=== PATIENT | female | born 1955 | race Caucasian/White ===

== ENCOUNTER → 2020-10-18 12:33 | Outpatient (BNVA) | payer MEDICAID, SELFPAY | PROVIDERS: PCP Internal Medicine; Visit Provider Physician Assistant ==

== ENCOUNTER 2020-11-12 10:44 | Inpatient (IN) | payer MEDICAID, SELFPAY ==
[2020-11-12] VITALS (8 sets, daily range): BP systolic 102–140; BP diastolic 57–88; PULSE 53–80; RESP 13–16; TEMP 36.2–36.9; O2SAT 94–97; BMI 34.9
--- NOTE | ~2020-11-12 | XR_ITS ---
EXAMINATION: XR CHEST CLINICAL INFORMATION: Syncope. COMPARISON: 08/29/10. TECHNIQUE: Frontal view of the chest was obtained. FINDINGS: The lungs are hypoexpanded but clear. No focal consolidation is evident. There is no pulmonary edema. The heart and mediastinal structures are unremarkable. No bony abnormality is seen. XR/XR chest 1V IMPRESSION: Low lung volumes. No abnormality demonstrated.
--- NOTE | ~2020-11-12 | CT_ITS ---
EXAMINATION: CT HEAD WITHOUT CONTRAST CLINICAL INFORMATION: Syncope. COMPARISON: No priors. TECHNIQUE: Contiguous axial imaging was performed from the skull base to vertex without intravenous administration of contrast. This CT examination was performed using dose optimization techniques as appropriate, variously including the following: *Automated exposure control *Adjustment of mA and/or kV according to patient size (this includes techniques or standardized protocols for targeted exams where dose is matched to indication/reason for exam; i.e. extremities or head) *Use of iterative reconstruction technique DLP: 620 mGy-cm FINDINGS: There is no visible soft tissue trauma or skull fracture. There is no acute intracranial hemorrhage, midline shift, mass effect, intra- or extra-axial fluid collection. Fa[place]-white matter differentiation is preserved. The ventricles and sulci are unremarkable. The basal cisterns are patent. The orbital contents are unremarkable bilaterally. Visualized paranasal sinuses and mastoid air cells are clear. CT/CT head/brain wo con IMPRESSION: No acute intracranial pathology.
[2020-11-12 10:52] LABS: Glucose, Whole Blood 98 mg/dL (60-115)
--- NOTE | 2020-11-12 10:54 | ECG_ITS ---
Test Reason : SYNCOPE Blood Pressure : / mmHG Vent. Rate : 053 BPM Atrial Rate : 053 BPM P-R Int : 144 ms QRS Dur : 082 ms QT Int : 474 ms P-R-T Axes : 032 007 038 degrees QTc Int : 444 ms Sinus bradycardia Otherwise normal ECG No significant changes when compared with the previous EKG of 29 aug 2010 Referred By: Choco Bean Electronically Signed By:SANJANA PEREZ
--- NOTE | 2020-11-12 10:55 | ED.SYNCOPE ---
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 65-year-old female came in by ambulance, patient in the morning went out for cigarettes then family found her unresponsive patient claims that she passed out after she smoked a cigarette, family called 911 patient was transported via EMS to the hospital, on arrival to the hospital patient is awake, oriented, responds appropriately to examiner, able to provide history, that patient lost consciousness after she smoked cigarette and vaguely remember going to the ambulance. Patient has been complaining of toothache patient was taking course of antibiotic for it, grandson offer her pain killer pill (none prescribed Percocet). Patient stated that she lost consciousness 1 time yesterday too, patient otherwise declined chest pain, no headache, no neck pain, no abdominal pain. Related Data Home Medications Medication Instructions Recorded Confirmed lisinopril 5 mg tablet 5 mg PO DAILY 10/18/20 10/18/20 atorvastatin 40 mg PO BEDTIME 11/12/20 cholecalciferol (vitamin D3) 50 mcg PO DAILY 11/12/20 levothyroxine 175 mcg PO DAILY 11/12/20 methylcellulose (laxative) [Fiber 500 mg PO BID 11/12/20 Therapy (m-cellulose)] Allergies Allergy/AdvReac Type Severity Reaction Status Date / Time No Known Allergies Allergy Verified 10/18/20 12:34 [No Known Allergies*] Review of Systems Review of Systems: All other systems are reviewed and are negative Constitutional: Reports as per HPI and Reports no additional constitutional complaints Eyes: Reports as per HPI and Reports no additional eye complaints Reports system reviewed and no additional complaints, except as documented Cardiovascular: Reports as per HPI and Reports no additional cardiovascular complaints Respiratory: Reports as per HPI and Reports no additional respiratory complaints Gastrointestinal: Reports as per HPI and Reports no additional gastrointestinal complaints Genitourinary: Reports no additional female genitourinary complaints Musculoskeletal: Reports no additional musculoskeletal complaints Skin/Breast: Reports system reviewed and no additional complaints, except as docu Psychiatric: Reports no additional psychiatric complaints Endocrine: Reports no additional endocrine complaints Hematologic/Lymphatic: Reports no additional hematologic/lymphatic complaints Allergic/Immunologic: Reports no additional allergic/immunologic complaints Reports system reviewed and no additional complaints, except as documented and Reports Abnormal speech present [facility] Past Medical History Medical History Foot contusion Family History Family History Unknown Family history of colon cancer Social History Social History Household Members: Children Alcohol intake: never Smoking Status: Never smoker Advance Directives: No Advance Directives Information Provided: Yes Current occupational status: disabled Physical Exam Vital Signs: Vital Signs: Last Vital Signs Temp 98.1 F 11/12/20 10:54 Pulse 53 11/12/20 10:54 Resp 13 11/12/20 10:54 BP 134/78 11/12/20 10:54 Pulse Ox 96 11/12/20 10:54 Body Mass Index 34.9 Vital signs have been reviewed as appeared to be correct. Blood pressure normal. Heart rate normal. Respiration rate normal. Temperature normal. Oxygen saturation normal. Appearance: Alert. Oriented X3. No acute distress. Head: Normal external exam. Normocephalic. Atraumatic. No Cruz signs noted. No raccoon eyes noted Eyes: PERRLA. EOMI. Conjunctiva and sclera normal. Eyelids normal. ENT: TM's Normal. Pharynx normal. Uvula midline. Moist mucous membranes. No trismus noted. No drooling noted. No muffled voice noted. Neck: Normal inspection. Neck supple. FROM. No adenopathy. Thyroid Normal. No meningeal signs. No neck mass noted. CVS: Normal heart rate and rhythm. Heart sound normal. No murmurs noted. Pulses normal throughout. Respiratory: No respiratory distress. Painless inspiration. Breath sounds normal. No wheezes/rales/rhonchi noted. Chest nontender. No accessory muscle usage noted or decreased air movement noted. Abdomen: Soft and nontender. Bowel sounds normal in all 4 quadrants. No distention noted. No organomegaly noted. No visible injury noted. Back: No CVA tenderness. Full range of motion noted. Skin: Skin warm and dry. Normal skin color. Normal skin turgor. No rashes/lesions/lacerations noted. Extremities: No lower extremity edema. Extremities exhibit normal range of motion. Extremities nontender. Neuro: Oriented X 3. No motor deficit. No sensory deficit. Reflexes normal. NIH Stroke Scale Level of Consciousness: Alert Level of Consciousness Questions: Answers both questions correctly Level of Consciousness Commands: Performs both tasks correctly Best Gaze: Normal Visual: No visual loss Facial Palsy: Normal Motor Arm (Right): No drift Motor Arm (Left): No drift Motor Leg (Right): No drift Motor Leg (Left): No drift Limb Ataxia: Absent Sensory: Normal Best Language: No aphasia Dysarthia: Normal Extinction and Inattention: No abnormality Score: 0 Course Course Course Narrative: Assessment and plan. 65-year-old female been having toothache/tooth infection, patient was seen by a dentist and was prescribed antibiotic course, patient was offered by her grandson a [place] medicine to control her pain, patient also took pain medication from her sister thought to be tramadol, the patient had some dizziness and lightheadedness and loss of consciousness. Will admit patient for observation, cardiac monitoring. MDM - Syncope Lab Data Attestation: I reviewed the patient's lab results. Result diagrams: 11/12/20 10:59 11/12/20 10:59 Labs: Lab Results 11/12/20 11/12/20 11/12/20 Range/Units 10:48 10:59 10:59 WBC 7.0 (4.8-10.8) X10*3/uL RBC 4.29 (4.20-5.50) X10*6/uL Hgb 13.2 (12.0-16.0) g/dl Hct 42.2 (37-47) % MCV 98.4 H (80-98) fL MCH 30.8 (27.0-33.0) pg MCHC 31.3 (31.0-35.0) g/dl RDW 14.7 (11.0-16.0) % Plt Count 316 (160-400) X10*3/uL MPV 12.5 H (9.4-12.3) fL Immature Gran % (Auto) 0.7 H (0.0-0.4) % Neut % (Auto) 68.0 (45-73) % Lymph % (Auto) 20.3 (20-40) % [place] % (Auto) 8.7 (2-11) % Eos % (Auto) 1.4 (0-4) % Baso % (Auto) 0.9 (0-2) % Lymph # (Auto) 1.4 (1.2-4.9) X10*3/uL [place] # (Auto) 0.6 (0.1-1.2) X10*3/uL Eos # (Auto) 0.1 (0.0-0.4) X10*3/uL Baso # (Auto) 0.1 (0.0-0.2) X10*3/uL Abs Immat Gran (auto) 0.05 H (0.00-0.03) X10*3/uL Absolute Neuts (auto) 4.8 (2.0-8.3) X10*3/uL Absolute Nucleated RBC 0.000 (0.0-0.012) X10*3/uL Nucleated RBC % (auto) 0.0 (0.0-0.2) /100WBC Sodium 138 (135-145) mmol/L Potassium 4.4 (3.3-5.1) mmol/L Chloride 100 (96-108) mmol/L Carbon Dioxide 27 (22-29) mmol/L Anion Gap 15 (12-20) BUN 19 H (9-16) mg/dL Creatinine 1.24 (0.5-1.4) mg/dL Estim Creat Clear Calc 46.8 Estimated GFR 44 POC Glucose 98 (60-115) mg/dL Random Glucose 141 H (60-115) mg/dL Calcium 9.1 (8.4-10.2) mg/dL Total Bilirubin 0.4 (0.0-1.0) mg/dL Direct Bilirubin < 0.2 (0.0-0.5) mg/dL AST 26 (5-31) U/L ALT 20 (0-31) U/L Alkaline Phosphatase 53 (39-117) U/L Troponin I High Sens (<3.5-17.0) ng/L B-Natriuretic Peptide (<100) pg/mL Total Protein 8.9 H (6.5-8.0) g/dL Albumin 4.5 (3.5-5.0) g/dL Lipase 36 (8-78) U/L COVID-19 ([facility]) (Negative) COVID-19 Clin Com 11/12/20 11/12/20 Range/Units 10:59 10:59 WBC (4.8-10.8) X10*3/uL RBC (4.20-5.50) X10*6/uL Hgb (12.0-16.0) g/dl Hct (37-47) % MCV (80-98) fL MCH (27.0-33.0) pg MCHC (31.0-35.0) g/dl RDW (11.0-16.0) % Plt Count (160-400) X10*3/uL MPV (9.4-12.3) fL Immature Gran % (Auto) (0.0-0.4) % Neut % (Auto) (45-73) % Lymph % (Auto) (20-40) % [place] % (Auto) (2-11) % Eos % (Auto) (0-4) % Baso % (Auto) (0-2) % Lymph # (Auto) (1.2-4.9) X10*3/uL [place] # (Auto) (0.1-1.2) X10*3/uL Eos # (Auto) (0.0-0.4) X10*3/uL Baso # (Auto) (0.0-0.2) X10*3/uL Abs Immat Gran (auto) (0.00-0.03) X10*3/uL Absolute Neuts (auto) (2.0-8.3) X10*3/uL Absolute Nucleated RBC (0.0-0.012) X10*3/uL Nucleated RBC % (auto) (0.0-0.2) /100WBC Sodium (135-145) mmol/L Potassium (3.3-5.1) mmol/L Chloride (96-108) mmol/L Carbon Dioxide (22-29) mmol/L Anion Gap (12-20) BUN (9-16) mg/dL Creatinine (0.5-1.4) mg/dL Estim Creat Clear Calc Estimated GFR POC Glucose (60-115) mg/dL Random Glucose (60-115) mg/dL Calcium (8.4-10.2) mg/dL Total Bilirubin (0.0-1.0) mg/dL Direct Bilirubin (0.0-0.5) mg/dL AST (5-31) U/L ALT (0-31) U/L Alkaline Phosphatase (39-117) U/L Troponin I High Sens < 3.5 (<3.5-17.0) ng/L B-Natriuretic Peptide 13 (<100) pg/mL Total Protein (6.5-8.0) g/dL Albumin (3.5-5.0) g/dL Lipase (8-78) U/L COVID-19 ([facility]) Negative (Negative) COVID-19 Clin Com See Note Imaging Data Chest x-ray: Radiologist's impression: Low lung volumes. No abnormality demonstrated. CT scan - head: Radiologist's impression: No acute intracranial pathology. ECG Data Interpretation: Sinus bradycardia at 53 beats per minutes, normal axis deviation, normal intervals, nonspecific T-wave flattening in leadIII, AVF, V4. Discharge Plan Discharge Clinical Impression: Syncope and collapse Patient Disposition: Admitted As Inpatient Prescriptions: No Action atorvastatin 40 mg tablet 40 mg PO BEDTIME RF: 0 levothyroxine 175 mcg tablet 175 mcg PO DAILY RF: 0 cholecalciferol (vitamin D3) 50 mcg (2,000 unit) capsule 50 mcg PO DAILY RF: 0 Fiber Therapy (m-cellulose) 500 mg tablet 500 mg PO BID RF: 0 lisinopril 5 mg tablet 5 mg PO DAILY RF: 0
[2020-11-12 11:03] LABS: MANUAL DIFF FLAG NO
[2020-11-12] MEDS: 0.9 % Sodium Chloride 1,000 ML 999 ML IVCONT (11:04)
[2020-11-12 11:11] LABS: Basophils Absolute Auto 0.1 X10*3/uL (0.0-0.2); Basophils Percent Auto 0.9 % (0-2); Eosinophils Absolute Auto 0.1 X10*3/uL (0.0-0.4); Eosinophils Percent Auto 1.4 % (0-4); Hematocrit 42.2 % (37-47); Hemoglobin 13.2 g/dl (12.0-16.0); Imm Gran Abs Auto 0.05 X10*3/uL (0.00-0.03); Imm Gran Pct Auto 0.7 % (0.0-0.4); Lymphocytes Absolute Auto 1.4 X10*3/uL (1.2-4.9); Lymphocytes Percent Auto 20.3 % (20-40); Mean Corpuscular HGB Conc 31.3 g/dl (31.0-35.0); Mean Corpuscular Hemoglobin 30.8 pg (27.0-33.0); Mean Corpuscular Volume 98.4 fL (80-98); Mean Platelet Volume 12.5 fL (9.4-12.3); Monocytes Absolute Auto 0.6 X10*3/uL (0.1-1.2); Monocytes Percent Auto 8.7 % (2-11); Neutrophils Absolute Auto 4.8 X10*3/uL (2.0-8.3); Platelet Count 316 X10*3/uL (160-400); Red Blood Count 4.29 X10*6/uL (4.20-5.50); Red Cell Distribution Width 14.7 % (11.0-16.0)
[2020-11-12 11:21] LABS: COVID-19 Test Negative (Negative); IDNOW Serial# 9DD0AD1C
[2020-11-12 11:28] LABS: Alanine Aminotransferase 20 U/L (0-31); Albumin Level 4.5 g/dL (3.5-5.0); Alkaline Phosphatase 53 U/L (39-117); Anion Gap 15 (12-20); Aspartate Amino Transferase 26 U/L (5-31); Bilirubin Direct < 0.2 mg/dL (0.0-0.5); Bilirubin Total 0.4 mg/dL (0.0-1.0); Blood Urea Nitrogen 19 mg/dL (9-16); Calcium 9.1 mg/dL (8.4-10.2); Carbon Dioxide 27 mmol/L (22-29); Chloride 100 mmol/L (96-108); Creatinine Clr Calc Pharmacy 46.8; Estimated Glomerular Filt Rate 44; Glucose Random 141 mg/dL (60-115); Lipase 36 U/L (8-78); Potassium 4.4 mmol/L (3.3-5.1); Sodium 138 mmol/L (135-145); Total Protein 8.9 g/dL (6.5-8.0)
[2020-11-12 11:29] LABS: B Type Natriuretic Peptide 13 pg/mL (<100); Troponin-I High Sensitivity < 3.5 ng/L (<3.5-17.0)
[2020-11-12 12:41] LABS: Glucose Urine UA NEG (NEG); Leukocyte Esterase Urine NEG (NEG); Nitrite Urine NEG (NEG); PH 6.5 (5.0-8.0); Specific Gravity - Urine 1.025 (1.005-1.025); Urine Blood NEG (NEG); Urine Ketones NEG (NEG); Urine Protein 1+ MG/DL (NEG-TRACE)
[2020-11-12 12:46] LABS: Appearance Urine CLEAR; Color Urine YELLOW
[2020-11-12 13:01] LABS: Bacteria Urine 1+ /LPF; Hyaline Casts Urine 0-2 /LPF; RBC Urine 0 /HPF (0); Squamous Epithelial Cell Urine 2+ /LPF; WBC Urine 0 /HPF (0-4)
[2020-11-12 13:09] LABS: Amphetamine Screen Urine Not Detected (Not Detect); Barbiturates, Urine Not Detected (Not Detect); Benzodiazepines Screen Urine Not Detected (Not Detect); Cannabinoid Screen Urine Not Detected (Not Detect); Cocaine Screen Urine Not Detected (Not Detect); Opiate Screen Urine Not Detected (Not Detect); Phencyclidine Screen Urine Not Detected (Not Detect)
--- NOTE | 2020-11-12 13:41 | P.HPHOSP_ITS ---
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 Apparently she had some dental procedure approximately 4 days ago and was in pain. One of her family members when out and bought [address] Unfortunately the family is unable to identify what the name the pills were but the patient did take them. She initially went outside early in the morning to smoke cigarette and felt dizzy. She went back inside and sometime later went back outside to have another cigarette and then collapsed. Apparently the patient did not have any trauma when she fell and did not hit her head. She was noted to have some swelling of her upper lip at the family reported that that started today unsure if that was related to the fall or something else. She had been treated with amoxicillin for a dental infection for 7 days in it appears that the treatment was completed. Patient's family denied that they saw any seizure activity. Patient was out for several minutes. In the ED, she was given 1 L of IV fluid. She will be placed on observation for management of syncope. Review of Systems Review of Systems: Denies any recent fever chills or decrease in appetite respiratory denies any shortness of breath coverage production cardiovascular is adjustment of any PND or edema gastrointestinal denies any dysphagia abdominal pain nausea vomiting or diarrhea genitourinary denies any dysuria frequency or hematuria musculoskeletal denies any joint pain or swelling neuropsych denies any weakness or seizures all other systems reviewed are negative [facility] Medical History Foot contusion Family History Unknown Family history of colon cancer Social History Household Members: Children Alcohol intake: never Smoking Status: Never smoker Advance Directives: No Advance Directives Information Provided: Yes Current occupational status: disabled Meds Allergies Allergy/AdvReac Type Severity Reaction Status Date / Time No Known Allergies Allergy Verified 10/18/20 12:34 [No Known Allergies*] Active Medications: Current Medications Generic Name Dose Route Start Last Admin Trade Name Freq PRN Reason Stop Dose Admin Pharmacy Consult 1 each 11/12/20 10:53 Consult Rx Perform Med Rec MISCELLANE ONCE PRN Consult order Home Medications Medication Instructions Recorded Confirmed Last Taken Type lisinopril 5 mg tablet 5 mg PO DAILY 10/18/20 11/12/20 Unknown History atorvastatin 40 mg PO BEDTIME 11/12/20 11/12/20 Unknown History cholecalciferol (vitamin D3) 50 mcg PO DAILY 11/12/20 11/12/20 Unknown History levothyroxine 175 mcg PO DAILY 11/12/20 11/12/20 Unknown History Physical Exam Vital Signs and Narrative: Vital Signs: Last Vital Signs Temp 98.1 F 11/12/20 10:54 Pulse 53 11/12/20 10:54 Resp 13 11/12/20 10:54 BP 134/78 11/12/20 10:54 Pulse Ox 96 11/12/20 10:54 Body Mass Index 34.9 Appearing in no acute distress head is normocephalic atraumatic eyes pupils are PERRLA sclera is anicteric mouth throat mucous membranes are intact and moist neck is supple no lymphadenopathy, no JVD noted lung sounds are clear to auscultation heart regular rate rhythm, clear S1, S2 positive bowel sounds, abdomen is soft, nontender neuro patient is alert x3, no focal deficits Results Labs CBC and Chem 7: 11/12/20 10:59 11/12/20 10:59 Labs: Laboratory Results - last 24 hr 11/12/20 11/12/20 11/12/20 10:48 10:59 10:59 MCV 98.4 H MCH 30.8 MCHC 31.3 RDW 14.7 Plt Count 316 MPV 12.5 H Immature Gran % (Auto) 0.7 H Neut % (Auto) 68.0 Lymph % (Auto) 20.3 [place] % (Auto) 8.7 Eos % (Auto) 1.4 Baso % (Auto) 0.9 Lymph # (Auto) 1.4 [place] # (Auto) 0.6 Eos # (Auto) 0.1 Baso # (Auto) 0.1 Abs Immat Gran (auto) 0.05 H Absolute Neuts (auto) 4.8 Absolute Nucleated RBC 0.000 Nucleated RBC % (auto) 0.0 Anion Gap 15 Estim Creat Clear Calc 46.8 Estimated GFR 44 POC Glucose 98 Random Glucose 141 H Calcium 9.1 Total Bilirubin 0.4 Direct Bilirubin < 0.2 AST 26 ALT 20 Alkaline Phosphatase 53 Troponin I High Sens B-Natriuretic Peptide Total Protein 8.9 H Albumin 4.5 Lipase 36 Urine Color Urine Appearance Urine pH Ur Specific [place] Urine Protein Urine Glucose (UA) Urine Ketones Urine Blood Urine Nitrite Ur Leukocyte Esterase Urine RBC Urine WBC Ur Squamous Epith Cells Urine Bacteria Hyaline Casts Urine Opiates Screen Ur Barbiturates Screen Ur Phencyclidine Scrn Ur Amphetamines Screen U Benzodiazepines Scrn Urine Cocaine Screen U Marijuana (THC) Screen COVID-19 ([facility]) COVID-19 Clin Com 11/12/20 11/12/20 11/12/20 10:59 10:59 12:25 MCV MCH MCHC RDW Plt Count MPV Immature Gran % (Auto) Neut % (Auto) Lymph % (Auto) [place] % (Auto) Eos % (Auto) Baso % (Auto) Lymph # (Auto) [place] # (Auto) Eos # (Auto) Baso # (Auto) Abs Immat Gran (auto) Absolute Neuts (auto) Absolute Nucleated RBC Nucleated RBC % (auto) Anion Gap Estim Creat Clear Calc Estimated GFR POC Glucose Random Glucose Calcium Total Bilirubin Direct Bilirubin AST ALT Alkaline Phosphatase Troponin I High Sens < 3.5 B-Natriuretic Peptide 13 Total Protein Albumin Lipase Urine Color YELLOW Urine Appearance CLEAR Urine pH 6.5 Ur Specific [place] 1.025 Urine Protein 1+ H Urine Glucose (UA) NEG Urine Ketones NEG Urine Blood NEG Urine Nitrite NEG Ur Leukocyte Esterase NEG Urine RBC 0 Urine WBC 0 Ur Squamous Epith Cells 2+ Urine Bacteria 1+ Hyaline Casts 0-2 Urine Opiates Screen Ur Barbiturates Screen Ur Phencyclidine Scrn Ur Amphetamines Screen U Benzodiazepines Scrn Urine Cocaine Screen U Marijuana (THC) Screen COVID-19 ([facility]) Negative COVID-19 Clin Com See Note 11/12/20 12:25 MCV MCH MCHC RDW Plt Count MPV Immature Gran % (Auto) Neut % (Auto) Lymph % (Auto) [place] % (Auto) Eos % (Auto) Baso % (Auto) Lymph # (Auto) [place] # (Auto) Eos # (Auto) Baso # (Auto) Abs Immat Gran (auto) Absolute Neuts (auto) Absolute Nucleated RBC Nucleated RBC % (auto) Anion Gap Estim Creat Clear Calc Estimated GFR POC Glucose Random Glucose Calcium Total Bilirubin Direct Bilirubin AST ALT Alkaline Phosphatase Troponin I High Sens B-Natriuretic Peptide Total Protein Albumin Lipase Urine Color Urine Appearance Urine pH Ur Specific [place] Urine Protein Urine Glucose (UA) Urine Ketones Urine Blood Urine Nitrite Ur Leukocyte Esterase Urine RBC Urine WBC Ur Squamous Epith Cells Urine Bacteria Hyaline Casts Urine Opiates Screen Not Detected Ur Barbiturates Screen Not Detected Ur Phencyclidine Scrn Not Detected Ur Amphetamines Screen Not Detected U Benzodiazepines Scrn Not Detected Urine Cocaine Screen Not Detected U Marijuana (THC) Screen Not Detected COVID-19 ([facility]) COVID-19 Clin Com Imaging Radiologist's Impressions: Impressions Chest X-Ray 11/12/20 10:54 IMPRESSION: Low lung volumes. No abnormality demonstrated. Head CT 11/12/20 10:54 IMPRESSION: No acute intracranial pathology. Assessment and Plan (1) Syncope and collapse: Status: Acute 65 year old women admitted after an episode of syncope at home after taking 2 pills of unknown name that was given to her for tooth pain. She apparently had loss of consciousness for several minutes but no seizure activity was noted. #Syncope rule out seizure vs arrythmia vs overdose. -Orthostatic blood pressures -monitor on telemetry to rule out arrythmia -EEG -Utox negative #Hypertension. Stable -continue Lisinopril #Hypothyroidism -Continue Levothyroxine #Hyperlipidemia -Continue statin Attending: Dr. Pitts Full code
--- NOTE | 2020-11-12 14:44 | P.EN_ITS ---
Event Note Date of Service: 11/12/20 Event Note: addendum to history and physical by RIG BUILDER HELPER Louise Carroll I interviewed and examined the patient. I discussed their presentation and management with the mid-level provider. I reviewed the history and physical and agree with the documentation, with the following additions and corrections: History taken in English from pt and her 2 daughters 65yo F with HTN, hypothyroidism, HLD and recent ongoing dental infection currently on amoxicillin had 2 sequential syncopal episodes preceded by dizziness/lightheadedness. There were no shaking movements. family member had bought some pills off the street to give the patient for dental pain that the pt's daughters think may have been Percocet, though her Utox was negative. Currently feels well; denies headache, chest pain, or lightheadedness. On exam, she is in NAD, alert, oriented. PERRL. Lungs clear. CV RRR no m/r/g. Poor dentition noted. Neurological exam non-focal. EKG sinus braydcardia. CT head negative. TSH is undersuppressed at 72. Plan to admit to observation. Suspect syncope related to ingestion of unknown substance but will place on director of cardiac cath lab and check orthostatic vital signs; consider EEG. No specific toxidrome noted at this point. Uncontrolled hypothyroidism could be constributing. Increase LT4 from 175 to 200 mcg and recheck TSH in 4 weekis. Continue lisinopril, statin.
[2020-11-12 15:28] LABS: Thyroid Stimulating Hormone 71.75 uIU/mL (0.32-4.0)
[2020-11-12] MEDS: Atorvastatin Calcium 40 MG TABLET PO (21:06)
[2020-11-12] MEDS: Flu Vacc QS2020-21(6mos up)/PF 0.5 ML SYRINGE IM (22:27)
[2020-11-13] VITALS (10 sets, daily range): BP systolic 100–126; BP diastolic 55–80; PULSE 53–75; RESP 16–20; TEMP 35.8–36.6; O2SAT 96–97
[2020-11-13] MEDS: Levothyroxine Sodium 175 MCG TABLET 200 MCG PO (05:18)
[2020-11-13 05:53] LABS: MANUAL DIFF FLAG NO
[2020-11-13 05:59] LABS: Basophils Absolute Auto 0.1 X10*3/uL (0.0-0.2); Basophils Percent Auto 0.5 % (0-2); Eosinophils Absolute Auto 0.2 X10*3/uL (0.0-0.4); Eosinophils Percent Auto 2.1 % (0-4); Hematocrit 39.7 % (37-47); Hemoglobin 12.6 g/dl (12.0-16.0); Imm Gran Abs Auto 0.04 X10*3/uL (0.00-0.03); Imm Gran Pct Auto 0.4 % (0.0-0.4); Lymphocytes Absolute Auto 2.4 X10*3/uL (1.2-4.9); Lymphocytes Percent Auto 25.6 % (20-40); Mean Corpuscular HGB Conc 31.7 g/dl (31.0-35.0); Mean Corpuscular Hemoglobin 31.3 pg (27.0-33.0); Mean Corpuscular Volume 98.5 fL (80-98); Mean Platelet Volume 12.8 fL (9.4-12.3); Monocytes Absolute Auto 0.8 X10*3/uL (0.1-1.2); Neutrophils Absolute Auto 5.8 X10*3/uL (2.0-8.3); Neutrophils Percent Auto 62.4 % (45-73); Platelet Count 307 X10*3/uL (160-400); Red Blood Count 4.03 X10*6/uL (4.20-5.50); Red Cell Distribution Width 14.8 % (11.0-16.0); White Blood Count 9.3 X10*3/uL (4.8-10.8)
[2020-11-13 06:20] LABS: Anion Gap 14 (12-20); Blood Urea Nitrogen 20 mg/dL (9-16); Calcium 9.3 mg/dL (8.4-10.2); Carbon Dioxide 26 mmol/L (22-29); Chloride 105 mmol/L (96-108); Creatinine Clr Calc Pharmacy 53.2; Estimated Glomerular Filt Rate 51; Glucose Random 95 mg/dL (60-115); Potassium 4.1 mmol/L (3.3-5.1); Sodium 141 mmol/L (135-145)
[2020-11-13] MEDS: lisinopriL 5 MG TABLET PO (08:07)
[2020-11-13] MEDS: Cholecalciferol (Vitamin D3) 25 MCG TABLET 50 MCG PO (08:07)
[2020-11-13] MEDS: 0.9 % Sodium Chloride Flush 3 ML SYRINGE IVFLUSH (08:08)
--- NOTE | 2020-11-13 10:12 | MHC.CM.PN ---
CM met with patient with a air value tester who reports she is independent and lives with her dtr. Patient states she does have a HCP dtr Jacki Carr [phone], copy requested. Discussed discharge plan, home no services. Dtr will provide transportation. PCP is at [facility]. CM will continue to follow patient for discharge needs.
--- NOTE | 2020-11-13 11:53 | MHC.CM.PN ---
Patient will be discharged home today, no services. Dtr will provide transportation.
--- NOTE | 2020-11-13 12:31 | PM.DS ---
DS: Providers Provider Date of Service: 11/13/20 Date of admission: 11/12/20 15:17 Date of discharge: 11/13/20 Primary care physician: [facility] Admitting clinician: Louise Carroll Attending physician on admission: Adrianna Pitts Attending physician on discharge: Yong Haque Discharging clinician: Yong Haque DS: Diagnosis Discharge Diagnosis (1) Syncope and collapse: Status: Acute DS: Medications Discharge Medications Home Medications: Home Medications Medication Instructions Recorded Confirmed lisinopril 5 mg tablet 5 mg PO DAILY 10/18/20 11/12/20 atorvastatin 40 mg PO BEDTIME 11/12/20 11/12/20 cholecalciferol (vitamin D3) 50 mcg PO DAILY 11/12/20 11/12/20 levothyroxine 175 mcg PO DAILY 11/12/20 11/12/20 DS: Summary Hospital Course Hospital Course: HP as per admitting provider 65-year-old Persian-speaking man presenting to the ER after an episode passing out. Apparently she had some dental procedure approximately 4 days ago and was in pain. One of her family members when out and bought [address] Unfortunately the family is unable to identify what the name the pills were but the patient did take them. She initially went outside early in the morning to smoke cigarette and felt dizzy. She went back inside and sometime later went back outside to have another cigarette and then collapsed. Apparently the patient did not have any trauma when she fell and did not hit her head. She was noted to have some swelling of her upper lip at the family reported that that started today unsure if that was related to the fall or something else. She had been treated with amoxicillin for a dental infection for 7 days in it appears that the treatment was completed. Patient's family denied that they saw any seizure activity. Patient was out for several minutes. In the ED, she was given 1 L of IV fluid. She will be placed on observation for management of syncope . Syncope. Episode after taking 2 pills that she received from her nephew that was assumed to be percocet. She had dental work 4 days prior and had pain. She collapsed while being outside smoking a cigarette. EKG showed sinus bradycardia, QTC 444, no changes on telemetry, so orthostasis and no further episodes of syncope. She is encouraged to avoid narcotic medication that is not prescribed from a medical provider. Hypothyrodisim. TSH 71.75, recently had levothyroxine increased to 175 mcg, patient to follow up with primary care provider. Attending: Dr. Haque Time Spent with Patient Time attestation: Total time spent providing and/or coordinating discharge services: Discharge coordination time: Greater than 30 minutes Physical Exam Vital Signs: Vital Signs: Last Vital Signs Temp 96.5 F L 11/13/20 11:21 Pulse 57 11/13/20 11:21 Resp 18 11/13/20 11:21 BP 100/57 L 11/13/20 11:21 Pulse Ox 97 11/13/20 11:21 Body Mass Index 34.9 Appearing in no acute distress head is normocephalic atraumatic eyes pupils are PERRLA sclera is anicteric mouth throat mucous membranes are intact and moist neck is supple no lymphadenopathy, no JVD noted lung sounds are clear to auscultation heart regular rate rhythm, clear S1, S2 positive bowel sounds, abdomen is soft, nontender neuro patient is alert x3, no focal deficits DS: Data Data Completed and Pending Labs on day of discharge: Laboratory Results - last 24 hr 11/12/20 11/12/20 11/12/20 10:59 12:25 12:25 WBC RBC Hgb Hct MCV MCH MCHC RDW Plt Count MPV Immature Gran % (Auto) Neut % (Auto) Lymph % (Auto) [place] % (Auto) Eos % (Auto) Baso % (Auto) Lymph # (Auto) [place] # (Auto) Eos # (Auto) Baso # (Auto) Abs Immat Gran (auto) Absolute Neuts (auto) Absolute Nucleated RBC Nucleated RBC % (auto) Sodium Potassium Chloride Carbon Dioxide Anion Gap BUN Creatinine Estim Creat Clear Calc Estimated GFR Random Glucose Calcium TSH 71.75 H Urine Color YELLOW Urine Appearance CLEAR Urine pH 6.5 Ur Specific [place] 1.025 Urine Protein 1+ H Urine Glucose (UA) NEG Urine Ketones NEG Urine Blood NEG Urine Nitrite NEG Ur Leukocyte Esterase NEG Urine RBC 0 Urine WBC 0 Ur Squamous Epith Cells 2+ Urine Bacteria 1+ Hyaline Casts 0-2 Urine Opiates Screen Not Detected Ur Barbiturates Screen Not Detected Ur Phencyclidine Scrn Not Detected Ur Amphetamines Screen Not Detected U Benzodiazepines Scrn Not Detected Urine Cocaine Screen Not Detected U Marijuana (THC) Screen Not Detected 11/13/20 11/13/20 05:35 05:35 WBC 9.3 RBC 4.03 L Hgb 12.6 Hct 39.7 MCV 98.5 H MCH 31.3 MCHC 31.7 RDW 14.8 Plt Count 307 MPV 12.8 H Immature Gran % (Auto) 0.4 Neut % (Auto) 62.4 Lymph % (Auto) 25.6 [place] % (Auto) 9.0 Eos % (Auto) 2.1 Baso % (Auto) 0.5 Lymph # (Auto) 2.4 [place] # (Auto) 0.8 Eos # (Auto) 0.2 Baso # (Auto) 0.1 Abs Immat Gran (auto) 0.04 H Absolute Neuts (auto) 5.8 Absolute Nucleated RBC 0.000 Nucleated RBC % (auto) 0.0 Sodium 141 Potassium 4.1 Chloride 105 Carbon Dioxide 26 Anion Gap 14 BUN 20 H Creatinine 1.09 Estim Creat Clear Calc 53.2 Estimated GFR 51 Random Glucose 95 Calcium 9.3 TSH Urine Color Urine Appearance Urine pH Ur Specific [place] Urine Protein Urine Glucose (UA) Urine Ketones Urine Blood Urine Nitrite Ur Leukocyte Esterase Urine RBC Urine WBC Ur Squamous Epith Cells Urine Bacteria Hyaline Casts Urine Opiates Screen Ur Barbiturates Screen Ur Phencyclidine Scrn Ur Amphetamines Screen U Benzodiazepines Scrn Urine Cocaine Screen U Marijuana (THC) Screen Discharge Plan Discharge Anticipated Discharge Date/Time: 11/13/20 11:43 Patient Disposition: Home, Self-Care Referrals: [facility] [Primary Care Provider] - Discharge Medications: Continued atorvastatin 40 mg tablet 40 mg PO BEDTIME RF: 0 levothyroxine 175 mcg tablet 175 mcg PO DAILY RF: 0 cholecalciferol (vitamin D3) 50 mcg (2,000 unit) capsule 50 mcg PO DAILY RF: 0 lisinopril 5 mg tablet 5 mg PO DAILY RF: 0 Discharge Orders: Discharge Order (Routine); Ordered 11/13/20 Ordered By: Louise Carroll Diet: advance to usual diet Activity on Discharge: As tolerated Stand Alone Forms: Patient Portal Discharge page Care Plan Goals: No further episodes of syncope Health Concerns: Syncope Plan of Treatment: Follow up with primary care provider within one week Do not taking narcotic medication that is not prescribed by a medical provider
== END 2020-11-13 13:22 | disposition home or self-care (01) | DRG 204 ==
LOC: HO.ED 12:30 → HO.EDOVER 15:28 → HO.IMC 19:31
PROVIDERS: Nurse Practitioner Acute Care; Admitting Provider Family Medicine; Emergency Provider Emergency Medicine; Visit Provider Family Medicine
DX: R55 Syncope and collapse (principal); E03.9 Hypothyroidism, unspecified; E78.5 Hyperlipidemia, unspecified; F17.210 Nicotine dependence, cigarettes, uncomplicated; I10 Essential (primary) hypertension; Z71.6 Tobacco abuse counseling; Z23 Encounter for immunization; Z79.890 Hormone replacement therapy; Z79.899 Other long term (current) drug therapy
CPT/HCPCS: 36415; 70450; 71045; 80048; 80076; 80307; 81001; 82947; 83690; 83880; 84443; 84484; 85025; 87635; 90686; 93005; 99219; 99285

== ENCOUNTER 2020-11-16 13:58 | Emergency (ER) | payer MEDICAID, SELFPAY ==
--- NOTE | ~2020-11-16 | CT_ITS ---
EXAMINATION: CT HEAD WITHOUT CONTRAST CLINICAL INFORMATION: Unresponsive. COMPARISON: CT head non-contrast 11/12/2020 TECHNIQUE: Contiguous axial imaging was performed from the skull base to vertex without intravenous administration of contrast. This CT examination was performed using dose optimization techniques as appropriate, variously including the following: *Automated exposure control *Adjustment of mA and/or kV according to patient size (this includes techniques or standardized protocols for targeted exams where dose is matched to indication/reason for exam; i.e. extremities or head) *Use of iterative reconstruction technique DLP: 691 mGy-cm FINDINGS: There is an acute large right hemispheric intraparenchymal hemorrhage with primary hematoma measuring approximately 7.6 cm AP, 3.6 cm in width, and 5.6 cm in height. There is also some scattered hemorrhage in the right basal ganglia, intraventricular hemorrhage, and mild subarachnoid hemorrhage in region of right sylvian fissure and suprasellar cistern. There is surrounding circumferential edema and effacement of the right cerebral cortical sulci. There is subfalcine herniation right to left by at least 0.6 cm. There is no hydrocephalus. Scattered left valencia-white matter differentiation is stable. There are atrophic changes cerebellum again seen. The calvarium appears intact. There is no pneumocephalus or orbital emphysema. The visualized sinuses and middle ears and mastoid air cells show no significant mucosal thickening. There are no air-fluid levels. Results called and discussed with Dr. Botello in the emergency department at [address]/CT head/brain wo con IMPRESSION: Large acute right hemispheric intraparenchymal hemorrhage with associated intraventricular and mild subarachnoid hemorrhage. Surrounding edema, effacement cortical sulci, and mild subfalcine herniation.
--- NOTE | ~2020-11-16 | XR_ITS ---
EXAMINATION: XR CHEST CLINICAL INFORMATION: Unresponsive COMPARISON: Chest 11/12/2020 TECHNIQUE: Frontal view of the chest was obtained. FINDINGS: No significant abnormality is noted involving the heart, lungs, mediastinum, bony thorax or soft tissues. XR/XR chest 1V IMPRESSION: Unremarkable chest examination.
[2020-11-16 14:09] VITALS: BP 161/101; BP 174/103; PULSE 70; PULSE 98; RESP 13; TEMP 34.8; O2SAT 97; BMI 32.9
--- NOTE | 2020-11-16 14:23 | ED_ITS ---
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 Patient on arrival to the ED is semi responsive, follows some commands. Two days ago patient was seen for similar presentation and patient was hospitalized after 1 day monitoring in the hospital. Related Data Home Medications Medication Instructions Recorded Confirmed lisinopril 5 mg tablet 5 mg PO DAILY 10/18/20 11/15/20 atorvastatin 40 mg PO BEDTIME 11/12/20 11/15/20 cholecalciferol (vitamin D3) 50 mcg PO DAILY 11/12/20 11/15/20 levothyroxine 175 mcg PO DAILY 11/12/20 11/15/20 methylcellulose (laxative) [Fiber 1 tab PO BID 11/15/20 11/15/20 Therapy (m-cellulose)] Allergies Allergy/AdvReac Type Severity Reaction Status Date / Time No Known Allergies Allergy Verified 11/15/20 11:30 [No Known Allergies*] Review of Systems Review of Systems: Yes Unobtainable due to mental condition PMFSH Past Medical History Medical History Asthma Elevated cholesterol Foot contusion HTN (hypertension) Hypothyroidism Surgical History History of ankle surgery Family History Family History Unknown Family history of colon cancer Social History Social History Household Members: Other Housing: Apartment Alcohol intake: never Smoking Status: Current every day smoker Tobacco Type: Cigarette Packs Per Day: 0 Cigarettes Per Day: 1 Second Hand Smoke Exposure: No Advance Directives: No Advance Directives Information Provided: No service: No Current occupational status: disabled Physical Exam Vital Signs: Vital Signs: Last Vital Signs Temp 98 F 11/16/20 14:28 Pulse 88 11/16/20 14:28 Resp 18 11/16/20 14:28 BP 126/62 11/16/20 14:28 Pulse Ox 97 11/16/20 14:28 Body Mass Index 38.9 Vital signs have been reviewed as appeared to be correct. Blood pressure in the high range. Heart rate normal. Respiration rate normal. Temperature normal. Oxygen saturation normal. Appearance: Patient is semi conscious respond to examiner intermittently, No acute distress. Head: Normal external exam. Normocephalic. Atraumatic. No Cruz signs noted. No raccoon eyes noted Eyes: PERRLA. EOMI. Conjunctiva and sclera normal. Eyelids normal. ENT: TM's Normal. Pharynx normal. Uvula midline. Moist mucous membranes. No trismus noted. No drooling noted. No muffled voice noted. Neck: Normal inspection. Neck supple. FROM. No adenopathy. Thyroid Normal. No meningeal signs. No neck mass noted. CVS: Normal heart rate and rhythm. Heart sound normal. No murmurs noted. Pulses normal throughout. Respiratory: No respiratory distress. Painless inspiration. Breath sounds normal. No wheezes/rales/rhonchi noted. Chest nontender. No accessory muscle usage noted or decreased air movement noted. Abdomen: Soft and nontender. Bowel sounds normal in all 4 quadrants. No distention noted. No organomegaly noted. No visible injury noted. Back: No CVA tenderness. Full range of motion noted. Skin: Skin warm and dry. Normal skin color. Normal skin turgor. No rashes/lesions/lacerations noted. Extremities: No lower extremity edema. Extremities exhibit normal range of motion. Extremities nontender. Neuro: No motor deficit. No sensory deficit. Reflexes normal. Course Course Course Narrative: Assessment and plan. 65-year-old female came in semi responsive after having dental extraction (6 teeth were removed), no witnessed seizure activity but patient had urinary incontinence, patient had similar presentation few days ago secondary to dental pain and patient was observed in the hospital for [address] in a emergency department of the head showed parenchyma right thalamic bleed likely due to hypertension. Blood pressure now is 150/90 needed no antihypertensive medication at this point. Case discussed with Dr. Thorne ICU at [facility] patient will be transferred to [facility] for further management and neurosurgical consultation. Blood pressure at the transfer is 150/90, patent airway, patient is semi responsive, positive gag reflex, O2 sat is 100%. History was confirmed from the family patient do not take anticoagulation. Reevaluation(s) Reevaluation #1: Patient is still hypertensive 162/100 will start patient on nicardipine drip/labetalol control blood pressure. Will consider intubation for enroute airway protection. Still awaiting for transportation and bed available in her ICU. Time: 16:51 Medical Decision Making Lab Data Lab results reviewed: Yes I reviewed the patient's lab results. Result diagrams: 11/16/20 15:29 11/16/20 15:29 Labs: Lab Results 11/16/20 11/16/20 11/16/20 Range/Units 15:29 15:29 15:29 WBC 9.3 (4.8-10.8) X10*3/uL RBC 3.78 L (4.20-5.50) X10*6/uL Hgb 12.2 (12.0-16.0) g/dl Hct 37.0 (37-47) % MCV 97.9 (80-98) fL MCH 32.3 (27.0-33.0) pg MCHC 33.0 (31.0-35.0) g/dl RDW 14.4 (11.0-16.0) % Plt Count 243 (160-400) X10*3/uL MPV 12.7 H (9.4-12.3) fL Immature Gran % (Auto) 0.9 H (0.0-0.4) % Neut % (Auto) 79.3 H (45-73) % Lymph % (Auto) 13.0 L (20-40) % [place] % (Auto) 5.1 (2-11) % Eos % (Auto) 1.1 (0-4) % Baso % (Auto) 0.6 (0-2) % Lymph # (Auto) 1.2 (1.2-4.9) X10*3/uL [place] # (Auto) 0.5 (0.1-1.2) X10*3/uL Eos # (Auto) 0.1 (0.0-0.4) X10*3/uL Baso # (Auto) 0.1 (0.0-0.2) X10*3/uL Abs Immat Gran (auto) 0.08 H (0.00-0.03) X10*3/uL Absolute Neuts (auto) 7.4 (2.0-8.3) X10*3/uL Absolute Nucleated RBC 0.000 (0.0-0.012) X10*3/uL Nucleated RBC % (auto) 0.0 (0.0-0.2) /100WBC Sodium 139 (135-145) mmol/L Potassium 4.4 (3.3-5.1) mmol/L Chloride 100 (96-108) mmol/L Carbon Dioxide 26 (22-29) mmol/L Anion Gap 17 (12-20) BUN 14 (9-16) mg/dL Creatinine 0.96 (0.5-1.4) mg/dL Estim Creat Clear Calc 66.6 Estimated GFR 59 Random Glucose 177 H D (60-115) mg/dL Calcium 9.3 (8.4-10.2) mg/dL Total Bilirubin 0.4 (0.0-1.0) mg/dL Direct Bilirubin 0.2 (0.0-0.5) mg/dL AST 33 H (5-31) U/L ALT 26 (0-31) U/L Alkaline Phosphatase 59 (39-117) U/L Troponin I High Sens 8.9 D (<3.5-17.0) ng/L B-Natriuretic Peptide 16 (<100) pg/mL Total Protein 9.0 H (6.5-8.0) g/dL Albumin 4.6 (3.5-5.0) g/dL Lipase 32 (8-78) U/L COVID-19 ([facility]ELA) (Negative) COVID-19 Clin Com 11/16/20 Range/Units 15:29 WBC (4.8-10.8) X10*3/uL RBC (4.20-5.50) X10*6/uL Hgb (12.0-16.0) g/dl Hct (37-47) % MCV (80-98) fL MCH (27.0-33.0) pg MCHC (31.0-35.0) g/dl RDW (11.0-16.0) % Plt Count (160-400) X10*3/uL MPV (9.4-12.3) fL Immature Gran % (Auto) (0.0-0.4) % Neut % (Auto) (45-73) % Lymph % (Auto) (20-40) % [place] % (Auto) (2-11) % Eos % (Auto) (0-4) % Baso % (Auto) (0-2) % Lymph # (Auto) (1.2-4.9) X10*3/uL [place] # (Auto) (0.1-1.2) X10*3/uL Eos # (Auto) (0.0-0.4) X10*3/uL Baso # (Auto) (0.0-0.2) X10*3/uL Abs Immat Gran (auto) (0.00-0.03) X10*3/uL Absolute Neuts (auto) (2.0-8.3) X10*3/uL Absolute Nucleated RBC (0.0-0.012) X10*3/uL Nucleated RBC % (auto) (0.0-0.2) /100WBC Sodium (135-145) mmol/L Potassium (3.3-5.1) mmol/L Chloride (96-108) mmol/L Carbon Dioxide (22-29) mmol/L Anion Gap (12-20) BUN (9-16) mg/dL Creatinine (0.5-1.4) mg/dL Estim Creat Clear Calc Estimated GFR Random Glucose (60-115) mg/dL Calcium (8.4-10.2) mg/dL Total Bilirubin (0.0-1.0) mg/dL Direct Bilirubin (0.0-0.5) mg/dL AST (5-31) U/L ALT (0-31) U/L Alkaline Phosphatase (39-117) U/L Troponin I High Sens (<3.5-17.0) ng/L B-Natriuretic Peptide (<100) pg/mL Total Protein (6.5-8.0) g/dL Albumin (3.5-5.0) g/dL Lipase (8-78) U/L COVID-19 ([facility]ELA) Negative (Negative) COVID-19 Clin Com See Note Imaging Data Chest x-ray: Radiologist's impression: Unremarkable chest examination. CT scan - head: Radiologist's impression: Right parenchymal thalamic bleed with shift ECG Data Interpretation: Normal sinus rhythm at 63 beats per minutes, normal axis, normal intervals, no ST-T changes. Discharge Plan Discharge Clinical Impression: Intracranial bleed Patient Disposition: [facility] Transfer Details: To [facility] ICU Prescriptions: No Action Fiber Therapy (m-cellulose) 500 mg tablet 1 tab PO BID RF: 0 atorvastatin 40 mg tablet 40 mg PO BEDTIME RF: 0 levothyroxine 175 mcg tablet 175 mcg PO DAILY RF: 0 cholecalciferol (vitamin D3) 50 mcg (2,000 unit) capsule 50 mcg PO DAILY RF: 0 lisinopril 5 mg tablet 5 mg PO DAILY RF: 0
[2020-11-16 14:28] VITALS: BP 126/62; PULSE 88; RESP 18; TEMP 36.6; O2SAT 97; BMI 38.9
--- NOTE | 2020-11-16 14:41 | ECG_ITS ---
Test Reason : LEATHARGIC Blood Pressure : / mmHG Vent. Rate : 063 BPM Atrial Rate : 063 BPM P-R Int : 158 ms QRS Dur : 080 ms QT Int : 426 ms P-R-T Axes : 044 021 037 degrees QTc Int : 435 ms Normal sinus rhythm Normal ECG When compared with ECG of 12-NOV-2020 10:55, No significant change was found Referred By: Choco Bean Electronically Signed By:SANJANA PEREZ
[2020-11-16] MEDS: 0.9 % Sodium Chloride 1,000 ML 999 ML IVCONT (15:30)
[2020-11-16 15:37] LABS: MANUAL DIFF FLAG NO
[2020-11-16 15:43] LABS: Basophils Absolute Auto 0.1 X10*3/uL (0.0-0.2); Basophils Percent Auto 0.6 % (0-2); Eosinophils Absolute Auto 0.1 X10*3/uL (0.0-0.4); Eosinophils Percent Auto 1.1 % (0-4); Hemoglobin 12.2 g/dl (12.0-16.0); Imm Gran Abs Auto 0.08 X10*3/uL (0.00-0.03); Imm Gran Pct Auto 0.9 % (0.0-0.4); Lymphocytes Absolute Auto 1.2 X10*3/uL (1.2-4.9); Mean Corpuscular Hemoglobin 32.3 pg (27.0-33.0); Mean Corpuscular Volume 97.9 fL (80-98); Mean Platelet Volume 12.7 fL (9.4-12.3); Monocytes Absolute Auto 0.5 X10*3/uL (0.1-1.2); Monocytes Percent Auto 5.1 % (2-11); Neutrophils Absolute Auto 7.4 X10*3/uL (2.0-8.3); Neutrophils Percent Auto 79.3 % (45-73); Platelet Count 243 X10*3/uL (160-400); Red Blood Count 3.78 X10*6/uL (4.20-5.50); Red Cell Distribution Width 14.4 % (11.0-16.0); White Blood Count 9.3 X10*3/uL (4.8-10.8)
[2020-11-16 16:02] LABS: COVID-19 Test Negative (Negative); IDNOW Serial# 9DD0AD1C
[2020-11-16 16:05] LABS: Alanine Aminotransferase 26 U/L (0-31); Albumin Level 4.6 g/dL (3.5-5.0); Alkaline Phosphatase 59 U/L (39-117); Anion Gap 17 (12-20); Aspartate Amino Transferase 33 U/L (5-31); Bilirubin Direct 0.2 mg/dL (0.0-0.5); Bilirubin Total 0.4 mg/dL (0.0-1.0); Blood Urea Nitrogen 14 mg/dL (9-16); Calcium 9.3 mg/dL (8.4-10.2); Carbon Dioxide 26 mmol/L (22-29); Chloride 100 mmol/L (96-108); Creatinine Clr Calc Pharmacy 66.6; Estimated Glomerular Filt Rate 59; Glucose Random 177 mg/dL (60-115); Lipase 32 U/L (8-78); Potassium 4.4 mmol/L (3.3-5.1); Sodium 139 mmol/L (135-145)
[2020-11-16 16:09] LABS: B Type Natriuretic Peptide 16 pg/mL (<100); Troponin-I High Sensitivity 8.9 ng/L (<3.5-17.0)
[2020-11-16] MEDS: propofoL 200 MG/20 ML VIAL IVPUSH (17:00)
[2020-11-16] MEDS: Midazolam HCl/PF 2 MG/2 ML VIAL IVPUSH (17:10)
--- NOTE | 2020-11-16 17:14 | ED_ITS ---
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 designer Mode of arrival: EMS Limitations: no limitations Related Data Home Medications Medication Instructions Recorded Confirmed lisinopril 5 mg tablet 5 mg PO DAILY 10/18/20 11/15/20 atorvastatin 40 mg PO BEDTIME 11/12/20 11/15/20 cholecalciferol (vitamin D3) 50 mcg PO DAILY 11/12/20 11/15/20 levothyroxine 175 mcg PO DAILY 11/12/20 11/15/20 methylcellulose (laxative) [Fiber 1 tab PO BID 11/15/20 11/15/20 Therapy (m-cellulose)] Allergies Allergy/AdvReac Type Severity Reaction Status Date / Time No Known Allergies Allergy Verified 11/15/20 11:30 [No Known Allergies*] [facility] [place] Past Medical History Medical History Asthma Elevated cholesterol Foot contusion HTN (hypertension) Hypothyroidism Surgical History History of ankle surgery Family History Family History Unknown Family history of colon cancer Social History Social History Household Members: Other Housing: Apartment Alcohol intake: never Smoking Status: Current every day smoker Tobacco Type: Cigarette Packs Per Day: 0 Cigarettes Per Day: 1 Second Hand Smoke Exposure: No Advance Directives: No Advance Directives Information Provided: No service: No Current occupational status: disabled Physical Exam Vital Signs: Vital Signs: Last Vital Signs Temp 98 F 11/16/20 14:28 Pulse 88 11/16/20 14:28 Resp 18 11/16/20 14:28 BP 126/62 11/16/20 14:28 Pulse Ox 97 11/16/20 14:28 Body Mass Index 38.9 Procedures Intubation Time out performed: Yes sedative: other (Propofol) Mg Given: 200 Laryngoscope: Km ET Tube Size: 7.5 ET Tube Uncuffed: No Tube Secured Depth (cm): 23 Tube Secured Location: teeth Tube Placement Confirmation: visualized tube passing through cords, equal breath sounds bilaterally and confirmation by capnometry Patient Tolerated Procedure: well Intubation Complications: none Medical Decision Making MDM Narrative Medical decision making narrative: Patient status post intubation 7.5 mm ET tube blood pressure 137/90 on propofol drip will transfer patient to [facility] now Lab Data Result diagrams: 11/16/20 15:29 11/16/20 15:29 Labs: Lab Results 11/16/20 11/16/20 11/16/20 Range/Units 15:29 15:29 15:29 WBC 9.3 (4.8-10.8) X10*3/uL RBC 3.78 L (4.20-5.50) X10*6/uL Hgb 12.2 (12.0-16.0) g/dl Hct 37.0 (37-47) % MCV 97.9 (80-98) fL MCH 32.3 (27.0-33.0) pg MCHC 33.0 (31.0-35.0) g/dl RDW 14.4 (11.0-16.0) % Plt Count 243 (160-400) X10*3/uL MPV 12.7 H (9.4-12.3) fL Immature Gran % (Auto) 0.9 H (0.0-0.4) % Neut % (Auto) 79.3 H (45-73) % Lymph % (Auto) 13.0 L (20-40) % [place] % (Auto) 5.1 (2-11) % Eos % (Auto) 1.1 (0-4) % Baso % (Auto) 0.6 (0-2) % Lymph # (Auto) 1.2 (1.2-4.9) X10*3/uL [place] # (Auto) 0.5 (0.1-1.2) X10*3/uL Eos # (Auto) 0.1 (0.0-0.4) X10*3/uL Baso # (Auto) 0.1 (0.0-0.2) X10*3/uL Abs Immat Gran (auto) 0.08 H (0.00-0.03) X10*3/uL Absolute Neuts (auto) 7.4 (2.0-8.3) X10*3/uL Absolute Nucleated RBC 0.000 (0.0-0.012) X10*3/uL Nucleated RBC % (auto) 0.0 (0.0-0.2) /100WBC Sodium 139 (135-145) mmol/L Potassium 4.4 (3.3-5.1) mmol/L Chloride 100 (96-108) mmol/L Carbon Dioxide 26 (22-29) mmol/L Anion Gap 17 (12-20) BUN 14 (9-16) mg/dL Creatinine 0.96 (0.5-1.4) mg/dL Estim Creat Clear Calc 66.6 Estimated GFR 59 Random Glucose 177 H D (60-115) mg/dL Calcium 9.3 (8.4-10.2) mg/dL Total Bilirubin 0.4 (0.0-1.0) mg/dL Direct Bilirubin 0.2 (0.0-0.5) mg/dL AST 33 H (5-31) U/L ALT 26 (0-31) U/L Alkaline Phosphatase 59 (39-117) U/L Troponin I High Sens 8.9 D (<3.5-17.0) ng/L B-Natriuretic Peptide 16 (<100) pg/mL Total Protein 9.0 H (6.5-8.0) g/dL Albumin 4.6 (3.5-5.0) g/dL Lipase 32 (8-78) U/L COVID-19 ([facility]) (Negative) COVID-19 Clin Com 11/16/20 Range/Units 15:29 WBC (4.8-10.8) X10*3/uL RBC (4.20-5.50) X10*6/uL Hgb (12.0-16.0) g/dl Hct (37-47) % MCV (80-98) fL MCH (27.0-33.0) pg MCHC (31.0-35.0) g/dl RDW (11.0-16.0) % Plt Count (160-400) X10*3/uL MPV (9.4-12.3) fL Immature Gran % (Auto) (0.0-0.4) % Neut % (Auto) (45-73) % Lymph % (Auto) (20-40) % [place] % (Auto) (2-11) % Eos % (Auto) (0-4) % Baso % (Auto) (0-2) % Lymph # (Auto) (1.2-4.9) X10*3/uL [place] # (Auto) (0.1-1.2) X10*3/uL Eos # (Auto) (0.0-0.4) X10*3/uL Baso # (Auto) (0.0-0.2) X10*3/uL Abs Immat Gran (auto) (0.00-0.03) X10*3/uL Absolute Neuts (auto) (2.0-8.3) X10*3/uL Absolute Nucleated RBC (0.0-0.012) X10*3/uL Nucleated RBC % (auto) (0.0-0.2) /100WBC Sodium (135-145) mmol/L Potassium (3.3-5.1) mmol/L Chloride (96-108) mmol/L Carbon Dioxide (22-29) mmol/L Anion Gap (12-20) BUN (9-16) mg/dL Creatinine (0.5-1.4) mg/dL Estim Creat Clear Calc Estimated GFR Random Glucose (60-115) mg/dL Calcium (8.4-10.2) mg/dL Total Bilirubin (0.0-1.0) mg/dL Direct Bilirubin (0.0-0.5) mg/dL AST (5-31) U/L ALT (0-31) U/L Alkaline Phosphatase (39-117) U/L Troponin I High Sens (<3.5-17.0) ng/L B-Natriuretic Peptide (<100) pg/mL Total Protein (6.5-8.0) g/dL Albumin (3.5-5.0) g/dL Lipase (8-78) U/L COVID-19 ([facility]) Negative (Negative) COVID-19 Clin Com See Note Discharge Plan Discharge Clinical Impression: Intracranial bleed Patient Disposition: [facility] Transfer Details: To [facility] ICU Prescriptions: No Action Fiber Therapy (m-cellulose) 500 mg tablet 1 tab PO BID RF: 0 atorvastatin 40 mg tablet 40 mg PO BEDTIME RF: 0 levothyroxine 175 mcg tablet 175 mcg PO DAILY RF: 0 cholecalciferol (vitamin D3) 50 mcg (2,000 unit) capsule 50 mcg PO DAILY RF: 0 lisinopril 5 mg tablet 5 mg PO DAILY RF: 0
[2020-11-16 17:35] VITALS: O2SAT 100
--- NOTE | 2020-12-07 14:04 | MHC.STROKE ---
LATE ENTRY FOR 11/16/20 1358, EMS PRE-NOTIFIED NO STROKE ALERT FAST-ED = 4. ARRIVED AT 1358, SEEN BY PROVIDER AT 1418, NIHSS = 1, ESTIMATED FROM EXAM NOTES. ONSET OF SYMPTOMS WHILE AT THE DENTIST OFFICE, DISPATCHED EMS AT 1325, THIS WILL BE USED THE ONSET TIME, EMS BP 164/112, GLUCOSE 200. INITIAL BP 174/103 AT [facility] [place]. KEPT NPO. CT HEAD DONE AT 1547. DOOR TO CT = 109 MINUTES. + ICH, CALL PLACE TO [facility], INTUBATED PRIOR TO TRANSFER FOR AIRWAY PROTECTION. DOOR TO CT WITH READ > 45MINUTES FROM ARRIVAL.
== END 2020-11-16 17:35 | disposition short-term general hospital (02) ==
PROVIDERS: Emergency Provider Emergency Medicine
DX: I61.5 Nontraumatic intracerebral hemorrhage, intraventricular (principal); Z20.822 Contact with and (suspected) exposure to COVID-19; I10 Essential (primary) hypertension; E78.5 Hyperlipidemia, unspecified; J45.909 Unspecified asthma, uncomplicated; F17.210 Nicotine dependence, cigarettes, uncomplicated; Z79.02 Long term (current) use of antithrombotics/antiplatelets; Z79.899 Other long term (current) drug therapy
CPT/HCPCS: 31500; 36415; 70450; 71045; 80048; 80076; 83690; 83880; 84484; 85025; 87635; 93005; 96361; 96365; 96368; 96374; 96375; 99285; J2250

== ENCOUNTER 2022-09-25 19:34 | Emergency (ER) | payer MEDICARE, MEDICAID, SELFPAY ==
--- NOTE | ~2022-09-25 | XR_ITS ---
EXAMINATION: XR CHEST CLINICAL INFORMATION: Cough and shortness of breath COMPARISON: 11/16/2020 TECHNIQUE: Frontal view of the chest was obtained. FINDINGS: Lungs are hypoinflated. Allowing for this, no significant abnormality is noted involving the heart, lungs, mediastinum, bony thorax or soft tissues. XR/XR chest 1V IMPRESSION: No acute intrathoracic disease.
[2022-09-25 19:56] VITALS: BP 122/76; BP 127/84; PULSE 91; PULSE 94; RESP 22; TEMP 36.6; O2SAT 94; BMI 35.3
--- NOTE | 2022-09-25 20:09 | PC.NURSE ---
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
[2022-09-25 20:52] LABS: Influenza A PCR NEGATIVE (Negative); Influenza B PCR NEGATIVE (Negative); Resp Syncy Virus RNA Qual PCR NEGATIVE (Negative); SARS COV2 PCR INHOUSE NEGATIVE (Negative)
--- OUTSIDE RECORDS SUMMARY | 2022-09-25 21:23 | XMS_ITS | Continuity of Care Document ---
:1955 Author Organization [facility] Address [address] [place] [phone]- Care Team Providers Name Role Phone Not on Staff, PCP Primary Care Physician Unavailable [place] [facility] Date(s): 01/18/21 - 02/17/[address] [address]- Attending Physician: Anupama Pratt Admitting Physician: AdmAnupama lynn Referring Physician: AdmtrAnupama Allergies, Adverse Reactions, Alerts Substance Reaction Severity Status NKA Active Immunizations Given and Recorded Vaccine Date Status Refusal Reason SARS-CoV-2 (COVID-19) mRNA-1271 vaccine 10/20/20 Given Medications amantadine 50 mg/5 mL oral syrup 10 mL = 100 mg, Nasogastric Tube, 2 times a day, 0 Refills, Maintenance, 12/01/20 16:00:00 EDT, Syrup, Partial fill upon patient request if the prescription is for a schedule II opioid drug. Start Date: 12/01/20 Status: OrderedArtificial Tears 1.4% Eyes, Both, Every 4 hours, Dryness., 0 Refills, Maintenance, 12/01/20 16:01:00 EDT, Ophth Solution, Partial fill upon patient request if the prescription is for a schedule II opioid drug. Start Date: 12/01/20 Status: Orderedatorvastatin 40 mg oral tablet 1 tablet = 40 mg, By Mouth, Daily at bedtime, 0 Refills, Maintenance, 12/01/20 15:59:00 EDT, Tablet,Partial fill upon patient request if the prescription is for a schedule II opioid drug. Start Date: 12/01/20 Status: Orderedbaclofen 5 mg/mL oral suspension 1 mL = 5 mg, By Mouth, 3 times a day, 0 Refills, Maintenance, 12/01/20 16:00:00 EDT, Suspension, Partial fill upon patient request if the prescription is for a schedule II opioid drug. Start Date: 12/01/20 Status: Orderedbisacodyl 10 mg rectal suppository 1 supp = 10 mg, Rectally, 2 times a day, PRN Constipation, 0 Refills, Maintenance, 12/01/20 16:00:00EDT, Suppository, Partial fill upon patient request if the prescription is for a schedule II opioid drug. Start Date: 12/01/20 Status: Ordereddocusate sodium 150 mg/15 ml oral liquid 10 mL = 100 mg, By Mouth, 2 times a day, PRN Constipation, 0 Refills, Maintenance, 12/01/20 16:00:00EDT, Liquid, Partial fill upon patient request if the prescription is for a schedule II opioid drug. Start Date: 12/01/20 Status: OrderedInsulin Lispro 2-10 units, Subcutaneous Injection, 3 times a day before meals, << Sliding Scale Comments >> 160 - 209 2 units Call if less than 100 210 - 259 4 units 260 - 309 6 units 310 - 359 8 units 360 - 409 10 units Call if greater than 400 <... Start Date: 12/01/20 Status: Orderedlevothyroxine 175 mcg (0.175 mg) oral tablet TAKE 1 TABLET BY ORAL ROUTE EVERY DAY WITH 1 & 1/2 TABS ON SUNDAYS Start Date: 11/16/20 Status: OrderedMilk of Magnesia Liquid 30 mL, By Mouth, 2 times a day, PRN Constipation, 0 Refills, Maintenance, 12/01/20 16:00:00 EDT, Suspension, Partial fill upon patient request if the prescription is for a schedule II opioid drug. Start Date: 12/01/20 Status: Orderednystatin 353326 u/ml oral suspension 5 mL = 500,000 units, Swish and Swallow, 4 times a day, 0 Refills, Maintenance, 12/01/20 16:00:00 EDT, Suspension, Partial fill upon patient request if the prescription is for a schedule II opioid drug. Start Date: 12/01/20 Status: Orderedthiamine 100 mg oral tablet 100 mg, 1, tablet, By Mouth, Every 12 hours, Refills 0, Maintenance, 12/01/20 16:00:00 EDT, Partial fill upon patient request if the prescription is for a schedule II opioid drug. Start Date: 12/01/20 Status: Ordered
--- OUTSIDE RECORDS SUMMARY | 2022-09-25 21:23 | XMS_ITS | Continuity of Care Document ---
:1955 Author Organization [facility] Address [address] [place] [address], [address] Floor, [address] [place] [phone]- Care Team Providers Name Role Phone Not on Staff, PCP Primary Care Physician Unavailable Encounter [facility] Date(s): 12/29/20 - 01/28/21 [facility] [address] [place] [address], [address]rd [facility], [address] [place] [id number] Attending Physician: Anupama Pratt Admitting Physician: Anupama Pratt Referring Physician: AdmtrAnupama Allergies, Adverse Reactions, Alerts Substance Reaction Severity Status NKA Active Immunizations Given and Recorded Vaccine Date Status Refusal Reason SARS-CoV-2 (COVID-19) mRNA-8851 vaccine 10/20/20 Given Medications amantadine 50 mg/5 [...] opioid drug. Start Date: 12/01/20 Status: Orderednystatin 456060 u/ml oral suspension 5 mL = 500,000 [...]
--- OUTSIDE RECORDS SUMMARY | 2022-09-25 21:23 | XMS_ITS | Continuity of Care Document ---
:1955 Author Organization [facility] Address [address] [place] [phone]- Care Team Providers Name Role Phone Davon Badillo MD Primary Care Phys[id number] Date[facility]s): 06/01/21 - 06/02/[address] [address]- Discharge Disposition: A-D/C Home Attending Physician: Woo Swift DO Admitting Physician: Woo Swift DO Referring Physician: Not on Staff, Referring MD Allergies, Adverse Reactions, Alerts Substance Reaction Severity Status NKA Active Immunizations Given and Recorded Vaccine Date Status Refusal Reason SARS-CoV-2 (COVID-19) mRNA-3208 vaccine 10/20/20 Given Medications acetaminophen 325 mg oral tablet 3 tablets, By Mouth, 3 times a day, Maintenance, 05/12/21 10:25:00 EDT, ; Start Date: 05/12/21 Status: Orderedamantadine 50 mg/5 mL oral syrup 10 mL = 100 mg, By Mouth, Daily, 0 Refills, Maintenance, 05/17/21 10:21:00 EDT, Syrup, Partial fill upon patient request if the prescription is for a schedule II opioid drug. Start Date: 05/17/21 Status: OrderedArtificial Tears 1.4% 1 drop, Eyes, Both, Every 4 hours, PRN dry eyes, Dryness., 0 Refills, Maintenance, 12/01/20 16:01:00EDT, Ophth Solution, Partial fill upon patient request if the prescription is for a schedule II opioid drug. Start Date: 12/01/20 Status: OrderedAspercreme 10% topical cream 1 application, Topically, Every 12 hours, PRN for pain, neck & back, Maintenance, 05/12/21 10:36:00 EDT, Cream, ; Start Date: 05/12/21 Status: Orderedatorvastatin 40 mg oral tablet 1 tablet = 40 mg, By Mouth, Daily at bedtime, 0 Refills, Maintenance, 12/01/20 15:59:00 EDT, Tablet,; Start Date: 12/01/20 Status: Orderedbisacodyl 10 mg rectal suppository 1 supp = 10 mg, Rectally, Daily, PRN Constipation, 0 Refills, Maintenance, 05/17/21 10:21:00 EDT, Suppository, Partial fill upon patient request if the prescription is for a schedule II opioid drug. Start Date: 05/17/21 Status: Orderedcitalopram 10 mg/5 mL oral solution 2.5 mL = 5 mg, By Mouth, Daily, 0 Refills, Maintenance, 05/17/21 10:21:00 EDT, Solution, Partial fill upon patient request if the prescription is for a schedule II opioid drug. Start Date: 05/17/21 Status: OrderedFleet Enema 19 gm-7 gm rectal enema 1 each, Rectally, Once, PRN for constipation, Maintenance, 05/12/21 10:37:00 EDT, Enema, ; Start Date: 05/12/21 Status: OrderedHaloperidol Liquid = 1 mg, By Mouth, 2 times a day, Maintenance, 05/12/21 10:18:00 EDT, Solution, ; Start Date: 05/12/21 Status: OrderedHaloperidol Liquid = 1 mg, By Mouth, 3 times a day, PRN agitation, Maintenance, 05/12/21 10:19:00 EDT, Solution, ; Start Date: 05/12/21 Status: Orderedlevothyroxine 100 mcg (0.1 mg) oral capsule 1 capsule = 100 mcg, By Mouth, Daily, Maintenance, 05/12/21 10:28:00 EDT, ; Start Date: 05/12/21 Status: Orderedlisinopril 5 mg oral tablet 5 mg, 1, tablet, By Mouth, Daily, Maintenance, 05/12/21 10:27:00 EDT, ; Start Date: 05/12/21 Status: Orderedmelatonin 3 mg oral tablet 1 tablet = 3 mg, By Mouth, Daily at bedtime, Maintenance, 05/12/21 10:32:00 EDT, Tablet, ; Start Date: 05/12/21 Status: OrderedMilk of Magnesia Liquid 30 mL, By Mouth, Daily, PRN Constipation, 1200mg/15ml, 0 Refills, Maintenance, 12/01/20 16:00:00 EDT, Suspension, ; Start Date: 12/01/20 Status: OrderedMiraLax oral powder for reconstitution = 17 Gm, By Mouth, Daily, PRN as needed, dissolve in water before taking, Maintenance, 05/12/21 10:32:00 EDT, REC Powder, ; Start Date: 05/12/21 Status: OrderedoxyCODONE 5 mg oral tablet 5 mg, Tablet, By Mouth, Once, STAT, 06/01/21 21:52:00 EDT, Stop date 06/01/21 21:52:00 EDT Start Date: 06/01/21 Stop Date: 06/01/21 Status: CompletedPeri-Colace 50 mg-8.6 mg oral tablet 1 tablet, By Mouth, 2 times a day, Maintenance, 05/12/21 10:29:00 EDT, ; Start Date: 05/12/21 Status: Orderedsimethicone 80 mg oral tablet 1 tablet = 80 mg, Chew, 3 times a day after meals and bedtime, PRN for gas, Maintenance, 05/12/21 10:33:00 EDT, Tablet, ; Start Date: 05/12/21 Status: Orderedthiamine 100 mg oral tablet 100 mg, 1, tablet, By Mouth, Every 12 hours, Refills 0, Maintenance, 05/17/21 10:19:00 EDT, Partial fill upon patient request if the prescription is for a schedule II opioid drug. Start Date: 05/17/21 Status: OrderedtraZODone 50 mg oral tablet 25 mg, 0.5, tablet, By Mouth, Daily, Refills 0, Maintenance, 05/17/21 10:19:00 EDT, Partial fill upon patient request if the prescription is for a schedule II opioid drug. Start Date: 05/17/21 Status: Ordered Problem List Condition Effective Dates Status Health Status Informant Asthma(Confirmed) Active GERD (gastroesophageal reflux Active disease)(Confirmed) Hemorrhagic stroke(Confirmed) Active Hypertension(Confirmed) Active Hypothyroidism(Confirmed) Active UTI (urinary tract Active infection)(Confirmed) Vital Signs Most recent to oldest 1 2 3 [Reference Range]: Oxygen Saturation [94-100 %] 99 % 97 % (06/01/21 11:00 PM) (06/01/21 8:05 PM) Pulse Rate [55-90 bpm] 86 bpm 81 bpm (06/01/21 11:00 PM) (06/01/21 8:05 PM) Blood Pressure [90-138/55-84 155/100 mm Hg 141/92 mm Hg mm Hg] *H* *H* (06/01/21 11:00 PM) (06/01/21 8:05 PM) Respiratory Rate [16-30 18 br/min 19 br/min 15 br/mi n br/min] (06/01/21 11:00 PM) (06/01/21 10:32 PM) *L* (06/01/21 8:05 PM ) Temperature [96.8-100.4 DegF] 98.0 DegF (06/01/21 8:05 PM) Mode of Delivery (Oxygen) Room air Room air (06/01/21 11:00 PM) (06/01/21 8:05 PM) Blood pressure sites Arm, right (06/01/21 8:05 PM) Temperature Route Oral (06/01/21 8:05 PM)
--- OUTSIDE RECORDS SUMMARY | 2022-09-25 21:24 | XMS_ITS | Continuity of Care Document ---
:1955 Author Organization [facility] Address Unavailable , Care Team Providers Name Role Phone Davon Badillo MD Primary Care Physician Encounter [facility] [place] Date(s): 07/17/21 - 08/16/21 [facility] Allergies, Adverse Reactions, Alerts Substance Reaction Severity Status NKA Active Immunizations Given and Recorded Vaccine Date Status Refusal Reason SARS-CoV-2 (COVID-19) mRNA-1273 vaccine 10/20/20 Given Medications acetaminophen 325 mg [...] REC Powder, ; Start Date: 05/12/21 Status: OrderedPeri-Colace 50 mg-8.6 mg oral tablet 1 tablet, [...]
--- OUTSIDE RECORDS SUMMARY | 2022-09-25 21:24 | XMS_ITS | Continuity of Care Document ---
:1955 Author Organization [facility] Address [address] [place] [id number]- Care Team Providers Name Role Phone Not on Staff, PCP Primary Care Physician Unavailable Encounter [facility] Date(s): 05/12/21 - 05/17/[address] [id number] Discharge Disposition: A-D/C Home Attending Physician: Jabier Lanza MD Admitting Physician: Amber Sterling MD Referring Physician: Not on Staff, Referring MD Allergies, Adverse Reactions, Alerts Substance Reaction Severity Status NKA Active Immunizations Given and Recorded Vaccine Date Status Refusal Reason SARS-CoV-2 (COVID-19) mRNA-1276 vaccine 10/20/20 Given Medications acetaminophen 325 mg [...] 15:59:00 EDT, Tablet,; Start Date: 12/01/20 Status: Orderedbaclofen 10 mg oral tablet 10 mg, Tablet, By Mouth, 05/17/21 14:00:00 EDT Start Date: 05/17/21 Stop Date: 05/17/21 Status: Completedbaclofen 10 mg oral tablet 10 mg, Tablet, By Mouth, 05/17/21 9:00:00 EDT Start Date: 05/17/21 Stop Date: 05/17/21 Status: Completedbisacodyl 10 mg rectal suppository 1 supp = [...] 10:27:00 EDT, ; Start Date: 05/12/21 Status: Orderedlisinopril 5 mg oral tablet 5 mg, Tablet, By Mouth, 05/17/21 9:00:00 EDT Start Date: 05/17/21 Stop Date: 05/17/21 Status: Completedmelatonin 3 mg oral tablet 1 tablet = [...] REC Powder, ; Start Date: 05/12/21 Status: Orderedmorphine 10 mg/5 mL oral solution 2.5 mL = 5 mg, By Mouth, 2 times a day, for 3 days, # 15 mL, 0 Refills, Acute 05/20/21 10:25:00 EDT,05/17/21 10:25:00 EDT, Solution, Partial fill upon patient request if the prescription is for a schedule II opioid drug. Start Date: 05/17/21 Stop Date: 05/20/21 Status: Orderedmorphine 10 mg/5 mL oral solution 2.5 mL = 5 mg, By Mouth, Every 6 hours, PRN Pain , Severe, for 3 days, # 60 mL, 0 Refills, Acute 05/20/21 10:25:00 EDT, 05/17/21 10:25:00 EDT, Solution, Partial fill upon patient request if the prescription is for a schedule II opioid drug. Start Date: 05/17/21 Stop Date: 05/20/21 Status: OrderedMorPHINE REGULAR STRENGTH 2 mg/mL Liquid 5 mg, Solution, By Mouth, please give night dose at around 7 to 8 PM, Hold for: drowsy, dizzy, SBP < 100, 05/17/21 9:00:00 EDT Start Date: 05/17/21 Stop Date: 05/17/21 Status: CompletedPeri-Colace 50 mg-8.6 mg oral tablet [...] Hypothyroidism(Confirmed) Active UTI (urinary tract Active infection)(Confirmed) Results Orders for Microbiology Reports Name Date Urine Culture (URINE CULTURE) 05/12/21 Microbiology Reports TEST:Urine Culture STATUS:Auth (Verified) BODY SITE: SOURCE:URINE COLLECTED DATE/TIME:05/12/21 2:55 AMUrine Culture SPECIMEN DESCRIPTION : URINE SPECIAL REQUESTS : NONE CULTURE : Mixed bacterial enrique, indicative of urogenital contamination. REPORT STATUS : FINAL 1Radiology Reports Exam Date Time Procedure Performing Provider Status 05/11/21 9:42 PM Knee 1 or 2 Views Left Lakshmi Conner; Auth (Ve rified) Notes:(Knee 1 or 2 Views Left) Reason For Exam: with Pain;TraumaRESULT: Knee 1 or 2 Views Left Knee 1 or 2 Views Left, 1 views Hx of Present Illness: pt denies current left sided pain but reports previous 7 10 sent from [facility] pt is calm and cooperative for this RN and EMS; Reason: Trauma; with Pain; Clinical Question(s): Fracture COMPARISON: None. FINDINGS: Knee is held in flexion. There is no evidence of acute or healing fracture, dislocation or bone lesion. No arthritic changes. No osteochondral defects or intra-articular loose bodies. No evidence of joint effusion. IMPRESSION: No traumatic injury is identified on single lateral view of the knee with knee held in flexion. WSN: [id number] Ordering Physician: Azucena Ball Dictated By: Maia Rubin MD Dictated Date/Time: 05/11/21 9:44 pm Reviewed By: Maia Rubin MD Signed By: Maia Rubin MD Signed Date/Time: 05/11/21 9:44 pm Transcribed By: SARAH Transcribed Date/Time: 05/11/21 9:43 pm Vital Signs Most recent to oldest 1 2 3 [Reference Range]: Oxygen Saturation [94-100 %] 97 % 96 % 93 % (05/17/21 6:00 AM) (05/17/21 4:00 AM) *L* (05/16/21 11:00 P M) Pulse Rate [55-90 bpm] 81 bpm 74 bpm 70 bpm (05/17/21 6:00 AM) (05/17/21 4:00 AM) (05/16/21 11: 00 PM) Blood Pressure [90-138/55-84 121/69 mm Hg 121/69 mm Hg 114 /70 mm Hg mm Hg] (05/17/21 8:46 AM) (05/17/21 6:00 AM) (05/17/21 4:0 0 AM) Respiratory Rate [16-30 18 br/min 18 br/min 18 br/mi n br/min] (05/17/21 1:03 PM) (05/17/21 8:48 AM) (05/17/21 8:4 3 AM) Temperature [96.8-100.4 DegF] 98.3 DegF 98.1 DegF 97 .9 DegF (05/17/21 6:00 AM) (05/17/21 4:00 AM) (05/16/21 11: 00 PM) Mode of Delivery (Oxygen) Room air Room air Room a ir (05/17/21 6:00 AM) (05/17/21 4:00 AM) (05/16/21 11: 00 PM) Blood pressure sites Arm, right Arm, right Arm, right (05/17/21 6:00 AM) (05/17/21 4:00 AM) (05/16/21 11: 00 PM) Temperature Route Oral Oral Oral (05/17/21 6:00 AM) (05/17/21 4:00 AM) (05/16/21 11: 00 PM)
--- OUTSIDE RECORDS SUMMARY | 2022-09-25 21:24 | XMS_ITS | Continuity of Care Document ---
:1955 Author Organization [facility] Address [address] [place] [id number]- Care Team Providers Name Role Phone Not on Staff, PCP Primary Care Physician Unavailable Encounter [facility] Date(s): 11/16/20 - 12/01/[address] [id number] Discharge Disposition: A-Transfer SNF Attending Physician: Josefina Santizo MD Admitting Physician: Juwan Zuleta MD Referring Physician: Not on Staff, Referring MD Allergies, Adverse Reactions, Alerts Substance Reaction Severity Status NKA Active Immunizations Given and Recorded Vaccine Date Status Refusal Reason SARS-CoV-2 (COVID-19) [id number] vaccine 10/20/20 Given Medications amantadine 50 mg/5 [...] II opioid drug. Start Date: 12/01/20 Status: OrderedBaclofen 5 mg/mL Suspension 5 mg, Liquid, By Mouth, 12/01/20 14:00:00 EDT Start Date: 12/01/20 Stop Date: 12/01/20 Status: Completedbisacodyl 10 mg rectal suppository 1 supp = 10 mg, Rectally, 2 times a day, PRN Constipation, 0 Refills, Maintenance, 12/01/20 16:00:00EDT, Suppository, Partial fill upon patient request if the prescription is for a schedule II opioid drug. Start Date: 12/01/20 Status: Orderedcaptopril 12.5 mg oral tablet 12.5 mg, 1, tablet, By Mouth, Every 12 hours, Refills 0, Maintenance, 12/01/20 16:00:00 EDT, Partialfill upon patient request if the prescription is for a schedule II opioid drug. Start Date: 12/01/20 Status: Orderedcaptopril 12.5 mg oral tablet 12.5 mg, Tablet, By Mouth, Hold for: hold for systolic BP less than 110, 12/01/20 10:00:00 EDT Start Date: 12/01/20 Stop Date: 12/01/20 Status: Completeddocusate sodium 150 mg/15 ml oral liquid 10 mL = 100 mg, By Mouth, 2 times a day, PRN Constipation, 0 Refills, Maintenance, 12/01/20 16:00:00EDT, Liquid, Partial fill upon patient request if the prescription is for a schedule II opioid drug. Start Date: 12/01/20 Status: Ordereddoxazosin 2 mg oral tablet 2 mg, Tablet, By Mouth, 12/01/20 9:00:00 EDT Start Date: 12/01/20 Stop Date: 12/01/20 Status: CompletedInsulin Lispro 2-10 units, Subcutaneous Injection, 3 times [...] opioid drug. Start Date: 12/01/20 Status: Orderednystatin 736505 u/ml oral suspension 5 mL = 500,000 [...] opioid drug. Start Date: 12/01/20 Status: Ordered Results Orders for Microbiology Reports Name Date Blood Culture 11/20/20 Blood Culture #2 11/20/20 Microbiology Reports TEST:Blood Culture, Second Order STATUS:Auth (Verified) BODY SITE: SOURCE:Blood COLLECTED DATE/TIME:11/20/20 9:10 AMBlood Culture, Second Order SPECIMEN DESCRIPTION : BLOOD NOSITE SPECIAL REQUESTS : NONE CULTURE : NO GROWTH 5 DAYS. REPORT STATUS : FINAL 11/25/2020TEST:Blood Culture STATUS:Auth (Verified) BODY SITE: SOURCE:Blood COLLECTED DATE/TIME:11/20/20 8:50 AMBlood Culture SPECIMEN DESCRIPTION : BLOOD NOSITE SPECIAL REQUESTS : NONE CULTURE : NO GROWTH 5 DAYS. REPORT STATUS : FINAL 11/25/2020adiology Reports Exam Date Time Procedure Performing Provider Status 11/29/20 5:51 PM Chest Portable Lou Lawler; Auth ([facility]) Notes:(Chest Portable) Reason For Exam: ng tube position;Other:RESULT: Chest Portable AP upright portable chest dated November 29, 2020 at 1730 hours. Comparison films are from November 27, 2020. HISTORY: Nasogastric tube placement. FINDINGS: The cardiac silhouette is increased in size and unchanged. The aorta is unfolded. A nasogastric tube is present. It extends off the film. The tip and sidehole are distal to the EG junction region. Some minimal opacity is present the lung bases left greater than right most consistent with atelectasis. Visualized osseous structures show minimal degenerative changes in the spine. IMPRESSION: There is a gastric tube in place. Normal bibasilar atelectasis left greater than right. Examination [id number]. Thank you for allowing me to participate in the care of this patient. WSN: [id number] Ordering Physician: Josefina Santizo Dictated By: Jesse Gonzalez MD Dictated Date/Time: 11/29/20 6:27 pm Reviewed By: Jesse Gonzalez MD Signed By: Jesse Gonzalez MD Signed Date/Time: 11/29/20 6:27 pm Transcribed By: SARAH Transcribed Date/Time: 11/29/20 6:27 pm Exam Date Time Procedure Performing Provider Status 11/29/20 1:02 PM Shoulder Min 2 Views Left Antionette Todd; Auth (Verified) Notes:(Shoulder Min 2 Views Left) Reason For Exam: PainRESULT: Shoulder Min 2 Views Left Shoulder Min 2 Views Left, views Reason: Pain; Clinical Question(s): Dislocation COMPARISON: None. FINDINGS: No fracture or dislocation. No arthritic change of the glenohumeral joint. Normal AC joint and portions of the clavicle included on the exam. No calcification of the rotator cuff. The left apex is clear. IMPRESSION: No fracture or dislocation. WSN: [id number] Ordering Physician: Josefina Santizo Dictated By: Jeancarlos Mccollum MD Dictated Date/Time: 11/29/20 2:50 pm Reviewed By: Jeancarlos Mccollum MD Signed By: Jeancarlos Mccollum MD Signed Date/Time: 11/29/20 2:50 pm Transcribed By: SARAH Transcribed Date/Time: 11/29/20 2:47 pm Exam Date Time Procedure Performing Provider Status 11/27/20 9:08 PM Chest Portable Rosibel Carrillo; Auth (Verified) Notes:(Chest Portable) Reason For Exam: NGT replaced;Tube PlacementRESULT: Chest Portable Chest Portable Reason: Tube Placement; NGT replaced; Clinical Question(s): Tube Placement COMPARISON: X-ray from 11/23/2020 FINDINGS: LINES AND TUBES: NG tube tip extends below the left diaphragm off the [id number]. LUNGS AND PLEURA: Low lung volumes with mild basilar atelectasis. Lungs are otherwise clear with no consolidation. No pleural effusion. No pneumothorax. HEART, MEDIASTINUM AND STEVE: Heart is normal in size. Normal upper mediastinal and hilar contour. BONES AND SOFT TISSUES: No acute abnormality. IMPRESSION: Adequate positioning of NG tube. Low lung volumes and bibasilar atelectasis improved from prior study. WSN: [id number] Ordering Physician: Dianna Barreto Dictated By: Puma Alvarez MD Dictated Date/Time: 11/27/20 9:09 pm Reviewed By: Puma Alvarez MD Signed By: Puma Alvarez MD Signed Date/Time: 11/27/20 9:09 pm Transcribed By: SARAH Transcribed Date/Time: 11/27/20 9:09 pm Exam Date Time Procedure Performing Provider Status 11/23/20 2:35 PM Chest Portable Abi Vazquez; Auth ([facility]) Notes:(Chest Portable) Reason For Exam: episode acute hypoxia;CoughRESULT: Chest Portable Chest Portable REASON: Cough; episode acute hypoxia; Clinical Question(s): Pneumonia COMPARISON: 11/20/2020 FINDINGS: LINES AND TUBES: Left subclavian central venous catheter tip appears retracted and overlaying the mid SVC. Enteric tube tip terminating outside of the field of view. LUNGS AND PLEURA: Unchanged low lung volumes and interstitial crowding with trace right basilar atelectasis. Chronic elevation of the right hemidiaphragm. No pleural effusion. No pneumothorax. HEART, MEDIASTINUM AND STEVE: Heart is normal in size. Normal upper mediastinal and hilar contour. BONES AND SOFT TISSUES: No acute abnormality. IMPRESSION: 1. Left subclavian central venous catheter tip appears retracted and terminating in the mid SVC. 2. Unchanged trace right atelectasis. I have personally reviewed the images and I agree with this report. WSN: [id number] Ordering Physician: Chuck Simmons Dictated By: Rishabh Gabriel DO Dictated Date/Time: 11/23/20 2:49 pm Reviewed By: Puma Maldonado MD Signed By: Puma Maldonado MD Signed Date/Time: 11/23/20 2:54 pm Transcribed By: SARAH Transcribed Date/Time: 11/23/20 2:48 pm Exam Date Time Procedure Performing Provider Status 11/20/20 5:54 PM Chest Portable Evaristo Mcneal (Verified ) Notes:(Chest Portable) Reason For Exam: Tube PlacementRESULT: Chest Portable Chest Portable 5:30 PM Reason: Tube Placement; Clinical Question(s): Tube Placement COMPARISON: 11/20/2020 at 3:07 PM, CT angiogram neck 11/16/2020 FINDINGS: LINES AND TUBES: Left subclavian central venous catheter with tip in region of superior vena cava. Nasogastric tube is in place with tip collimated from view, but reaching region of distal stomach. LUNGS AND PLEURA: No pneumothorax. No pleural effusion. Low lung volumes with right basilar atelectasis. Lungs are otherwise clear. Prominence of the pulmonary vasculature likely represents physiologic crowding due to low lung volumes. HEART, MEDIASTINUM AND STEVE: Heart is at the upper limits of normal for size. Aorta is tortuous and partially calcified. Fullnessto right upper paratracheal soft tissues unchanged, presumably related to vasculature. BONES AND SOFT TISSUES: No acute bony abnormalities. IMPRESSION: Nasogastric tube is in place with tip collimated from view, but reaching region of distal stomach. Low lung volumes with right basilar atelectasis. WSN: [id number] Ordering Physician: Prisca Denney Dictated By: Carter Anderson MD Dictated Date/Time: 11/20/20 5:57 pm Reviewed By: Carter Anderson MD Signed By: Carter Anderson MD Signed Date/Time: 11/20/20 5:57 pm Transcribed By: SARAH Transcribed Date/Time: 11/20/20 5:54 pm Exam Date Time Procedure Performing Provider Status 11/20/20 3:21 PM Chest Portable Maame Hess ([facility]) Notes:(Chest Portable) Reason For Exam: Tube PlacementRESULT: Chest Portable Examination: Portable chest performed on 11/20/2020 at 3:07 PM. History: Enteric tube placement. Findings: A frontal view of the chest is compared to a prior study dated 11/17/2020. Enteric tube has the side port at the level of the diaphragm with the tip in the stomach. This couldbe advanced. Left subclavian approach catheter is in expected location. The cardiac silhouette is within normal limits for size. Ectasia of the aorta is seen. Scattered areas of atelectasis are noted bilaterally. There is no pulmonary edema. No pleural effusions are seen. The osseous structures are intact. IMPRESSION: Support apparatus as described. Scattered areas of atelectasis. WSN: [id number] Ordering Physician: Prisca Denney Dictated By: Dilcia Argueta MD Dictated Date/Time: 11/20/20 4:03 pm Reviewed By: Dilcia Argueta MD Signed By: Dilcia Argueta MD Signed Date/Time: 11/20/20 4:03 pm Transcribed By: CSRodney Transcribed Date/Time: 11/20/20 4:02 pm Exam Date Time Procedure Performing Provider Status 11/20/20 9:00 AM Abdomen AP Vinny , [place]; Auth (Verified) Notes:(Abdomen AP) Reason For Exam: screening for MRI;Other:RESULT: XR Abdomen AP XR Abdomen AP INDICATION/CLINICAL QUESTION: Reason: Other:; screening for MRI; Clinical Question(s): Other:. Other: COMPARISON: None FINDINGS: Normal bowel gas pattern. No evidence of obstruction. No evidence of pneumoperitoneum. No organomegaly, masses or calcifications. No acute bone findings. Nasogastric tube and Blevins catheter are present. IMPRESSION: No metallic foreign body is identified in the abdomen or pelvis. WSN: [id number] Ordering Physician: Prisca Denney Dictated By: Maia Rubin MD Dictated Date/Time: 11/20/20 9:10 am Reviewed By: Maia Rubin MD Signed By: Maia Rubin MD Signed Date/Time: 11/20/20 9:10 am Transcribed By: SARAH Transcribed Date/Time: 11/20/20 9:09 am Exam Date Time Procedure Performing Provider Status 11/19/20 2:57 PM Chest Portable Juaquin Alarcon; Auth (Verified) Notes:(Chest Portable) Reason For Exam: Tube PlacementRESULT: Chest Portable Chest Portable Reason: Tube Placement; Clinical Question(s): Tube Placement; Special Instructions: after NGT placed COMPARISON: 11/17/2020 FINDINGS: The upper chest is excluded from the [id number]. LINES AND TUBES: Enteric tube tip projects in the right upper quadrant, likely in the stomach. Partially visualized left subclavian central venous catheter with the tip projecting in the SVC. LUNGS AND PLEURA: Mild bibasilar atelectasis. No pleural effusion. No pneumothorax. HEART, MEDIASTINUM AND STEVE: Visualized portions unchanged.. BONES AND SOFT TISSUES: No acute abnormality. IMPRESSION: Enteric tube tip projects in the right upper quadrant, likely in the stomach. WSN: [id number] Ordering Physician: Prisca Denney Dictated By: Puma Maldonado MD Dictated Date/Time: 11/19/20 3:39 pm Reviewed By: Puma Maldonado MD Signed By: Puma Maldonado MD Signed Date/Time: 11/19/20 3:39 pm Transcribed By: SARAH Transcribed Date/Time: 11/19/20 3:38 pm Exam Date Time Procedure Performing Provider Status 11/17/20 6:33 AM Chest Portable Ed Soler (Verified) Notes:(Chest Portable) Reason For Exam: Tube PlacementRESULT: Chest Portable Chest Portable REASON: Tube Placement; Clinical Question(s): Tube Placement COMPARISON: 11/16/2020 FINDINGS: LINES AND TUBES: Enteric tube courses below the diaphragm with its tip terminating below the field of view. Endotracheal tube 4.4 cm above the juan. Left subclavian central venous catheter tip in the distal SVC. LUNGS AND PLEURA: Low lung volumes with mild basilar atelectasis and bronchovascular crowding. Lungs are otherwise clear with no consolidation. No pleural effusion. No pneumothorax. HEART, MEDIASTINUM AND STEVE: Heart is normal in size. Normal upper mediastinal and hilar contour. BONES AND SOFT TISSUES: No acute abnormality. IMPRESSION: 1. No significant change compared with 11/16/2020. 2. Support device in place, as above. Enteric tube now in appropriate position. I have personally reviewed the images and I agree with this report. WSN: [id number] Ordering Physician: Kuns, Joshua C Dictated By: Marco Jim DO Dictated Date/Time: 11/17/20 8:55 am Reviewed By: Puma Maldonado MD Signed By: Puma Maldonado MD Signed Date/Time: 11/17/20 9:00 am Transcribed By: SARAH Transcribed Date/Time: 11/17/20 8:51 am Exam Date Time Procedure Performing Provider Status 11/16/20 8:15 PM Chest Portable Katia Burgess; Auth (Verjessie d) Notes:(Chest Portable) Reason For Exam: Line PlacementRESULT: Chest Portable Chest Portable Reason: Line Placement; Clinical Question(s): Pneumothorax COMPARISON: None. FINDINGS: LINES AND TUBES: Endotracheal tube in good position. Enteric tube terminates likely above the GE junction. Left central line in good position with tip in the SVC. LUNGS AND PLEURA: Areas of discoid atelectasis or scarring bilaterally. Hazy opacity in the left lower hemithorax could represent consolidation. No pneumothorax. HEART, MEDIASTINUM AND STEVE: No definite acute abnormality. BONES AND SOFT TISSUES: No acute abnormality. Prominent bowel loop in the central abdomen. IMPRESSION: No pneumothorax following line placement. Enteric tube terminates in the distal esophagus and should be advanced. A [employer] message has been communicated via the [employer] system on 11/16/2020 8:58 PM, Message ID [id number]. WSN: [id number] Ordering Physician: Zina Edwards Dictated By: Reji Hayes MD Dictated Date/Time: 11/16/20 8:58 pm Reviewed By: Reji Hayes MD Signed By: Reji Hayes MD Signed Date/Time: 11/16/20 8:58 pm Transcribed By: SARAH Transcribed Date/Time: 11/16/20 8:57 pm Vital Signs Most recent to oldest 1 2 3 [Reference Range]: Height 160 cm 160 cm 160 cm (12/01/20 3:33 PM) (12/01/20 8:00 AM) (11/30/20 3:58 P M) Weight 81.2 kg (11/16/20 6:43 PM) Oxygen Saturation [94-100 %] 98 % 94 % 96 % (12/01/20 3:33 PM) (12/01/20 8:00 AM) (11/30/20 10:53 PM) Pulse Rate [55-90 bpm] 58 bpm 72 bpm 73 bpm (12/01/20 3:33 PM) (12/01/20 8:00 AM) (11/30/20 10:53 PM) Body Mass Index [18.5-24.99] 31.72 *>HHI* (11/16/20 6:43 PM) Blood Pressure [90-138/55-84 mm 127/59 mm Hg 108/60 mm Hg 108/60 mm Hg Hg] (12/01/20 3:33 PM) (12/01/20 10:09 AM) (12/01/20 10:09 AM) Respiratory Rate [16-30 br/min] 17 br/min 18 br/min 18 br/min (12/01/20 3:33 PM) (12/01/20 2:20 PM) (12/01/20 8:00 A M) Temperature [96.8-100.4 DegF] 97.1 DegF 97.6 DegF 96 .5 DegF (12/01/20 3:33 PM) (12/01/20 8:00 AM) *L* (11/30/20 10:53 PM ) Liters per Minute 0 L/min 0 L/min 2 L/min (11/30/20 10:53 PM) (11/30/20 7:21 PM) (11/30/20 3:47 AM) Mode of Delivery (Oxygen) Room air Room air Room a ir (12/01/20 3:33 PM) (12/01/20 8:00 AM) (11/30/20 10:53 PM) Blood pressure sites Arm, right Arm, left Arm, right (12/01/20 3:33 PM) (12/01/20 8:00 AM) (11/30/20 10:53 PM) Temperature Route Temporal Temporal Temporal (12/01/20 3:33 PM) (12/01/20 8:00 AM) (11/30/20 10:53 PM) Dry Weight 84.4 kg (11/16/20 6:43 PM)
--- OUTSIDE RECORDS SUMMARY | 2022-09-25 21:24 | XMS_ITS | Continuity of Care Document ---
:1955 Author Organization [facility] Address [address] [place] [address], [address] [place] [address], [address] [place] [id number]- Care Team Providers Name Role Phone Not on Staff, PCP Primary Care Physician Unavailable [place] [facility] [place]): [place] [facility] [address] [place] [address], [address] [place] [address], [address] [place] [id number] Attending Physician: Nicolas Juan MD Allergies, Adverse Reactions, Alerts Substance Reaction Severity Status NKA Active Immunizations Given and Recorded Vaccine Date Status Refusal Reason SARS-CoV-2 (COVID-19) mRNA-8143 vaccine 10/20/20 Given Medications amantadine 50 mg/5 [...] opioid drug. Start Date: 12/01/20 Status: Orderednystatin 552376 u/ml oral suspension 5 mL = 500,000 [...]
--- NOTE | 2022-09-25 21:28 | ED.SOB ---
HPI - SOB/Dyspnea General Chief Complaint: Dyspnea Stated Complaint: difficulty breathing Time Seen by Provider: 09/25/22 21:22 Source: patient History of Present Illness HPI Narrative: Patient states she has been having trouble breathing for the past several days. Positive cough. Positive nasal congestion which she states is the reason she is having difficulty breathing. She does have wheezing as well however. No fevers or chills. No nausea or vomiting. No sick contacts in the house that she is aware of. Patient is typically non ambulatory secondary to a chronic left hemiparesis. No other acute complaints. She denies chest pain or abdominal pain. Related Data Home Medications Medication Instructions Recorded Confirmed lisinopril 5 mg tablet 5 mg PO DAILY 10/18/20 11/15/20 atorvastatin 40 mg tablet 40 mg PO BEDTIME 11/12/20 11/15/20 cholecalciferol (vitamin D3) 50 50 mcg PO DAILY 11/12/20 11/15/20 mcg (2,000 unit) capsule levothyroxine 175 mcg tablet 175 mcg PO DAILY 11/12/20 11/15/20 methylcellulose (laxative) 500 mg 1 tab PO BID 11/15/20 11/15/20 tablet (Fiber Therapy (methylcellulose)) Allergies Allergy/AdvReac Type Severity Reaction Status Date / Time No Known Allergies Allergy Verified 09/25/22 19:56 [No Known Allergies*] Review of Systems Constitutional: Comments: No fevers chills or malaise Cardiovascular: Comments: No chest pain Respiratory: Comments: Cough with minimal phlegm is described. Positive wheezing Gastrointestinal: Comments: No nausea vomiting or abdominal pain Integumentary/Breasts: Comments: No rash Neurologic: Comments: No headache PMFSH Past Medical History Medical History Asthma Elevated cholesterol Foot contusion HTN (hypertension) Hypothyroidism Surgical History History of ankle surgery Family History Family History Unknown Family history of colon cancer Social History Social History Household Members: Other Household Members Other:: daughter Housing: Apartment Do you presently have visiting nurse or other home services: No Alcohol intake: never Cigarette Packs Per Day: 0 Cigarettes Per Day: 1 Smoked in Last 30 Days: No Second Hand Smoke Exposure: No Use of substances other than those prescribed or required for medical reasons: No Advance Directives: No service: No Current occupational status: disabled Physical Exam Vital Signs: Vital Signs: Last Vital Signs Temp 97.8 F 09/25/22 19:56 Pulse 91 09/25/22 19:56 Resp 22 H 09/25/22 19:56 BP 127/84 09/25/22 19:56 Pulse Ox 94 09/25/22 19:56 O2 Del Method 09/25/22 19:56 BMI result Body Mass Index 35.3 Const: Other: Awake and alert. No acute distress Resp: Other: Bilateral expiratory wheezes and rhonchi. Good air entry however. No focal rales Cardio: Other: Regular rate and rhythm without murmurs rubs or gallops GI: Other: Abdomen soft nontender nondistended Skin: Other: Warm pink and dry without acute rash Neuro: Other: Left-sided hemiparesis with contractures, chronic Medical Decision Making Medical Decision Making MDM Narrative: URI Wheezing Bronchitis Pneumonia Patient with likely viral syndrome. 21:31. Chest x-ray shows no evidence of pneumonia. Viral panel negative for COVID-19, influenza. Will treat with albuterol and Atrovent updraft. Prednisone p.o. Stable for discharge home Lab Data Labs: Lab Results 09/25/22 Range/Units 20:03 Influenza Type A (PCR) NEGATIVE (Negative) Influenza Type B (PCR) NEGATIVE (Negative) RSV RNA Qual (PCR) NEGATIVE (Negative) SARS-CoV-2 RNA (RT-PCR) NEGATIVE (Negative) Discharge Plan Discharge Clinical Impression: Acute bronchitis, viral Patient Disposition: Home, Self-Care Instructions: Acute Bronchitis (ED) Additional Instructions: Medications as directed. Return if worse in any way. There workup here today consisted of a chest x-ray which was normal. Your viral panel was negative for influenza or COVID-19 Prescriptions: No Action Fiber Therapy (m-cellulose) 500 mg tablet 1 tab PO BID atorvastatin 40 mg tablet 40 mg PO BEDTIME levothyroxine 175 mcg tablet 175 mcg PO DAILY cholecalciferol (vitamin D3) 50 mcg (2,000 unit) capsule 50 mcg PO DAILY lisinopril 5 mg tablet 5 mg PO DAILY
[2022-09-25] MEDS: predniSONE 20 MG TABLET 60 MG PO (21:33)
[2022-09-25 21:49] VITALS: PULSE 79; RESP 18
[2022-09-25] MEDS: Albuterol/Iprat 2.5/0.5MG 3 ML AMPUL.NEB INHALE (21:49)
--- NOTE | 2022-09-25 22:58 | PC.NURSE ---
pt medicated per orders, sp02 97% on RA after updraft, call lamb within reach- pt transported home via [facility]
== END 2022-09-25 22:59 | disposition home or self-care (01) ==
PROVIDERS: Emergency Provider Emergency Medicine
DX: J20.9 Acute bronchitis, unspecified (principal); R06.02 Shortness of breath; R05.9 Cough, unspecified; Z20.822 Contact with and (suspected) exposure to COVID-19; Z20.828 Contact with and (suspected) exposure to other viral communicable diseases
CPT/HCPCS: 0241U; 71045; 94640; 99284

== ENCOUNTER 2022-10-25 23:01 | Emergency (ER) | payer MEDICARE, MEDICAID, SELFPAY ==
--- NOTE | ~2022-10-25 | XR_ITS ---
EXAMINATION: XR CHEST CLINICAL INFORMATION: Chest pain COMPARISON: 09/25/2022 TECHNIQUE: Frontal view of the chest was obtained. The patient is rotated to the left. Per the technologist, the patient rotation is due to limb contraction. Difficulty positioning. FINDINGS: Increased attenuation over the right hemithorax is likely the result of asymmetry of the overlying soft tissues. No consolidation, pneumothorax, or pleural effusion. Calcific atherosclerosis is present in the thoracic aorta. Cardiac silhouette is normal. Pulmonary vasculature is unremarkable. No acute osseous findings. XR/XR chest 1V IMPRESSION: No acute pulmonary findings.
[2022-10-25 23:14] VITALS: BP 164/142; PULSE 103; PULSE 90; RESP 16; TEMP 36.9; O2SAT 94; O2SAT 95; BMI 30.9
--- NOTE | 2022-10-25 23:24 | ECG_ITS ---
Test Reason : HTN Blood Pressure : / mmHG Vent. Rate : 085 BPM Atrial Rate : 085 BPM P-R Int : 138 ms QRS Dur : 080 ms QT Int : 382 ms P-R-T Axes : 031 -04 021 degrees QTc Int : 454 ms Normal sinus rhythm Normal ECG When compared with ECG of 16-NOV-2020 15:01, No significant change was found Referred By: Desi Yanes Electronically Signed By:PAUL TALLEY MD
--- NOTE | 2022-10-26 00:09 | ED_ITS ---
HPI - General Adult General Chief complaint: Dental/Oral Stated complaint: Right Ear and ToothPain, Time Seen by Provider: 10/25/22 23:24 Source: patient, EMS and window glass cutter off Mode of arrival: EMS History of Present Illness HPI narrative: 67-year-old female who presents via EMS for right-sided tooth pain that radiates into her right ear but she denies any difficulty breathing or swallowing. She denies any fevers or chills and states that she has a follow-up appointment this next week. She denies currently taking any antibiotics and otherwise denies any shortness of breath or chest pain/palpitations. Related Data Home Medications Medication Instructions Recorded Confirmed lisinopril 5 mg tablet 5 mg PO DAILY 10/18/20 11/15/20 atorvastatin 40 mg tablet 40 mg PO BEDTIME 11/12/20 11/15/20 cholecalciferol (vitamin D3) 50 50 mcg PO DAILY 11/12/20 11/15/20 mcg (2,000 unit) capsule levothyroxine 175 mcg tablet 175 mcg PO DAILY 11/12/20 11/15/20 methylcellulose (laxative) 500 mg 1 tab PO BID 11/15/20 11/15/20 tablet (Fiber Therapy (methylcellulose)) Previous Rx's Medication Instructions Recorded amoxicillin 875 mg-potassium 1 tab PO BID 7 days #14 tabs 10/26/22 clavulanate 125 mg tablet Allergies Allergy/AdvReac Type Severity Reaction Status Date / Time No Known Allergies Allergy Verified 09/25/22 19:56 [No Known Allergies*] Review of Systems Review of Systems: Pertinent positives and negatives as stated in HPI PMFSH Past Medical History Source: nursing notes reviewed Medical History Asthma Elevated cholesterol Foot contusion HTN (hypertension) Hypothyroidism Surgical History History of ankle surgery Family History Family History Unknown Family history of colon cancer Social History Social History Household Members: Other Household Members Other:: daughter Housing: Apartment Do you presently have visiting nurse or other home services: No Alcohol intake: never Cigarette Packs Per Day: 0 Cigarettes Per Day: 1 Second Hand Smoke Exposure: No Advance Directives: No Advance Directives Information Provided: No service: No Current occupational status: disabled Physical Exam ED Vital Signs: Vital Signs - 24 hr 10/25/22 23:14 Temperature 98.5 F Pulse Rate 90 Respiratory Rate 16 Blood Pressure 164/142 H Pulse Oximetry 95 Oxygen Delivery Method Room Air BMI result Body Mass Index 30.9 VITAL SIGNS: Reviewed. GENERAL: Well developed, well nourished, in no acute distress. HEAD: Normocephalic/atraumatic EYES: PERRLA, EOMI EARS: Ext canals without abnormality, TMs non-bulging and non-erythematous NOSE: Nares patent bilateral OROPHARYNX: no oral lesions noted, posterior pharynx clear, multiple dental caries especially bottom front teeth with mild gingival swelling. NECK: Supple, no adenopathy LUNGS: Normal breath sounds, no tachypnea. No adventitious sounds or accessory muscle use. SpO2<95> CARDIOVASCULAR: Regular rate and rhythm without noted murmurs, no JVD or lower extremity edema. ABDOMEN: Soft, non-tender, non-distended with bowel sounds. MUSCULOSKELETAL: No tenderness, deformities, or effusions noted on gross i nspection. EXTREMITIES: No cyanosis, clubbing or edema. SKIN: Inspection of the skin reveals no rashes NEUROLOGIC: Alert and oriented x 4. Strength and sensation to light touch were grossly intact x 4. Medications Administered Discontinued Medications Generic Name Dose Route Start Last Admin Trade Name Freq PRN Reason Stop Dose Admin Acetaminophen 975 mg 10/26/22 01:11 10/26/22 01:42 Acetaminophen 325 Mg Tablet PO 10/26/22 01:12 975 mg ONCE ONE Administration Amlodipine Besylate 7.5 mg 10/26/22 01:11 10/26/22 01:41 Amlodipine Besylate 2.5 Mg Tablet PO 10/26/22 01:12 7.5 mg ONCE ONE Administration Protocol Amoxicillin/Clavulanate Potassium 875 mg 10/26/22 01:12 10/26/22 01:41 Amoxicillin/Potassium Clav 875 Mg Tablet PO 10/26/22 01:13 875 mg ONCE ONE Administration Medical Decision Making Medical Decision Making MDM Narrative: This is a 67-year-old female with history and clinical presentation after review of all investigations which demonstrates chronically stable laboratory findings my interpretation is that this patient has a tooth infection and will be started on antibiotics with 1st dose given here in the emergency room and will also be provided with analgesics as well as treatment for a urinary tract infection. She was informed of all findings and plans and will otherwise be discharged home in stable condition. Differential Diagnosis Please see the discussion above Lab Data Please see the discussion above 10/26/22 01:07 10/26/22 01:15 Labs: Lab Results 10/26/22 10/26/22 10/26/22 Range/Units 01:07 01:07 01:07 WBC 7.9 (4.8-10.8) X10*3/uL RBC 5.35 (4.20-5.50) X10*6/uL Hgb 16.1 H (12.0-16.0) g/dl Hct 47.9 H (37.0-47.0) % MCV 89.5 (80.0-98.0) fL MCH 30.1 (27.0-33.0) pg MCHC 33.6 (31.0-35.0) g/dl RDW 15.1 (11.0-16.0) % Plt Count 228 (160-400) X10*3/uL MPV 12.9 H (9.4-12.3) fL Immature Gran % (Auto) 0.3 (0.0-0.4) % Neut % (Auto) 65.3 (45-73) % Lymph % (Auto) 23.7 (20-40) % [place] % (Auto) 7.4 (2-11) % Eos % (Auto) 2.7 (0-4) % Baso % (Auto) 0.6 (0-2) % Lymph # (Auto) 1.9 (1.2-4.9) X10*3/uL [place] # (Auto) 0.6 (0.1-1.2) X10*3/uL Eos # (Auto) 0.2 (0.0-0.4) X10*3/uL Baso # (Auto) 0.1 (0.0-0.2) X10*3/uL Abs Immat Gran (auto) 0.02 (0.00-0.03) X10*3/uL Absolute Neuts (auto) 5.1 (2.0-8.3) x10*3/uL Absolute Nucleated RBC 0.000 (0.0-0.012) X10*3/uL Nucleated RBC % (auto) 0.0 (0.0-0.2) /100WBC PT 11.3 (10.0-13.1) SEC INR 1.0 (0.9-1.1) Sodium (135-145) mmol/L Potassium (3.3-5.1) mmol/L Chloride (96-108) mmol/L Carbon Dioxide (22-29) mmol/L Anion Gap (12-20) BUN (9-16) mg/dL Creatinine (0.5-1.4) mg/dL Estim Creat Clear Calc Estimated GFR Random Glucose (60-115) mg/dL Calcium (8.4-10.2) mg/dL Total Bilirubin (0.0-1.0) mg/dL AST (5-31) U/L ALT (0-31) U/L Alkaline Phosphatase (39-117) U/L Troponin I High Sens 7.4 (<3.5-17.0) ng/L B-Natriuretic Peptide (<100) pg/mL Total Protein (6.5-8.0) g/dL Albumin (3.5-5.0) g/dL Urine Color Urine Appearance Urine pH (5.0-9.0) Ur Specific Phenix (1.005-1.025) Urine Protein (Neg-Trace) mg/dL Urine Glucose (UA) (Negative) mg/dL Urine Ketones (Negative) mg/dL Urine Blood (Negative) Urine Nitrite (Negative) Ur Leukocyte Esterase (Negative) Urine RBC (0-2) /HPF Urine WBC (0-5) /HPF Ur Squamous Epith Cells (0-2) /HPF Urine Bacteria (None Seen) Hyaline Casts (0-2) /LPF 10/26/22 10/26/22 10/26/22 Range/Units 01:15 01:15 01:25 WBC (4.8-10.8) X10*3/uL RBC (4.20-5.50) X10*6/uL Hgb (12.0-16.0) g/dl Hct (37.0-47.0) % MCV (80.0-98.0) fL MCH (27.0-33.0) pg MCHC (31.0-35.0) g/dl RDW (11.0-16.0) % Plt Count (160-400) X10*3/uL MPV (9.4-12.3) fL Immature Gran % (Auto) (0.0-0.4) % Neut % (Auto) (45-73) % Lymph % (Auto) (20-40) % [place] % (Auto) (2-11) % Eos % (Auto) (0-4) % Baso % (Auto) (0-2) % Lymph # (Auto) (1.2-4.9) X10*3/uL [place] # (Auto) (0.1-1.2) X10*3/uL Eos # (Auto) (0.0-0.4) X10*3/uL Baso # (Auto) (0.0-0.2) X10*3/uL Abs Immat Gran (auto) (0.00-0.03) X10*3/uL Absolute Neuts (auto) (2.0-8.3) x10*3/uL Absolute Nucleated RBC (0.0-0.012) X10*3/uL Nucleated RBC % (auto) (0.0-0.2) /100WBC PT (10.0-13.1) SEC INR (0.9-1.1) Sodium 138 (135-145) mmol/L Potassium 3.5 D (3.3-5.1) mmol/L Chloride 99 (96-108) mmol/L Carbon Dioxide 23 (22-29) mmol/L Anion Gap 20 (12-20) BUN 10 (9-16) mg/dL Creatinine 0.84 (0.5-1.4) mg/dL Estim Creat Clear Calc 68.1 Estimated GFR > 60 Random Glucose 194 H (60-115) mg/dL Calcium 9.7 (8.4-10.2) mg/dL Total Bilirubin 0.8 (0.0-1.0) mg/dL AST 35 H (5-31) U/L ALT 68 H (0-31) U/L Alkaline Phosphatase 145 H (39-117) U/L Troponin I High Sens (<3.5-17.0) ng/L B-Natriuretic Peptide 11 (<100) pg/mL Total Protein 8.3 H (6.5-8.0) g/dL Albumin 4.4 (3.5-5.0) g/dL Urine Color Yellow Urine Appearance Cloudy Urine pH 6.5 (5.0-9.0) Ur Specific [place] 1.015 (1.005-1.025) Urine Protein 30 (1+) H (Neg-Trace) mg/dL Urine Glucose (UA) Negative (Negative) mg/dL Urine Ketones Negative (Negative) mg/dL Urine Blood Trace H (Negative) Urine Nitrite Positive H (Negative) Ur Leukocyte Esterase Trace H (Negative) Urine RBC 0-2 (0-2) /HPF Urine WBC 11-20 H (0-5) /HPF Ur Squamous Epith Cells 6-10 (0-2) /HPF Urine Bacteria 4+ (None Seen) Hyaline Casts 0-2 (0-2) /LPF Independent Interpretation I performed an independent interpretation of an: EKG Interpretation: Normal sinus rhythm, HR-85, no STEMI, NM/QRS/QTC is within normal limits. Radiology Impression Radiologist Impression: My interpretation is in agreement with radiology's impression of imaging study. External Record Review External record reviewed: Outpatient record and Prior outpatient labs Critical Care Time Critical Care Time Critical Care Time: Yes Total Critical Care Time: 30 Attestation: I personally attest to this time spent taking care of the patient. Discharge Plan Discharge Clinical Impression: Acute UTI, Dental caries, Tooth infection Patient Disposition: Home, Self-Care Instructions: Urinary Tract Infection in Women (ED), Toothache (ED) Additional Instructions: 1. Reanudar todos los medicamentos caseros seg?n lo prescrito. 2. Complete todo el ciclo de antibi?ticos para la infecci?n dental y la UTI que tenga. 3. Alvaro un seguimiento con membreno dentista seg?n lo programado la pr?xima semana. 4. Alvaro un seguimiento con membreno proveedor de atenci?n primaria el lunes por la ma?alexandria. Tylenol 1000 mg, por v?a oral, cada 6 horas seg?n sea necesario para controlar el dolor. No exceda los 4000 mg dentro de las 24 horas. Regrese a la xavier de emergencias si los s?ntomas empeoran. 1. Resume all home medications as prescribed. 2. Please complete the entire course of antibiotics for your tooth infection as well as the UTI that you have. 3. Please follow-up with your dentist as scheduled next week. 4. Please follow-up with your primary care provider on Friday morning. Tylenol 1000 mg, orally, every 6 hours as needed for pain control. Do not exceed 4000 mg within 24 hours. Return to the ER for any worsening symptoms. Prescriptions: New amoxicillin-pot clavulanate 875-125 mg tablet 1 tab PO BID 7 Days Qty: 14 0RF No Action Fiber Therapy (m-cellulose) 500 mg tablet 1 tab PO BID atorvastatin 40 mg tablet 40 mg PO BEDTIME levothyroxine 175 mcg tablet 175 mcg PO DAILY cholecalciferol (vitamin D3) 50 mcg (2,000 unit) capsule 50 mcg PO DAILY lisinopril 5 mg tablet 5 mg PO DAILY Print Language: [place]
[2022-10-26 01:19] LABS: Basophils Absolute Auto 0.1 X10*3/uL (0.0-0.2); Basophils Percent Auto 0.6 % (0-2); Eosinophils Absolute Auto 0.2 X10*3/uL (0.0-0.4); Eosinophils Percent Auto 2.7 % (0-4); Hematocrit 47.9 % (37.0-47.0); Hemoglobin 16.1 g/dl (12.0-16.0); Imm Gran Abs Auto 0.02 X10*3/uL (0.00-0.03); Imm Gran Pct Auto 0.3 % (0.0-0.4); Lymphocytes Absolute Auto 1.9 X10*3/uL (1.2-4.9); Lymphocytes Percent Auto 23.7 % (20-40); MANUAL DIFF FLAG NO; Mean Corpuscular HGB Conc 33.6 g/dl (31.0-35.0); Mean Corpuscular Hemoglobin 30.1 pg (27.0-33.0); Mean Corpuscular Volume 89.5 fL (80.0-98.0); Mean Platelet Volume 12.9 fL (9.4-12.3); Monocytes Absolute Auto 0.6 X10*3/uL (0.1-1.2); Monocytes Percent Auto 7.4 % (2-11); Neutrophils Absolute Auto 5.1 x10*3/uL (2.0-8.3); Neutrophils Percent Auto 65.3 % (45-73); Platelet Count 228 X10*3/uL (160-400); Red Blood Count 5.35 X10*6/uL (4.20-5.50); Red Cell Distribution Width 15.1 % (11.0-16.0); White Blood Count 7.9 X10*3/uL (4.8-10.8)
[2022-10-26 01:25] LABS: Prothrombin Time 11.3 SEC (10.0-13.1)
[2022-10-26 01:35] LABS: Alanine Aminotransferase 68 U/L (0-31); Albumin Level 4.4 g/dL (3.5-5.0); Alkaline Phosphatase 145 U/L (39-117); Anion Gap 20 (12-20); Aspartate Amino Transferase 35 U/L (5-31); Bilirubin Total 0.8 mg/dL (0.0-1.0); Blood Urea Nitrogen 10 mg/dL (9-16); Calcium 9.7 mg/dL (8.4-10.2); Carbon Dioxide 23 mmol/L (22-29); Chloride 99 mmol/L (96-108); Creatinine Clr Calc Pharmacy 68.1; Estimated Glomerular Filt Rate > 60; Glucose Random 194 mg/dL (60-115); Potassium 3.5 mmol/L (3.3-5.1); Sodium 138 mmol/L (135-145); Total Protein 8.3 g/dL (6.5-8.0)
[2022-10-26 01:37] LABS: Appearance Urine Cloudy; Color Urine Yellow; Glucose Urine UA Negative (Negative); Leukocyte Esterase Urine Trace (Negative); Nitrite Urine Positive (Negative); PH 6.5 (5.0-9.0); Specific Gravity - Urine 1.015 (1.005-1.025); UMIC TRIGGER UACC YES; Urine Blood Trace (Negative); Urine Ketones Negative (Negative); Urine Protein 30 (1+) mg/dL (Neg-Trace)
[2022-10-26 01:40] LABS: B Type Natriuretic Peptide 11 pg/mL (<100)
[2022-10-26 01:40] LABS: Troponin-I High Sensitivity 7.4 ng/L (<3.5-17.0)
[2022-10-26] MEDS: amLODIPine Besylate 2.5 MG TABLET 7.5 MG PO (01:41)
[2022-10-26] MEDS: Amoxicillin/Potassium Clav 875 MG TABLET PO (01:41)
[2022-10-26 01:42] LABS: Bacteria Urine 4+ (None Seen); Hyaline Casts Urine 0-2 /LPF (0-2); RBC Urine 0-2 /HPF (0-2); UACC Culture Trigger YES
[2022-10-26] MEDS: Acetaminophen 325 MG TABLET 975 MG PO (01:42)
--- NOTE | 2022-10-26 02:17 | MHC.EDTECH ---
Zachery called at 0216 for a bls transfer home,eta within the hour.Rn aware
== END 2022-10-26 03:43 | disposition home or self-care (01) ==
PROVIDERS: Emergency Provider Student in an Organized Health Care Education/Training Program
DX: N39.0 Urinary tract infection, site not specified (principal); R07.89 Other chest pain; I10 Essential (primary) hypertension; K02.9 Dental caries, unspecified; R06.02 Shortness of breath; Z79.899 Other long term (current) drug therapy
CPT/HCPCS: 36415; 51702; 71045; 80053; 81001; 83880; 84484; 85025; 85610; 87086; 87088; 87186; 93005; 99284

== ENCOUNTER 2022-12-29 09:31 | Emergency (ER) | payer MEDICARE, MEDICAID, SELFPAY ==
--- NOTE | 2022-12-29 | ECG_ITS ---
Test Reason : WEAKNESS Blood Pressure : / mmHG Vent. Rate : 078 BPM Atrial Rate : 078 BPM P-R Int : 142 ms QRS Dur : 080 ms QT Int : 378 ms P-R-T Axes : 030 -19 018 degrees QTc Int : 430 ms Normal sinus rhythm Normal ECG When compared with ECG of 25-OCT-2022 23:49, No significant change was found Referred By: Generic ED Physician Electronically Signed By:SANJANA PEREZ
--- NOTE | ~2022-12-29 | US_ITS ---
EXAMINATION: US VENOUS ULTRASOUND WITH DOPPLER LOWER EXTREMITY, BILATERAL CLINICAL INFORMATION: Leg swelling COMPARISON: None available. TECHNIQUE: Ultrasound of the deep veins is performed from the hip to the calf with compression sonography and color and pulse Doppler assessment. Spectral analysis with color-flow imaging is performed. FINDINGS: RIGHT: There is normal venous compression and respiratory variation and augmented flow. The visualized common femoral vein, superficial femoral vein, profunda femoral vein, popliteal vein, and the trifurcation region shows no evidence of deep venous thrombosis. There is no significant popliteal fossa cyst. LEFT: There is thrombus present in the left popliteal vein extending up the femoral vein into the common femoral vein. Thrombus is also present in the left great saphenous vein and the left profunda femoris vein. Limited visualization of the calf veins but these appear patent. US/US venous duplex LE BI IMPRESSION: Acute DVT left lower extremity. No DVT demonstrated in the right lower extremity.
[2022-12-29 09:39] VITALS: BP 130/90; BP 150/88; PULSE 68; PULSE 76; RESP 18; TEMP 36.8; O2SAT 95; O2SAT 98; BMI 34.1
--- NOTE | 2022-12-29 10:01 | PC.NURSE ---
Pt verbalized to that [facility] dx her with a clot 2 weeks ago, and that she doesn't understand where the swelling is coming from, this marketing underwriter asked why she did not go back to [facility] and she stated that her daughter is loosing giana in [facility].
--- NOTE | 2022-12-29 10:03 | ED_ITS ---
HPI - General Adult General Chief complaint: General Medical Stated complaint: GENERAL MALAISE, LEG SWELLING, TOE INFECTION Time Seen by Provider: 12/29/22 09:46 Source: patient Mode of arrival: EMS Limitations: no limitations History of Present Illness HPI narrative: This is 67 years old female presented to the emergency department complaining of swelling in the legs she denies any chest pain shortness of breath fever. She has history of right intracranial bleed October 2020 she has a left hemiplegia she has a contracted left lower extremity. She does not ambulate at baseline she is bed with chair. She tells me that she was a [facility] scented 2 weeks ago she was told that she had leg DVT. We will try to get the records from [facility]. History was obtained through the documentation coordinator she denies any chest pain shortness of breath fever she states that she feels well otherwise Onset (ago): day(s) (1) Radiation: non-radiation Severity: moderate Quality: burning Pain Consistency: constant Relieving factors: none Associated symptoms: denies other symptoms Related Data Home Medications Medication Instructions Recorded Confirmed lisinopril 5 mg tablet 5 mg PO DAILY 10/18/20 11/15/20 atorvastatin 40 mg tablet 40 mg PO BEDTIME 11/12/20 11/15/20 cholecalciferol (vitamin D3) 50 50 mcg PO DAILY 11/12/20 11/15/20 mcg (2,000 unit) capsule levothyroxine 175 mcg tablet 175 mcg PO DAILY 11/12/20 11/15/20 methylcellulose (laxative) 500 mg 1 tab PO BID 11/15/20 11/15/20 tablet (Fiber Therapy (methylcellulose)) Previous Rx's Medication Instructions Recorded amoxicillin 875 mg-potassium 1 tab PO BID 7 days #14 tabs 10/26/22 clavulanate 125 mg tablet Allergies Allergy/AdvReac Type Severity Reaction Status Date / Time No Known Allergies Allergy Verified 12/29/22 09:46 [No Known Allergies*] Review of Systems Constitutional: Constitutional: Reports no additional constitutional complaints Cardiovascular: Cardiovascular: Denies chest pain and Denies dyspnea Respiratory: Respiratory: Denies dyspnea Gastrointestinal: Gastrointestinal: Denies abdominal pain, Denies nausea and Denies vomiting PMFSH Past Medical History PMFSH Narrative: Right intracranial bleed October 2020 left hemiplegia, left leg contracted Medical History Asthma Elevated cholesterol Foot contusion HTN (hypertension) Hypothyroidism Surgical History History of ankle surgery Family History Family History Unknown Family history of colon cancer Social History Social History Household Members: Other Household Members Other:: daughter Housing: Apartment Do you presently have visiting nurse or other home services: No Alcohol intake: never Cigarette Packs Per Day: 0 Cigarettes Per Day: 1 Smoked in Last 30 Days: No Second Hand Smoke Exposure: No Use of substances other than those prescribed or required for medical reasons: No Advance Directives: No Advance Directives Information Provided: Yes service: No Current occupational status: disabled Physical Exam ED Vital Signs: Vital Signs - 24 hr 12/29/22 09:39 12/29/22 10:41 12/29/22 15:50 Temperature 98.3 F 98.2 F Pulse Rate 76 75 85 Respiratory Rate 18 18 13 Blood Pressure 150/88 H 108/56 L 159/96 H Pulse Oximetry 95 94 96 Oxygen Delivery Method Room Air Room Air Room Air BMI result Body Mass Index 34.1 Const Other: She looks well she is not toxic General: cooperative, healthy appearing and comfortable [facility] Head: Yes normal to inspection General nose exam: Normal external nose present Face and sinus: Yes normal facial exam Mouth: Normal oral and palatal mucosa present Neck Neck: Yes normal visual inspection Chest Chest palpation & inspection: normal inspection of the chest Resp Effort & Inspection: normal respiratory effort Auscultation: clear to auscultation bilaterally Cardio Jugular venous distension: no JVD Rate: regular rate Rhythm: regular rhythm GI Inspection: Yes normal to inspection Palpation (GI): Soft to palpation, not firm, nontender and no guarding Extrem Other: Lower extremity examination shows the left lower extremities contracted at the level of the knee just pulses in the foot palpable by Doppler Course Reevaluation(s) Reevaluation #1: PT IS ON ELIQUIS SINCE DECEMBER 14 I reviewed the ultrasound done [facility] patient had an extensive occlusive thrombus in the left lower extremity which include the common femoral vein the femoral vein the gastrocnemious vein Reevaluation #2: I consulted vascular surgery Dr Sierra no change in treatmen she is been on Eliquis only 2 weeks, she can be follow-up of as outpatient with Dr. Sierra Time: 13:21 Reevaluation #3: RN spoke with the daughter by phone informed about plan of care comfortable with the plan Time: 15:56 Medical Decision Making Medical Decision Making [facility] Narrative: Patient presented with left leg swelling she has no other complain no chest pain or shortness of breath ultrasound showed a persistent DVT unchanged from a 2 weeks ago [facility], I consulted vascular surgery Dr Sierra no change in treatment Differential Diagnosis Differential Diagnoses: The differential diagnosis associated with the presentation includes Patient presented emergency department with lower extremity swelling with get lab work and will do an ultrasound will try to get the records from [facility] per patient she had an ultrasound which was consistent with DVT Admission/Observation Consideration of admission/observation: Escalation of care including admission/observation considered Consult Healthcare Provider Management of the patient was discussed with: Stock Fitter Dr Sierra vascular surgeon Lab Data [facility] Lab Attestation statement: I reviewed the patient's lab results. 12/29/22 10:17 12/29/22 10:17 Labs: Lab Results 12/29/22 12/29/22 12/29/22 Range/Units 10:17 10:17 10:17 WBC 7.6 (4.8-10.8) X10*3/uL RBC 4.39 (4.20-5.50) X10*6/uL Hgb 13.5 (12.0-16.0) g/dl Hct 41.2 (37.0-47.0) % MCV 93.8 (80.0-98.0) fL MCH 30.8 (27.0-33.0) pg MCHC 32.8 (31.0-35.0) g/dl RDW 15.5 (11.0-16.0) % Plt Count 201 (160-400) X10*3/uL MPV 12.8 H (9.4-12.3) fL Immature Gran % (Auto) 0.8 H (0.0-0.4) % Neut % (Auto) 56.5 (45-73) % Lymph % (Auto) 28.6 (20-40) % [place] % (Auto) 8.7 (2-11) % Eos % (Auto) 4.6 H (0-4) % Baso % (Auto) 0.8 (0-2) % Lymph # (Auto) 2.2 (1.2-4.9) X10*3/uL [place] # (Auto) 0.7 (0.1-1.2) X10*3/uL Eos # (Auto) 0.4 (0.0-0.4) X10*3/uL Baso # (Auto) 0.1 (0.0-0.2) X10*3/uL Abs Immat Gran (auto) 0.06 H (0.00-0.03) X10*3/uL Absolute Neuts (auto) 4.3 (2.0-8.3) x10*3/uL Absolute Nucleated RBC 0.000 (0.0-0.012) X10*3/uL Nucleated RBC % (auto) 0.0 (0.0-0.2) /100WBC PT 12.7 (10.0-13.1) SEC INR 1.1 (0.9-1.1) APTT 29.2 (26.0-36.4) SEC Sodium 136 (135-145) mmol/L Potassium 4.8 D (3.3-5.1) mmol/L Chloride 106 (96-108) mmol/L Carbon Dioxide 21 L (22-29) mmol/L Anion Gap 14 (12-20) BUN 16 (9-16) mg/dL Creatinine 0.74 (0.5-1.4) mg/dL Estim Creat Clear Calc 87.2 Estimated GFR > 60 Random Glucose 205 H (60-115) mg/dL Calcium 9.6 (8.4-10.2) mg/dL Total Bilirubin 0.5 (0.0-1.0) mg/dL AST 71 H (5-31) U/L ALT 149 H (0-31) U/L Alkaline Phosphatase 143 H (39-117) U/L Total Protein 8.1 H (6.5-8.0) g/dL Albumin 3.8 (3.5-5.0) g/dL Independent Interpretation I performed an independent interpretation of an: Ultrasound Interpretation: left DVt Radiology Impression Discussion of test interpretation with radiology: I discussed test int erpretation with the radiologist Radiologist Impression: RIGHT: There is normal venous compression and respiratory variation and augmented flow. The visualized common femoral vein, superficial femoral vein, profunda femoral vein, popliteal vein, and the trifurcation region shows no evidence of deep venous thrombosis. ? There is no significant popliteal fossa cyst. LEFT: There is thrombus present in the left popliteal vein extending up the femoral vein into the common femoral vein. Thrombus is also present in the left great saphenous vein and the left profunda femoris vein. Limited visualization of the calf veins but these appear patent. US/US venous duplex LE BI IMPRESSION: Acute DVT left lower extremity. No DVT demonstrated in the right lower extremity. Dictated By: Jesse Polanco MD Signed By: <Electronically signed by Jesse Polanco MD in OV> 12/29/22 1133 DD/ 1042 External Record Review External record reviewed: Outpatient record reviewed record from [facility] Chronic Conditions Patient?s care impacted by: Other (hemorragic cva with left paralysis,extensive DVT left leg) left paralysis Discharge Plan Discharge Clinical Impression: Left leg swelling Patient Disposition: Home, Self-Care Instructions: Deep Vein Thrombosis (ED) Additional Instructions: Continue the apixaban (Eliquis) twice a day follow-up with Dr Sierra Prescriptions: No Action Fiber Therapy (m-cellulose) 500 mg tablet 1 tab PO BID atorvastatin 40 mg tablet 40 mg PO BEDTIME levothyroxine 175 mcg tablet 175 mcg PO DAILY cholecalciferol (vitamin D3) 50 mcg (2,000 unit) capsule 50 mcg PO DAILY amoxicillin-pot clavulanate 875-125 mg tablet 1 tab PO BID 7 Days Qty: 14 0RF lisinopril 5 mg tablet 5 mg PO DAILY Referrals: Nawaf Sierra MD [Physician] - 5 days
[2022-12-29 10:23] LABS: MANUAL DIFF FLAG NO
[2022-12-29 10:25] LABS: Basophils Absolute Auto 0.1 X10*3/uL (0.0-0.2); Basophils Percent Auto 0.8 % (0-2); Eosinophils Absolute Auto 0.4 X10*3/uL (0.0-0.4); Eosinophils Percent Auto 4.6 % (0-4); Hematocrit 41.2 % (37.0-47.0); Hemoglobin 13.5 g/dl (12.0-16.0); Imm Gran Abs Auto 0.06 X10*3/uL (0.00-0.03); Imm Gran Pct Auto 0.8 % (0.0-0.4); Lymphocytes Absolute Auto 2.2 X10*3/uL (1.2-4.9); Lymphocytes Percent Auto 28.6 % (20-40); Mean Corpuscular HGB Conc 32.8 g/dl (31.0-35.0); Mean Corpuscular Hemoglobin 30.8 pg (27.0-33.0); Mean Corpuscular Volume 93.8 fL (80.0-98.0); Mean Platelet Volume 12.8 fL (9.4-12.3); Monocytes Absolute Auto 0.7 X10*3/uL (0.1-1.2); Monocytes Percent Auto 8.7 % (2-11); Neutrophils Absolute Auto 4.3 x10*3/uL (2.0-8.3); Neutrophils Percent Auto 56.5 % (45-73); Platelet Count 201 X10*3/uL (160-400); Red Blood Count 4.39 X10*6/uL (4.20-5.50); Red Cell Distribution Width 15.5 % (11.0-16.0); White Blood Count 7.6 X10*3/uL (4.8-10.8)
[2022-12-29 10:32] LABS: INTERNATIONAL NORM RATIO 1.1 (0.9-1.1); Prothrombin Time 12.7 SEC (10.0-13.1)
[2022-12-29 10:35] LABS: Partial Thromboplastin Time 29.2 SEC (26.0-36.4)
[2022-12-29 10:41] VITALS: BP 108/56; PULSE 75; RESP 18; O2SAT 94
[2022-12-29 10:43] LABS: Alanine Aminotransferase 149 U/L (0-31); Albumin Level 3.8 g/dL (3.5-5.0); Alkaline Phosphatase 143 U/L (39-117); Anion Gap 14 (12-20); Aspartate Amino Transferase 71 U/L (5-31); Bilirubin Total 0.5 mg/dL (0.0-1.0); Blood Urea Nitrogen 16 mg/dL (9-16); Calcium 9.6 mg/dL (8.4-10.2); Carbon Dioxide 21 mmol/L (22-29); Chloride 106 mmol/L (96-108); Creatinine Clr Calc Pharmacy 87.2; Estimated Glomerular Filt Rate > 60; Glucose Random 205 mg/dL (60-115); Potassium 4.8 mmol/L (3.3-5.1); Sodium 136 mmol/L (135-145); Total Protein 8.1 g/dL (6.5-8.0)
[2022-12-29 15:50] VITALS: BP 159/96; PULSE 85; RESP 13; TEMP 36.8; O2SAT 96
[2022-12-29 16:19] LABS: Glucose, Whole Blood 203 mg/dL (60-115)
== END 2022-12-29 16:03 | disposition home or self-care (01) ==
PROVIDERS: Emergency Provider Emergency Medicine
DX: R53.1 Weakness (principal); R60.0 Localized edema; R94.31 Abnormal electrocardiogram [ECG] [EKG]; Z79.01 Long term (current) use of anticoagulants; Z79.899 Other long term (current) drug therapy
CPT/HCPCS: 36415; 80053; 82947; 85025; 85610; 85730; 93005; 93970; 99284

== ENCOUNTER 2023-03-13 14:30 | Outpatient (REF) | payer MEDICARE, MEDICAID, SELFPAY ==
[2023-03-13 17:14] LABS: Alanine Aminotransferase 282 U/L (0-31); Albumin Level 3.9 g/dL (3.5-5.0); Alkaline Phosphatase 179 U/L (39-117); Aspartate Amino Transferase 225 U/L (5-31); Bilirubin Direct 0.5 mg/dL (0.0-0.5); Bilirubin Total 1.1 mg/dL (0.0-1.0); Cholesterol 376 mg/dL; HDL Cholesterol 25 mg/dL; Total Protein 8.6 g/dL (6.5-8.0); Triglycerides 859 mg/dL
[2023-03-14 08:20] LABS: Hepatitis A Antibody IgM 0.38 Index (0-0.79); ~Hepatitis A Antibody IgM Nonreactive (Nonreactive)
[2023-03-14 09:03] LABS: HBS Num1 0.04 mIU/mL (0-7.99); HBc Num1 0.22 S/CO (0.00-0.79); HBsAGNum1 0.37 S/CO (0.00-0.99); Hepatitis B Core Antibody Nonreactive (Nonreactive); Hepatitis B Surface Antigen Negative (Negative); ~HepC Num1 0.14 S/CO (0.00-0.79); ~Hepatitis B Surface Antibody NONREACTIVE (Nonreactive); ~Hepatitis C Antibody Nonreactive (Nonreactive)
== END 2023-03-13 14:31 | disposition home or self-care (01) ==
LOC: HO.HHCL 14:30
PROVIDERS: Visit Provider Registered Nurse
DX: E78.00 Pure hypercholesterolemia, unspecified (principal)
CPT/HCPCS: 36415; 80061; 80076; 86704; 86706; 86709; 86803; 87340

== ENCOUNTER 2023-08-15 08:39 | Emergency (ER) | payer MEDICARE, MEDICAID, SELFPAY ==
--- NOTE | ~2023-08-15 | CT_ITS ---
EXAMINATION: CT ABDOMEN AND PELVIS WITHOUT CONTRAST CLINICAL INFORMATION: Abdominal pain. Diarrhea. COMPARISON: None available. TECHNIQUE: Multidetector volumetric imaging was performed from the superior aspect of the liver through the pubic symphysis. Sagittal and coronal reformatted images were obtained on the technologist's workstation. This CT examination was performed using dose optimization techniques as appropriate, variously including the following: *Automated exposure control *Adjustment of mA and/or kV according to patient size (this includes techniques or standardized protocols for targeted exams where dose is matched to indication/reason for exam; i.e. extremities or head) *Use of iterative reconstruction technique DLP: 719 mGy-cm FINDINGS: LUNG BASES: There is scarring and/or atelectatic change at the lung bases. LIVER, GALLBLADDER, AND BILIARY TREE: The liver is of diminished attenuation. No focal liver lesions are seen. There is a small amount of intrahepatic biliary air. There has been a prior cholecystectomy. PANCREAS: Unremarkable. SPLEEN: Unremarkable. ADRENAL GLANDS: Unremarkable. KIDNEYS AND URETERS: The kidneys are normal in size, shape, and attenuation. No hydronephrosis, hydroureter, or calculi seen. No perinephric stranding. BLADDER: Unremarkable. GASTROINTESTINAL TRACT: The small and large bowel are unremarkable. The appendix is unremarkable. ABDOMINAL WALL: No significant hernia is appreciated. LYMPH NODES: Normal. VASCULAR: There is atherosclerotic plaque of the abdominal aorta and proximal branches. PELVIC VISCERA: Unremarkable. OSSEOUS STRUCTURES: The bony structures are osteopenic. CT/CT abdomen pelvis wo IV con IMPRESSION: Fatty infiltration of the liver. Small amount of intrahepatic biliary air. No other significant abnormality identified. Fleischner guidelines were followed.
[2023-08-15 08:53] VITALS: BP 140/80; PULSE 84; O2SAT 97; BMI 31.9
[2023-08-15 08:54] VITALS: BP 152/88; PULSE 89; RESP 15; TEMP 36.9; O2SAT 96
--- NOTE | 2023-08-15 09:06 | ECG_ITS ---
Test Reason : PALPITATIONS Blood Pressure : / mmHG Vent. Rate : 085 BPM Atrial Rate : 085 BPM P-R Int : 132 ms QRS Dur : 078 ms QT Int : 370 ms P-R-T Axes : 034 -31 012 degrees QTc Int : 440 ms Normal sinus rhythm Left axis deviation Abnormal ECG When compared with ECG of 29-DEC-2022 09:57, No significant change was found Referred By: Caren Malik Electronically Signed By:PAUL TALLEY MD
--- NOTE | 2023-08-15 09:19 | ED.GENADULT ---
HPI - General Adult General Chief complaint: Nausea/Vomiting/Diarrhea Stated complaint: diarrhea x 3 days Time Seen by Provider: 08/15/23 08:40 Source: patient, EMS, RN notes reviewed and old records reviewed Mode of arrival: EMS History of Present Illness HPI narrative: 68-year-old [place]er-speaking female with a past medical history of asthma, HLD, HTN, hypothyroid, CVA, bedbound, presenting to the ED via EMS complaining of chest pain, lightheadedness, abdominal pain and nonbloody diarrhea x3 days. Admits chest pain is intermittent, denies at present. Denies fever, chills, SOB, nausea/vomiting, dysuria/hematuria Related Data Home Medications Medication Instructions Recorded Confirmed lisinopril 5 mg tablet 5 mg PO DAILY 10/18/20 11/15/20 atorvastatin 40 mg tablet 40 mg PO BEDTIME 11/12/20 11/15/20 cholecalciferol (vitamin D3) 50 50 mcg PO DAILY 11/12/20 11/15/20 mcg (2,000 unit) capsule levothyroxine 175 mcg tablet 175 mcg PO DAILY 11/12/20 11/15/20 methylcellulose (laxative) 500 mg 1 tab PO BID 11/15/20 11/15/20 tablet (Fiber Therapy (methylcellulose)) Previous Rx's Medication Instructions Recorded amoxicillin 875 mg-potassium 1 tab PO BID 7 days #14 tabs 10/26/22 clavulanate 125 mg tablet Allergies Allergy/AdvReac Type Severity Reaction Status Date / Time No Known Allergies Allergy Verified 08/15/23 09:03 [No Known Allergies*] Review of Systems Review of Systems: Constitutional: No Fever, No Chills ENT/Mouth: No Ear Pain, No Nasal Congestion, No sore throat, No Rhinorrhea, No Swallowing Difficulty Cardiovascular: + Chest Pain, No SOB Respiratory: No Cough, No Sputum, No Wheezing Gastrointestinal: No Nausea, No Vomiting, +Diarrhea, No Constipation, +Abdominal pain Genitourinary: No Dysuria, No Urinary Frequency, No Hematuria, No Urinary Incontinence/retention, No Flank Pain Musculoskeletal: No joint pain, No Myalgias, No Joint Swelling Skin: No Skin Lesions, No rash Neuro: No Weakness, No Numbness, No Paresthesias Yes all other systems are reviewed and are negative Constitutional: Constitutional: Reports as per [facility] Past Medical History Attestation statement: The following information was validated with the patient. Source: old records reviewed Medical History Asthma Elevated cholesterol HTN (hypertension) Hypothyroidism Foot contusion Surgical History History of ankle surgery Family History Family History Unknown Family history of colon cancer Social History Social History Household Members: Other Household Members Other:: daughter Housing: Apartment Do you presently have visiting nurse or other home services: No Alcohol intake: never Cigarette Packs Per Day: 0 Cigarettes Per Day: 1 Smoked in Last 30 Days: No Second Hand Smoke Exposure: No Use of substances other than those prescribed or required for medical reasons: No Advance Directives: No Advance Directives Information Provided: No service: No Current occupational status: disabled Physical Exam ED Vital Signs: Vital Signs - 24 hr 08/15/23 08:54 08/15/23 10:00 08/15/23 11:58 Temperature 98.4 F Pulse Rate 89 87 94 Respiratory Rate 15 13 16 Blood Pressure 152/88 H 123/66 130/74 Pulse Oximetry 96 96 92 Oxygen Delivery Method Room Air Room Air Room Air BMI result Body Mass Index 31.9 Const General: cooperative, healthy appearing and no acute distress Orientation/consciousness: patient oriented x3 Limitations: no limitations HENMT Head: Yes normal to inspection and Yes atraumatic Ears: hearing grossly normal bilaterally General nose exam: Normal external nose present Face and sinus: Yes normal facial exam Eyes General: appearance normal, both eyes and all related structures EOM: EOMs intact bilaterally Neck Neck: Yes normal visual inspection and Yes no meningeal signs Resp Effort & Inspection: normal respiratory effort and no respiratory distress Auscultation: clear to auscultation bilaterally Cardio Rate: regular rate Heart sounds: S1 normal heart sound present and S2 normal heart sound present GI Inspection: Yes normal to inspection Palpation (GI): Soft to palpation, Tenderness to palpation present (GI) (Diffusely tender) with no rebound tenderness, no guarding and not rigid General: Yes no CVA tenderness Back/Spine/Pelvis Back: no CVA tenderness Skin Rashes: no rashes Wounds: no wounds Neuro Other: Left-sided weakness (baseline from prior CVA) General: patient oriented x3, tone normal and no meningeal signs Extrem General: Yes normal to inspection Course Course Course Narrative: 1113--magnesium mildly low 1.5 > PO repletion ordered. chronic transaminitis. Troponin negative. -lipase mildly elevated to 87 CT abdomen pelvis wo IV con IMPRESSION: Fatty infiltration of the liver. Small amount of intrahepatic biliary air. No other significant abnormality identified. Fleischner guidelines were followed. >> incidental finding of small amount of intrahepatic air, patient is nontoxic appearing, no evidence of cholangitis/jaundice or fever. will have patient follow-up with GI outpatient. Findings discussed with Dr. Mcmullen who is in agreement no further workup needed at this time, can be evaluated outpatient > patient tolerating p.o. in the ED without difficulty, reports symptomatic improvement. Plan is for discharge home Results discussed with patient including worrisome signs and symptoms and strict return precautions, and when to return to the emergency department. They verbalized understanding and feel safe for discharge at this time. Medications Administered Discontinued Medications Generic Name Dose Route Start Last Admin Trade Name Freq PRN Reason Stop Dose Admin Sodium Chloride 500 mls @ 999 mls/hr 08/15/23 09:15 08/15/23 11:20 Ns IV 08/15/23 09:45 Infused .Q31M [facility] Infusion Magnesium Oxide 800 mg 08/15/23 11:15 08/15/23 11:54 Magnesium Oxide 400 Mg Tablet PO 08/15/23 11:16 800 mg ONCE ONE Administration Medical Decision Making Medical Decision Making [facility] Narrative: 68-year-old [place]er-speaking female with a past medical history of asthma, HLD, HTN, hypothyroid, CVA, bedbound, presenting to the ED via EMS complaining of chest pain, lightheadedness, abdominal pain and nonbloody diarrhea x3 days. On exam vital signs stable, NAD, nontoxic appearing, abdomen soft diffusely tender, no rebound or guarding. Lungs CTA. Concern for ACS vs viral syndrome vs gastroenteritis vs colitis/diverticulitis or appendicitis. Rule out metabolic abnormalities. Lower suspicion for SBO/ischemic bowel Plan: EKG, labs, CT AP, UA, IVF, re-evaluate Please refer to course for remaining clinical decision making, interpretation of labs/imaging results, and discussions with consultants and/or family members. Differential Diagnosis Differential Diagnoses: The differential diagnosis associated with the presentation includes As above Admission/Observation Consideration of admission/observation: Escalation of care including admission/observation considered Lab Data MDM Lab Attestation statement: I reviewed the patient's lab results. 08/15/23 10:26 08/15/23 10:26 Labs: Lab Results 08/15/23 08/15/23 Range/Units 10:26 11:48 WBC 8.1 (4.8-10.8) X10*3/uL RBC 4.12 L (4.20-5.50) X10*6/uL Hgb 13.9 (12.0-16.0) g/dl Hct 40.4 (37.0-47.0) % MCV 98.1 H (80.0-98.0) fL MCH 33.7 H (27.0-33.0) pg MCHC 34.4 (31.0-35.0) g/dl RDW 14.6 (11.0-16.0) % Plt Count 190 (160-400) X10*3/uL MPV Not Reportable Immature Gran % (Auto) 1.0 H (0.0-0.4) % Neut % (Auto) 55.5 (45-73) % Lymph % (Auto) 33.1 (20-40) % [place] % (Auto) 7.4 (2-11) % Eos % (Auto) 2.4 (0-4) % Baso % (Auto) 0.6 (0-2) % Lymph # (Auto) 2.7 (1.2-4.9) X10*3/uL [place] # (Auto) 0.6 (0.1-1.2) X10*3/uL Eos # (Auto) 0.2 (0.0-0.4) X10*3/uL Baso # (Auto) 0.1 (0.0-0.2) X10*3/uL Abs Immat Gran (auto) 0.08 H (0.00-0.03) X10*3/uL Absolute Neuts (auto) 4.5 (2.0-8.3) x10*3/uL Absolute Nucleated RBC 0.000 (0.0-0.012) X10*3/uL Nucleated RBC % (auto) 0.0 (0.0-0.2) /100WBC Smear Tech's Comments VERIFIED Sodium 138 (135-145) mmol/L Potassium 3.6 D (3.3-5.1) mmol/L Chloride 107 (96-108) mmol/L Carbon Dioxide 21 L (22-29) mmol/L Anion Gap 14 (12-20) BUN 8 L (9-16) mg/dL Creatinine 0.72 (0.5-1.4) mg/dL Estim Creat Clear Calc 82.5 Estimated GFR > 60 Random Glucose 103 (60-115) mg/dL Calcium 9.7 (8.4-10.2) mg/dL Magnesium 1.5 L (1.6-2.6) mg/dL Total Bilirubin 0.5 (0.0-1.0) mg/dL Direct Bilirubin 0.2 (0.0-0.5) mg/dL AST 111 H (5-31) U/L ALT 103 H (0-31) U/L Alkaline Phosphatase 111 (39-117) U/L Troponin I High Sens < 2.7 D (<3.5-17.0) ng/L Total Protein 8.5 H (6.5-8.0) g/dL Albumin 3.9 (3.5-5.0) g/dL Lipase 87 H (8-78) U/L Urine Color Yellow Urine Appearance Clear Urine pH 5.5 (5.0-9.0) Ur Specific [place] 1.020 (1.005-1.025) Urine Protein Trace (Neg-Trace) mg/dL Urine Glucose (UA) Negative (Negative) mg/dL Urine Ketones Negative (Negative) mg/dL Urine Blood Negative (Negative) Urine Nitrite Negative (Negative) Ur Leukocyte Esterase Negative (Negative) Influenza Type A (PCR) NEGATIVE (Negative) Influenza Type B (PCR) NEGATIVE (Negative) RSV RNA Qual (PCR) NEGATIVE (Negative) SARS-CoV-2 RNA (RT-PCR) NEGATIVE (Negative) Independent Interpretation I performed an independent interpretation of an: EKG and CT Scan Radiology Impression Discussion of test interpretation with radiology: I have reviewed the radiologist's reading. Independent Historian Clinical information obtained from an independent historian. History obtained from or confirmed by: EMS External Record Review External record reviewed: Inpatient record, Office record, Outpatient record, Prior outpatient labs, Prior outpatient radiology, Primary care record and Outside ED record Tests considered The following testing was considered but not selected: As above Prescription Management I considered prescription management with: Pain Medication Chronic Conditions Patient?s care impacted by: Hypertension and Other Social Determinants Patient?s care significantly limited by Social Determinants of Health including: Other Social Determinant of Health Discharge Plan Discharge Clinical Impression: Intermittent chest pain, Abdominal pain, Diarrhea Patient Disposition: Home, Self-Care Instructions: Abdominal Pain (ED), Hypomagnesemia (ED) Additional Instructions: Your blood work is reassuring, her magnesium is mildly low, consider taking a magnesium supplement, 400 mg daily Please supple follow up with her doctor You need to follow-up with gastroenterology Your CT scan showed some free air in your intrahepatic biliary area, please follow-up with gastroenterology closely outpatient If symptoms persist or worsen, you are unable to eat or drink return to the ED Prescriptions: No Action Fiber Therapy (m-cellulose) 500 mg tablet 1 tab PO BID atorvastatin 40 mg tablet 40 mg PO BEDTIME levothyroxine 175 mcg tablet 175 mcg PO DAILY cholecalciferol (vitamin D3) 50 mcg (2,000 unit) capsule 50 mcg PO DAILY amoxicillin-pot clavulanate 875-125 mg tablet 1 tab PO BID 7 Days Qty: 14 0RF lisinopril 5 mg tablet 5 mg PO DAILY Referrals: [facility] [place] [facility] [Provider Group] - 5 days Zulema Shah FNP [Primary Care Provider] - 2 days Interventions: ED Discharge Assessment Last Done: 08/15/23 13:43 Discharge Date/Time: 08/15/23 13:44
[2023-08-15 10:00] VITALS: BP 123/66; PULSE 87; RESP 13; O2SAT 96
[2023-08-15] MEDS: 0.9 % Sodium Chloride 500 ML 999 ML IV (10:14)
[2023-08-15 10:44] LABS: Basophils Absolute Auto 0.1 X10*3/uL (0.0-0.2); Basophils Percent Auto 0.6 % (0-2); Eosinophils Absolute Auto 0.2 X10*3/uL (0.0-0.4); Eosinophils Percent Auto 2.4 % (0-4); Hematocrit 40.4 % (37.0-47.0); Hemoglobin 13.9 g/dl (12.0-16.0); Imm Gran Abs Auto 0.08 X10*3/uL (0.00-0.03); Lymphocytes Absolute Auto 2.7 X10*3/uL (1.2-4.9); Lymphocytes Percent Auto 33.1 % (20-40); MANUAL DIFF FLAG SCAN; Mean Corpuscular HGB Conc 34.4 g/dl (31.0-35.0); Mean Corpuscular Hemoglobin 33.7 pg (27.0-33.0); Mean Corpuscular Volume 98.1 fL (80.0-98.0); Monocytes Absolute Auto 0.6 X10*3/uL (0.1-1.2); Monocytes Percent Auto 7.4 % (2-11); Neutrophils Absolute Auto 4.5 x10*3/uL (2.0-8.3); Neutrophils Percent Auto 55.5 % (45-73); PLT CLUMP 1; Red Blood Count 4.12 X10*6/uL (4.20-5.50); Red Cell Distribution Width 14.6 % (11.0-16.0); SCAN SMEAR FLAG 1
[2023-08-15 10:45] LABS: White Blood Count 8.1 X10*3/uL (4.8-10.8)
[2023-08-15 10:48] LABS: Alanine Aminotransferase 103 U/L (0-31); Albumin Level 3.9 g/dL (3.5-5.0); Alkaline Phosphatase 111 U/L (39-117); Anion Gap 14 (12-20); Aspartate Amino Transferase 111 U/L (5-31); Bilirubin Direct 0.2 mg/dL (0.0-0.5); Bilirubin Total 0.5 mg/dL (0.0-1.0); Blood Urea Nitrogen 8 mg/dL (9-16); Calcium 9.7 mg/dL (8.4-10.2); Carbon Dioxide 21 mmol/L (22-29); Chloride 107 mmol/L (96-108); Creatinine Clr Calc Pharmacy 82.5; Estimated Glomerular Filt Rate > 60; Glucose Random 103 mg/dL (60-115); Lipase 87 U/L (8-78); Magnesium 1.5 mg/dL (1.6-2.6); Potassium 3.6 mmol/L (3.3-5.1); Sodium 138 mmol/L (135-145); Total Protein 8.5 g/dL (6.5-8.0)
--- NOTE | 2023-08-15 10:59 | PC.NURSE ---
20g iv inserted r forearm. iv fluid started. pt a+o x3, denies pain. vss. labs drawn, scan done.
[2023-08-15 11:01] LABS: Platelet Count 190 X10*3/uL (160-400); SLIDE REVIEW VERIFIED
[2023-08-15 11:09] LABS: Troponin-I High Sensitivity < 2.7 ng/L (<3.5-17.0)
[2023-08-15 11:20] LABS: Influenza A PCR NEGATIVE (Negative); Influenza B PCR NEGATIVE (Negative); Resp Syncy Virus RNA Qual PCR NEGATIVE (Negative); SARS COV2 PCR INHOUSE NEGATIVE (Negative)
--- NOTE | 2023-08-15 11:21 | PC.NURSE ---
this RN resumed care of pt at this time - pt's IV access infiltrated. 450ml out of 500ml bag of NS administered. IV removed. provider aware at this time. pt awaiting CT results. call lamb placed within reach.
--- NOTE | 2023-08-15 11:39 | PC.NURSE ---
straight catheterization performed. 60ml of dark yellow urine noted immediately post output. documented in I&O section. urine obtained by tech/sent to lab.
[2023-08-15] MEDS: Magnesium Oxide 400 MG TABLET 800 MG PO (11:54)
[2023-08-15 11:58] VITALS: BP 130/74; PULSE 94; RESP 16; O2SAT 92
--- NOTE | 2023-08-15 11:58 | PC.NURSE ---
medication administered per provider order.
[2023-08-15 12:06] LABS: Appearance Urine Clear; Color Urine Yellow; Glucose Urine UA Negative (Negative); Leukocyte Esterase Urine Negative (Negative); Nitrite Urine Negative (Negative); PH 5.5 (5.0-9.0); Urine Blood Negative (Negative); Urine Ketones Negative (Negative); Urine Protein Trace mg/dL (Neg-Trace)
--- NOTE | 2023-08-15 12:51 | PC.NURSE ---
this RN attempted to call pt's daughter twice w/o success. will reattempt shortly.
--- NOTE | 2023-08-15 13:40 | PC.NURSE ---
pt continues to wait for transportation at this time.
--- NOTE | 2023-08-15 13:43 | PC.NURSE ---
report given to scott at this time. pt being transported home.
--- NOTE | 2023-08-15 13:50 | PC.NURSE ---
this RN attempted to call pt's daughter to notify her that transportation services have been arrived and pt is currently being transported home via EMS. pt's daughter answered phone and then stopped talking. this RN tried to call back twice afterwards w/o success. was sent to voicemail.
== END 2023-08-15 13:44 | disposition home or self-care (01) ==
PROVIDERS: Physician Assistant; Emergency Provider Emergency Medicine Emergency Medical Services; PCP Registered Nurse
DX: R07.89 Other chest pain (principal); R11.2 Nausea with vomiting, unspecified; R19.7 Diarrhea, unspecified; R10.9 Unspecified abdominal pain; Z79.899 Other long term (current) drug therapy; Z20.828 Contact with and (suspected) exposure to other viral communicable diseases; Z20.822 Contact with and (suspected) exposure to COVID-19
CPT/HCPCS: 0241U; 36415; 74176; 80048; 80076; 81003; 83690; 83735; 84484; 85025; 93005; 96360; 99284; 99285

== ENCOUNTER → 2023-08-15 09:06 | Outpatient (BNV) | payer MEDICARE, MEDICAID, SELFPAY | PROVIDERS: Emergency Provider Emergency Medicine Emergency Medical Services; PCP Registered Nurse; Visit Provider Internal Medicine Cardiovascular Disease | DX: R94.31 Abnormal electrocardiogram [ECG] [EKG] (principal) | CPT/HCPCS: 93010 ==

== ENCOUNTER 2023-10-14 12:40 | Outpatient (REF) | payer MEDICARE, MEDICAID, SELFPAY ==
[2023-10-14 13:34] LABS: Prothrombin Time 12.2 SEC (11.1-13.3)
[2023-10-14 13:48] LABS: Basophils Absolute Auto 0.1 X10*3/uL (0.0-0.2); Basophils Percent Auto 0.9 % (0-2); Eosinophils Absolute Auto 0.2 X10*3/uL (0.0-0.4); Eosinophils Percent Auto 2.7 % (0-4); Hematocrit 46.8 % (37.0-47.0); Imm Gran Abs Auto 0.01 X10*3/uL (0.00-0.03); Imm Gran Pct Auto 0.2 % (0.0-0.4); Lymphocytes Absolute Auto 2.3 X10*3/uL (1.2-4.9); Lymphocytes Percent Auto 36.3 % (20-40); Mean Corpuscular HGB Conc 34.2 g/dl (31.0-35.0); Mean Corpuscular Hemoglobin 34.3 pg (27.0-33.0); Mean Corpuscular Volume 100.2 fL (80.0-98.0); Mean Platelet Volume 13.6 fL (9.4-12.3); Monocytes Absolute Auto 0.4 X10*3/uL (0.1-1.2); Monocytes Percent Auto 5.8 % (2-11); Neutrophils Absolute Auto 3.5 x10*3/uL (2.0-8.3); Neutrophils Percent Auto 54.1 % (45-73); Platelet Count 182 X10*3/uL (160-400); Red Blood Count 4.67 X10*6/uL (4.20-5.50); Red Cell Distribution Width 14.8 % (11.0-16.0); White Blood Count 6.4 X10*3/uL (4.8-10.8)
[2023-10-14 14:14] LABS: Alanine Aminotransferase 135 U/L (0-31); Alkaline Phosphatase 103 U/L (39-117); Anion Gap 15 (12-20); Aspartate Amino Transferase 168 U/L (5-31); Bilirubin Total 0.6 mg/dL (0.0-1.0); Blood Urea Nitrogen 11 mg/dL (9-16); Calcium 9.4 mg/dL (8.4-10.2); Carbon Dioxide 21 mmol/L (22-29); Chloride 105 mmol/L (96-108); Cholesterol 341 mg/dL (<200); Estimated Glomerular Filt Rate > 60; Glucose Random 125 mg/dL (60-115); HDL Cholesterol 35 mg/dL (>40); LDL Cholesterol Calculated 231 mg/dL (<100); Sodium 137 mmol/L (135-145); Total Protein 9.2 g/dL (6.5-8.0); Triglycerides 378 mg/dL (<150)
[2023-10-14 14:17] LABS: TSH reflex Free T4 38.14 uIU/mL (0.32-4.0)
[2023-10-14 14:50] LABS: Free T4 (Free Thyroxine) 0.78 ng/dL (0.71-1.85)
[2023-10-15 13:37] LABS: Alpha Fetoprotein 9.3 ng/mL
== END 2023-10-14 12:41 | disposition home or self-care (01) ==
LOC: HO.HHCL 12:40
PROVIDERS: Visit Provider Registered Nurse
DX: E11.9 Type 2 diabetes mellitus without complications (principal); E03.9 Hypothyroidism, unspecified; R74.8 Abnormal levels of other serum enzymes; K76.9 Liver disease, unspecified; K74.69 Other cirrhosis of liver
CPT/HCPCS: 36415; 80053; 80061; 82105; 84439; 84443; 85025; 85610

== ENCOUNTER 2024-04-27 17:26 | Outpatient (REF) | payer MEDICARE, MEDICAID, SELFPAY ==
[2024-04-27 18:21] LABS: Creatinine Urine 44.77 mg/dL; Microalbum/Creatinine Ratio Ur 35.7 ug/mg cr (<30)
== END 2024-04-27 17:27 | disposition home or self-care (01) ==
LOC: HO.HHCLNP 17:26
PROVIDERS: Visit Provider Registered Nurse
DX: E11.69 Type 2 diabetes mellitus with other specified complication (principal)
CPT/HCPCS: 82043; 82570

== ENCOUNTER 2024-07-28 10:58 | Outpatient (REF) | payer MEDICARE, MEDICAID, SELFPAY ==
--- OUTSIDE RECORDS SUMMARY | 2024-08-03 17:52 | XMS_ITS | Clinical Summary ---
Author Organization Unknown Care Team Providers Care Table Keeper Name Role Phone [employer], CHIARA Unavailable Unavailable REDDY AIR CHIEF MARSHAL, OSVALDO Unavailable Unavailable VON JACK AIR CHIEF MARSHAL, ALEC Unavailable Unavail able KALETINA AIR CHIEF MARSHAL, NICOL Unavailable Unavailab felicity RASHID RN, CLINICAL OIL BURNER TECHNICIAN, ADAMA Hampton available Unavailable ANGEL RN, GABRIEL Unavailable Unavailable Payers Payer Name Policy Type Policy Number Effective Date Expira tion Date MEDICARE - [place] - [id number] MEDICAID [facility] [id number] Problems Condition Name Condition Details Condition Category Status Onset Date Resolution Date Last Treatment Date Treating Clinician Comments TYPE 2 DIABETES MELLITUS WITH DIABETIC NEPHROPATHY Active 05-20 00:00: 00 HEMIPLGA FOLLOWING CEREBRAL INFRC AFFECTING LEFT NONDOM SIDE Active 05-20 00:00: 00 HYPOTHYROIDI SM, UNSPECIFIED Active 05-20 00:00: 00 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, MILD, WITH MOOD DISTURB Active 05-20 00:00: 00 DEPRESSION, UNSPECIFIED Active 05-20 00:00: 00 POLYOSTEOART HRITIS, UNSPECIFIED Active 05-20 00:00: 00 HYPERLIPIDEM IA, UNSPECIFIED Active 05-20 00:00: 00 ESSENTIAL (PRIMARY) HYPERTENSION Active 05-20 00:00: 00 UNSPECIFIED ASTHMA, UNCOMPLICATE D Active 05-20 00:00: 00 GASTRO-ESOPH AGEAL REFLUX DISEASE WITHOUT ESOPHAGITIS Active 05-20 00:00: 00 FATTY (CHANGE OF) LIVER, NOT ELSEWHERE CLASSIFIED Active 05-20 00:00: 00 OBESITY, UNSPECIFIED Active 05-20 00:00: 00 BODY MASS INDEX [BMI] 28.0-28.9, ADULT Active 05-20 00:00: 00 ACQUIRED ABSENCE OF OTHER SPECIFIED PARTS OF DIGESTIVE TRACT Active 05-20 00:00: 00 PERSONAL HISTORY OF COVID-19 Active 05-20 00:00: 00 PERSONAL HISTORY OF OTHER VENOUS THROMBOSIS AND EMBOLISM Active 05-20 00:00: 00 FDC (CURRENT) USE OF ANTICOAGULAN TS Active 05-20 00:00: 00 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 Ordering Clinician Indication Dosage Frequency Signature (SIG) Comments Components atorvastati n 40 mg tablet 2020-08 00:00: 00 11-04 23:59 :00 No [id number] 40 mg BEDTIME 40 mg BEDTIME (route: oral) Med Classific ation: Cardiovas cular Therapy Agents baclofen 10 mg tablet 2020-08 00:00: 00 11-04 23:59 :00 No [id number] 10 mg 3 TIMES DAILY 10 mg 3 TIMES DAILY (route: oral) Med Classific ation: Locomotor System duloxetine 60 mg capsule,del ayed release 2020-08 0 00:00: 00 11-21 23:59 :00 No [id number] 60 capsule DAILY 60 capsule DAILY (route: oral) Med Classific ation: Central Nervous System Agents haloperidol 1 mg tablet 2020-08 00:00: 00 11-21 23:59 :00 No [id number] 1 mg NEEDED 1 mg NEEDED (route: oral) Med Classific ation: Central Nervous System Agents levothyroxi ne 100 mcg tablet 2020-08 0 00:00: 00 03-24 23:59 :00 No [id number] 100 mcg DAILY 100 mcg DAILY (route: oral) Med Classific ation: Endocrine lisinopril 5 mg tablet 2020-08 0 00:00: 00 11-04 23:59 :00 No [id number] 5 mg DAILY 5 mg DAILY (route: oral) Med Classific ation: Cardiovas cular Therapy Agents Melatin 3 mg tablet 2020-08 0-06 00:00: 00 11-04 23:59 :00 No [id number] 3 mg BEDTIME 3 mg BEDTIME (route: oral) Med Classific ation: Central Nervous System Agents thiamine HCl (vitamin B1) 100 mg tablet 2020-08 0-06 00:00: 00 11-21 23:59 :00 No [id number] 100 mg DAILY 100 mg DAILY (route: oral) Med Classific ation: Electroly te Balance-N utritiona l Products trazodone 50 mg tablet 2020-08 0-06 00:00: 00 11-21 23:59 :00 No [id number] 50 mg BEDTIME 50 mg BEDTIME (route: oral) Med Classific ation: Central Nervous System Agents Tylenol 325 mg tablet 2020-08 0-06 00:00: 00 11-04 23:59 :00 No [id number] 325 mg DIRECTED 325 mg DIRECTED (route: oral) Med Classific ation: Analgesic , Anti-infl ammatory or Antipyret ic Seroquel 25 mg tablet 2020-08 1-15 00:00: 00 11-04 23:59 :00 No [id number] 1 tablet 2 TIMES DAILY 1 tablet 2 TIMES DAILY (route: oral) Med Classific ation: Central Nervous System Agents Multivitami n 50 Plus tablet 4-04 00:00: 00 11-04 23:59 :00 No [id number] 1 tablet DAILY 1 tablet DAILY (route: oral) Med Classific ation: Electroly te Balance-N utritiona l Products levothyroxi ne 88 mcg tablet 8-02 00:00: 00 11-04 23:59 :00 No [id number] 1 tablet DAILY 1 tablet DAILY (route: oral) Med Classific ation: Endocrine baclofen 10 mg tablet 3-19 00:00: 00 05-08 23:59 :00 No [id number] Per instruc tions 3 TIMES DAILY Per instructio ns 3 TIMES DAILY (route: oral) Med Classific ation: Locomotor System levothyroxi ne 88 mcg capsule 11-10 00:00: 00 05-08 23:59 :00 No [id number] Per instruc tions DAILY Per instructio ns DAILY (route: oral) Med Classific ation: Endocrine melatonin 3 mg tablet 11-10 00:00: 00 Yes [id number] Per instruc tions BEDTIME Per instructio ns BEDTIME (route: oral) Med Classific ation: Central Nervous System Agents multivitami n tablet 11-10 00:00: 00 Yes [id number] Per instruc tions DAILY Per instructio ns DAILY (route: oral) Med Classific ation: Electroly te Balance-N utritiona l Products quetiapine 25 mg tablet 11-10 00:00: 00 Yes [id number] Per instruc tions BEDTIME Per instructio ns BEDTIME (route: oral) Med Classific ation: Central Nervous System Agents Eliquis 5 mg tablet 12-25 00:00: 00 Yes [id number] 5 mg 2 TIMES DAILY 5 mg 2 TIMES DAILY (route: oral) Med Classific ation: Hematolog ical Agents atorvastati n 80 mg tablet 05-08 00:00: 00 Yes [id number] 1 tablet DAILY 1 tablet DAILY (route: oral) Med Classific ation: Cardiovas cular Therapy Agents baclofen 20 mg tablet 05-08 00:00: 00 Yes [id number] 1 tablet 3 TIMES DAILY 1 tablet 3 TIMES DAILY (route: oral) Med Classific ation: Locomotor System levothyroxi ne 100 mcg capsule 05-08 00:00: 00 Yes [id number] 1 capsule DAILY 1 capsule DAILY (route: oral) Med Classific ation: Endocrine metformin 500 mg tablet 05-08 00:00: 00 Yes [id number] 2 tablet DAILY 2 tablet DAILY (route: oral) Med Classific ation: Endocrine tamsulosin 0.4 mg capsule 05-08 00:00: 00 Yes [id number] 1 capsule DAILY 1 capsule DAILY (route: oral) Med Classific ation: Genitouri nary Therapy Ventolin HFA 90 mcg/actuati on aerosol inhaler 05-08 00:00: 00 Yes [id number] 2 puff EVERY 4 HOURS 2 puff EVERY 4 HOURS (route: inhalation ) Med Classific ation: Respirato ry Therapy Agents Vital Signs Vital Name Observation Time Observation Value Commen ts Temperature 2023-09-16 11:56:00.000 97.5 [degF] Temperature 2023-09-09 14:28:00.000 97.8 [degF] Temperature 2023-09-02 20:44:00.000 98.6 [degF] Temperature 2023-08-26 11:35:00.000 96.8 [degF] Temperature 2023-08-19 12:46:00.000 97.3 [degF] Temperature 2023-08-12 12:15:00.000 98.9 [degF] Temperature 2023-08-05 10:14:00.000 97.1 [degF] Temperature 2023-07-29 16:17:00.000 97.5 [degF] Temperature 2023-07-22 18:12:00.000 98.2 [degF] Pulse 2023-09-16 11:56:00.000 75 /min Pulse 2023-09-09 14:28:00.000 66 /min Pulse 2023-09-02 20:44:00.000 68 /min Pulse 2023-08-26 11:35:00.000 63 /min Pulse 2023-08-19 12:46:00.000 76 /min Pulse 2023-08-12 12:15:00.000 70 /min Pulse 2023-08-05 10:14:00.000 64 /min Pulse 2023-07-29 16:17:00.000 68 /min Pulse 2023-07-22 18:12:00.000 68 /min O2 Saturation (%) 2023-09-16 11:56:00.000 96 % O2 Saturation (%) 2023-09-09 14:28:00.000 94 % O2 Saturation (%) 2023-09-02 20:45:00.000 98 % O2 Saturation (%) 2023-08-26 11:35:00.000 94 % O2 Saturation (%) 2023-08-19 12:46:00.000 96 % O2 Saturation (%) 2023-08-12 12:15:00.000 95 % O2 Saturation (%) 2023-08-05 10:14:00.000 92 % O2 Saturation (%) 2023-07-29 16:17:00.000 98 % Respirations 2023-09-16 11:56:00.000 15 /min Respirations 2023-09-09 14:28:00.000 15 /min Respirations 2023-09-02 20:44:00.000 18 /min Respirations 2023-08-26 11:35:00.000 16 /min Respirations 2023-08-19 12:46:00.000 15 /min Respirations 2023-08-12 12:15:00.000 18 /min Respirations 2023-08-05 10:14:00.000 16 /min Respirations 2023-07-29 16:17:00.000 16 /min Respirations 2023-07-22 18:12:00.000 20 /min Systolic Blood Pressure 2023-09-16 11:56:00.000 124 mm [Hg] Systolic Blood Pressure 2023-09-09 14:34:00.000 130 mm [Hg] Systolic Blood Pressure 2023-09-02 20:44:00.000 130 mm [Hg] Systolic Blood Pressure 2023-08-26 11:35:00.000 110 mm [Hg] Systolic Blood Pressure 2023-08-19 12:46:00.000 124 mm [Hg] Systolic Blood Pressure 2023-08-12 12:15:00.000 122 mm [Hg] Systolic Blood Pressure 2023-08-05 10:14:00.000 100 mm [Hg] Systolic Blood Pressure 2023-07-29 16:17:00.000 126 mm [Hg] Systolic Blood Pressure 2023-07-22 18:12:00.000 132 mm [Hg] Diastolic Blood Pressure 2023-09-16 11:56:00.000 72 mm [Hg] Diastolic Blood Pressure 2023-09-09 14:34:00.000 80 mm [Hg] Diastolic Blood Pressure 2023-09-02 20:44:00.000 74 mm [Hg] Diastolic Blood Pressure 2023-08-26 11:35:00.000 62 mm [Hg] Diastolic Blood Pressure 2023-08-19 12:46:00.000 72 mm [Hg] Diastolic Blood Pressure 2023-08-12 12:15:00.000 60 mm [Hg] Diastolic Blood Pressure 2023-08-05 10:14:00.000 68 mm [Hg] Diastolic Blood Pressure 2023-07-29 16:17:00.000 76 mm [Hg] Diastolic Blood Pressure 2023-07-22 18:12:00.000 62 mm [Hg] Plan of Treatment Planned Activity Planned Date Details Comments Future Scheduled Test SKILLED NU RSE TO EVALUATE PATIENT, IDENTIFY PRIMARY AND CO-MORBID CONDITIONS CODED PER CODING GUIDELINES, AND DEVELOP PATIENT SPECIFIC PLAN OF CARE THAT INCLUDES PATIENT GOAL FOR HOME HEALTH. [code = SKILLED NURSE TO EVALUATE PATIENT, IDENTIFY PRIMARY AND CO-MORBID CONDITIONS CODED PER CODING GUIDELINES, AND DEVELOP PATIENT SPECIFIC PLAN OF CARE THAT INCLUDES PATIENT GOAL FOR HOME HEALTH.] Future Scheduled Test SKILLED NU RSE TO REVIEW PATIENT MEDICATIONS. INSTRUCT PATIENT/CAREGIVER ON MONITORING OF EFFECTIVENESS, ADVERSE DRUG REACTIONS, SIDE EFFECTS OF ALL MEDICATIONS (PRESCRIPTION/-OTC), AND HOW AND WHEN TO REPORT PROBLEMS. [code = SKILLED NURSE TO REVIEW PATIENT MEDICATIONS. INSTRUCT PATIENT/CAREGIVER ON MONITORING OF EFFECTIVENESS, ADVERSE DRUG REACTIONS, SIDE EFFECTS OF ALL MEDICATIONS (PRESCRIPTION/-OTC), AND HOW AND WHEN TO REPORT PROBLEMS.] Future Scheduled Test SKILLED NU RSE FOR O/A, TEACHING RELATED TO GERD FOR EARLY IDENTIFICATION OF EXACERBATION OF DISEASE PROCESS. [code = SKILLED NURSE FOR O/A, TEACHING RELATED TO GERD FOR EARLY IDENTIFICATION OF EXACERBATION OF DISEASE PROCESS.] Future Scheduled Test SKILLED NU RSE FOR O/A OF RESPIRATORY SYSTEM TO IDENTIFY CHANGES ASSOCIATED WITH EXACERBATION AND TO PROVIDE SKILLED TEACHING ON MANAGEMENT OF ASTHMA, PNA RESPIRATORY DISEASE PROCESS. [code = SKILLED NURSE FOR O/A OF RESPIRATORY SYSTEM TO IDENTIFY CHANGES ASSOCIATED WITH EXACERBATION AND TO PROVIDE SKILLED TEACHING ON MANAGEMENT OF ASTHMA, PNA RESPIRATORY DISEASE PROCESS.] Future Scheduled Test NEED FOR S KILLED TEACHING AND INTERVENTION RELATED TO STAGE 2 PU TO COCCYX. SKILLED NURSE OR TRAINED PATIENT/CAREGIVER TO PERFORM WOUND CARE USING ASEPTIC TECHNIQUE, CLEANSE/IRRIGATE WITH NS, PAT DRY WITH GAUZE, APPLY BARRIER CREAM TO PERIWOUND, COVER WITH ADHESIVE FOAM DSG. WOUND CARE TO BE PERFORMED 3X/WEEK AND PRN IF SOILED OR DISLODGED. 1-2 PRN SKILLED NURSE VISITS FOR WOUND CARE DUE TO COMPLICATIONS. SKILLED NURSE TO OBTAIN WOUND CULTURE PRN S/S OF INFECTION. WOUND CARE WILL BE PERFORMED BY TRAINED CAREGIVER ON DAYS WHEN SKILLED NURSE IS NOT SCHEDULED FOR A VISIT. DISCONTINUE WOUND CARE/SUPPLIES ONCE WOUND IS HEALED. [code = NEED FOR SKILLED TEACHING AND INTERVENTION RELATED TO STAGE 2 PU TO COCCYX. SKILLED NURSE OR TRAINED PATIENT/CAREGIVER TO PERFORM WOUND CARE USING ASEPTIC TECHNIQUE, CLEANSE/IRRIGATE WITH NS, PAT DRY WITH GAUZE, APPLY BARRIER CREAM TO PERIWOUND, COVER WITH ADHESIVE FOAM DSG. WOUND CARE TO BE PERFORMED 3X/WEEK AND PRN IF SOILED OR DISLODGED. 1-2 PRN SKILLED NURSE VISITS FOR WOUND CARE DUE TO COMPLICATIONS. SKILLED NURSE TO OBTAIN WOUND CULTURE PRN S/S OF INFECTION. WOUND CARE WILL BE PERFORMED BY TRAINED CAREGIVER ON DAYS WHEN SKILLED NURSE IS NOT SCHEDULED FOR A VISIT. DISCONTINUE WOUND CARE/SUPPLIES ONCE WOUND IS HEALED.] Future Scheduled Test SKILLED NU RSE AND CAREGIVER TO PERFORM AND RECORD BLOOD SUGAR READING DAILY , AND PRN FOR SIGNS AND SYMPTOMS OF HYPO/HYPERGLYCEMIA. [code = SKILLED NURSE AND CAREGIVER TO PERFORM AND RECORD BLOOD SUGAR READING DAILY , AND PRN FOR SIGNS AND SYMPTOMS OF HYPO/HYPERGLYCEMIA.] Future Scheduled Test SKILLED NU RSE FOR O/A AND TEACHING OF ENDOCRINE SYSTEM TO IDENTIFY CHANGES ASSOCIATED WITH EXACERBATION OF HYPOTHYROIDISM FOR EARLY INTERVENTION OF COMPLICATIONS. [code = SKILLED NURSE FOR O/A AND TEACHING OF ENDOCRINE SYSTEM TO IDENTIFY CHANGES ASSOCIATED WITH EXACERBATION OF HYPOTHYROIDISM FOR EARLY INTERVENTION OF COMPLICATIONS.] Future Scheduled Test SKILLED NU RSE TO PROVIDE TEACHING ON SIGNS AND SYMPTOMS AND MANAGEMENT OF HYPERTENSION. [code = SKILLED NURSE TO PROVIDE TEACHING ON SIGNS AND SYMPTOMS AND MANAGEMENT OF HYPERTENSION.] Future Scheduled Test SKILLED NU RSE FOR OBSERVATION AND ASSESSMENT TO IDENTIFY CHANGES ASSOCIATED WITH DEMENTIA AND TEACHING RELATED TO SAFETY MEASURES TO PREVENT INJURY, ELOPEMENT RISKS, BEHAVIOR CHANGES, ACTIVITIES, AND ENVIRONMENTAL CHANGES ALL SECONDARY TO IMPAIRED COGNITIVE STATUS. [code = SKILLED NURSE FOR OBSERVATION AND ASSESSMENT TO IDENTIFY CHANGES ASSOCIATED WITH DEMENTIA AND TEACHING RELATED TO SAFETY MEASURES TO PREVENT INJURY, ELOPEMENT RISKS, BEHAVIOR CHANGES, ACTIVITIES, AND ENVIRONMENTAL CHANGES ALL SECONDARY TO IMPAIRED COGNITIVE STATUS. ] Future Scheduled Test SKILLED NU RSE FOR O/A AND TEACHING OF DIABETIC MANAGEMENT INCLUDING BLOOD SUGAR MONITORING/USE OF GLUCOMETER, DIABETIC DIET, LOWER EXTREMITY SKIN INSPECTION, PROPER SKIN/FOOT CARE, AND SIGNS AND SYMPTOMS HYPO/HYPERGLYCEMIA TO REPORT. [code = SKILLED NURSE FOR O/A AND TEACHING OF DIABETIC MANAGEMENT INCLUDING BLOOD SUGAR MONITORING/USE OF GLUCOMETER, DIABETIC DIET, LOWER EXTREMITY SKIN INSPECTION, PROPER SKIN/FOOT CARE, AND SIGNS AND SYMPTOMS HYPO/HYPERGLYCEMIA TO REPORT.] Future Scheduled Test SKILLED NU RSE FOR O/A, TEACHING RELATED TO FATTY LIVER FOR EARLY IDENTIFICATION OF EXACERBATION OF DISEASE PROCESS. [code = SKILLED NURSE FOR O/A, TEACHING RELATED TO FATTY LIVER FOR EARLY IDENTIFICATION OF EXACERBATION OF DISEASE PROCESS.] Future Scheduled Test SKILLED NU RSE FOR O/A AND SKILLED TEACHING RELATED TO SIGNS AND SYMPTOMS AND MANAGEMENT OF LUE/LLE CONTRACTURES, OA [code = SKILLED NURSE FOR O/A AND SKILLED TEACHING RELATED TO SIGNS AND SYMPTOMS AND MANAGEMENT OF LUE/LLE CONTRACTURES, OA] Future Scheduled Test PATIENT SLOAN S A RISK OF HOSPITALIZATION AND ED USE. SKILLED NURSE TO ESTABLISH SUPPORT MEASURES TO MINIMIZE RISK OF HOSPITALIZATION AND ED USE, AND INSTRUCT PATIENT/CAREGIVER ON METHODS TO REDUCE AVOIDABLE HOSPITALIZATION AND ED USE. [code = PATIENT HAS A RISK OF HOSPITALIZATION AND ED USE. SKILLED NURSE TO ESTABLISH SUPPORT MEASURES TO MINIMIZE RISK OF HOSPITALIZATION AND ED USE, AND INSTRUCT PATIENT/CAREGIVER ON METHODS TO REDUCE AVOIDABLE HOSPITALIZATION AND ED USE.] Future Scheduled Test SKILLED NU RSE TO PROVIDE INSTRUCTION TO PATIENT/CAREGIVER RELATED TO DISCHARGE PLANNING. [code = SKILLED NURSE TO PROVIDE INSTRUCTION TO PATIENT/CAREGIVER RELATED TO DISCHARGE PLANNING. ] Future Scheduled Test SKILLED NU RSE TO PERFORM HOME SAFETY AND FALL ASSESSMENT AND PROVIDE INSTRUCTION TO IMPLEMENT HOME SAFETY AND FALL PREVENTION STRATEGIES. [code = SKILLED NURSE TO PERFORM HOME SAFETY AND FALL ASSESSMENT AND PROVIDE INSTRUCTION TO IMPLEMENT HOME SAFETY AND FALL PREVENTION STRATEGIES.] Future Scheduled Test SKILLED NU RSE FOR OBSERVATION AND ASSESSMENT OF PATIENTS PAIN LEVEL AND EFFECTIVENESS OF PAIN MANAGEMENT REGIMEN. SKILLED NURSE TO INSTRUCT PATIENT/CAREGIVER REGARDING PHARMACOLOGIC AND NON-PHARMACOLOGIC PAIN CONTROL MEASURES. SKILLED NURSE TO REPORT TO PHYSICIAN IF PAIN IS UNCONTROLLED WITH CURRENT PAIN MANAGEMENT REGIMEN. [code = SKILLED NURSE FOR OBSERVATION AND ASSESSMENT OF PATIENTS PAIN LEVEL AND EFFECTIVENESS OF PAIN MANAGEMENT REGIMEN. SKILLED NURSE TO INSTRUCT PATIENT/CAREGIVER REGARDING PHARMACOLOGIC AND NON-PHARMACOLOGIC PAIN CONTROL MEASURES. SKILLED NURSE TO REPORT TO PHYSICIAN IF PAIN IS UNCONTROLLED WITH CURRENT PAIN MANAGEMENT REGIMEN.] Future Scheduled Test SKILLED NU RSE TO ASSESS PATIENT'S SKIN INTEGRITY AND INSTRUCT PATIENT/CAREGIVER ON MEASURES TO PREVENT PRESSURE ULCERS. [code = SKILLED NURSE TO ASSESS PATIENT'S SKIN INTEGRITY AND INSTRUCT PATIENT/CAREGIVER ON MEASURES TO PREVENT PRESSURE ULCERS.] Future Scheduled Test SKILLED NU RSE FOR O/A OF DEPRESSIVE SYMPTOMS TO IDENTIFY CHANGES ASSOCIATED WITH MEDICATION THERAPY OR DEGRESSIONS OF DISEASE PROCESS. SN TO REPORT SIGNIFICANT CHANGE IN DEPRESSIVE SYMPTOMS TO MD FOR EARLY INTERVENTION. [code = SKILLED NURSE FOR O/A OF DEPRESSIVE SYMPTOMS TO IDENTIFY CHANGES ASSOCIATED WITH MEDICATION THERAPY OR DEGRESSIONS OF DISEASE PROCESS. SN TO REPORT SIGNIFICANT CHANGE IN DEPRESSIVE SYMPTOMS TO MD FOR EARLY INTERVENTION.] Goal 2023-09-16 Patient Goal - TO EAT WHAT I WANT Goal 2023-05-20 Patient Goal - I DON'T WANT TO GO BACK TO THE HOSPITAL Goal 2023-07-18 Patient Goal - TO EAT WHAT I WANT Goal 2023-05-08 Patient Goal - I DON'T WANT TO GO BACK TO THE HOSPITAL Goal 2023-03-18 Patient Goal - I DON'T WANT TO GO BACK TO THE HOSPITAL Goal 2023-01-16 Patient Goal - I DON'T WANT TO GO BACK TO THE HOSPITAL Goal Provider Goal - A PLAN OF CARE WILL BE ESTABLISHED THAT MEETS PATIENT'S CARE HOME NEEDS AND INCLUDES PATIENT GOAL FOR HOME HEALTH. Goal Provider Goal - PATIENT/CAREGIVER WILL VERBALIZE UNDERSTANDING OF EDUCATION PROVIDED ON MEDICATIONS BY THE END OF THE CERTIFICATION PERIOD. Goal Provider Goal - EXACERBATIONS OF GASTROINTESTINAL DISEASE WILL BE PROMPTLY IDENTIFIED AND INTERVENTIONS IMPLEMENTED TO MINIMIZE RISKS TO PATIENT BY END OF EPISODE. Goal Provider Goal - PATIENT/CAREGIVER WILL VERBALIZE/DEMONSTRATE MANAGEMENT OF RESPIRATORY DISEASE PROCESS. CHANGES IN RESPIRATORY STATUS WILL BE IDENTIFIED AND REPORTED TO PHYSICIAN FOR PROMPT INTERVENTION THROUGHOUT THE CERTIFICATION PERIOD. Goal Provider Goal - WOUND CARE WILL BE COMPLETED AND PATIENT WILL HAVE IMPROVED WOUND STATUS EVIDENCED BY NO SIGNS AND SYMPTOMS OF INFECTION, DECREASED WOUND SIZE, AND/OR NO COMPLICATIONS BY THE END OF THE CERTIFICATION PERIOD. Goal Provider Goal - BLOOD SUGAR READING WILL BE OBTAINED ORDERED. Goal Provider Goal - PATIENT/CAREGIVER WILL VERBALIZE SIGNS AND SYMPTOMS OF EXACERBATION OF HYPOTHYROIDISM TO REPORT TO NURSE/PHYSICIAN THROUGHOUT THE CERTIFICATION PERIOD. Goal Provider Goal - PATIENT/CAREGIVER WILL VERBALIZE SIGNS AND SYMPTOMS OF HYPERTENSION AND WILL BE ABLE TO DEMONSTRATE ABILITY TO MANAGE EXACERBATION BY END OF THE EPISODE. Goal Provider Goal - PATIENT/CAREGIVER WILL VERBALIZE /DEMONSTRATE APPROPRIATE ENVIRONMENTAL/SAFETY MODIFICATIONS IN RESPONSE TO BEHAVIOR/COGNITIVE CHANGES ASSOCIATED WITH DEMENTIA DIAGNOSIS THROUGHOUT THE CERTIFICATION PERIOD. Goal Provider Goal - PATIENT/CAREGIVER WILL VERBALIZE/DEMONSTRATE KNOWLEDGE OF DIABETIC MANAGEMENT. CHANGES IN DIABETIC STATUS WILL BE IDENTIFIED AND REPORTED TO PHYSICIAN FOR PROMPT INTERVENTION THROUGHOUT THE CERTIFICATION PERIOD. Goal Provider Goal - EXACERBATIONS OF FATTY LIVER DISEASE WILL BE PROMPTLY IDENTIFIED AND INTERVENTIONS IMPLEMENTED TO MINIZMIZE RISKS TO PATIENT BY END OF THE EPISODE. Goal Provider Goal - PATIENT/CAREGIVER WILL VERBALIZE UNDERSTANDING OF MUSCULOSKELETAL DISEASE INCLUDING SIGNS AND SYMPTOMS, MANAGEMENT, AND PRESCRIBED TREATMENT REGIMEN BY END OF EPISODE. Goal Provider Goal - PATIENT WILL HAVE SUPPORT MEASURES ESTABLISHED TO PREVENT HOSPITALIZATION AND ED USE AND PATIENT/CAREGIVER WILL VERBALIZE/DEMONSTRATE METHODS TO REDUCE AVOIDABLE HOSPITALIZATION AND ED USE BY END OF EPISODE. Goal Provider Goal - PATIENT/CAREGIVER WILL VERBALIZE UNDERSTANDING OF DISCHARGE PLANNING INSTRUCTIONS BY DATE OF DISCHARGE. Goal Provider Goal - PATIENT/CAREGIVER WILL VERBALIZE/DEMONSTRATE EFFECTIVE HOME SAFETY AND FALL PREVENTION STRATEGIES THROUGHOUT CERTIFICATION PERIOD. Goal Provider Goal - PATIENT/CAREGIVER WILL DEMONSTRATE UNDERSTANDING OF PHARMACOLOGIC AND NONPHARMACOLOGIC PAIN CONTROL MEASURES AND PATIENT WILL HAVE IMPROVEMENT IN PAIN INTERFERING WITH ACTIVITY EVIDENCED BY PAIN CONTROLLED AT LEVEL OF 7 OR LESS BY END OF CERTIFICATION PERIOD. Goal Provider Goal - PATIENT/CAREGIVER WILL VERBALIZE UNDERSTANDING OF PRESSURE ULCER PREVENTION BY END OF THE EPISODE. Goal Provider Goal - CHANGES IN PATIENTS DEPRESSIVE SYMPTOMS WILL BE IDENTIFIED AND MD PROMPTLY NOTIFIED TO MINIMIZE ASSOCIATED RISKS BY THE END OF THE CERTIFICATION PERIOD. Reason for Visit TOTALLY DEPENDENT Encounters Start Date/Time End Date/Time Encounter Type Admission Type Attending [facility] Department Encounter ID Discharge Date Discharge Status Discharge Condition Discharge Reason Percent Goals Met 2022-11-22 00:00:00 2023-09-16 00:00:00 Outpatient RECERTIFIC [facility] [id number] 2023-09-16 00:00:00 DISCHARGE TO HOME OR SELF CARE TOTALLY DEPENDENT GOALS MET ( ONLY) 96.67
== END 2024-07-28 10:59 | disposition home or self-care (01) ==
LOC: HO.MRI 10:58
PROVIDERS: PCP Registered Nurse; Visit Provider Registered Nurse
DX: R41.0 Disorientation, unspecified (principal)
CPT/HCPCS: 70551

== ENCOUNTER 2024-11-05 11:19 | Outpatient (AMB) | payer MEDICARE, MEDICAID, SELFPAY ==
--- NOTE | 2024-11-05 11:20 | A.OFFVIS_ITS ---
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 Patient has hx of hemorrhagic stroke, chair/bed bound with left sided hemiplegia and dementia, presents today for a new patient visit for her left hand spasticity. States this started about 3 years ago s/p stroke and has not improved. Patient explains she is experiencing weakness, numbness and tingling. Patient has tried O.T/P.T in the past with little improvement. Patient referred by [facility] by family nurse Practitioner [facility]. Patient also has pain in her left leg. Site Superintendent Required: Yes Site Superintendent Name: Daughter Jacki Accompanied by: Daughter Allergies No Known Allergies [No Known Allergies*] Allergy (Verified 11/05/24 11:58) HPI Comments Details: Here with daughter who helped with translation. Hemorrhagic stroke, resulting left hemiparesis, 2020. No aphasia. On Eliquis, mainly for DVT. Diabetic, on metformin. Dementia diagnosed 1 year after, thought to be vascular. She can act like a little girl per daughter. She lives alone in apartment, no stairs, elevator. Total assist except feeding self. Non ambulatory, WC bound. Valerie lift for transfers. On diapers but has sensation. Healed sacral ulcer, 8 months ago. Last PCP note said stage 1. 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 Per daughter she does not try to get up from bed when alone. No falls in last year. Referred for spasticity on left hand. It is flexed in. Noted left knee flexed as well and daughter Had last botox 1 years ago in at [facility]. Good results but stopped because they didn't want to inject. Baclofen 20mg TID. PENDING SALE TO [facility] Medical History (Updated 11/05/24 @ 12:41 by Danika Jeronimo MD) History of hemorrhagic stroke with residual hemiparesis Spastic hemiparesis of left nondominant side Acute kidney injury Asthma Elevated cholesterol HTN (hypertension) Hypothyroidism Foot contusion Surgical History (Updated 01/16/24 @ 15:47 by VICENTA Erazo) History of cholecystectomy History of ankle surgery Family History Unknown Family history of colon cancer Social History Household Members: Other Household Members Other:: daughter Housing: Apartment Do you presently have visiting nurse or other home services: No Alcohol intake: never Cigarette Packs Per Day: 0 Cigarettes Per Day: 1 Second Hand Smoke Exposure: No service: No Current occupational status: disabled Physical Exam Left hand with fingers flexed in, Uyen 3, painful to move. Left wrist flexed at rest 10 degrees from neutral. Left knee flexed at 90 degrees, Uyen 3. Results Reviewed Results Reviewed: Reviewed notes from [facility] Assessment & Plan Assessment & Plan (1) Spastic hemiparesis of left nondominant side: Code(s): G81.14 - Spastic hemiplegia affecting left nondominant side Category: Medical (2) History of hemorrhagic stroke with residual hemiparesis: Code(s): I69.359 - Hemiplegia and hemiparesis following cerebral infarction affecting unspecified side Category: Medical (3) Chronic anticoagulation: Comment: On Eliquis Code(s): Z79.01 - long-term (current) use of anticoagulants Category: Medical Plan Patient?s abnormal muscle tone in the setting of stroke is interfering with functional ability, and is expected to result in joint contracture without adequate intervention. Standard medical treatments such as oral medication have failed. Surgical intervention is considered to be the last option. Therefore chemodenervation using botulinum is deemed necessary to enhance function and allow additional therapeutic modalities to be employed. After a long discussion with the patient and daughter, we have decided to go ahead and do botulinum toxin injection into left finger flexors, wrist flexors and hamstrings. A total of 250 units of Botox is anticipated. The procedure will being scheduled after prior authorization. Muscles to be injected: Left FDS 50 units Left FDP 50 units Left FCR 50 units Left medial hamstrings 50 units, lateral hamstrings 50 units Assessment and plan discussed with patient, and patient was agreeable. All questions were answered thoroughly. Total of 45 minutes spent today including chart review, results review, history taking, physical examination, discussion of assessment and plan, and coordination of care. Danika Jeronimo MD, RENE Board Certified, [place] Board of Physical Medicine and Rehabilitation (ABPMR) Board Certified, [place] Board of Electrodiagnostic Medicine (ABEM) Coding Level of Care Code New Pt Level 4 (81906) Diagnoses Spastic hemiparesis of left nondominant side G81.14 History of hemorrhagic stroke with residual hemiparesis I69.359 Chronic anticoagulation Z79.01
--- OUTSIDE RECORDS SUMMARY | 2024-11-05 13:05 | XMS_ITS | Encounter Summary ---
Author Organization [employer] Address [address] [place] [address] Care Team Providers Care Construction Job Cost Estimator Name Role Phone [facility] Primary Care Provider [phone] Encounter Details Date Type Department Care Team ([facility] st Contact Info) Description 12/30/2022 Abstract [facility] MEDICINE 230 [place], [place] [phone] [facility] 230 [place] [address] Social History Tobacco Use Types Packs/Day Years Used Date Smoking Tobacco: Former Cigarettes 1 40 Smokeless Tobacco: Never Alcohol Use Standard Drinks/Week Comments Never 0 (1 standard drink = 0.6 oz pur e alcohol) Depression Answer Date Recorded Patient Health Questionnaire-9 Score 0 12/24/2022 Depression Answer Date Recorded Patient Health Questionnaire-2 Score 0 12/24/2022 Comments Unknown Sex and Gender Information Value Date Recorded Sex Assigned at Female 06/24/2022 10:21 AM EDT Legal Sex Female 10:21 AM EDT Gender Identity Female 06/24/2022 10:21 AM EDT Sexual Orientation Straight 06/24/2022 10 :21 AM EDT COVID-19 Exposure Response Date Recorded In the last 10 days, have yo u been in contact with someone who was confirmed or suspected to have Coronavirus/COVID-19? No / Unsure 12/03/2022 1:13 PM EDT documented as of this encounter Plan of Treatment Not on file documented as of this encounter Visit Diagnoses Not on filedocumented in this encounter Additional Health Concerns Assessment Noted Time PHQ-9 Depression Total Score: 0 12/25/19 10:53 AM EDT documented as of this encounter Care Teams Construction Job Cost Estimator Relationship Specialty Start Date End Date [place] JOHN Poole [address] [place] [address] PCP - General Family Medicine 11/04/22 [employer] 04/21/24 documented as of this encounter
--- OUTSIDE RECORDS SUMMARY | 2024-11-05 13:05 | XMS_ITS | Encounter Summary ---
Author Organization [employer] Address [address] [facility] 7t [place] [address] Care Team Providers Care End Packer Name Role Phone [facility] Primary Care Provider [phone] Reason for Visit * Reason Onset Date Comments ER Follow-up 04/30/2023 Encounter Details Date Type Department Care Team ([facility] st Contact Info) Description 04/30/2023 Telephone [facility] MEDICINE 230 [place], [place] [phone] [facility] 230 [place] [address] ER Follow-up Social History Tobacco Use Types Packs/Day Years [...] Orientation Straight 06/24/2022 10 :21 AM EDT documented as of this encounter Miscellaneous Notes * Telephone Encounter - Elvi Mcarthur - 04/30/2023 8:42 AM EDT Tc from Scottie madden [facility] Caring Patient calling to report ED visit on 04/26/23 at [facility]. Seen for high blood sugar. Patient advised will forward to team nurse for follow up. Scottie states she had a visit with patient yesterday and was informed by daughter that patient has been in the hospital since 04/26/23 and was suppose to be discharged by 04/29/23. documented in this encounter Plan of Treatment Not on file documented as of this encounter Visit Diagnoses Not on filedocumented in this encounter Additional Health Concerns Assessment Noted Time PHQ-9 Depression Total Score: 0 12/25/19 10:53 AM EDT documented as of this encounter Care Teams End Packer Relationship Specialty Start Date End Date Zulema Shah FNP [address] [place] [address] PCP - General Family Medicine 11/04/22 [employer] 04/21/24 documented as of this encounter
--- OUTSIDE RECORDS SUMMARY | 2024-11-05 13:05 | XMS_ITS | Encounter Summary ---
Author Organization [employer] Address [address] [facility] 7t [place] [address] Care Team Providers Care Ammonia Box Operator Name Role Phone Zulema Shah [facility] Primary Care Provider [phone] Reason for Visit * Reason Comments Med Refill Encounter Details Date Type Department Care Team ([facility] st Contact Info) Description 04/23/2023 Refill [facility] MEDICINE 230 [place], [place] [phone] Zulema Shah [facility] 230 [place] [address] Social History Tobacco Use Types Packs/Day Years [...] AM EDT documented as of this encounter Plan of Treatment Not on file documented as of this encounter Visit Diagnoses Not on filedocumented in this encounter Additional Health Concerns Assessment Noted Time PHQ-9 Depression Total Score: 0 12/25/19 23 10:53 AM EDT documented as of this encounter Care Teams Ammonia Box Operator Relationship Specialty Start Date End Date Zulema Shah FNP 230 [place] [address] PCP - General Family Medicine 11/04/22 [employer] 04/21/24 documented as of this encounter
--- OUTSIDE RECORDS SUMMARY | 2024-11-05 13:05 | XMS_ITS | Encounter Summary ---
Author Organization [employer] Address [address] [place] [address] Care Team Providers Care Rim Roller Operator Name Role Phone Zulema Shah [facility] Primary Care Provider [phone] Encounter Details Date Type Department Care Team ([facility] st Contact Info) Description 12/03/2022 Abstract [facility] MEDICINE 230 [place] [address] Zulema Shah FNP 230 [place] [address] Social History Tobacco Use Types Packs/Day Years Used Date Smoking Tobacco: Never Smokeless Tobacco: Never Alcohol Use Standard Drinks/Week Comments Never 0 (1 standard drink = 0.6 oz pur e alcohol) Comments Unknown Sex and Gender Information Value [...] Noted Time PHQ-9 Depression Total Score: 0 12/04/19 23 1:38 PM EDT documented as of this encounter Care Teams Rim Roller Operator Relationship Specialty Start Date End Date Zulema Shah FNP 230 [place] [address] PCP - General Family Medicine 11/04/22 [place] Self [employer] Document Preparation 04/21/24 documented as of this encounter
--- OUTSIDE RECORDS SUMMARY | 2024-11-05 13:05 | XMS_ITS | Encounter Summary ---
Author Organization [employer] Address [address] 7[address] [place] [address] Care Team Providers Care Systems Architecture Analyst Name Role Phone [facility] Primary Care Provider [phone] Reason for Visit * Reason Onset Date Comments triage 12/13/2022 Encounter Details Date Type Department Care Team ([facility] Contact Info) Description 12/13/2022 Telephone [facility] MEDICINE 230 [place], [place] [phone] [facility] 230 [place] [address] triage Social History Tobacco Use Types Packs/Day Years [...] PM EDT documented as of this encounter Miscellaneous Notes * Telephone Encounter - Martina Bradford RN - 12/13/2022 10:23 AM EDT Triage call with [employer] Scientist ID [id number] Pt daughter answered the phone and reports that Pt is in the hospital with a blood clot in the leg.Advised to call [facility] for follow up when discharged from the hospital, daughter agreed. Protocol Used: Information Only Call - No Triage (Adult) Protocol-Based Disposition: Home Care Positive Triage Question: * Information only question and nurse able to answer * All higher-acuity triage questions were negative Care Advice Discussed: * Reasons To Call Back - New symptoms develop - You become worse * Telephone Encounter - Santi Dumont - 12/13/2022 9:06 AM EDT Symptoms: Itching - No Rash, Foot or Ankle Swelling Outcome: Schedule an urgent appointment (within 4 hours) or talk to a nurse or provider soon Reason: Getting worse The caller accepted this outcome documented in this encounter Plan of Treatment Not on file documented as of this encounter Visit Diagnoses Not on filedocumented in this encounter Additional Health Concerns Assessment Noted Time PHQ-9 Depression Total Score: 0 12/04/19 23 1:38 PM EDT documented as of this encounter Care Teams Systems Architecture Analyst Relationship Specialty Start Date End Date Zulema Shah FNP [address] [place] [address] PCP - General Family Medicine 11/04/22 [employer] 04/21/24 documented as of this encounter
--- OUTSIDE RECORDS SUMMARY | 2024-11-05 13:06 | XMS_ITS | Encounter Summary ---
Author Organization [employer] Address [address] [place] [address] Care Team Providers Care Metal Numerical Tool Programmer Name Role Phone [facility] Primary Care Provider [phone] Reason for Visit * Reason Comments Med Refill Encounter Details Date Type Department Care Team ([facility] st Contact Info) Description 04/12/2024 Refill [facility] MEDICINE 230 [place], [place] [phone] [facility] 230 [place], [place] [phone] Other chronic pain Social History Tobacco Use Types Packs/Day Years Used Date Smoking Tobacco: Former Cigarettes 1 40 Smokeless Tobacco: Never Alcohol Use Standard Drinks/Week Comments Never 0 (1 standard drink = 0.6 oz pur e alcohol) Depression Answer Date Recorded Patient Health Questionnaire-9 Score 0 12/24/2022 Housing Stability Answer Date Recorded What is your housing situation today? I have toni alvarado 06/09/[address] you li ve. Do you have problems with any of the following? None of the above 06/09/2023 Food Insecurity Answer Date Recorded Within the past 12 months, y ou worried that your food would run out before you got money to buy more: Sometimes True 2023 Within the past 12 months,th e food you bought just didn't last and you didn't have enough money to get more: Sometimes True 11/03/2023 Transportation Answer Date Recorded In the past 12 months, has l ack of transportation kept you from medical appts, meetings, work or from getting things needed for daily living? Yes, it has kept me from medical appointments or getting medications. 11/03/2023 Utilities Answer Date Recorded In the past 12 months, has t he electric, gas, oil or water company threatened to shut off services in your home? No 06/09/2023 Depression Answer Date Recorded Patient Health Questionnaire-2 [...] documented as of this encounter Visit Diagnoses Diagnosis Other chronic pain documented in this encounter Additional Health Concerns Assessment Noted Time PHQ-9 Depression Total Score: 0 12/25/19 10:53 AM EDT documented as of this encounter Care Teams Metal Numerical Tool Programmer Relationship Specialty Start Date End Date Zulema Shah FNP [address] [place] [address] PCP - General Family Medicine 11/04/22 [employer] 04/21/24 documented as of this encounter
--- OUTSIDE RECORDS SUMMARY | 2024-11-05 13:06 | XMS_ITS | Encounter Summary ---
Author Organization [employer] Address [address] 7[address] [place] [address] Care Team Providers Care Court Liaison Name Role Phone Pablo [facility] Primary Care Provider [phone] Reason for Visit * Reason Onset Date Comments VNA 08/13/2024 Encounter Details Date Type Department Care Team ([facility] st Contact Info) Description 08/13/2024 Telephone [facility] MEDICINE 230 [place] [address] Corinne Dunham, MARICEL 230 [place] [address] VNA Social History Tobacco Use Types Packs/Day Years [...] as of this encounter Miscellaneous Notes * Addendum Note - Silvestre Real RN - 11/03/2024 10:31 AM EDTAddended by: SILVESTRE REAL on: 11/03/2024 10:31 AM Modules accepted: Orders * Telephone Encounter - Corinne Dunham RN - 10/29/2024 12:19 PM EST RN was informed by [place] ([facility] liaison) that patient was discharged from [facility] services on 08/05/25. They are unable to complete home blood draw. Sending to PCP as FYI. * Telephone Encounter - Corinne Dunham RN - 10/28/2024 12:14 PM EST Images from the original note were not included. RN discussed below request with [place] ([facility] liaison) regarding status on below. Request was made in 07/2024 however no follow up was received by [facility]. Eli Villalba has sent another message to [facility] biostatistics manager to follow up on below request. Eli Villalba will update once she hears back. Sending to PCP as FYI. Message Received: Yesterday [facility], [facility] Red Team Nurses Hi! Patient will need to have home blood draw. I know she has refused when they have gone in the past but as long as the daughter is there when they come she will do it. Thank you! * Telephone Encounter - Corinne Dunham RN - 08/13/2024 12:40 PM EST Noted. RN spoke to [place] (S liaison) in regards to below message to inquire if they can re-attempt when daughter is there. RN provided orders to [place] who will ask her agency to draw BW orders however cannot guarantee agency will agree. [facility] will notify RN of outcome. Sending to PCP as SOLI. ----- Message from Zulema [place] sent at 08/13/2024 12:04 PM EST ----- Hey Please resubmit blood work for home draw. I know she declined last time when they went to the apartment, but it was because her daughter was not there. As long as daughter is with her she will agree (Jacki). I ordered new labs. Thank you! documented in this encounter Plan of Treatment Not on file documented as of this encounter Visit Diagnoses Diagnosis Type 2 diabetes mellitus with other specified complication, without long-term current use of insulin ([facility]) documented in this encounter Additional Health Concerns Assessment Noted Time PHQ-9 Depression Total Score: 0 12/25/19 10:53 AM EDT documented as of this encounter Care Teams Court Liaison Relationship Specialty Start Date End Date Zulema Shah FNP [address] [place] [id number] PCP - General Family Medicine 11/04/22 [employer] 04/21/24 documented as of this encounter
--- OUTSIDE RECORDS SUMMARY | 2024-11-05 13:06 | XMS_ITS | Encounter Summary ---
Author Organization [employer] Address [address] [facility] 7t [place] [address] Care Team Providers Care Cane Packer Name Role Phone Pablo Zulema MAKEUP ARTIST Primary Care Provider [phone] Encounter Details Date Type Department Care Team (Late st Contact Info) Description 11/05/2024 Population Health Risk Score [facility] Care [facility] (C[facility]) Department [address] [facility] [address] [place] [address] Provider, Population Health Generic Social History Tobacco Use Types Packs/Day Years [...] documented as of this encounter Care Teams Cane Packer Relationship Specialty Start Date End Date Zulema Shah FNP [address] [place] [address] PCP - General Family Medicine 11/04/22 [employer] 04/21/24 documented as of this encounter
--- OUTSIDE RECORDS SUMMARY | 2024-11-05 13:06 | XMS_ITS | Encounter Summary ---
Author Organization [employer] Address [address] [place] [address] Care Team Providers Care Route Supervisor Name Role Phone [facility] Primary Care Provider Reason for Visit * Reason Onset Date Comments Durable Medical Equipment 10/18/2024 Blair Form: Valerie Lift Encounter Details Date Type Department Care Team ([facility] st Contact Info) Description 10/18/2024 Telephone [facility] MEDICINE 230 [place] [address] [facility] 230 [place] [address] Durable Medical Equipment (Blair Form: Valerie Lift) Social History Tobacco Use Types Packs/Day Years [...] encounter Miscellaneous Notes * Telephone Encounter - Alyssa Carroll - 10/18/2024 11:08 AM EST Certificate or medical necessity for Valerie Lift signed and faxed to Blair . Confirmation received and sent to scan. If patient calls to check status on above, please advise them to contact Blair at [phone]. documented in this encounter Plan of Treatment Not on file documented as of this encounter Visit Diagnoses Not on filedocumented in this encounter Additional Health Concerns Assessment Noted Time PHQ-9 Depression Total Score: 0 12/25/19 23 10:53 AM EDT documented as of this encounter Care Teams Route Supervisor Relationship Specialty Start Date End Date Zulema Shah FNP [address] [place] [id number] PCP - General Family Medicine 11/04/22 [employer] 04/21/24 documented as of this encounter
--- OUTSIDE RECORDS SUMMARY | 2024-11-05 13:06 | XMS_ITS | Encounter Summary ---
Author Organization [employer] Address [address] [facility] [address] [place] [address] Care Team Providers Care Sign Writer Hand Name Role Phone [facility] Primary Care Provider [phone] Encounter Details Date Type Department Care Team (Late st Contact Info) Description 10/27/2024 Orders Only [facility] 230 [place], [place] [phone] [facility] 230 [place], [place] [phone] Type 2 diabetes mellitus with other specified complication, without long-term current use of insulin (CMS/HCC) (Primary Dx); Chronic liver disease; Hypothyroidism, unspecified type Social History Tobacco Use Types Packs/Day Years [...] as of this encounter Plan of Treatment Scheduled Orders Name Type Priority Associated Diagnoses Orde r Schedule Comprehensive Metabolic Panel Lab Routine Type 2 diabetes mellitus with other specified complication, without long-term current use of insulin (CMS/HCC) Expected: 10/27/2024 (Approximate), Expires: 10/27/2025 CBC auto differential Lab Routine Chronic liver disease Expected: 10/27/2024 (Approximate), Expires: 10/27/2025 Prothrombin Time-INR Lab Routine Chronic liver disease Expected: 10/27/2024, Expires: 10/27/2025 TSH Lab Routine Hypothyroidism, unspecified type Expected: 10/27/2024 (Approximate), Expires: 10/27/2025 Hemoglobin A1c Lab Routine Type 2 diabetes mellitus with other specified complication, without long-term current use of insulin (CMS/HCC) Expected: 10/27/2024 (Approximate), Expires: 10/27/2025 Lipid Panel, Standard Lab Routine Type 2 diabetes mellitus with other specified complication, without long-term current use of insulin (CMS/HCC) Expected: 10/27/2024 (Approximate), Expires: 10/27/2025 documented as of this encounter Visit Diagnoses Diagnosis Type 2 diabetes mellitus with other specified complication, without long-term current use of insulin (CMS/HCC)- Primary Chronic liver disease Unspecified chronic liver disease without mention of alcohol Hypothyroidism, unspecified type documented in this encounter Additional Health Concerns Assessment Noted Time PHQ-9 Depression Total Score: 0 12/25/19 23 10:53 AM EDT documented as of this encounter Care Teams Sign Writer Hand Relationship Specialty Start Date End Date [facility] Zulema, SPINNING FRAME CHANGER 230 [place] [address] PCP - General Family Medicine 11/04/22 [facility] 04/21/24 documented as of this encounter
--- OUTSIDE RECORDS SUMMARY | 2024-11-05 13:06 | XMS_ITS | Encounter Summary ---
Author Organization [email or web address] Address [address] [place] [address] Care Team Providers Care Decal Cutter Name Role Phone Davon Badillo MD Primary Care Provider [facility] Primary Care Provider [phone] Reason for Visit * Reason Onset Date Comments Appointment 10/28/2022 Encounter Details Date Type Department Care Team ([facility] st Contact Info) Description 10/28/2022 Telephone [facility] AD[facility]AL [address] [place], [place] [phone] Crystal Gerardo DDS Appointment Social History Tobacco Use Types Packs/Day Years Used Date Smoking Tobacco: Never Assessed Comments Unknown Sex and Gender Information Value Date Recorded Sex Assigned at Female 06/24/2022 10:21 AM EDT Legal Sex Female 10:21 AM EDT Gender Identity Female 06/24/2022 10:21 AM EDT Sexual Orientation Straight 06/24/2022 10 :21 AM EDT documented as of this encounter Miscellaneous Notes * Telephone Encounter - Lilian Feng - 10/28/2022 11:01 AM EST Patient scheduled for ER on 11/01. She had a stroke and relies on insurance transportation to get her to her appts. This is why scheduled ER visit in advance DR documented in this encounter Plan of Treatment Not on file documented as of this encounter Visit Diagnoses Not on filedocumented in this encounter Care Teams Decal Cutter Relationship Specialty Start Date End Date Davon Badillo MD PCP - General Family Medicine 06/25/19 [facility] [address] [place] [id number] PCP - General Family Medicine 11/04/22 [facility] 04/21/24 documented as of this encounter
--- OUTSIDE RECORDS SUMMARY | 2024-11-05 13:06 | XMS_ITS | Encounter Summary ---
Author Organization [employer] Address [address] [place] [address] Care Team Providers Care Funding Coordinator Name Role Phone [facility] Primary Care Provider Reason for Visit * Reason Onset Date Comments FYI 07/19/2024 Encounter Details Date Type Department Care Team ([facility] st Contact Info) Description 07/19/2024 Telephone [facility] MEDICINE [address] [place], [place] [phone] [facility] [address] [place] [address] FYI Social History Tobacco Use Types Packs/Day Years [...] encounter Miscellaneous Notes * Telephone Encounter - Stuart Sandoval - 07/19/2024 3:41 PM EST Tc from Li with [facility] , notifying pt doesn't let her draw blood noteven for the last time. Li informs if any questions feel free to contact her Callback number [phone] documented in this encounter Plan of Treatment Not on file documented as of this encounter Visit Diagnoses Not on filedocumented in this encounter Additional Health Concerns Assessment Noted Time PHQ-9 Depression Total Score: 0 12/25/19 10:53 AM EDT documented as of this encounter Care Teams Funding Coordinator Relationship Specialty Start Date End Date Zulema Shah FNP [address] [place] [id number] PCP - General Family Medicine 11/04/22 [employer] 04/21/24 documented as of this encounter
--- OUTSIDE RECORDS SUMMARY | 2024-11-05 13:06 | XMS_ITS | Encounter Summary ---
Author Organization [employer] Address [address] [place] [address] Care Team Providers Care Tea And Spice Supervisor Name Role Phone [facility] Primary Care Provider [phone] Reason for Visit * Reason Onset Date Comments Appointment Request 07/28/2023 Encounter Details Date Type Department Care Team ([facility] st Contact Info) Description 07/28/2023 Telephone [facility] MEDICINE [address] [place], [place] [phone] [facility] [address] [place] [address] Appointment Request Social History Tobacco Use Types Packs/Day Years [...] before you got money to buy more: Never True 06/09/2023 Within the past 12 months,th e food you bought just didn't last and you didn't have enough money to get more: Never True Transportation Answer Date Recorded In the past 12 months, has l ack of transportation kept you from medical appts, meetings, work or from getting things needed for daily living? No 06/09/2023 Utilities Answer Date Recorded In the past [...] encounter Miscellaneous Notes * Telephone Encounter - Loco Alejandra - 07/28/2023 3:53 PM EST Tc from pt daughter requesting to r/s f/u appt for 06/16/2023 for for f images,labs .ok per Dr. Cadena 05/19. Please contact pt daughter at [phone] documented in this encounter Plan of Treatment Not on file documented as of this encounter Visit Diagnoses Not on filedocumented in this encounter Additional Health Concerns Assessment Noted Time PHQ-9 Depression Total Score: 0 12/25/19 10:53 AM EDT documented as of this encounter Care Teams Tea And Spice Supervisor Relationship Specialty Start Date End Date Zulema Shah FNP [address] [place] [id number] PCP - General Family Medicine 11/04/22 [employer] 04/21/24 documented as of this encounter
--- OUTSIDE RECORDS SUMMARY | 2024-11-05 13:06 | XMS_ITS | Clinical Summary ---
Author Organization [employer] Address [address] [facility] [address] [place] [address] Care Team Providers Care Window And Siding Craftsman Name Role Phone [facility] Primary Care Provider [phone] Allergies No known active allergies Medications * This document contains information received from the source organization and may not represent a complete record from that organization. Blood Glucose Monitoring Suppl (ONE TOUCH ULTRA 2) w/Device kitIndications: Type 2 diabetes mellitus without complication, without long-term current use of insulin (CMS/[facility]) Use to monitor blood glucose once daily 1 kit 05/10/20 23 Active Alcohol Swabs (Alcohol Prep) 70 % padsIndications :Type 2 diabetes mellitus without complication, without long-term current use of insulin (CMS/HCC) Apply by topical route to finger once daily prior to checking blood glucose 100 each 11 05/10/20 23 Active Botox 200 units injection 11/22/19 23 Active tamsulosin (Flomax) 0.4 MG 24 hr capsule 05/07/20 23 Active Alcohol Swabs (Alcohol Prep) padsIndications :Type 2 diabetes mellitus without complication, without long-term current use of insulin (CMS/HCC) Use one pad each to prep skin prior to injection as directed 100 each 11 10/01/19 24 Active Lancets 33G miscIndications :Type 2 diabetes mellitus without complication, without long-term current use of insulin (CMS/HCC) Use as directed to check blood sugar four times daily 100 each 3 10/01/19 24 Active Blood Glucose Monitoring Suppl (GNP Easy Touch Glucose Meter) deviceIndicatio ns:Type 2 diabetes mellitus without complication, without long-term current use of insulin (CMS/HCC) Use as directed to check blood sugar four times daily 1 each 10/01/19 24 Active glucose blood test stripIndication s:Type 2 diabetes mellitus without complication, without long-term current use of insulin ([facility]) Use as directed to check blood sugar four times daily 100 each 12 10/01/19 24 Active amLODIPine (Norvasc) 5 MG tabletIndicatio ns:Primary hypertension Take 1 tablet (5 mg) by mouth in the morning. 30 tablet 11 10/01/19 24 Active Multiple Vitamin (Multivitamin) tablet TAKE 1 TABLET BY MOUTH EVERY DAY WITH FOOD 90 tablet 1 04/14/20 24 Active glucose blood (OneTouch Ultra) test stripIndication s:Type 2 diabetes mellitus without complication, without long-term current use of insulin ([facility]) Use one strip to monitor blood glucose once daily 100 each 11 05/03/20 24 025 Active Lancets (onetouch ultrasoft) lancetsIndicati ons:Type 2 diabetes mellitus without complication, without long-term current use of insulin ([facility]) 1 each by Other route Once per day. 30 each 05/03/20 24 025 Active melatonin 3 MG tabletIndicatio ns:Healthcare maintenance Take 1 tablet (3 mg) by mouth at bedtime. 90 tablet 1 05/03/20 24 Active hydrocortisone 2.5 % creamIndication s:Rash and nonspecific skin eruption APPLY TO THE AFFECTED AREA(S) TOPICALLY TWICE DAILY 20 g 1 06/09/20 24 Active albuterol (Ventolin HFA) 108 (90 Base) MCG/ACT inhaler INHALE 2 PUFFS BY MOUTH EVERY 4 TO 6 HOURS NEEDED 18 g 1 06/09/20 24 Active Nyamyc 870047 UNIT/GM powder APPLY TO THE AFFECTED AREA(S) TWICE DAILY 30 g 1 06/11/20 24 Active baclofen (Lioresal) 20 MG tablet TAKE 1 TABLET BY MOUTH THREE TIMES A DAY 90 tablet 06/29/20 24 Active QUEtiapine (SEROquel) 25 MG tabletIndicatio ns:Depression, unspecified depression type TAKE 1 TABLET BY MOUTH EVERY DAY IN THE MORNING 30 tablet 5 06/29/20 24 Active apixaban (Eliquis) 5 MG tablet TAKE 1 TABLET BY MOUTH TWICE DAILY 60 tablet 5 06/29/20 24 Active acetaminophen (Tylenol) 500 MG tabletIndicatio ns:Periodontal disease Take 1 tablet (500 mg) by mouth every 6 (six) hours if needed for mild pain for up to 20 doses. 20 tablet 07/15/20 24 Active terbinafine (LamISIL AT) 1 % creamIndication s:Tinea corporis Apply topically 2 times daily. To affected areas on back and groin 42 g 1 08/13/20 24 Active triamcinolone (Kenalog) 0.025 % creamIndication s:Dry skin dermatitis Mix entire tube with 16oz jar of cerva ve as instructed. Apply mixture from neck down daily. 80 g 1 08/13/20 24 Active hydrOXYzine HCl (Atarax) 25 MG tabletIndicatio ns:Dry skin dermatitis Take 1 tablet (25 mg) by mouth every 8 (eight) hours if needed for itching. 90 tablet 1 08/13/20 24 Active levothyroxine (Synthroid, Levoxyl) 100 MCG tablet TAKE 1 TABLET BY MOUTH EVERY DAY 90 tablet 1 09/15/19 25 Active metFORMIN XR (Glucophage-XR) 500 MG 24 hr tablet TAKE 2 TABLETS BY MOUTH EVERY DAY WITH DINNER 180 tablet 1 11/06/19 25 Active metFORMIN XR (Glucophage-XR) 500 MG 24 hr tablet TAKE 2 TABLETS BY MOUTH EVERY DAY WITH DINNER 180 tablet 1 02/25/20 24 025 Discontinued(Re order (will not trigger notification to Pharmacy)) Active Problems Problem Noted Date Diagnosed Date Bed confinement status 08/13/2024 Left-sided sensory deficit present 08/13/2024 Periodontal disease 07/15/2024 Total incontinence 10/01/2023 Nephrolithiasis 05/20/2023 Overview (06/16/2023): ?? CT abd/pelvis w/ IV contract 05/01/23-3m obstructive distal left ureteral stone with mild-moderate hydronephrosis ?? Saw urology 04/2023-renal ultrasound follow up negative for stones. NO treatment Assessment & Plan (05/20/2023 7:22 PM EDT): Found to have mild SAUL with recurrent UTI and a 3mm obstructing distal left ureteral stone with hydronephrosis at recent hospitalization Hx of proteus bacteremia in 04/26 To 04/29/2023 already s/p tx -CT abd/pelvis w IV contrast 05/01/2023: 3 mm obstructive distal left ureteral stone with mild to moderate hydronephrosis and severe hepatic steatosis -from second hospitalization in 05/02/2023 had renal US with improved hydronephrosis -already seen by urologist 05/14/2023 and rec to repeat abd US in 4 weeks -has referral already -per daughter pt not taking tamsulosin and was not rec by urologist to start given no stones seen at last renal US Personal history of other venous thrombosis and embolism 05/20/2023 Type 2 diabetes mellitus wit h circulatory disorder, without long-term current use of insulin 05/19/2023 Overview (06/16/2023): New dx 04/2023 during hospitalization with A1c 9.6 05/20/23- A1c 7.5 Metformin 500mg daily Assessment & Plan (05/20/2023 7:16 PM EDT): hb1AC 04/2023 At hospital 9.6 -->today 7.5 and CBGs 121, -continue metformin 500 mg daily -will f w PCP About statins at next apt in 4 weeks to monitro chem -if stable would resume statins then -DM labs in 3 mo -order today Chem,CBC,TSH, T4,,Microalb -to do labs in 3 weeks prior to next apt w PCP -pt has referred DM supplies already but completed today form to get supplies Insomnia 05/19/2023 Gastroesophageal reflux disease 05/13/2023 Fungal rash of trunk 03/21/2023 Overview (03/21/2023): treating with Fungal cream and powder. No relief of rash Assessment & Plan (05/20/2023 7:00 PM EDT): Pt in intertrigo below breat and likely nash vulvitis from recent ATB use -px clotrimazole BID x 28 days in vulva and below Breast and to use after rash improves below breast only nystatin pwd -advised to keep skin dry Assessment & Plan (03/21/2023 3:07 PM EDT): Unable to visualize rash, Pt having difficulty rolling May continue Terbinafine cream PRN Rx Fluconazole 1 tablet weekly x 4 weeks F/U PRN Pressure injury of sacral region, stage 2 2022 Overview (03/21/2023): Stage 2 chronic pressure injury in sacral, left buttock Size about 3in x 4 in Assessment & Plan (05/20/2023 7:14 PM EDT): Not able to eval sacral wound today but per daughter is small -stable ,w no discharge no erythema -requesting refill for 9x9 foam sacral pads -box-request today nurse staff to order supply -referred again today to wound clinic Assessment & Plan (03/21/2023 2:55 PM EDT): Continue VNA and [facility] services High risk for pressure injury Treating with offloading weight/pressure and sacral cushio/wound bandage Will refer to Wound care F/u 1 month or sooner PRN with PCP DVT (deep venous thrombosis) 03/21/2023 Overview (03/21/2023): [facility] 12/12/22-12/14/22: extensive occlusive DVT of left lower extremity. Started on anticoagulation with Lovenox and transitioned to Eliquis. Started on 5 mg twice a day due to h/o hemorrhagic stroke. DVT likely provoked in setting of bedbound status and recent surgery. Assessment & Plan (05/20/2023 6:55 PM EDT): -pt on AC -unclear length of tx given pt is bed bound Denies melenas, BRPR nor epistaxis -referred before to vascular to discussed w vascular For AC length of tx plan-referred again today Assessment & Plan (03/21/2023 2:49 PM EDT): Completed 3 months Eliquis 5 mg BID Do not wish to stop Eliquis 5 mg BID at this time. Concern d/t hx of CVA and non-ambulatory/bed bound state. Referred [facility], no appt Gave pt phone number. Daughter will call. Will defer decision on stopping eliquis by specialist F/u 1 month with PCP or sooner PRN Elevated liver enzymes 03/21/2023 Overview (03/21/2023): Atorvastatin discontinued around 11/10/22 d/t elevated liver enzymes [place] [facility] [place] for Choledocholithiasis. Started to trend down. PCP checked again on 12/03/22, trending down Plan was to recheck labs and if enzymes returning to baseline starting Statin again Never returned for labs Has been without medication for cholesterol since Assessment & Plan (05/20/2023 7:17 PM EDT): 02/2023 AST 225,ALT 282,alk phos 179 -CT abd/pelvis w IV contrast 05/01/2023: severe hepatic steatosis -reorder chem today -pt will f w PCP lab results -if ongoing significant elevated LFts will need GI referral and may need to eval meds including metformin started at hospital Assessment & Plan (03/21/2023 2:59 PM EDT): Will check hepatic function again Notify results If elevated still may need f/u with GI F/U 1 month or sooner PRN with PCP Healthcare maintenance 12/26/2022 Overview (12/26/2022): Mammo: Ordered today Pap: Previously followed by [facility]. Need records C-scope: No prior screening. Was scheduled for colonoscopy prior to CVA and never followed up. No family hx of CRC BMD: Discuss at follow up Assessment & Plan (05/20/2023 7:09 PM EDT): -Flu vaccine today -planned to get today at [facility] vaccine Assessment & Plan (03/21/2023 2:45 PM EDT): Received Tdap and Hep B F/u PRN Asthma 12/03/2022 Overview (06/16/2023): ?? PRN albuterol Hemorrhagic cerebrovascular accident (CVA) 12/03 Overview (03/21/2023): Occurred about 2 years ago, prior CVA with left-sided hemiplegia Bedbound with poor nutrition Assessment & Plan (05/20/2023 7:12 PM EDT): Pt and daughter requesting to increase hours -pt has mx comorbidities ,bedbound -lives alone -daughter requesting to get extra 3 hours in am and 2 h in pm w [facility]--letter done today for pt with request -daughter will check with her Previous PT service [facility] they will start services again Assessment & Plan (03/21/2023 3:03 PM EDT): Continue VNA and [facility] services High risk for pressure injury Has developed sacral pressure injury Will refer to Wound care Pending botox appt for left sided hemiplegia. Pending liver enzymes not elevated F/u 1 month or sooner PRN with PCP Hypertension 12/03/2022 Dementia 11/05/2022 Overview (03/21/2023): Affecting communication Poor appetite Losing weight Has developed pressure injury Assessment & Plan (03/21/2023 2:51 PM EDT): Care managed by Neurology Vitiligo 09/29/2012 Hypercholesterolemia 09/29/2012 Overview (03/21/2023): Atorvastatin discontinued around 11/10/22 d/t elevated liver enzymes noted [place] [facility] [place] for Choledocholithiasis. Started to trend down. PCP checked again on 12/03/22, trending down Plan was to recheck labs and if enzymes returning to baseline starting Statin again Never returned for labs Has been without medication for cholesterol since Assessment & Plan (03/21/2023 2:58 PM EDT): Plan: Repeat labs and check liver and cholesterol Notify results If Liver enzymes wnl will restart statin If not, will consider alternative agent, ezetimibe. F/u 1 month or sooner PRN Hypothyroidism 06/30/2012 Overview (06/16/2023): ?? 100mcg levothyroxine Assessment & Plan (05/20/2023 6:59 PM EDT): -repeat TFT in 3 weeks -already on new levothyroxine dose since last 2 weeks on 100 mcg daily for TFT 21.2 -to f w PCP in 4 weeks Resolved Problems Problem Noted Date Diagnosed Date Resolved Date Dry skin 05/17/2016 06/16/2023 Assessment & Plan (03/21/2023 3:00 PM EDT): Recommended daily bathing Apply CeraVe Moisturizing Cream F/u 1 month or sooner PRN with PCP Mild intermittent asthma 05/17/2016 Encounters Date Type Department Care Team Description 11/05/2024 Population Health Risk Score [facility] () Department [address] [place] [phone] Provider, Population Health Generic 11/04/2024 Refill [facility] [address] [place] [address] [employer] [facility] 10/27/2024 Orders Only [facility] [address] [place] [address] [employer] [facility] Type 2 diabetes mellitus with other specified complication, without long-term current use of insulin ([facility]) (Primary Dx); Chronic liver disease; Hypothyroidism, unspecified type 10/18/2024 Telephone [facility] [address] [place] [address] [employer] [facility] Durable Medical Equipment (Blair Form: Valerie Lift) 09/16/2024 Telephone [facility] [address] [place] [address] [employer] RESEARCH PROFESSOR OF BIOSTATISTICS Durable Medical Equipment (Raghavendra Home: Pressure Mattress) 09/15/2024 Refill [facility] [address] [place] [address] [employer] [facility] 09/10/2024 Telephone [facility] [address] [place] [address] Cool, Zulema, RESEARCH PROFESSOR OF BIOSTATISTICS Durable Medical Equipment 09/02/2024 Telephone [facility] [address] [place] [address] [facility] 08/29/2024 Orders Only [facility] [address] [place] [address] [facility] [facility] Hemorrhagic cerebrovascular accident (CVA) (CMS/[facility]) (Primary Dx); Contracture of muscle, other site 08/20/2024 Refill [facility] [address] [place] [address] [facility] Other chronic pain 08/13/2024 Telephone [facility] [address], [place] [phone] Corinne Dunham RN VNA from Last 3 Months Immunizations Name Administration Dates Next Due Hep A, Adult 05/19/2023,10/13/2012 Hep B, adult 03/13/2023,10/13/2012,08/02/2010 Influenza High-dose Quadriva lent Preservative Free 05/30/2022 Influenza injectable quadriv alent IIV4 with preservative 05/17/2016 Influenza injectable quadriv alent preservative free 05/19/2023,11/12/2020,06/25/2019 Influenza, IIV3, injectable 05/03/2014, 0 Influenza, Split (incl. walt fied surface antigen) 09/30/2013 Pneumococcal Conjugate PCV 20 05/30/2022 Tdap 03/13/2023,05/29/2010 Zoster, Recombinant 05/19/2023,06/28/2019 Social History Tobacco Use Types Packs/Day Years Used Date Smoking Tobacco: Former Cigarettes 1 40 Smokeless Tobacco: Never Tobacco Cessation:Counseling Given: Not Answered Alcohol Use Standard Drinks/Week Comments Never 0 [...] Orientation Straight 06/24/2022 10 :21 AM EDT Last Filed Vital Signs Vital Sign Reading Time Taken Comments Blood Pressure 118/80 10/01/2023 11:03 AM EST Pulse 76 10/01/2023 11:03 AM EST Temperature 37 ??C (98.6 ??F) 10/01/2023 11: 03 AM EST Respiratory Rate 26 10/01/2023 11:0 3 AM EST Oxygen Saturation 96% 05/19/2023 1:1 1 PM EDT Inhaled Oxygen Concentration - - Weight 73.3 kg (161 lb 9.6 oz) 05/19/2023 1:11 PM EDT 261.6 on chair Height 170.2 cm (5' 7 ) 05/19/2023 1:11 PM EDT Body Mass Index 25.31 05/19/2023 1:11 PM EDT Plan of Treatment Health Maintenance Due Date Last Done Comments CT Colonography 1956 Colonoscopy 1956 Colorectal Cancer Screening 1956 Dental Oral Exam 1956 Dental Prophylaxis 1956 Dental X-Ray: Bitewings 1956 Dental X-Ray: Full Mouth 1956 FIT DNA/Cologuard 1956 FIT 1956 FOBT 1956 Sigmoidoscopy 1956 Eye Exam 1966 Alcohol/Substance Use Screening 1968 Mammogram 1996 RSV Patients and Patients Aged 60 years or older (1 - Risk 60-74 years 1-dose series) 2016 Depression Screening 12/25/2023 12/24/2022, 12/25/19 Diabetes: Hemoglobin A1C 03/31/2024 024, 05/19/2023, 11/30/2021 COVID-19 Vaccine ( season) 2024 10/20/2020 Influenza Vaccine (#1) 2024 , 05/30/2022, 11/12/2020, Additional history exists Diabetes: Foot Exam 10/01/2024 10/01/2023, 10/01/2023, 10/01/2023, Additional history exists Lipid Panel 10/14/2024 10/14/2023, 07, 12/03/2022, Additional history exists SDOH Screening 11/02/2024 11/03/2023 Diabetes: Urine Protein Screening 04/27/2025 04/27/2024 Tobacco Screening 08/13/2025 08/13/2024 DTaP/Tdap/Td Vaccines (3 - Td or Tdap) 03/13/2033 03/13/2023, 05/29/2010 Pneumococcal Vaccine: 50+ Years Completed 05/30/2022 Hepatitis B Vaccines Completed 03/13/2023, 10/13/2012, 08/02/2010 Hepatitis C Screening Completed 03/13/2023 Hepatitis A Vaccines Completed 05/19/2023, 10/13/19 13 Zoster Vaccines Completed 05/19/2023, 06/28/2019 HIB Vaccines Aged Out No longer eligi ble based on patient's age to complete this topic HPV Vaccines Aged Out No longer eligi ble based on patient's age to complete this topic IPV Vaccines Aged Out No longer eligi ble based on patient's age to complete this topic Meningococcal Vaccine Aged Out No sandi xochilt eligible based on patient's age to complete this topic RSV under 20 months Aged Out No longe r eligible based on patient's age to complete this topic Rotavirus Vaccines Aged Out No longer eligible based on patient's age to complete this topic Procedures Procedure Name Priority Date/Time Associated Diagnosis Comments ALBUMIN, RANDOM URINE W/CREATININE Routine 04/27/2024 10:00 AM EDT Type 2 diabetes mellitus with other specified complication, without long-term current use of insulin (CMS/HCC) LIPID PANEL, STANDARD Routine 10/14/2023 12:46 PM EST Type 2 diabetes mellitus without complication, without long-term current use of insulin ([facility]/HCC) POCT GLYCATED HEMOGLOBIN, TOTAL Routine 10/01/2023 11:10 AM EST Type 2 diabetes mellitus without complication, without long-term current use of insulin ([facility]) HEPATITIS PANEL, GENERAL Routine 03/13/2023 2:36 PM EDT Hypercholesterolemi a from Last 3 Months or Most Recently Relevant to Health Maintenance Results * (ABNORMAL) Albumin, Random Urine W/Creatinine (04/27/2024 10:00 AM EDT) Creatinine, Urine 44.77 mg/dL [facility] Microalbumin Urine 16.0 mg/L H [facility] Microalbum Creatinine Ratio Ur 35.7(H) <30 ug/mg cr [facility] Comment:Albumin/Creatinine R atio Reference Ranges: Normal: < 30 ug/mg creatinine Microalbuminuria: 30 - 300 ug/mg creatinineClinical Albuminuria: > 300 ug/mg creatinine Urine 04/27/2024 10:0 0 AM EDT 04/27/2024 5:28 PM EDT [facility] LAB URINE ORDERABLES Final Re sult [facility] [address] [place] [phone] * (ABNORMAL) Lipid Panel, Standard (10/14/2023 12:46 PM EST) Triglycerides 378(H) <150 mg/dL [facility] Comment:Desirable Triglyceri de: less than 150 mg/dLBorderline High Triglyceride 150-199 mg/dLHigh Triglyceride: 200-499 mg/dLVery High Triglyceride: greater than or equal to 5OO mg/dL Cholesterol 341(H) <200 mg/dL [facility] Comment:Desirable Cholestero l: less than 200 mg/dLBorderline High Cholesterol: 200-239 mg/dLHigh Cholesterol: greater than 239 mg/dL LDL Cholesterol Calculated 231(H) <100 mg/dL [facility] Comment:Desirable LDL: less than 100 mg/dLNear Optimal/Above Optimal LDL: 110- 129 mg/dLBorderline High LDL: 130-159 mg/dLHigh LDL: 160-189 mg/dLVery High LDL: greater than or equal to 190 mg/dL HDL Cholesterol 35(L) >40 mg/dL [facility] Comment:Desirable HDL: great er than 40 mg/dL Note: This HDL assay may give artificially low results in patients with liver disease. Blood Venous blood specimen / Unknown 10/14/2023 12:46 PM EST 10/14/2023 1:12 PM EST [facility] LAB BLOOD ORDERABLES Final Re sult [facility] [address] [place] [phone] * (ABNORMAL) POCT HGB A1C (10/01/2023 11:10 AM EST) Pathologist [facility] Hemoglobin A1C 6.6(A) 4.0 - 6.0 % Blood 10/01/2023 11:1 0 AM EST [facility] POINT OF CARE TEST ENTER/EDIT ORDERABLES Final Result * Hepatitis Panel, General (03/13/2023 2:36 PM EDT) Pathologist [facility] Hepatitis A IgM Nonreactive Nonreactive [facility] Comment:IgM antibodies to SLOAN V not detected; does not exclude earlyacute or recovered HAV infection. ~Hepatitis B Surface Antibody NONREACTIVE Nonreactive [facility] Comment:Nonreactive: < 8.00 mIU/mL Hepatitis B Core Antibody Nonreactive Nonreactive [facility] Hepatitis C Antibody Nonreactive Nonreactive [facility] Comment:Antibodies to HCV no t detected; does not exclude early acuteHCV infection. Hepatitis B Surface Ag Negative Negative [facility] Blood 03/13/2023 2:36 PM EDT 03/13/2023 4:09 PM EDT us Stephanie Tejeda RESEARCH PROFESSOR OF BIOSTATISTICS LAB BLOOD ORDERABLES Final Result [facility] [address] [place] [phone] from Last 3 Months or Most Recently Relevant to Health Maintenance Insurance MEDICARE [facility] [address] STANDARD DENTAL-[facility] MED[facility] STAND ADULT Member Subscriber Plan / Payer (Ef fective 2022-Present) Name:Sue Wahl Relation to Subscriber:Self Name:Sage Moarlesarbvielka Use Payer ID:Not on file Group ID:Not on file Type:Not on file Address: [place] [phone] Advance Directives Documents on File Type Date Recorded Patient Grizzly Worker Expl anation HealthCare Proxy 12/18/2022 proxy Power of Wildland Firefighter 07/21/2023 PO Care Teams Window And Siding Craftsman Relationship Specialty Start Date End Date Zulema Shah FNP [address] [place] [phone] PCP - General Family Medicine 11/04/22 [employer] 04/21/24
--- OUTSIDE RECORDS SUMMARY | 2024-11-05 13:06 | XMS_ITS | Encounter Summary ---
Author Organization [employer] Address [address] [facility] [address] [place] [address] Care Team Providers Care Kinesiotherapist Name Role Phone [facility] Primary Care Provider [phone] Reason for Visit * Reason Onset Date Comments Error 09/23/2023 Encounter Details Date Type Department Care Team ([facility] Contact Info) Description 09/23/2023 Telephone [facility] [address] [place], [place] [phone] [facility] [address] [place] [address] Error Social History Tobacco Use Types Packs/Day Years [...] documented as of this encounter Care Teams Kinesiotherapist Relationship Specialty Start Date End Date Zulema Shah FNP [address] [place] [phone] PCP - General Family Medicine 11/04/22 [employer] 04/21/24 documented as of this encounter
--- OUTSIDE RECORDS SUMMARY | 2024-11-05 13:06 | XMS_ITS | Encounter Summary ---
Author Organization [employer] Address [address] [facility] [address] 7t [place] [address] Care Team Providers Care Director Paid Media Name Role Phone [facility] Primary Care Provider [phone] Reason for Visit * Reason Onset Date Comments Med Refill 11/04/2024 Encounter Details Date Type Department Care Team (Late st Contact Info) Description 11/04/2024 Refill [facility] MED & PEDS [address] [place], [place] [phone] [facility] [address] [place] [address] Social History Tobacco Use Types Packs/Day Years [...] encounter Miscellaneous Notes * Telephone Encounter - Laurie Vásquez LPN - 11/04/2024 1:37 PM EDT Last seen 08/06/24. documented in this encounter Plan of Treatment Not on file documented as of this encounter Visit Diagnoses Not on filedocumented in this encounter Additional Health Concerns Assessment Noted Time PHQ-9 Depression Total Score: 0 12/25/19 23 10:53 AM EDT documented as of this encounter Care Teams Director Paid Media Relationship Specialty Start Date End Date Zulema Shah FNP [address] [place] [address] PCP - General Family Medicine 11/04/22 [employer] 04/21/24 documented as of this encounter
--- OUTSIDE RECORDS SUMMARY | 2024-11-05 13:06 | XMS_ITS | Encounter Summary ---
Author Organization [employer] Address [address] [facility] 7t [place] [address] Care Team Providers Care Photoengraving Machine Operator/Tender Name Role Phone [facility] Primary Care Provider [phone] Reason for Visit * Reason Onset Date Comments Paperwork/Forms 08/19/2023 Encounter Details Date Type Department Care Team ([facility] st Contact Info) Description 08/19/2023 Telephone [facility] MEDICINE 230 [place], [place] [phone] [facility] 230 [place] [address] Paperwork/Forms Social History Tobacco Use Types Packs/Day Years [...] encounter Miscellaneous Notes * Telephone Encounter - Hugo Head - 08/19/2023 11:15 AM EST Tc from patients daughter calling to request paperwork in regards to DEVICE PROCESSING ENGINEER stated the DEVICE PROCESSING ENGINEER has not been paid since 08/05 and stated the DEVICE PROCESSING ENGINEER will not be going to attend the patient until the matter is resolved documented in this encounter Plan of Treatment Not on file documented as of this encounter Visit Diagnoses Not on filedocumented in this encounter Additional Health Concerns Assessment Noted Time PHQ-9 Depression Total Score: 0 12/25/19 23 10:53 AM EDT documented as of this encounter Care Teams Photoengraving Machine Operator/Tender Relationship Specialty Start Date End Date Zulema Shah FNP [address] [place] [address] PCP - General Family Medicine 11/04/22 [employer] 04/21/24 documented as of this encounter
== END 2024-11-05 12:22 | disposition home or self-care (01) ==
LOC: HO.HOS 11:19
PROVIDERS: PCP Registered Nurse; Visit Provider Physical Medicine & Rehabilitation
DX: G81.14 Spastic hemiplegia affecting left nondominant side (principal); Z79.01 Long term (current) use of anticoagulants
CPT/HCPCS: 99204

== ENCOUNTER → 2024-11-05 11:19 | Outpatient (BNVA) | payer MEDICARE, MEDICAID, SELFPAY | PROVIDERS: PCP Registered Nurse; Visit Provider Physical Medicine & Rehabilitation | DX: I69.354 Hemiplegia and hemiparesis following cerebral infarction affecting left non-dominant side (principal); I10 Essential (primary) hypertension; Z79.01 Long term (current) use of anticoagulants | CPT/HCPCS: 99202 ==

== ENCOUNTER → 2024-12-29 11:14 | Outpatient (BNV) | payer MEDICARE, MEDICAID, SELFPAY | PROVIDERS: PCP Registered Nurse; Visit Provider Physical Medicine & Rehabilitation | DX: G81.14 Spastic hemiplegia affecting left nondominant side (principal); I69.359 Hemiplegia and hemiparesis following cerebral infarction affecting unspecified side | CPT/HCPCS: 64642; 64643; 95874 ==

== ENCOUNTER 2024-12-29 14:09 | Outpatient (REF) | payer MEDICARE, MEDICAID, SELFPAY ==
--- NOTE | 2024-12-29 11:14 | EMG_ITS ---
PROCEDURE PERFORMED: Botulinum toxin chemodenervation Diagnoses Spastic hemiparesis of left nondominant side? 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 Z79.01 INDICATION: spastic muscles, prevent contractures EXAM ON 11/05/24: Left hand with fingers flexed in, Uyen 3, painful to move. Left wrist flexed at rest 10 degrees from neutral. Left knee flexed at 90 degrees, Uyen 3. 12/29/2024: There is some tone noted on left elbow flexion. Additional dose would be given to brachialis. Difficult to access lateral hamstrings. Injection will be focus on medial hamstrings instead. TOXIN USED: Botox PROCEDURE: The procedure was explained to the patient/caregiver, and informed consent was obtained. The patient sat on her wheelchair. left arm and leg was cleansed with betadine in the usual sterile manner. A 28 gauge needle electrode was used. Muscle Units per site Number of sites Units per muscle Left FDS 50 1 50 Left FDP 50 1 50 Left FCR 50 1 50 Left MH 50 2 100 Left Brachialis 50 1 50 EMG-guidance was used during the injection. A total of 300 units injected. 0 units wastage. Vial size: 100 units per vial x1, 200 units per vial x1 Dilution: 100 units per 1 ml of preservative free saline The patient tolerated the procedure well without complications. The patient was observed for 30 minutes, before being discharged with post procedure instructions. CODING: CPT code: 38908 1 ext, 1-4 muscles 18628 each add?l limb, 1-4 muscles Guidance code: 19494 EMG guidance for chemodenervation J code: Botox J0585 [facility] code: 8801-0883-60, 7893-9995-19 Lot #: [id number], [id number] [facility] date: , [facility]
--- OUTSIDE RECORDS SUMMARY | 2024-12-29 15:22 | XMS_ITS | Encounter Summary ---
Author Organization [employer] Address [address] [facility] 7t [place] [address] Care Team Providers Care Extrusion Line Operator Name Role Phone [facility] Primary Care Provider [phone] Reason for Visit * Reason Onset Date Comments ER Follow-up 04/30/2023 Encounter Details Date Type Department Care Team ([facility] st Contact Info) Description 04/30/2023 Telephone [facility] MEDICINE 230 [place], [place] [phone] [facility] 230 [place] [address] ER Follow-up Social History Tobacco Use Types [...] 04/30/2023 8:42 AM EDT Tc from Scottie [facility] Patient calling to report ED visit on 04/26/23 at [facility]. Seen for high blood sugar. Patient advised will forward to team nurse for follow up. Scottie states she had a visit with patient yesterday and was informed by daughter that patient has been in the hospital since 04/26/23 and was suppose to be discharged by 04/29/23. documented in this encounter Plan of Treatment Upcoming Encounters Date Type Department Care Team (Late st Contact Info) Description 01/10/2025 9:45 AM EDT Office Visit [facility] MEDICINE 230 [place] [address] Zulema Shah FNP 230 [place] [address] documented as of this encounter Visit Diagnoses Not on filedocumented in this encounter Additional Health Concerns Assessment Noted Time PHQ-9 Depression Total Score: 0 12/25/19 10:53 AM EDT documented as of this encounter Care Teams Extrusion Line Operator Relationship Specialty Start Date End Date Zulema Shah FNP 230 [place] [address] PCP - General Family Medicine 11/04/22 [employer] 04/21/24 documented as of this encounter
--- OUTSIDE RECORDS SUMMARY | 2024-12-29 15:22 | XMS_ITS | Encounter Summary ---
Author Organization [employer] Address 75 [facility] 7t [place] [address] Care Team Providers Care Computer Patternmaker Name Role Phone [facility] Primary Care Provider [phone] Reason for Visit * Reason Comments Med Refill Encounter Details Date Type Department Care Team ([facility] st Contact Info) Description 04/12/2024 Refill [facility] MEDICINE 230 [place], [place] [phone] [facility] 230 [place] [address] Other chronic pain Social History Tobacco Use [...] as of this encounter Plan of Treatment Upcoming Encounters Date Type Department Care Team (Late st Contact Info) Description 01/10/2025 9:45 AM EDT Office Visit [facility] MEDICINE 230 [place] [address] Zulema Shah FNP [address] [place] [address] documented as of this encounter Visit Diagnoses Diagnosis Other chronic pain documented in this encounter Additional Health Concerns Assessment Noted Time PHQ-9 Depression Total Score: 0 12/25/19 10:53 AM EDT documented as of this encounter Care Teams Computer Patternmaker Relationship Specialty Start Date End Date Zulema Shah FNP 230 [place] [address] PCP - General Family Medicine 11/04/22 [email or web address] 04/21/24 documented as of this encounter
--- OUTSIDE RECORDS SUMMARY | 2024-12-29 15:22 | XMS_ITS | Encounter Summary ---
Author Organization [employer] Address 75 [facility] 7t [place] [address] Care Team Providers Care Steam Tank Operator Name Role Phone [facility] Primary Care Provider [phone] Reason for Visit * Reason Onset Date Comments Error 09/23/2023 Encounter Details Date Type Department Care Team ([facility] st Contact Info) Description 09/23/2023 Telephone [facility] MEDICINE 230 [place], [place] [phone] [facility] 230 [place], [place] [phone] Error Social History Tobacco Use Types Packs/Day [...] Description 01/10/2025 9:45 AM EDT Office Visit [facility] MEDICINE 230 [place] [address] Zulema Shah FNP 230 [place] [address] documented as of this encounter Visit Diagnoses Not on filedocumented in this encounter Additional Health Concerns Assessment Noted Time PHQ-9 Depression Total Score: 0 12/25/19 10:53 AM EDT documented as of this encounter Care Teams Steam Tank Operator Relationship Specialty Start Date End Date Zulema Shah FNP 230 [place] [address] PCP - General Family Medicine 11/04/22 [employer] 04/21/24 documented as of this encounter
--- OUTSIDE RECORDS SUMMARY | 2024-12-29 15:22 | XMS_ITS | Encounter Summary ---
Author Organization [employer] Address [address] [facility] 7t [place] [address] Care Team Providers Care Veterinary Meat Inspector Name Role Phone [facility] Primary Care Provider [phone] Reason for Visit * Reason Onset Date Comments Paperwork/Forms 08/19/2023 Encounter Details Date Type Department Care Team ([facility] st Contact Info) Description 08/19/2023 Telephone [facility] MEDICINE 230 [place] [address] [facility] 230 [place] [address] Paperwork/Forms Social History Tobacco Use Types Packs/Day [...] calling to request paperwork in regards to BULB PLANTER stated the BULB PLANTER has not been paid since 08/05 and stated the BULB PLANTER will not be going to attend the patient until the matter is resolved documented in this encounter Plan of Treatment Upcoming Encounters Date Type Department Care Team (Late st Contact Info) Description 01/10/2025 9:45 AM EDT Office Visit [facility] MEDICINE 230 [place] [address] RoselleZulema calvin [facility] 230 [place] [address] documented as of this encounter Visit Diagnoses Not on filedocumented in this encounter Additional Health Concerns Assessment Noted Time PHQ-9 Depression Total Score: 0 12/25/19 10:53 AM EDT documented as of this encounter Care Teams Veterinary Meat Inspector Relationship Specialty Start Date End Date Zulema Shah FNP 230 [place] [address] PCP - General Family Medicine 11/04/22 [employer] 04/21/24 documented as of this encounter
--- OUTSIDE RECORDS SUMMARY | 2024-12-29 15:22 | XMS_ITS | Encounter Summary ---
Author Organization [employer] Address [address] [facility] 7t [place] [address] Care Team Providers Care Information Security Manager Name Role Phone [facility] Primary Care Provider [phone] Encounter Details Date Type Department Care Team (Late Contact Info) Description 12/30/2022 Abstract [facility] MEDICINE 230 [place], [place] [phone] [facility] [address] [address] Social History Tobacco Use Types Packs/Day Years [...] Encounters Date Type Department Care Team (Late Contact Info) Description 01/10/2025 9:45 AM EDT Office Visit [facility] MEDICINE [address] [place] [address] PabloZulema calvin FNP 230 [place] [address] documented as of this encounter Visit Diagnoses Not on filedocumented in this encounter Additional Health Concerns Assessment Noted Time PHQ-9 Depression Total Score: 0 12/25/19 23 10:53 AM EDT documented as of this encounter Care Teams Information Security Manager Relationship Specialty Start Date End Date Zulema Shah FNP 230 [place] [address] PCP - General Family Medicine 11/04/22 [employer] 04/21/24 documented as of this encounter
--- OUTSIDE RECORDS SUMMARY | 2024-12-29 15:22 | XMS_ITS | Encounter Summary ---
Author Organization [employer] Address [address] [facility] 7t [place] [address] Care Team Providers Care Residential Recycle Driver Name Role Phone [facility] Primary Care Provider [phone] Reason for Visit * Reason Onset Date Comments Appointment Request 07/28/2023 Encounter Details Date Type Department Care Team ([facility] Contact Info) Description 07/28/2023 Telephone [facility] MEDICINE 230 [place], [place] [phone] [facility] 230 [place] [address] Appointment Request Social History Tobacco Use Types [...] encounter Miscellaneous Notes * Telephone Encounter - Farhancarlos manuelbjorn [employer] Alejandra - 07/28/2023 3:53 PM EST Tc from pt daughter requesting to r/s f/u appt for 06/16/2023 for for f images,labs .ok per Dr. Cadena 05/19. Please contact pt daughter at [phone] documented in this encounter Plan of Treatment Upcoming Encounters Date Type Department Care Team (Late st Contact Info) Description 01/10/2025 9:45 AM EDT Office Visit [facility] MEDICINE [address] [place] [address] Zulema Shah FNP 230 [place] [address] documented as of this encounter Visit Diagnoses Not on filedocumented in this encounter Additional Health Concerns Assessment Noted Time PHQ-9 Depression Total Score: 0 12/25/19 10:53 AM EDT documented as of this encounter Care Teams Residential Recycle Driver Relationship Specialty Start Date End Date Zulema Shah FNP 230 [place] [address] PCP - General Family Medicine 11/04/22 [employer] 04/21/24 documented as of this encounter
--- OUTSIDE RECORDS SUMMARY | 2024-12-29 15:22 | XMS_ITS | Encounter Summary ---
Author Organization [employer] Address [address] [facility] 7t [place] [address] Care Team Providers Care Plow Holder Name Role Phone [facility] Primary Care Provider [phone] Reason for Visit * Reason Comments Med Refill Encounter Details Date Type Department Care Team (Late Contact Info) Description 04/23/2023 Refill [facility] MEDICINE [address] [place] [address] [facility] 230 [place], [place] [phone] Social History Tobacco Use Types Packs/Day Years [...] Description 01/10/2025 9:45 AM EDT Office Visit [facility] MEDICINE [address] [place] [phone] [phone] documented as of this encounter Visit Diagnoses Not on filedocumented in this encounter Additional Health Concerns Assessment Noted Time PHQ-9 Depression Total Score: 0 12/25/19 10:53 AM EDT documented as of this encounter Care Teams Plow Holder Relationship Specialty Start Date End Date Zulema Shah FNP [address] [place] [address] PCP - General Family Medicine 11/04/22 [employer] 04/21/24 documented as of this encounter
--- OUTSIDE RECORDS SUMMARY | 2024-12-29 15:22 | XMS_ITS | Encounter Summary ---
Author Organization [employer] Address [address] [facility] 7t [place] [address] Care Team Providers Care Senior Energy Market Coordinator Name Role Phone [facility] [facility] Primary Care Provider [phone] Reason for Visit * Reason Onset Date Comments FYI 07/19/2024 Encounter Details Date Type Department Care Team ([facility] Contact Info) Description 07/19/2024 Telephone [facility] MEDICINE 230 [place], [place] [phone] [facility] 230 [place] [address] FYI Social History Tobacco Use Types Packs/Day [...] 3:41 PM EST Tc from Li with [employer] , notifying pt doesn't let her draw blood noteven for the last time. Li informs if any questions feel free to contact her Callback number [phone] documented in this encounter Plan of Treatment Upcoming Encounters Date Type Department Care Team (Late st Contact Info) Description 01/10/2025 9:45 AM EDT Office Visit [facility] MEDICINE 230 [place] [address] Zulema Shah [facility] 230 [place] [address] documented as of this encounter Visit Diagnoses Not on filedocumented in this encounter Additional Health Concerns Assessment Noted Time PHQ-9 Depression Total Score: 0 12/25/19 10:53 AM EDT documented as of this encounter Care Teams Senior Energy Market Coordinator Relationship Specialty Start Date End Date Zulema Shah FNP 230 [place] [address] PCP - General Family Medicine 11/04/22 [employer] 04/21/24 documented as of this encounter
--- OUTSIDE RECORDS SUMMARY | 2024-12-29 15:22 | XMS_ITS | Encounter Summary ---
Author Organization [employer] Address [address] [facility] [address] 7t [place] [address] Care Team Providers Care Student Support Counselor Name Role Phone Davon Badillo MD Primary Care Provider Marlon abrams [employer]ule[employer]IT[employer]CRA[employer] DESIGN[employer] Primary Care Provider [phone] Reason for Visit * Reason Onset Date Comments Appointment 10/28/2022 Encounter Details Date Type Department Care Team (Late Contact Info) Description 10/28/2022 Telephone [facility] CHC ADULT DENTAL [address] [place], [place] [phone] Crystal Gerardo DDS Appointment Social History Tobacco [...] Upcoming Encounters Date Type Department Care Team ([facility] Contact Info) Description 01/10/2025 9:45 AM EDT Office Visit [facility] MEDICINE 230 [place], [place] [phone] HemingwayZulema FNP 230 [place] [address] documented as of this encounter Visit Diagnoses Not on filedocumented in this encounter Care Teams Student Support Counselor Relationship Specialty Start Date End Date Davon Badillo MD PCP - General Family Medicine 06/25/19 11/03/22 HemingwayZulema FNP 230 [place] [address] PCP - General Family Medicine 11/04/22 [employer] 04/21/24 documented as of this encounter
--- OUTSIDE RECORDS SUMMARY | 2024-12-29 15:22 | XMS_ITS | Encounter Summary ---
Author Organization [employer] Address [address] [facility] [address] 7t [place] [address] Care Team Providers Care Branding Specialist Name Role Phone [facility] Primary Care Provider [phone] Encounter Details Date Type Department Care Team (Late st Contact Info) Description 10/27/2024 Orders Only [facility] 230 [place], [place] [phone] [facility] 230 [place], [place] [phone] Type 2 diabetes mellitus with other specified [...] Description 01/10/2025 9:45 AM EDT Office Visit [facility] MEDICINE 230 [place] [address] [facility] 230 [place], [place] [phone] Scheduled Orders Name Type Priority Associated Diagnoses Orde r Schedule Comprehensive Metabolic Panel Lab Routine Type 2 diabetes mellitus with other specified complication, without long-term current use of insulin ([facility]) Expected: 10/27/2024 (Approximate), Expires: 10/27/2025 CBC auto [...] documented as of this encounter Care Teams Branding Specialist Relationship Specialty Start Date End Date Zulema Shah FNP [address] [place] [address] PCP - General Family Medicine 11/04/22 [employer] 04/21/24 documented as of this encounter
--- OUTSIDE RECORDS SUMMARY | 2024-12-29 15:22 | XMS_ITS | Encounter Summary ---
Author Organization [employer] Address [address] [facility] 7t [place] [address] Care Team Providers Care Bracelet Former Name Role Phone [place] [facility] Primary Care Provider [phone] Encounter Details Date Type Department Care Team (Late Contact Info) Description 12/03/2022 Abstract [facility] MEDICINE [address] [place] [address] [place] [employer] [address] [phone] Social History Tobacco Use Types Packs/Day Years [...] Upcoming Encounters Date Type Department Care Team ([facility] Contact Info) Description 01/10/2025 9:45 AM EDT Office Visit [facility] MEDICINE [address] [place] [address] [phone] documented as of this encounter Visit Diagnoses Not on filedocumented in this encounter Additional Health Concerns Assessment Noted Time PHQ-9 Depression Total Score: 0 12/04/19 23 1:38 PM EDT documented as of this encounter Care Teams Bracelet Former Relationship Specialty Start Date End Date Zulema Shah FNP [address] [place] [address] PCP - General Family Medicine 11/04/22 [employer] 04/21/24 documented as of this encounter
--- OUTSIDE RECORDS SUMMARY | 2024-12-29 15:22 | XMS_ITS | Clinical Summary ---
Author Organization [employer] Address [address] [facility] 7[address] [place] [address] Care Team Providers Care Utility Worker Name Role Phone Zulema Shah [facility] Primary Care Provider [phone] Allergies No known active allergies Medications * This document contains information received from the source organization and may not represent a complete record from that organization. Blood Glucose Monitoring Suppl (ONE TOUCH ULTRA 2) w/Device kitIndications:Ty pe 2 diabetes mellitus without complication, without long-term current use of insulin ([facility]) Use to monitor blood glucose once daily 1 kit 023 Active Alcohol Swabs (Alcohol Prep) 70 % padsIndications:T ype 2 diabetes mellitus without complication, without long-term current use of insulin (CMS/HCC) Apply by topical route to finger once daily prior to checking blood glucose 100 each 11 023 Active Botox 200 units injection 023 Active tamsulosin (Flomax) 0.4 MG 24 hr capsule 023 Active Alcohol Swabs (Alcohol Prep) padsIndications:T ype 2 diabetes mellitus without complication, without long-term current use of insulin (CMS/HCC) Use one pad each to prep skin prior to injection as directed 100 each 11 024 Active Lancets 33G miscIndications:T ype 2 diabetes mellitus without complication, without long-term current use of insulin (CMS/HCC) Use as directed to check blood sugar four times daily 100 each 3 024 Active Blood Glucose Monitoring Suppl (GNP Easy Touch Glucose Meter) deviceIndications :Type 2 diabetes mellitus without complication, without long-term current use of insulin (CMS/HCC) Use as directed to check blood sugar four times daily 1 each Active glucose blood test stripIndications: Type 2 diabetes mellitus without complication, without long-term current use of insulin ([facility]) Use as directed to check blood sugar four times daily 100 each 12 Active amLODIPine (Norvasc) 5 MG tabletIndications :Primary hypertension Take 1 tablet (5 mg) by mouth in the morning. 30 tablet 11 Active Multiple Vitamin (Multivitamin) tablet TAKE 1 TABLET BY MOUTH EVERY DAY WITH FOOD 90 tablet 1 Active glucose blood (OneTouch Ultra) test stripIndications: Type 2 diabetes mellitus without complication, without long-term current use of insulin ([facility]) Use one strip to monitor blood glucose once daily 100 each 024 2024 Active Lancets (onetouch ultrasoft) lancetsIndication s:Type 2 diabetes mellitus without complication, without long-term current use of insulin ([facility]) 1 each by Other route Once per day. 30 each 024 2024 Active melatonin 3 MG tabletIndications :Healthcare maintenance Take 1 tablet (3 mg) by mouth at bedtime. 90 tablet 1 Active albuterol (Ventolin HFA) 108 (90 Base) MCG/ACT inhaler INHALE 2 PUFFS BY MOUTH EVERY 4 TO 6 HOURS NEEDED 18 g 1 Active baclofen (Lioresal) 20 MG tablet TAKE 1 TABLET BY MOUTH THREE TIMES A DAY 90 tablet Active QUEtiapine (SEROquel) 25 MG tabletIndications :Depression, unspecified depression type TAKE 1 TABLET BY MOUTH EVERY DAY IN THE MORNING 30 tablet 5 Active apixaban (Eliquis) 5 MG tablet TAKE 1 TABLET BY MOUTH TWICE DAILY 60 tablet 5 Active acetaminophen (Tylenol) 500 MG tabletIndications :Periodontal disease Take 1 tablet (500 mg) by mouth every 6 (six) hours if needed for mild pain for up to 20 doses. 20 tablet Active levothyroxine (Synthroid, Levoxyl) 100 MCG tablet TAKE 1 TABLET BY MOUTH EVERY DAY 90 tablet 1 025 Active metFORMIN XR (Glucophage-XR) 500 MG 24 hr tablet TAKE 2 TABLETS BY MOUTH EVERY DAY WITH DINNER 180 tablet 1 025 Active Nyamyc 982364 UNIT/GM powder APPLY TO THE AFFECTED AREA(S) TWICE DAILY 30 g 025 Active rosuvastatin (Crestor) 10 MG tabletIndications :Mixed hyperlipidemia Take 1 tablet (10 mg) by mouth Once per day. 30 tablet 11 025 2025 Active levothyroxine (Synthroid, Levoxyl) 150 MCG tablet Take 1 tablet (150 mcg) by mouth before breakfast. 90 tablet 3 025 2025 Active hydrOXYzine HCl (Atarax) 25 MG tabletIndications :Dry skin dermatitis TAKE 1 TABLET BY MOUTH EVERY 8 HOURS NEEDED FOR ITCHING 90 tablet 1 025 Active terbinafine (LamISIL) 1 % creamIndications: Tinea corporis APPLY 1 GRAM TOPICALLY TO AFFECTED AREA(S) OF THE BACK AND BETWEEN LEGS TWICE DAILY DIRECTED 45 g 025 Active triamcinolone (Kenalog) 0.025 % creamIndications: Dry skin dermatitis MIX TUBE OF triamcinolone WITH 16 OUNCES OF cerave DIRECTED AND APPLY TOPICALLY TO THE AFFECTED AREA(S) FROM THE NECK DOWN EVERY DAY 80 g 025 Active hydrocortisone 2.5 % creamIndications: Rash and nonspecific skin eruption APPLY TO THE AFFECTED AREA(S) TOPICALLY TWICE DAILY 20 g 025 Active terbinafine (LamISIL AT) 1 % creamIndications: Tinea corporis Apply topically 2 times daily. To affected areas on back and groin 42 g 024 2024 Discontinued triamcinolone (Kenalog) 0.025 % creamIndications: Dry skin dermatitis Mix entire tube with 16oz jar of cerva ve as instructed. Apply mixture from neck down daily. 80 g 024 2024 Discontinued hydrocortisone 2.5 % creamIndications: Rash and nonspecific skin eruption APPLY TO THE AFFECTED AREA(S) TWICE DAILY 20 g 025 2024 Discontinued Active Problems Problem Noted Date Diagnosed Date [...] (03/21/2023 2:55 PM EDT): Continue VNA and NEEDLE MAKER services High risk for pressure injury Treating [...] CVA and non-ambulatory/bed bound state. Referred [facility], no appt Gave pt phone number. Daughter will call. Will defer decision on stopping eliquis by specialist F/u 1 month with PCP or sooner PRN Elevated liver enzymes 03/21/2023 Overview (03/21/2023): Atorvastatin discontinued around 11/10/22 d/t elevated liver enzymes noted at [facility] when admitted for Choledocholithiasis. Started to trend [...] Mammo: Ordered today Pap: Previously followed by [facility]. Need records C-scope: No prior screening. Was scheduled for colonoscopy prior to CVA and never followed up. No family hx of CRC BMD: Discuss at follow up Assessment & Plan (05/20/2023 7:09 PM EDT): -Flu vaccine today -planned to get today at px shingrix vaccine Assessment & Plan (03/21/2023 2:45 [...] am and 2 h in pm w NEEDLE [facility]KER--letter done today for pt with request -daughter will check with her Previous PT service [facility] they will start services again Assessment & Plan (03/21/2023 3:03 PM EDT): Continue VNA and NEEDLE MAKER services High risk for pressure injury Has [...] 11/10/22 d/t elevated liver enzymes noted at [facility] when admitted for Choledocholithiasis. Started to trend [...] Encounters Date Type Department Care Team Description 12/27/2024 Refill [facility] MEDICINE [address] [place] [address] Zulema Shah FNP Rash and nonspecific skin eruption 12/18/2024 Refill [facility] MED[facility] [address] [place] [address] Zulema Shah FNP Dry skin dermatitis 12/11/2024 Refill [facility] MEDICINE [address] [place] [address] Zulema Shah FNP Tinea corporis 11/27/2024 Refill [facility] MEDICINE [address] [place] [address] Zulema Shah OVERHEAD CLEANER MAINTAINER Dry skin dermatitis 11/23/2024 Telephone [facility] MEDICINE [address] [place] [address] PalestineZulema [facility] Results 11/22/2024 Orders Only [facility] WALK-IN CENTER [address] [place] [address] PabloZulema [facility] Mixed hyperlipidemia (Primary Dx) 11/12/2024 Refill [facility] MEDICINE [address] [place] [address] PalestineZulema [facility] 11/10/2024 Orders Only [facility] MEDICINE [address] [place] [address] PalestineZulema [facility] 11/07/2024 Refill [facility] MED[facility] [address] [place] [address] PalestineZulema [facility] Rash and nonspecific skin eruption 11/05/2024 Population Health Risk Score [facility] () Department [address] [place] [phone] Provider, Population Health Generic 11/04/2024 Refill [facility] CHC MED & PEDS [address] [place], [place] [phone] Zulema Shah [facility] 10/27/2024 Orders Only [facility] [address] [place] [address] PalestineZulema [facility] Type 2 diabetes mellitus with other specified complication, without long-term current use of insulin ([facility]) (Primary Dx); Chronic liver disease; Hypothyroidism, unspecified type 10/18/2024 Telephone [facility] MEDIC[facility] [address] [place] [address] PalestineZulema calvin, [facility] Durable Medical Equipment (Blair Form: Valerie Lift) from Last 3 Months Immunizations Name Administration [...] is your housing situation today? I have tonisue alvarado 06/09/[address] you [...] 05/19/2023 1:11 PM EDT Plan of Treatment Upcoming Encounters Date Type Department Care Team (Late st Contact Info) Description 01/10/2025 9:45 AM EDT Office Visit [facility] MEDICINE [address] [place], [place] [phone] [facility] [address] [place], [place] [phone] Health Maintenance Due Date Last Done Comments [...] series) 2016 Depression Screening 12/25/2023 12/24/2022, 12/25/19 23 COVID-19 Vaccine ( season) 2024 10/20/2020 Influenza Vaccine (#1) 2024 3, 05/30/2022, 11/12/2020, Additional history exists Diabetes: Foot Exam 10/01/2024 10/01/2023, 10/01/2023, 10/01/2023, Additional history exists SDOH Screening 11/02/2024 11/03/2023 Diabetes: Urine Protein Screening 04/27/2025 04/27/2024 Diabetes: Hemoglobin A1C 05/13/2025 025, 10/01/2023, 05/19/2023, Additional history exists Tobacco Screening 08/13/2025 08/13/2024 Lipid Panel 11/10/2025 11/10/2024, 09/26, 03/13/2023, Additional history exists DTaP/Tdap/Td Vaccines (3 - Td or Tdap) [...] Procedure Name Priority Date/Time Associated Diagnosis Comments HEMOGLOBIN A1C Routine 11/10/2024 7:05 AM EDT TSH Routine 11/10/2024 7:05 AM EDT PROTHROMBIN TIME-INR Routine 11/10/2024 7:05 AM EDT CBC WITH AUTO DIFFERENTIAL Routine 11/10/2024 7:05 AM EDT COMPREHENSIVE METABOLIC PANEL Routine 11/10/2024 7:05 AM EDT LIPID PANEL, STANDARD Routine 11/10/2024 7:05 AM EDT ALBUMIN, RANDOM URINE W/CREATININE Routine 04/27/2024 10:00 AM EDT Type 2 diabetes mellitus with other specified complication, without long-term current use of insulin (CMS/HCC) HEPATITIS PANEL, GENERAL Routine 03/13/2023 2:36 PM EDT Hypercholesterolem ia from Last 3 Months or Most Recently Relevant to Health Maintenance Results * (ABNORMAL) CBC auto differential (11/10/2024 7:05 AM EDT) White Blood Cell Count 4.9 3.8 - 10.8 Thousand/ uL [facility] [place] [facility] Red Blood Cell Count 4.44 3.80 - 5.10 Million/u L [facility] [place] [facility] Hemoglobin 14.6 11.7 - 15.5 g/dL [facility] [place] [facility] Hematocrit 43.5 35.0 - 45.0 % [facility] [place] [facility] MCV 98.0 80.0 - 100.0 fL [facility] [place] [facility] MCH 32.9 27.0 - 33.0 pg [facility] [place] [facility] MCHC 33.6 32.0 - 36.0 g/dL [place] [facility] Comment: For adults, a slight decrease in the calculated MCHC value (in the range of 30 to 32 g/dL) is most likely not clinically significant; however, it should be interpreted with caution in correlation with other red cell parameters and the patient's clinical condition. RDW 12.7 11.0 - 15.0 % [facility] [place] [facility] Platelet Count 136(L) 140 - 400 Thousand/ uL [facility] [place] [facility] MPV 14.5(H) 7.5 - 12.5 fL [facility] [place] [facility] Absolute Neutrophils 2,073 1,500 - 7,800 cells/uL [facility] [place] [facility] Absolute Lymphocytes 2,156 850 - 3,900 cells/uL [facility] [place] [facility] Absolute Monocytes 421 200 - 950 cells/uL [facility] [place] [facility] Absolute Eosinophils 201 15 - 500 cells/uL [facility] Absolute Basophils 49 0 - 200 cells/uL [facility] Neutrophils 42.3 % [facility] [place] [facility] Lymphocytes 44.0 % [facility] Monocytes 8.6 % [facility] [place] [facility] Eosinophils 4.1 % [facility] Basophils 1.0 % [facility] 11/10/2024 7:05 AM EDT 11/10/2024 1:57 PM EDT Narrative [facility] - 11/10/2024 5:49 PM EDT FASTING [facility] LAB BLOOD ORDERABLES Final Re sult Performing Organization Address [facility] de Phone Number [facility] [address], [facility] [address] [facility] [place] [facility] [address] [place] [address] * Prothrombin Time-INR (11/10/2024 7:05 AM EDT) INR 1.1 [facility] Comment: Reference Range ? 0.9-1.1 Moderate-intensity Warfarin Therapy 2.0-3.0 Higher-intensity Warfarin Therapy ?? 3.0-4.0 Prothrombin Time 11.3 9.0 - 11.5 sec [facility] [place] [facility] Comment: For additional information, please refer to http://education.ApprenNet/faq/PQB389 (This link is being provided for informational/ educational purposes only.) 11/10/2024 7:05 AM EDT 11/10/2024 1:57 PM EDT Narrative [facility] - 11/10/2024 5:49 PM EDT FASTING [facility] OVERHEAD CLEANER MAINTAINER LAB BLOOD ORDERABLES Final Re sult Performing Organization Address [facility]/ZIP Co de Phone Number [facility] [address], [facility] [address] [facility] [facility] [address] [place] [address] * (ABNORMAL) TSH (11/10/2024 7:05 AM EDT) TSH 44.91(H) 0.40 - 4.50 mIU/L [facility] [place] [facility] 11/10/2024 7:05 AM EDT 11/10/2024 1:57 PM EDT Narrative [facility] - 11/10/2024 5:49 PM EDT FASTING [facility] LAB BLOOD ORDERABLES Final Re sult Performing Organization Address [facility] de Phone Number [address], [facility] [address] [facility] [place] [facility] [address] [place] [address] * (ABNORMAL) Hemoglobin A1c (11/10/2024 7:05 AM EDT) Hemoglobin A1c 5.8(H) <5.7 % of total Hgb [facility] [place] [facility] Comment: For someone without known diabetes, a hemoglobin A1c value between 5.7% and 6.4% is consistent with prediabetes and should be confirmed with a follow-up test. For someone with known diabetes, a value <7% indicates that their diabetes is well controlled. A1c targets should be individualized based on duration of diabetes, age, comorbid conditions, and other considerations. This assay result is consistent with an increased risk of diabetes. Currently, no consensus exists regarding use of hemoglobin A1c for diagnosis of diabetes for children. 11/10/2024 7:05 AM EDT 11/10/2024 1:57 PM EDT Narrative [facility] - 11/10/2024 5:49 PM EDT FASTING [facility] LAB BLOOD ORDERABLES Final Re sult Performing Organization Address [facility]/ZIP Ms de Phone Number [address], [place] [address] [facility] [place] [facility] [address] [place] [address] * (ABNORMAL) Lipid Panel, Standard (11/10/2024 7:05 AM EDT) Cholesterol, Total 290(H) <200 mg/dL [facility] [place] [facility] HDL Cholesterol 54 > OR = 50 mg/dL [facility] [place] [facility] Triglycerides 191(H) <150 mg/dL [facility] [place] [facility] LDL Cholesterol 199(H) mg/dL [facility] [place] [facility] Comment: LDL-C levels > or = 190 mg/dL may indicate familial hypercholesterolemia (FH). Clinical assessment and measurement of blood lipid levels should be considered for all first degree relatives of patients with an FH diagnosis. LDL Cholesterol (LDL-C) levels > or = 300 mg/dL may indicate homozygous familial hypercholesterolemia (HoFH). Untreated, these extremely high LDL-C levels can result in premature CV events and mortality. Patients should be identified early and provided appropriate interventions to reduce the cumulative LDL-C burden from . For questions about testing for familial hypercholesterolemia, please call [facility] at [email or web address].[place] [email or web address]. Sharifa T, et al. J National Lipid Association Recommendations for Patient-Centered Management of Dyslipidemia: Part 1 Journal of Clinical Lipidology 2015;9(2), 129-169. Rogelio Clark. et al. (2014). Homozygous familial hypercholesterolaemia: new insights and guidance for clinicians to improve detection and clinical management. Heart Journal, 35(32), 0250-5062. Reference range: <100 Desirable range <100 mg/dL for primary prevention; ?? <70 mg/dL for patients with CHD or diabetic patients with > or = 2 CHD risk factors. LDL-C is now calculated using the Dixon calculation, which is a validated novel method providing better accuracy than the Friedewald equation in the estimation of LDL-C. Charanjit SILVA et al. JAM. 2013;310(19): 1868-2986 (http://education.Fandium/faq/DZV769) Chol/HDLC Ratio 5.4(H) <5.0 (calc) [facility] [place] [facility] Non-HDL Cholesterol 236(H) <130 mg/dL [facility] Comment: Non-HDL level > or = 220 is very high and may indicate genetic familial hypercholesterolemia (FH). Clinical assessment and measurement of blood lipid levels should be considered for all first-degree relatives of patients with an FH diagnosis. For patients with diabetes plus 1 major ASCVD risk factor, treating to a non-HDL-C goal of <100 mg/dL (LDL-C of <70 mg/dL) is considered a therapeutic option. 11/10/2024 7:05 AM EDT 11/10/2024 1:57 PM EDT Narrative [facility] - 11/10/2024 5:49 PM EDT FASTING [facility] LAB BLOOD ORDERABLES Final Re sult [facility] [address], [place] [address] [facility] [place] [facility] [address] [place] [address] * (ABNORMAL) Comprehensive Metabolic Panel (11/10/2024 7:05 AM EDT) Glucose 81 65 - 99 mg/dL [facility] [place] [facility] Comment: ? Fasting reference interval Urea Nitrogen (BUN) 11 7 - 25 mg/dL [facility] [place] [facility] Creatinine, Serum 0.65 0.50 - 1.05 mg/dL [facility] [place] [facility] eGFR 96 > OR = 60 mL/min/1. 73m2 [facility] [place] [facility] BUN/Creatinine Ratio SEE NOTE: 6 22 (calc) [facility] [place] [facility] Comment: ?? Not Reported: BUN and Creatinine are within ?? reference range. ? Sodium 138 135 - 146 mmol/L [facility] [place] [facility] Potassium 4.5 3.5 - 5.3 mmol/L [facility] [facility] Chloride 104 98 - 110 mmol/L [facility] [place] [facility] Carbon Dioxide 25 20 - 32 mmol/L [facility] [place] [facility] Calcium 10.2 8.6 - 10.4 mg/dL [facility] [place] [facility] Protein, Total 7.9 6.1 - 8.1 g/dL [facility] Albumin 3.9 3.6 - 5.1 g/dL [facility] Globulin 4.0(H) 1.9 - 3.7 g/dL (calc) [facility] Albumin/Globuli n Ratio 1.0 1.0 - 2.5 (calc) [facility] Bilirubin, Total 0.4 0.2 - 1.2 mg/dL [facility] Alkaline Phosphatase 62 37 - 153 U/L [facility] AST 37(H) 10 - 35 U/L [facility] ALT 42(H) 6 - 29 U/L [facility] 11/10/2024 7:05 AM EDT 11/10/2024 1:57 PM EDT Narrative [facility] - 11/10/2024 5:49 PM EDT FASTING [facility] LAB BLOOD ORDERABLES Final Re sult [facility] [address], [place] [address] [facility] [facility] [address] [place] [address] * (ABNORMAL) Albumin, Random Urine W/Creatinine (04/27/2024 10:00 AM EDT) Creatinine, Urine 44.77 mg/dL [facility] Microalbumin Urine 16.0 mg/L [facility] Microalbum Creatinine Ratio Ur 35.7(H) <30 ug/mg cr [facility] Comment:Albumin/Creatinine R atio Reference Ranges: Normal: < 30 ug/mg creatinine Microalbuminuria: 30 - 300 ug/mg creatinineClinical Albuminuria: > 300 ug/mg creatinine Urine 04/27/2024 10:0 0 AM EDT 04/27/2024 5:28 PM EDT us Zulema [place] OVERHEAD CLEANER MAINTAINER LAB URINE ORDERABLES Final Re sult Performing Organization Address [facility] Co de Phone Number [facility] [address] [place] [address] [phone] Hepatitis Panel, General (03/13/2023 2:36 PM EDT) Hepatitis A IgM Nonreactive Nonreactive [facility] Comment:IgM antibodies to SLOAN V not detected; does not exclude earlyacute or recovered HAV infection. ~Hepatitis B Surface Antibody NONREACTIVE Nonreactive [facility] Comment:Nonreactive: < 8.00 mIU/mL Hepatitis B Core Antibody Nonreactive Nonreactive [facility] Hepatitis C Antibody Nonreactive Nonreactive [facility] Comment:Antibodies to HCV no t detected; does not exclude early acuteHCV infection. Hepatitis B Surface Ag Negative Negative [facility] Blood 03/13/2023 2:36 PM EDT 03/13/2023 4:09 PM EDT Stephanie Tejeda OVERHEAD CLEANER MAINTAINER LAB BLOOD ORDERABLES Final Result Performing Organization Address [facility] Co de Phone Number [facility] [address] [place] [address] [phone] from Last 3 Months or Most Recently Relevant to Health [place] [id number] [facility] STAND ADULT Advance Directives Documents on File Type Date Recorded Patient Sole Stitcher Hand Expl anation HealthCare Proxy 12/18/2022 proxy Power of Operations [place] 07/21/2023 [facility] Care Teams Utility Worker Relationship Specialty Start Date End Date Zulema Shah FNP [address] [place] [address] PCP - General Family Medicine 11/04/22 [employer] 04/21/24
--- OUTSIDE RECORDS SUMMARY | 2024-12-29 15:22 | XMS_ITS | Encounter Summary ---
Author Organization [employer] Address [address] [facility] [address] [place] [address] Care Team Providers Care Shift Commander Name Role Phone [facility] Primary Care Provider [phone] Reason for Visit * Reason Onset Date Comments triage 12/13/2022 Encounter Details Date Type Department Care Team ([facility] st Contact Info) Description 12/13/2022 Telephone [facility] MEDICINE [address] [place], [place] [phone] [facility] [address] [place] [address] triage Social History Tobacco Use Types Packs/Day [...] 12/13/2022 10:23 AM EDT Triage call with [place] [employer] Demonstrator ID [id number] Pt daughter answered the phone and reports that Pt is in the hospital with a blood clot in the leg.Advised to call [facility] for follow up when discharged from the [...] Description 01/10/2025 9:45 AM EDT Office Visit [facility] MED[facility] [address] [place] [address] WellsZulema FNP [address] [place] [address] documented as of this encounter Visit Diagnoses Not on filedocumented in this encounter Additional Health Concerns Assessment Noted Time PHQ-9 Depression Total Score: 0 12/04/19 23 1:38 PM EDT documented as of this encounter Care Teams Shift Commander Relationship Specialty Start Date End Date Zulema Shah FNP [address] [place] [address] PCP - General Family Medicine 11/04/22 [facility] 04/21/24 documented as of this encounter
--- OUTSIDE RECORDS SUMMARY | 2024-12-29 15:22 | XMS_ITS | Encounter Summary ---
Author Organization [employer] Address [address] [facility] [address] [place] [address] Care Team Providers Care Manager Division Name Role Phone [facility] Primary Care Provider [phone] Reason for Visit * Reason Comments Med Refill Encounter Details Date Type Department Care Team ([facility] st Contact Info) Description 12/27/2024 Refill [facility] MEDICINE [address] [place], [place] [phone] [facility] [address] [place] [address] Rash and nonspecific skin eruption Social History Tobacco Use Types Packs/Day Years [...] Description 01/10/2025 9:45 AM EDT Office Visit [facility] MEDICINE [address] [place] [address] Zulema Shah FNP [address] [place] [address] documented as of this encounter Visit Diagnoses Diagnosis Rash and nonspecific skin eruption Rash and other nonspecific skin eruption documented in this encounter Additional Health Concerns Assessment Noted Time PHQ-9 Depression Total Score: 0 12/25/19 10:53 AM EDT documented as of this encounter Care Teams Manager Division Relationship Specialty Start Date End Date Zulema Shah FNP [address] [place] [address] PCP - General Family Medicine 11/04/22 [employer] 04/21/24 documented as of this encounter
== END 2024-12-29 14:10 | disposition home or self-care (01) ==
LOC: HO.NEURO 14:09
PROVIDERS: PCP Registered Nurse; Visit Provider Physical Medicine & Rehabilitation
DX: G81.14 Spastic hemiplegia affecting left nondominant side (principal); Z79.01 Long term (current) use of anticoagulants
CPT/HCPCS: 64642; 64643; 95874; J0585

== ENCOUNTER 2025-01-05 10:00 | Emergency (ER) | payer MEDICARE, MEDICAID, SELFPAY ==
--- NOTE | ~2025-01-05 | CT_ITS ---
EXAMINATION: CT ABDOMEN PELVIS WITHOUT IV CONTRAST HISTORY: constipation ? abdominal pain COMPARISON: Comparison is made with the prior examination dated 08/15/2023. TECHNIQUE: CT scan of the abdomen and pelvis was performed without contrast using standard departmental protocol. Coronal and sagittal reformatted images were generated and reviewed. Oral contrast material was not administered at the request of the referring physician. This CT exam was performed with one or more of the following dose reduction techniques: automated exposure control, adjustment of the mA and/or kV according to patient size, use of iterative reconstruction technique. DLP: 830 mGy-cm FINDINGS: The examination is somewhat degraded by patient motion. LOWER CHEST: The visualized lung bases are clear. There is no pleural effusion. CARDIOVASCULATURE: The heart is normal in size. There is no pericardial effusion. LIVER: The liver is normal in size and contour. The liver has an unremarkable unenhanced appearance. GALLBLADDER / BILE DUCTS: The gallbladder is surgically absent. There is no intra or extrahepatic biliary ductal dilatation. SPLEEN: The spleen is top normal in size, but has an unremarkable unenhanced appearance. PANCREAS: The pancreas has an unremarkable unenhanced appearance. ADRENAL GLANDS: Unremarkable. KIDNEYS/RETROPERITONEUM: No renal calculi are identified. There is no hydronephrosis. LYMPH NODES: No retroperitoneal lymphadenopathy is identified in the abdomen or pelvis. VASCULATURE: The abdominal aorta demonstrates atherosclerotic calcification, but is normal in caliber. MESENTERY/PERITONEUM: No free fluid. No masses. There is no free intraperitoneal gas. STOMACH: The stomach is collapsed, limiting evaluation. SMALL BOWEL: The small bowel is normal in caliber. COLON: There is a very large amount of stool throughout the colon, particularly the rectosigmoid colon. There is mild infiltration of the perirectal fat which may indicate proctitis. APPENDIX: Normal. URINARY BLADDER/PELVIC ORGANS: There are 2 adjacent tiny calculi in the left dependent portion of the urinary bladder. The uterus has an unremarkable unenhanced appearance. BONES / SOFT TISSUES: No suspicious bony or soft tissue abnormalities. CT/CT abdomen pelvis wo IV con IMPRESSION: 1. Very large amount of stool throughout the colon. Infiltration of the perirectal fat may indicate proctitis. 2. Bladder calculi as described. Electronically signed by: Bj Jordan MD 01/05/2025 11:48 AM EDT RP
[2025-01-05 10:20] VITALS: BP 141/85; BP 155/77; PULSE 60; PULSE 83; RESP 18; TEMP 36.6; O2SAT 94; O2SAT 95; BMI 31.4
--- NOTE | 2025-01-05 10:54 | ED_ITS ---
HPI - General Adult General Chief complaint: General Medical Stated complaint: CONSTIPATION X 1 MONTH PER EMS Time Seen by Provider: 01/05/25 10:37 Source: patient Mode of arrival: ambulatory Limitations: no limitations History of Present Illness HPI narrative: This is a 69 years old female patient presented to the emergency department with a chief complaint of constipation she states she has not gone to the bathroom for about a month denies any nausea vomiting. She has a history of CVA she has left side hemiplegia she has a history of GERD hypertension she lives at home she is not ambulatory of the baseline Onset (ago): month(s) (1) Location: abdomen Radiation: non-radiation Severity: moderate Pain Consistency: constant Relieving factors: none Exacerbating factors: none Associated symptoms: denies other symptoms Related Data Home Medications ?Medication ?Instructions ?Recorded ?Confirmed lisinopril 5 mg tablet 5 mg PO DAILY 10/18/20 11/15/20 atorvastatin 40 mg tablet 40 mg PO BEDTIME 11/12/20 11/15/20 cholecalciferol (vitamin D3) 50 50 mcg PO DAILY 11/12/20 11/15/20 mcg (2,000 unit) capsule levothyroxine 175 mcg tablet 175 mcg PO DAILY 11/12/20 11/15/20 methylcellulose (laxative) 500 mg 1 tab PO BID 11/15/20 11/15/20 tablet (Fiber Therapy (methylcellulose)) Previous Rx's ?Medication ?Instructions ?Recorded polyethylene glycol 3350 17 17 g PO DAILY #238 grams 01/05/25 gram/dose oral powder (Miralax) Allergies Allergy/AdvReac Type Severity Reaction Status Date / Time No Known Allergies Allergy Verified 01/05/25 10:21 [No Known Allergies*] Review of Systems 2 Constitutional: Constitutional: Reports no additional constitutional complaints ENT: Reports system reviewed and no additional complaints, except as documented Cardiovascular: Cardiovascular: Reports no additional cardiovascular complaints PMFSH Past Medical History Attestation statement: The following information was validated with the patient. Medical History History of hemorrhagic stroke with residual hemiparesis Spastic hemiparesis of left nondominant side Acute kidney injury Asthma Elevated cholesterol HTN (hypertension) Hypothyroidism Foot contusion Surgical History History of cholecystectomy History of ankle surgery Family History Family History Unknown Family history of colon cancer Social History Social History Household Members: Other Household Members Other:: daughter Housing: Apartment Do you presently have visiting nurse or other home services: No Alcohol intake: never Cigarette Packs Per Day: 0 Cigarettes Per Day: 1 Second Hand Smoke Exposure: No Advance Directives: No Advance Directives Information Provided: Yes Do you have a plan to hurt others: No Plan service: No Current occupational status: disabled Physical Exam ED Vital Signs: Vital Signs - 24 hr 01/05/25 10:20 Temperature 97.9 F Pulse Rate 83 Respiratory Rate 18 Blood Pressure 141/85 H Pulse Oximetry 95 Oxygen Delivery Method Room Air BMI result Body Mass Index 31.4 She looks well she is not toxic-appearing Const General: cooperative Nutritional Appearance: well nourished Orientation/consciousness: patient oriented x3 Limitations: no limitations HENMT Head: Yes normal to inspection Ears: hearing grossly normal bilaterally General nose exam: Normal external nose present Face and sinus: Yes normal facial exam Mouth: Normal oral and palatal mucosa present Neck Neck: Yes normal visual inspection Chest Chest palpation & inspection: normal inspection of the chest Resp Effort & Inspection: normal respiratory effort Auscultation: clear to auscultation bilaterally Cardio Jugular venous distension: no JVD Rate: regular rate Rhythm: regular rhythm GI Inspection: Yes normal to inspection Palpation (GI): Soft to palpation, not firm and nontender Rectal Exam - Female: other (Fecal impaction present) Neuro General: patient oriented x3 Course Reevaluation(s) Reevaluation #1: Patient is feeling much better she was disimpacted by me successfully cat scan showed no evidence of bowel obstruction labs ok anticipate discharge Time: 12:29 Medications Administered Discontinued Medications Generic Name Dose Route Start Last Admin Trade Name Freq PRN Reason Stop Dose Admin Sodium Biphosphate/Sodium Phosphate 133 ml 01/05/25 10:42 01/05/25 10:58 Sodium Phosphate,[place]-Dibasic 133 Ml Enema RI 01/05/25 10:43 133 ml ONCE ONE Administration Procedures Procedure Narrative Procedure Narrative: Disimpaction: Patient was placed in left lateral decubitus manual disimpaction was performed successfully, patient tolerated procedure well Medical Decision Making Medical Decision Making [facility] Narrative: Patient is here with fecal impaction we will go ahead perform disimpact Differential Diagnosis Differential Diagnoses: The differential diagnosis associated with the presentation includes Fecal impaction/SBO/colitis/diverticulitis Admission/Observation Consideration of admission/observation: Escalation of care including admission/observation considered Lab Data [facility] Lab Attestation statement: I reviewed the patient's lab results. 01/05/25 11:12 01/05/25 11:12 Labs: Lab Results 01/05/25 Range/Units 11:12 WBC 4.7 L (4.8-10.8) X10*3/uL RBC 4.50 (4.20-5.50) X10*6/uL Hgb 14.5 (12.0-16.0) g/dl Hct 43.3 (37.0-47.0) % MCV 96.2 (80.0-98.0) fL MCH 32.2 (27.0-33.0) pg MCHC 33.5 (31.0-35.0) g/dl RDW 15.1 (11.0-16.0) % Plt Count 157 L (160-400) X10*3/uL MPV 11.8 (9.4-12.3) fL Immature Gran % (Auto) 0.2 (0.0-0.4) % Neut % (Auto) 57.5 (45-73) % Lymph % (Auto) 29.9 (20-40) % [place] % (Auto) 8.1 (2-11) % Eos % (Auto) 2.8 (0-4) % Baso % (Auto) 1.5 (0-2) % Lymph # (Auto) 1.4 (1.2-4.9) X10*3/uL [place] # (Auto) 0.4 (0.1-1.2) X10*3/uL Eos # (Auto) 0.1 (0.0-0.4) X10*3/uL Baso # (Auto) 0.1 (0.0-0.2) X10*3/uL Abs Immat Gran (auto) 0.01 (0.00-0.03) X10*3/uL Absolute Neuts (auto) 2.7 (2.0-8.3) x10*3/uL Absolute Nucleated RBC 0.000 (0.0-0.012) X10*3/uL Nucleated RBC % (auto) 0.0 (0.0-0.2) /100WBC Sodium 142 (135-145) mmol/L Potassium 4.0 (3.3-5.1) mmol/L Chloride 111 H (96-108) mmol/L Carbon Dioxide 22 (22-29) mmol/L Anion Gap 13 (12-20) BUN 16 (9-16) mg/dL Creatinine 0.72 (0.5-1.4) mg/dL Estim Creat Clear Calc 75.0 Estimated GFR > 60 Random Glucose 124 H (60-115) mg/dL Calcium 9.6 (8.4-10.2) mg/dL Total Bilirubin 0.4 (0.0-1.0) mg/dL AST 59 H (5-31) U/L ALT 65 H (0-31) U/L Alkaline Phosphatase 66 (39-117) U/L Total Protein 8.3 H (6.5-8.0) g/dL Albumin 3.9 (3.5-5.0) g/dL Independent Interpretation I performed an independent interpretation of an: CT Scan Interpretation: Not acute disease Radiology Impression Discussion of test interpretation with radiology: I have reviewed the radiologist's reading. Chronic Conditions Patient?s care impacted by: Other (cva) Discharge Plan Discharge Clinical Impression: Fecal impaction Patient Disposition: Home, Self-Care Instructions: Fecal Impaction (ED) Additional Instructions: Make sure you drink a lot a water eat a lot of the green Prescriptions: New polyethylene glycol 3350 [Miralax] 17 gram/dose powder 17 g PO DAILY Qty: 238 0RF No Action Fiber Therapy (m-cellulose) 500 mg tablet 1 tab PO BID atorvastatin 40 mg tablet 40 mg PO BEDTIME levothyroxine 175 mcg tablet 175 mcg PO DAILY cholecalciferol (vitamin D3) 50 mcg (2,000 unit) capsule 50 mcg PO DAILY lisinopril 5 mg tablet 5 mg PO DAILY Referrals: Physician,Unknown J [Primary Care Provider] - 2 days Print Language: [place]
[2025-01-05] MEDS: Sodium Phosphate,Mono-Dibasic 133 ML ENEMA PR (10:58)
[2025-01-05 11:16] LABS: MANUAL DIFF FLAG NO
[2025-01-05 11:23] LABS: Basophils Absolute Auto 0.1 X10*3/uL (0.0-0.2); Basophils Percent Auto 1.5 % (0-2); Eosinophils Absolute Auto 0.1 X10*3/uL (0.0-0.4); Eosinophils Percent Auto 2.8 % (0-4); Hematocrit 43.3 % (37.0-47.0); Hemoglobin 14.5 g/dl (12.0-16.0); Imm Gran Abs Auto 0.01 X10*3/uL (0.00-0.03); Imm Gran Pct Auto 0.2 % (0.0-0.4); Lymphocytes Absolute Auto 1.4 X10*3/uL (1.2-4.9); Lymphocytes Percent Auto 29.9 % (20-40); Mean Corpuscular HGB Conc 33.5 g/dl (31.0-35.0); Mean Corpuscular Hemoglobin 32.2 pg (27.0-33.0); Mean Corpuscular Volume 96.2 fL (80.0-98.0); Mean Platelet Volume 11.8 fL (9.4-12.3); Monocytes Absolute Auto 0.4 X10*3/uL (0.1-1.2); Monocytes Percent Auto 8.1 % (2-11); Neutrophils Absolute Auto 2.7 x10*3/uL (2.0-8.3); Neutrophils Percent Auto 57.5 % (45-73); Platelet Count 157 X10*3/uL (160-400); Red Cell Distribution Width 15.1 % (11.0-16.0); White Blood Count 4.7 X10*3/uL (4.8-10.8)
[2025-01-05 11:32] LABS: Alanine Aminotransferase 65 U/L (0-31); Albumin Level 3.9 g/dL (3.5-5.0); Alkaline Phosphatase 66 U/L (39-117); Anion Gap 13 (12-20); Aspartate Amino Transferase 59 U/L (5-31); Bilirubin Total 0.4 mg/dL (0.0-1.0); Blood Urea Nitrogen 16 mg/dL (9-16); Calcium 9.6 mg/dL (8.4-10.2); Carbon Dioxide 22 mmol/L (22-29); Chloride 111 mmol/L (96-108); Estimated Glomerular Filt Rate > 60; Glucose Random 124 mg/dL (60-115); Sodium 142 mmol/L (135-145); Total Protein 8.3 g/dL (6.5-8.0)
--- OUTSIDE RECORDS SUMMARY | 2025-01-05 11:54 | XMS_ITS | Encounter Summary ---
Author Organization [employer] Address [address] [facility] [address] [place] [address] Care Team Providers Care It Program Auditor Name Role Phone [facility] Primary Care Provider [phone] Reason for Visit * Reason Onset Date Comments triage 12/13/2022 Encounter Details Date Type Department Care Team ([facility] st Contact Info) Description 12/13/2022 Telephone [facility] MEDICINE [address] [place], [place] [phone] [facility] [address] [place] [address] triage Social History Tobacco Use Types Packs/Day [...] 12/13/2022 10:23 AM EDT Triage call with [employer] [place] [id number] Pt daughter answered the phone and reports that Pt is in the hospital with a blood clot in the leg.Advised to call [facility] for follow up when discharged from [...] Description 01/10/2025 9:45 AM EDT Office Visit [facility] MEDICINE [address] [place] [address] ThrockmortonZulema FNP [address] [place] [address] documented as of this encounter Visit Diagnoses Not on filedocumented in this encounter Additional Health Concerns Assessment Noted Time PHQ-9 Depression Total Score: 0 12/04/19 23 1:38 PM EDT documented as of this encounter Care Teams It Program Auditor Relationship Specialty Start Date End Date Zulema Shah FNP [address] [place] [address] PCP - General Family Medicine 11/04/22 [employer] 04/21/24 documented as of this encounter
--- OUTSIDE RECORDS SUMMARY | 2025-01-05 11:54 | XMS_ITS | Clinical Summary ---
Author Organization [employer] Address [address] [facility] 7t [place] [address] Care Team Providers Care Supervisor Paint Department Name Role Phone Zulema Shah [facility] Primary Care Provider [phone] Allergies No known active allergies Medications * This document contains information received from the source organization and may not represent a complete record from that organization. Blood Glucose Monitoring Suppl (ONE TOUCH ULTRA 2) w/Device kitIndications:Ty pe 2 diabetes mellitus without complication, without long-term current use of insulin ([facility]) Use to monitor blood glucose once daily 1 kit 023 Active Alcohol Swabs (Alcohol Prep) 70 % padsIndications:T ype 2 diabetes mellitus without complication, without long-term current use of insulin ([facility]) Apply by topical route to finger once daily prior to checking blood glucose 100 each 11 023 Active Botox 200 units injection 023 Active tamsulosin (Flomax) 0.4 MG 24 hr capsule 023 Active Alcohol Swabs (Alcohol Prep) padsIndications:T ype 2 diabetes mellitus without complication, without long-term current use of insulin ([facility]) Use one pad each to prep skin prior to injection as directed 100 each 11 024 Active Blood Glucose Monitoring Suppl (GNP Easy Touch Glucose Meter) deviceIndications :Type 2 diabetes mellitus without complication, without long-term current use of insulin ([facility]) Use as directed to check blood sugar four times daily 1 each 024 Active amLODIPine (Norvasc) 5 MG tabletIndications :Primary hypertension Take 1 tablet (5 mg) by mouth in the morning. 30 tablet 11 02/07/2 024 Active Multiple Vitamin (Multivitamin) tablet TAKE 1 TABLET BY MOUTH EVERY DAY WITH FOOD 90 tablet 1 Active glucose blood (OneTouch Ultra) test stripIndications: Type 2 diabetes mellitus without complication, without long-term current use of insulin ([facility]) Use one strip to monitor blood glucose once daily 100 each 024 2024 Active Lancets (onetouch ultrasoft) lancetsIndication s:Type 2 diabetes mellitus without complication, without long-term current use of insulin ([facility]) 1 each by Other route Once per day. 30 each 024 2024 Active melatonin 3 MG tabletIndications :Healthcare maintenance Take 1 tablet (3 mg) by mouth at bedtime. 90 tablet 1 Active albuterol (Ventolin HFA) 108 (90 Base) MCG/ACT inhaler INHALE 2 PUFFS BY MOUTH EVERY 4 TO 6 HOURS NEEDED 18 g Active baclofen (Lioresal) 20 MG tablet TAKE 1 TABLET BY MOUTH THREE TIMES A DAY 90 tablet Active QUEtiapine (SEROquel) 25 MG tabletIndications :Depression, unspecified depression type TAKE 1 TABLET BY MOUTH EVERY DAY IN THE MORNING 30 tablet 5 Active apixaban (Eliquis) 5 MG tablet TAKE 1 TABLET BY MOUTH TWICE DAILY 60 tablet 5 024 Active acetaminophen (Tylenol) 500 MG tabletIndications :Periodontal disease Take 1 tablet (500 mg) by mouth every 6 (six) hours if needed for mild pain for up to 20 doses. 20 tablet 024 Active levothyroxine (Synthroid, Levoxyl) 100 MCG tablet TAKE 1 TABLET BY MOUTH EVERY DAY 90 tablet 1 Active metFORMIN XR (Glucophage-XR) 500 MG 24 hr tablet TAKE 2 TABLETS BY MOUTH EVERY DAY WITH DINNER 180 tablet 1 Active Nyamyc 429146 UNIT/GM powder APPLY TO THE AFFECTED AREA(S) TWICE DAILY 30 g Active rosuvastatin (Crestor) 10 MG tabletIndications :Mixed hyperlipidemia Take 1 tablet (10 mg) by mouth Once per day. 30 tablet 025 2025 Active levothyroxine (Synthroid, Levoxyl) 150 MCG tablet Take 1 tablet (150 mcg) by mouth before breakfast. 90 tablet 025 2025 Active hydrOXYzine HCl (Atarax) 25 MG tabletIndications :Dry skin dermatitis TAKE 1 TABLET BY MOUTH EVERY 8 HOURS NEEDED FOR ITCHING 90 tablet Active terbinafine (LamISIL) 1 % creamIndications: Tinea [...] AFFECTED AREA(S) TOPICALLY TWICE DAILY 20 g Active Lancets (OneTouch Delica Plus [id number]) miscIndications:T ype 2 diabetes mellitus without complication, without long-term current use of insulin ([facility]) USE TO TEST BLOOD SUGAR FOUR TIMES DAILY 100 each Active OneTouch Ultra Test test stripIndications: Type 2 diabetes mellitus without complication, without long-term current use of insulin ([facility]) USE TO TEST BLOOD SUGAR FOUR TIMES DAILY 100 strip Active Lancets 33G miscIndications:T ype 2 diabetes mellitus without complication, without long-term current use of insulin (CMS/HCC) Use as directed to check blood sugar four times daily 100 each 3 024 2024 Discontinued glucose blood test stripIndications: Type 2 diabetes mellitus without complication, without long-term current use of insulin (CMS/HCC) Use as directed to check blood sugar four times daily 100 each 12 024 2024 Discontinued terbinafine (LamISIL AT) 1 % creamIndications: Tinea corporis Apply topically 2 times daily. To affected areas on back and groin 42 g 024 2024 Discontinued triamcinolone (Kenalog) 0.025 % creamIndications: Dry skin dermatitis Mix entire tube with 16oz jar of cerva ve as instructed. Apply mixture from neck down daily. 80 g 1 024 2024 Discontinued hydrocortisone 2.5 % creamIndications: Rash and nonspecific skin eruption APPLY TO THE AFFECTED AREA(S) TWICE DAILY 20 g 1 025 2024 Discontinued Active Problems Problem Noted [...] (03/21/2023 2:55 PM EDT): Continue [facility] and HORTICULTURE/FLORICULTURE TEACHER services High risk for pressure injury Treating with offloading weight/pressure and sacral cushio/wound bandage Will refer to Wound care F/u 1 month or sooner PRN with PCP DVT (deep venous thrombosis) 03/21/2023 Overview (03/21/2023): [facility] 12/12/22-12/14/22: extensive occlusive DVT of left lower [...] CVA and non-ambulatory/bed bound state. Referred [facility], no appt Gave pt phone number. Daughter will call. Will defer decision on stopping eliquis by specialist F/u 1 month with PCP or sooner PRN Elevated liver enzymes 03/21/2023 Overview (03/21/2023): Atorvastatin discontinued around 11/10/22 d/t elevated liver enzymes noted at [facility] when admitted for Choledocholithiasis. Started to trend [...] Ordered today Pap: Previously followed by [facility]. 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 Started to trend [...] Encounters Date Type Department Care Team Description 12/30/2024 Refill [facility] [address] [place] [address] [place] Zulema, MACHINE PROGRAMMER Type 2 diabetes mellitus without complication, without long-term current use of insulin ([facility]) 12/27/2024 Refill [facility] [address] [facility] [place] [address] Zulema Shah, MACHINE PROGRAMMER Rash and nonspecific skin eruption 12/18/2024 Refill [facility] [address] [facility] [place] [address] Zulema Shah, MACHINE PROGRAMMER Dry skin dermatitis 12/11/2024 Refill [facility] [address] [facility] [place] [address] Zulema Shah, MACHINE PROGRAMMER Tinea corporis 11/27/2024 Refill [facility] [address] [facility] [place] [address] Zulema Shah, MACHINE PROGRAMMER Dry skin dermatitis 11/23/2024 Telephone [facility] [address] [facility] [place] [address] Zulema ShahJOHN Results 11/22/2024 Orders Only [facility] [address] [facility] [place] [address] Zulema ShahJOHN Mixed hyperlipidemia (Primary Dx) 11/12/2024 Refill [facility] [address] [facility] [place] [address] Pablo GABI PooleP 11/10/2024 Orders Only [facility] [address] [facility] [place] [address] Zulema Shah, MACHINE PROGRAMMER 11/07/2024 Refill [facility] [address] [place] [address] Zulema Shah, MACHINE PROGRAMMER Rash and nonspecific skin eruption 11/05/2024 Population Health Risk Score [facility] [address] [address] Provider, Population Health Generic 11/04/[address] [facility] [address] [place], [place] [phone] Zulema Shah, MACHINE PROGRAMMER 10/27/2024 Orders Only [facility] [address] [place] [address] [place] Zulema, MACHINE PROGRAMMER Type 2 diabetes mellitus with other specified complication, without long-term current use of insulin (CMS/HCC) (Primary Dx); Chronic liver disease; Hypothyroidism, unspecified type 10/18/2024 Telephone [facility] [address] [place], [place] [phone] [place], [place], [facility] Durable Medical Equipment (Blair Form: Valerie Lift) from Last 3 Months Immunizations Immunization Administration Dates Next Due Hep A, Adult [...] Description 01/10/2025 9:45 AM EDT Office Visit [facility] [address] [place] [address] [facility] [address] [place] [address] Health Maintenance Due Date Last Done Comments [...] patient's age to complete this topic Meningococcal B Vaccine Aged Out No l onger eligible based on patient's age to complete [...] Count 4.9 3.8 - 10.8 Thousand/ uL [facility] Red Blood Cell Count 4.44 3.80 - 5.10 Million/u L [facility] Hemoglobin 14.6 11.7 - 15.5 g/dL [facility] Hematocrit 43.5 35.0 - 45.0 % [facility] MCV 98.0 80.0 - 100.0 fL [facility] MCH 32.9 27.0 - 33.0 pg [facility] MCHC 33.6 32.0 - 36.0 g/dL [facility] Comment: For adults, a slight decrease in the calculated MCHC value (in the range of 30 to 32 g/dL) is most likely not clinically significant; however, it should be interpreted with caution in correlation with other red cell parameters and the patient's clinical condition. RDW 12.7 11.0 - 15.0 % [facility] Platelet Count 136(L) 140 - 400 Thousand/ uL [facility] MPV 14.5(H) 7.5 - 12.5 fL [facility] Absolute Neutrophils 2,073 1,500 - 7,800 cells/uL [facility] Absolute Lymphocytes 2,156 850 - 3,900 cells/uL [facility] Absolute Monocytes 421 200 - 950 cells/uL [facility] [place] [facility] Absolute Eosinophils 201 15 - 500 cells/uL [facility] Absolute Basophils 49 0 - 200 cells/uL [facility] Neutrophils 42.3 % [facility] Lymphocytes 44.0 % [facility] Monocytes 8.6 % [facility] Eosinophils 4.1 % [facility] Basophils 1.0 % [facility] 11/10/2024 7:05 AM EDT 11/10/2024 1:57 PM EDT Narrative [facility] - 11/10/2024 5:49 PM EDT FASTING [facility] MACHINE PROGRAMMER LAB BLOOD ORDERABLES Final Re sult [facility] [address], [place] [address] [facility] [place] [facility] [address] [place] [address] * Prothrombin Time-INR (11/10/2024 7:05 AM EDT) INR 1.1 [facility] [place] [facility] Comment: Reference Range ? 0.9-1.1 Moderate-intensity Warfarin Therapy 2.0-3.0 Higher-intensity Warfarin Therapy ?? 3.0-4.0 Prothrombin Time 11.3 9.0 - 11.5 sec [facility] Comment: For additional information, please refer to http://NPTV.Javelin/faq/BYO173 (This link is being provided for informational/ educational purposes only.) 11/10/2024 7:05 AM EDT 11/10/2024 1:57 PM EDT Narrative [facility] - 11/10/2024 5:49 PM EDT FASTING [facility] LAB BLOOD ORDERABLES Final Re sult Performing Organization Address [facility]/ZIP Co de Phone Number [facility] [address], [place] [address] [facility] [place] [facility] [address] [place] [address] * (ABNORMAL) TSH (11/10/2024 7:05 AM EDT) TSH 44.91(H) 0.40 - 4.50 mIU/L [facility] 11/10/2024 7:05 AM EDT 11/10/2024 1:57 PM EDT Narrative [facility] - 11/10/2024 5:49 PM EDT FASTING [facility] LAB BLOOD ORDERABLES Final Re sult [facility] [address], [place] [address] [facility] [place] [facility] [address] [place] [address] * (ABNORMAL) Hemoglobin A1c (11/10/2024 7:05 AM EDT) Hemoglobin A1c 5.8(H) <5.7 % of total Hgb [facility] Comment: For someone without known diabetes, a [...] [facility] - 11/10/2024 5:49 PM EDT FASTING [facility] LAB BLOOD ORDERABLES Final Re sult [facility] [address], [place] [address] [employer] [place] [employer] [address] [place] [address] * (ABNORMAL) Lipid Panel, Standard (11/10/2024 7:05 AM EDT) Pathologist [facility] Cholesterol, Total 290(H) <200 mg/dL [facility] [place] [employer] HDL Cholesterol 54 > OR = 50 mg/dL [facility] [employer] Triglycerides 191(H) <150 mg/dL [facility] [place] [employer] LDL Cholesterol 199(H) mg/dL [facility] [place] [employer] Comment: LDL-C levels > or = 190 [...] about testing for familial hypercholesterolemia, please call [facility] at [phone]. Sharifa Serrano, et al. J National Lipid Association Recommendations for Patient-Centered Management of Dyslipidemia: Part 1 Journal of Clinical Lipidology 2015;9(2), 129-169. Cuchel, M. et al. (2014). Homozygous familial hypercholesterolaemia: new insights and guidance for clinicians to improve detection and clinical management. Heart Journal, 35(32), 6456-5062. Reference range: <100 Desirable range <100 mg/dL for primary prevention; ?? <70 mg/dL for patients with CHD or diabetic patients with > or = 2 CHD risk factors. LDL-C is now calculated using the Charanjit-John calculation, which is a validated novel method providing better accuracy than the Friedewald equation in the estimation of LDL-C. Charanjit SILVA et al. JAM. 2013;310(19): 4705-7047 (http://education.CatchThatBus/faq/BPB424) Chol/HDLC Ratio 5.4(H) <5.0 (calc) [facility] Non-HDL Cholesterol 236(H) <130 mg/dL [facility] Comment: Non-HDL level > or = 220 [...] [facility] - 11/10/2024 5:49 PM EDT FASTING [facility] LAB BLOOD ORDERABLES Final Re sult [facility] 200 [facility], [place] [address] [employer] [place] [employer] [address] [place] [address] * (ABNORMAL) Comprehensive Metabolic Panel (11/10/2024 7:05 AM EDT) Glucose 81 65 - 99 mg/dL [facility] Comment: ? Fasting reference interval Urea Nitrogen (BUN) 11 7 - 25 mg/dL [facility] Creatinine, Serum 0.65 0.50 - 1.05 mg/dL [facility] eGFR 96 > OR = 60 mL/min/1. 73m2 [facility] BUN/Creatinine Ratio SEE NOTE: 6 - 22 (calc) [facility] Comment: ?? Not Reported: BUN and Creatinine are within ?? reference range. ? Sodium 138 135 - 146 mmol/L [facility] Potassium 4.5 3.5 - 5.3 mmol/L [facility] Chloride 104 98 - 110 mmol/L [facility] Carbon Dioxide 25 20 - 32 mmol/L [facility] Calcium 10.2 8.6 - 10.4 mg/dL [facility] Protein, Total 7.9 6.1 - 8.1 g/dL [facility] Albumin 3.9 3.6 - 5.1 g/dL [facility] Globulin 4.0(H) 1.9 - 3.7 g/dL (calc) [facility] Albumin/Globuli n Ratio 1.0 1.0 - 2.5 (calc) [facility] Bilirubin, Total 0.4 0.2 - 1.2 mg/dL [facility] Alkaline Phosphatase 62 37 - 153 U/L [facility] AST 37(H) 10 - 35 U/L [facility] [place] [facility] ALT 42(H) 6 - 29 U/L [facility] [place] [facility] 11/10/2024 7:05 AM EDT 11/10/2024 1:57 PM EDT Narrative [facility] - 11/10/2024 5:49 PM EDT FASTING [facility] LAB BLOOD ORDERABLES Final Re sult [facility] [address], [place] [address] [facility] [place] [facility] [address] [place] [address] * (ABNORMAL) Albumin, Random Urine W/Creatinine (04/27/2024 10:00 AM EDT) Creatinine, Urine 44.77 mg/dL [facility] Microalbumin Urine 16.0 mg/L H [facility] Microalbum Creatinine Ratio Ur 35.7(H) <30 ug/mg cr [facility] Comment:Albumin/Creatinine R atio Reference Ranges: Normal: < 30 ug/mg creatinine Microalbuminuria: 30 - 300 ug/mg creatinineClinical Albuminuria: > 300 ug/mg creatinine Urine 04/27/2024 10:0 0 AM EDT 04/27/2024 5:28 PM EDT [facility] MACHINE PROGRAMMER LAB URINE ORDERABLES Final Re sult Performing Organization Address [facility] Co de Phone Number [facility] [address] [place] [phone] * Hepatitis Panel, General (03/13/2023 2:36 PM EDT) Hepatitis A IgM Nonreactive Nonreactive [facility] Comment:IgM antibodies to SLOAN V not detected; does not exclude earlyacute or recovered HAV infection. ~Hepatitis B Surface Antibody NONREACTIVE Nonreactive [facility] Comment:Nonreactive: < 8.00 mIU/mL Hepatitis B Core Antibody Nonreactive Nonreactive [facility] Hepatitis C Antibody Nonreactive Nonreactive [facility] Comment:Antibodies to HCV no t detected; does not exclude early acuteHCV infection. Hepatitis B Surface Ag Negative Negative [facility] Blood 03/13/2023 2:36 PM EDT 03/13/2023 4:09 PM EDT Stephanie Tejeda MACHINE PROGRAMMER LAB BLOOD ORDERABLES Final Result Performing Organization Address [facility]/ZIP Co de Phone Number [facility] [address] [place] [phone] from Last 3 Months or Most Recently Relevant to Health Maintenance Insurance MEDICARE Member Subscriber Plan / Payer (Ef fective 2021-) Name:Sue Wahl Member ID:[id number] Relation to Subscriber:Self Name:Sue Wahl Subscriber ID:[id number] Payer ID:STATE Group ID:Not on file Type:Medicare Address: [facility] [address] [address] [facility] STANDARD [facility] MEDICAID STAND ADULT Advance Directives Documents on File Type Date Recorded Patient Rag Room Supervisor Expl anation HealthCare Proxy 12/18/2022 proxy Power of English Composition Teacher 07/21/2023 POA Care Teams Supervisor Paint Department Relationship Specialty Start Date End Date Zulema Shah FNP [address] [place] [phone] PCP - General Family Medicine 11/04/22 8digits 04/21/24
--- OUTSIDE RECORDS SUMMARY | 2025-01-05 11:54 | XMS_ITS | Encounter Summary ---
Author Organization [employer] Address [address] [facility] [address] [place] [address] Care Team Providers Care Manufacturing Engineering Technician Name Role Phone [place] [facility] Primary Care Provider [phone] Encounter Details Date Type Department Care Team (Late st Contact Info) Description 10/27/2024 Orders Only [facility] [address] [place], [place] [phone] [facility] 230 [place], [place] [phone] Type 2 diabetes mellitus with other specified [...] Description 01/10/2025 9:45 AM EDT Office Visit [facility] [address] [place] [address] [facility] [address] [place], [place] [phone] Scheduled Orders Name Type Priority Associated Diagnoses Orde r Schedule Comprehensive Metabolic Panel Lab Routine Type 2 diabetes mellitus with other specified complication, without long-term current use of insulin ([facility]) Expected: 10/27/2024 (Approximate), Expires: 10/27/2025 CBC auto [...] documented as of this encounter Care Teams Manufacturing Engineering Technician Relationship Specialty Start Date End Date Zulema Shah FNP [address] [place] [phone] PCP - General Family Medicine 11/04/22 [employer] 04/21/24 documented as of this encounter
--- OUTSIDE RECORDS SUMMARY | 2025-01-05 11:54 | XMS_ITS | Encounter Summary ---
Author Organization [facility] Address [address] [facility] 7t [place] [address] Care Team Providers Care Molded Parts Inspector Name Role Phone [facility] Primary Care Provider [phone] Reason for Visit * Reason Comments Med Refill Encounter Details Date Type Department Care Team ([facility] st Contact Info) Description 04/12/2024 Refill [facility] [address] [place], [place] [phone] [facility] [address] [place] [address] Other chronic pain Social History Tobacco Use [...] Description 01/10/2025 9:45 AM EDT Office Visit [facility] [address] [place] [address] Zulema Shah FNP [address] [place] [address] documented as of this encounter Visit Diagnoses Diagnosis Other chronic pain documented in this encounter Additional Health Concerns Assessment Noted Time PHQ-9 Depression Total Score: 0 12/25/19 10:53 AM EDT documented as of this encounter Care Teams Molded Parts Inspector Relationship Specialty Start Date End Date Zulema Shah FNP [address] [place] [address] PCP - General Family Medicine 11/04/22 ComptTIA 04/21/24 documented as of this encounter
--- OUTSIDE RECORDS SUMMARY | 2025-01-05 11:54 | XMS_ITS | Encounter Summary ---
Author Organization [employer] Address 75 [facility] 7t [place] [address] Care Team Providers Care Underground Drill Operator Name Role Phone [place] [facility] Primary Care Provider [phone] Reason for Visit * Reason Comments Med Refill Encounter Details Date Type Department Care Team (Late Contact Info) Description 04/23/2023 Refill [facility] [address] [place] [address] [facility] [address] [place], [place] [phone] Social History Tobacco Use Types Packs/Day Years [...] Description 01/10/2025 9:45 AM EDT Office Visit [facility] [address] [place] [phone] [phone] documented as of this encounter Visit Diagnoses Not on filedocumented in this encounter Additional Health Concerns Assessment Noted Time PHQ-9 Depression Total Score: 0 12/25/19 10:53 AM EDT documented as of this encounter Care Teams Underground Drill Operator Relationship Specialty Start Date End Date Zulema Shah FNP [address] [place] [address] PCP - General Family Medicine 11/04/22 [employer] 04/21/24 documented as of this encounter
--- OUTSIDE RECORDS SUMMARY | 2025-01-05 11:54 | XMS_ITS | Encounter Summary ---
Author Organization [employer] Address [address] [facility] 7t [place] [address] Care Team Providers Care Climatology Professor Name Role Phone [place] [facility] Primary Care Provider [phone] Encounter Details Date Type Department Care Team ([facility] st Contact Info) Description 12/03/2022 Abstract [facility] 230 [place], [place] [phone] [place] [facility] 230 [place] [address] Social History Tobacco Use Types Packs/Day Years [...] PM EDT documented as of this encounter Functional Status * Over the past 2 weeks, how often have you been bothered by any of the following problems? Question Answer Date of Assessment Author Patient Health Questionnaire-2 Score 0 12/03/2022 1:38 PM EDT Cherri Hernandez MA * Over the past 2 weeks, how often have you been bothered by any of the following problems? Question Answer Date of Assessment Author Little interest or pleasure in doing things Not at all 12/03/2022 1:38 PM EDT Cherri Hernandez MA Feeling down, depressed, or hopeless Not at all 12/03/2022 1:38 PM EDT Cherri Hernandez MA Trouble falling or staying asleep, or sleeping too much Not at all 12/03/2022 1:38 PM EDT Cherri Parmar MA Feeling tired or having little energy Not at all 12/03/2022 1:38 PM EDT Cherri Hernandez MA Poor appetite or overeating Not at all 12/03/2022 1: 38 PM EDT Cherri Hernandez MA Feeling bad about yourself - or that you are a failure or have let yourself or your family down Not at all 12/03/2022 1:38 PM EDT Cherri Hernandez MA Trouble concentrating on things, such as reading the newspaper or watching television Not at all 12/03/2022 1:38 PM EDT Cherri Hernandez MA Moving or speaking so slowly that other people could have noticed? Or the opposite - being so fidgety or restless that you have been moving around a lot more than usual. Not at all 12/03/2022 1:38 PM EDT Cherri Linares MA Thoughts that you would be better off or hurting yourself in some way Not at all 12/03/2022 1:38 PM EDT Cherri Hernandez MA Patient Health Questionnaire-9 Score 0 12/03/2022 1:38 PM EDT Cherri Hernandez MA documented as of this encounter Plan of Treatment Upcoming Encounters Date Type Department Care Team (Late st Contact Info) Description 01/10/2025 9:45 AM EDT Office Visit [facility] 230 [place] [address] Big IndianZulema FNP 230 [place] [address] documented as of this encounter Visit Diagnoses Not on filedocumented in this encounter Additional Health Concerns Assessment Noted Time PHQ-9 Depression Total Score: 0 12/04/19 23 1:38 PM EDT documented as of this encounter Care Teams Climatology Professor Relationship Specialty Start Date End Date Zulema Shah FNP [address] [place] [address] PCP - General Family Medicine 11/04/22 [employer] 04/21/24 documented as of this encounter
--- OUTSIDE RECORDS SUMMARY | 2025-01-05 11:54 | XMS_ITS | Encounter Summary ---
Author Organization [employer] Address 75 [facility] 7t [place] [address] Care Team Providers Care Statistical Modeler Name Role Phone [place] [facility] Primary Care Provider [phone] Reason for Visit * Reason Onset Date Comments Error 09/23/2023 Encounter Details Date Type Department Care Team ([facility] st Contact Info) Description 09/23/2023 Telephone [facility] 230 [place], [place] [phone] [facility] 230 [place], [place] [phone] Error Social History Tobacco Use Types Packs/Day [...] Description 01/10/2025 9:45 AM EDT Office Visit [facility] [address] [place] [address] Zulema Shah FNP 230 [place] [address] documented as of this encounter Visit Diagnoses Not on filedocumented in this encounter Additional Health Concerns Assessment Noted Time PHQ-9 Depression Total Score: 0 12/25/19 10:53 AM EDT documented as of this encounter Care Teams Statistical Modeler Relationship Specialty Start Date End Date Zulema Shah FNP 230 [place] [address] PCP - General Family Medicine 11/04/22 [employer] 04/21/24 documented as of this encounter
--- OUTSIDE RECORDS SUMMARY | 2025-01-05 11:54 | XMS_ITS | Encounter Summary ---
Author Organization [employer] Address 75 [facility] 7t [place] [address] Care Team Providers Care Radio Installer Automobile Name Role Phone [facility] Primary Care Provider Reason for Visit * Reason Onset Date Comments Appointment Request 07/28/2023 Encounter Details Date Type Department Care Team ([facility] Contact Info) Description 07/28/2023 Telephone [facility] [address] [place], [place] [phone] [facility] 230 [place] [address] Appointment Request Social History Tobacco Use Types [...] Notes * Telephone Encounter - Farhancarlos manuelbjorn CruzOliveirarc Alejandra - 07/28/2023 3:53 PM EST Tc from pt daughter requesting to r/s f/u appt for 06/16/2023 for for f images,labs .ok per Dr. Cadena 05/19. Please contact pt daughter at [phone] documented in this encounter Plan of Treatment Upcoming Encounters Date Type Department Care Team (Late st Contact Info) Description 01/10/2025 9:45 AM EDT Office Visit [facility] [address] [place] [address] Zulema Shah FNP [address] [place] [address] documented as of this encounter Visit Diagnoses Not on filedocumented in this encounter Additional Health Concerns Assessment Noted Time PHQ-9 Depression Total Score: 0 12/25/19 10:53 AM EDT documented as of this encounter Care Teams Radio Installer Automobile Relationship Specialty Start Date End Date Zulema Shah FNP [address] [place] [address] PCP - General Family Medicine 11/04/22 [employer] 04/21/24 documented as of this encounter
--- OUTSIDE RECORDS SUMMARY | 2025-01-05 11:54 | XMS_ITS | Encounter Summary ---
Author Organization [employer] Address 75 [facility] 7t [place] [address] Care Team Providers Care Sld Inclusion Teacher Name Role Phone [facility] Primary Care Provider [phone] Reason for Visit * Reason Onset Date Comments Paperwork/Forms 08/19/2023 Encounter Details Date Type Department Care Team ([facility] st Contact Info) Description 08/19/2023 Telephone [facility] 230 [place] [address] [facility] 230 [place] [address] Paperwork/Forms Social History Tobacco Use Types Packs/Day [...] calling to request paperwork in regards to [employer] stated the LINKER UP has not been paid since 08/05 and stated the LINKER UP will not be going to attend the patient until the matter is resolved documented in this encounter Plan of Treatment Upcoming Encounters Date Type Department Care Team (Late st Contact Info) Description 01/10/2025 9:45 AM EDT Office Visit [facility] 230 [place] [address] PabloZulema calvin [facility] 230 [place] [address] documented as of this encounter Visit Diagnoses Not on filedocumented in this encounter Additional Health Concerns Assessment Noted Time PHQ-9 Depression Total Score: 0 12/25/19 10:53 AM EDT documented as of this encounter Care Teams Sld Inclusion Teacher Relationship Specialty Start Date End Date Zulema Shah FNP 230 [place] [address] PCP - General Family Medicine 11/04/22 [employer] 04/21/24 documented as of this encounter
--- OUTSIDE RECORDS SUMMARY | 2025-01-05 11:54 | XMS_ITS | Encounter Summary ---
Author Organization [employer] Address 75 [facility] 7t [place] [address] Care Team Providers Care Spray Gun Repairer Name Role Phone [place] Primary Care Provider Reason for Visit * Reason Onset Date Comments FYI 07/19/2024 Encounter Details Date Type Department Care Team ([facility] Contact Info) Description 07/19/2024 Telephone [facility] 230 [place], [place] [phone] [facility] 230 [place] [address] FYI Social History Tobacco Use Types Packs/Day [...] 3:41 PM EST Tc from Li with [facility] , notifying pt doesn't let her draw blood noteven for the last time. Li informs if any questions feel free to contact her Callback number [phone] documented in this encounter Plan of Treatment Upcoming Encounters Date Type Department Care Team (Late st Contact Info) Description 01/10/2025 9:45 AM EDT Office Visit [facility] [address] [place] [address] Zulema Shah [facility] 230 [place] [address] documented as of this encounter Visit Diagnoses Not on filedocumented in this encounter Additional Health Concerns Assessment Noted Time PHQ-9 Depression Total Score: 0 12/25/19 10:53 AM EDT documented as of this encounter Care Teams Spray Gun Repairer Relationship Specialty Start Date End Date Zulema Shah FNP 230 [place] [address] PCP - General Family Medicine 11/04/22 [employer] 04/21/24 documented as of this encounter
--- OUTSIDE RECORDS SUMMARY | 2025-01-05 11:54 | XMS_ITS | Encounter Summary ---
Author Organization [employer] Address 75 [facility] 7t [place] [address] Care Team Providers Care Printing Sign Machine Operator Name Role Phone [place] [facility] Primary Care Provider [phone] Encounter Details Date Type Department Care Team (Late Contact Info) Description 12/30/2022 Abstract [facility] 230 [place], [place] [phone] [place] [address] [address] Social History Tobacco Use Types Packs/Day Years [...] Description 01/10/2025 9:45 AM EDT Office Visit [facility] [address] [place] [address] [place] FNP 230 [place] [address] documented as of this encounter Visit Diagnoses Not on filedocumented in this encounter Additional Health Concerns Assessment Noted Time PHQ-9 Depression Total Score: 0 12/25/19 23 10:53 AM EDT documented as of this encounter Care Teams Printing Sign Machine Operator Relationship Specialty Start Date End Date Zulema Shah FNP 230 [place] [address] PCP - General Family Medicine 11/04/22 [employer] 04/21/24 documented as of this encounter
--- OUTSIDE RECORDS SUMMARY | 2025-01-05 11:54 | XMS_ITS | Encounter Summary ---
Author Organization [employer] Address [address] [facility] [address] 7t [place] [address] Care Team Providers Care Biological Inspector Name Role Phone Davon Badillo MD Primary Care Provider Marlon abrams [place] [facility] [employer] Primary Care Provider [phone] Reason for Visit * Reason Onset Date Comments Appointment 10/28/2022 Encounter Details Date Type Department Care Team (Late Contact Info) Description 10/28/2022 Telephone [facility] [address] [place], [place] [phone] Crystal Gerardo DDS Appointment Social History Tobacco [...] Upcoming Encounters Date Type Department Care Team ([facility] Contact Info) Description 01/10/2025 9:45 AM EDT Office Visit [facility] 230 [place], [place] [phone] [place] F[place] 230 [place] [address] documented as of this encounter Visit Diagnoses Not on filedocumented in this encounter Care Teams Biological Inspector Relationship Specialty Start Date End Date Davon Badillo MD PCP - General Family Medicine 06/25/19 11/03/22 [place] FNP 230 [place] [address] PCP - General Family Medicine 11/04/22 [employer] 04/21/24 documented as of this encounter
--- OUTSIDE RECORDS SUMMARY | 2025-01-05 11:54 | XMS_ITS | Encounter Summary ---
Author Organization [employer] Address [address] [facility] 7t [place] [address] Care Team Providers Care Veterinary Virus Serum Inspector Name Role Phone [facility] Primary Care Provider Reason for Visit * Reason Onset Date Comments ER Follow-up 04/30/2023 Encounter Details Date Type Department Care Team ([facility] st Contact Info) Description 04/30/2023 Telephone [facility] 230 [place], [place] [phone] [facility] 230 [place] [address] ER Follow-up Social History Tobacco Use Types [...] to report ED visit on 04/26/23 at [facility]. Seen for high blood sugar. Patient advised [...] 9:45 AM EDT Office Visit [facility] 230 [place] [address] Zulema Shah FNP 230 [place] [address] documented as of this encounter Visit Diagnoses Not on filedocumented in this encounter Additional Health Concerns Assessment Noted Time PHQ-9 Depression Total Score: 0 12/25/19 10:53 AM EDT documented as of this encounter Care Teams Veterinary Virus Serum Inspector Relationship Specialty Start Date End Date Zulema Shah FNP 230 [place] [address] PCP - General Family Medicine 11/04/22 [employer] 04/21/24 documented as of this encounter
[2025-01-05 12:25] VITALS: BP 130/75; PULSE 76; RESP 16; TEMP 36.7; O2SAT 93
[2025-01-05 16:33] VITALS: BP 130/75; PULSE 76; RESP 16; TEMP 36.6; O2SAT 93
== END 2025-01-05 16:37 | disposition home or self-care (01) ==
PROVIDERS: Emergency Provider Emergency Medicine
DX: K59.00 Constipation, unspecified (principal); R10.2 Pelvic and perineal pain; Z86.73 Personal history of transient ischemic attack (TIA), and cerebral infarction without residual deficits; Z79.899 Other long term (current) drug therapy
CPT/HCPCS: 36415; 74176; 80053; 85025; 99284

== ENCOUNTER → 2025-01-05 10:41 | Outpatient (BNV) | payer MEDICARE, MEDICAID, SELFPAY | PROVIDERS: Emergency Provider Emergency Medicine; Visit Provider Radiology Diagnostic Radiology | DX: N21.0 Calculus in bladder (principal); L98.6 Other infiltrative disorders of the skin and subcutaneous tissue; K56.41 Fecal impaction | CPT/HCPCS: 74176 ==

== ENCOUNTER 2025-04-29 12:01 | Outpatient (AMB) | payer MEDICARE, MEDICAID, SELFPAY ==
--- NOTE | 2025-04-29 12:04 | A.OFFVIS_ITS ---
Intake Visit Reasons: OV- Left hand Spastic hemiparesis Botox f/u Intake Note: Sue is a 69 year old female who presents today as a follow up for her Left hand Spastic hemiparesis Botox injection, 12/29/24. At today's visit Patient's daughter states that the injection did help a little bit but wore off quickly. Patient's daughter states that the left hand has a sporadic tingling and when she lifts her left arm she has a shooting sharp pain. Chuck Wagon Cook Required: Yes Chuck Wagon Cook Services: Chuck Wagon Cook Offered & Declined Chuck Wagon Cook Name: Jacki - Daughter Allergies No Known Allergies (No Known Allergies*) Allergy (Verified 04/29/25 12:08) Medication List - Last Reconciled 04/29/25 by Danika Jeronimo MD atorvastatin 40 mg PO BEDTIME cholecalciferol (vitamin D3) 50 mcg PO DAILY levothyroxine 175 mcg PO DAILY lisinopril 5 mg PO DAILY methylcellulose (laxative) (Fiber Therapy (methylcellulose)) 1 tab PO BID polyethylene glycol 3350 (Miralax) 17 grams PO DAILY HPI Comments Details: Here with daughter who helped with translation. Hemorrhagic stroke, resulting left hemiparesis, 2020. No aphasia. On Eliquis, mainly for DVT. Diabetic, on metformin. Dementia diagnosed 1 year after, thought to be vascular. She can act like a little girl per daughter. She lives alone in apartment, no stairs, elevator. Total assist except feeding self. Non ambulatory, WC bound. Valerie lift for transfers. On diapers but has sensation. Healed sacral ulcer, 8 months ago. Last PCP note said stage 1. pediatric nephrologist do skin care. pediatric nephrologist all day and 2 hours at night. Per daughter she does not try to get up from bed when alone. Had last botox 1 years ago in at [facility]. Good results but stopped because they didn't want to inject. Baclofen 20mg TID. I performed botulinum toxin (botox) injection for left finger, wrist and elbow flexor muscles, as well as left hamstrings, on 12/29/24. However was not able to follow up 1 month after. Patient and daughter had COVID in January. Today is already 4 months after the injection. Daughter did say left hand was more open after the injection. Left knee was the same, not much helped. Sometimes she feels tingling on left arm. [facility] Medical History History of hemorrhagic stroke with residual hemiparesis Spastic hemiparesis of left nondominant side Acute kidney injury Asthma Elevated cholesterol HTN (hypertension) Hypothyroidism Foot contusion Surgical History History of cholecystectomy History of ankle surgery Family History Unknown Family history of colon cancer Social History Household Members: Other Household Members Other:: daughter Housing: Apartment Do you presently have visiting nurse or other home services: No Alcohol intake: never Cigarette Packs Per Day: 0 Cigarettes Per Day: 1 Second Hand Smoke Exposure: No service: No Current occupational status: disabled Physical Exam Exam Exam: Left finger flexion Uyen 3, wrist flexion Uyen 3, elbow flexion Uyen 2-3 Left knee flexion Uyen 3 Assessment & Plan Assessment & Plan (1) Spastic hemiparesis of left nondominant side: Code(s): G81.14 - Spastic hemiplegia affecting left nondominant side Category: Medical (2) History of hemorrhagic stroke with residual hemiparesis: Code(s): I69.359 - Hemiplegia and hemiparesis following cerebral infarction affecting unspecified side Category: Medical (3) Chronic anticoagulation: Comment: On Eliquis Code(s): Z79.01 - correction (current) use of anticoagulants Category: Medical Plan Per daughter there was improvement on finger flexion at least after the injection in December. Unfortunately was not able to see her until now. They would like to continue botulinum toxin injections. We will increase the dose to total 500 units. Muscles to be injected: Left FDS 50 units Left FDP 50 units Left FCR 50 units Left brachialis 100 units Left brachioradialis 50 units Left medial hamstrings 100 units, lateral hamstrings 100 units Assessment and plan discussed with patient, and patient was agreeable. All questions were answered thoroughly. Danika Jeronimo MD, RENE Board Certified, [place] [employer] and Rehabilitation (ABPMR) Board Certified, [place] [employer] of Electrodiagnostic Medicine (ABEM) Coding Level of Care Code Est Pt Level 4 (68668) Diagnoses Spastic hemiparesis of left nondominant side G81.14 History of hemorrhagic stroke with residual hemiparesis I69.359 Chronic anticoagulation Z79.01
--- OUTSIDE RECORDS SUMMARY | 2025-04-29 12:42 | XMS_ITS | Encounter Summary ---
Author Organization [employer] Address 75 [facility] 7t [place] [address] Care Team Providers Care Craniologist Name Role Phone [place] [facility] Primary Care Provider [phone] Reason for Visit * Reason Onset Date Comments Error 09/23/2023 Encounter Details Date Type Department Care Team ([facility] st Contact Info) Description 09/23/2023 Telephone [facility] 230 [place], [place] [phone] [facility] 230 [place], [place] [phone] Error Social History Tobacco Use Types Packs/Day [...] Care Team (Late st Contact Info) Description 05/04/2025 2:00 PM EDT Office Visit [facility] 230 [place] [address] Zulema Shah FNP 230 [place] [address] documented as of this encounter Visit Diagnoses Not on filedocumented in this encounter Additional Health Concerns Assessment Noted Time PHQ-9 Depression Total Score: 0 12/25/19 10:53 AM EDT documented as of this encounter Care Teams Craniologist Relationship Specialty Start Date End Date Zulema Shah FNP 230 [place] [address] PCP - General Family Medicine 11/04/22 [employer] 04/21/24 documented as of this encounter
--- OUTSIDE RECORDS SUMMARY | 2025-04-29 12:42 | XMS_ITS | Encounter Summary ---
Author Organization [employer] Address [address] [facility] 7t [place] [address] Care Team Providers Care Equipment Records Supervisor Name Role Phone Davon Badillo MD Primary Care Provider Marlon abrams CatanoZulema BANQUET KITCHEN SUPERVISOR Primary Care Provider [phone] Reason for Visit * Reason Onset Date Comments Appointment 10/28/2022 Encounter Details Date Type Department Care Team (Late Contact Info) Description 10/28/2022 Telephone [facility] CH[facility] ADULT DENTAL [address] [place], [place] [phone] Crystal Gerardo DDS Appointment Social History Tobacco [...] Upcoming Encounters Date Type Department Care Team ([facility] Contact Info) Description 05/04/2025 2:00 PM EDT Office Visit [facility] MEDICINE [address] [place], [place] [phone] CatanoZulema FNP [address] [place] [address] documented as of this encounter Visit Diagnoses Not on filedocumented in this encounter Care Teams Equipment Records Supervisor Relationship Specialty Start Date End Date Davon Badillo MD PCP - General Family Medicine 06/25/19 11/03/22 CatanoZulema FNP [address] [place] [address] PCP - General Family Medicine 11/04/22 [employer] 04/21/24 documented as of this encounter
--- OUTSIDE RECORDS SUMMARY | 2025-04-29 12:42 | XMS_ITS | Encounter Summary ---
Author Organization [employer] Address [address] [facility] 7t [place] [address] Care Team Providers Care Nurseryperson Name Role Phone [facility] Primary Care Provider [phone] Reason for Visit * Reason Onset Date Comments Paperwork/Forms 08/19/2023 Encounter Details Date Type Department Care Team ([facility] st Contact Info) Description 08/19/2023 Telephone [facility] MEDICINE [address] [place], [place] [phone] [facility] [address] [place] [address] Paperwork/Forms Social History Tobacco Use Types Packs/Day [...] calling to request paperwork in regards to COMMUNITY SERVICE WORKER stated the COMMUNITY SERVICE WORKER has not been paid since 08/05 and stated the COMMUNITY SERVICE WORKER will not be going to attend the patient until the matter is resolved documented in this encounter Plan of Treatment Upcoming Encounters Date Type Department Care Team (Late st Contact Info) Description 05/04/2025 2:00 PM EDT Office Visit [facility] MEDICINE [address] [place] [address] MeridenZulema calvin [facility] [address] [place] [address] documented as of this encounter Visit Diagnoses Not on filedocumented in this encounter Additional Health Concerns Assessment Noted Time PHQ-9 Depression Total Score: 0 12/25/19 10:53 AM EDT documented as of this encounter Care Teams Nurseryperson Relationship Specialty Start Date End Date Zulema Shah FNP [address] [place] [address] PCP - General Family Medicine 11/04/22 [employer] 04/21/24 documented as of this encounter
--- OUTSIDE RECORDS SUMMARY | 2025-04-29 12:42 | XMS_ITS | Encounter Summary ---
Author Organization [employer] Address [address] [facility] 7t [place] [address] Care Team Providers Care City Auditor Name Role Phone [facility] Primary Care Provider [phone] Reason for Visit * Reason Onset Date Comments triage 12/13/2022 Encounter Details Date Type Department Care Team ([facility] st Contact Info) Description 12/13/[address] [facility] MEDICINE [address] [place], [place] [phone] [facility] [address] [place] [address] triage Social History Tobacco Use Types Packs/Day [...] 12/13/2022 10:23 AM EDT Triage call with [place] [employer] Stave Inspector ID [id number] Pt daughter answered the phone and reports that Pt is in the hospital with a blood clot in the leg.Advised to call [facility] for follow up when discharged from [...] Description 05/04/2025 2:00 PM EDT Office [address] [facility] MEDICINE [address] [place] [address] HillsdaleZulema FNP [address] [place] [address] documented as of this encounter Visit Diagnoses Not on filedocumented in this encounter Additional Health Concerns Assessment Noted Time PHQ-9 Depression Total Score: 0 12/04/19 23 1:38 PM EDT documented as of this encounter Care Teams City Auditor Relationship Specialty Start Date End Date Zulema Shah FNP [address] [place] [address] PCP - General Family Medicine 11/04/22 [email or web address] 04/21/24 documented as of this encounter
--- OUTSIDE RECORDS SUMMARY | 2025-04-29 12:42 | XMS_ITS | Encounter Summary ---
Author Organization [employer] Address [address] [facility] 7t [place] [address] Care Team Providers Care Obstetrics Teacher Name Role Phone [facility] Primary Care Provider [phone] Reason for Visit * Reason Comments Med Refill Encounter Details Date Type Department Care Team ([facility] st Contact Info) Description 01/16/2025 Refill [facility] MEDICINE [address] [place], [place] [phone] [facility] [address] [place] [address] Dry skin dermatitis Social History Tobacco Use Types Packs/Day Years [...] Description 05/04/2025 2:00 PM EDT Office Visit [facility] MEDICINE [address] [place] [address] Zulema Shah FNP [address] [place] [address] documented as of this encounter Visit Diagnoses Diagnosis Dry skin dermatitis Contact dermatitis and other eczema due to other specified agent documented in this encounter Additional Health Concerns Assessment Noted Time PHQ-9 Depression Total Score: 0 12/25/19 10:53 AM EDT documented as of this encounter Care Teams Obstetrics Teacher Relationship Specialty Start Date End Date Zulema Shah FNP [address] [place] [address] PCP - General Family Medicine 11/04/22 [email or web address] 04/21/24 documented as of this encounter
--- OUTSIDE RECORDS SUMMARY | 2025-04-29 12:42 | XMS_ITS | Encounter Summary ---
Author Organization [employer] Address [address] [facility] 7t [place] [address] Care Team Providers Care General Labor Forklift Operator Name Role Phone [facility] Primary Care Provider [phone] Reason for Visit * Reason Comments Med Refill Encounter Details Date Type Department Care Team ([facility] st Contact Info) Description 04/12/2024 Refill [facility] MEDICINE [address] [place], [place] [phone] [facility] [address] [place] [address] Other chronic pain Social History Tobacco Use [...] Description 05/04/2025 2:00 PM EDT Office Visit [facility] MEDICINE [address] [place] [address] Zulema Shah FNP [address] [place] [address] documented as of this encounter Visit Diagnoses Diagnosis Other chronic pain documented in this encounter Additional Health Concerns Assessment Noted Time PHQ-9 Depression Total Score: 0 12/25/19 10:53 AM EDT documented as of this encounter Care Teams General Labor Forklift Operator Relationship Specialty Start Date End Date Zulema Shah FNP [address] [place] [address] PCP - General Family Medicine 11/04/22 [employer] 04/21/24 documented as of this encounter
--- OUTSIDE RECORDS SUMMARY | 2025-04-29 12:42 | XMS_ITS | Encounter Summary ---
Author Organization [employer] Address [address] [facility] 7t [place] [address] Care Team Providers Care Medical Program Specialist Name Role Phone Bridgeton [facility] Primary Care Provider [phone] Encounter Details Date Type Department Care Team ([facility] st Contact Info) Description 12/03/2022 Abstract [facility] MEDICINE [address] [place], [place] [phone] Bridgeton [facility] [address] [place] [address] Social History Tobacco Use Types Packs/Day Years [...] Description 05/04/2025 2:00 PM EDT Office Visit [facility] MEDICINE [address] [place] [address] BridgetonZulema FNP [address] [place] [address] documented as of this encounter Visit Diagnoses Not on filedocumented in this encounter Additional Health Concerns Assessment Noted Time PHQ-9 Depression Total Score: 0 12/04/19 23 1:38 PM EDT documented as of this encounter Care Teams Medical Program Specialist Relationship Specialty Start Date End Date Zulema Shah FNP [address] [place] [address] PCP - General Family Medicine 11/04/22 [employer] 04/21/24 documented as of this encounter
--- OUTSIDE RECORDS SUMMARY | 2025-04-29 12:42 | XMS_ITS | Encounter Summary ---
Author Organization [employer] Address [address] [facility] 7t [place] [address] Care Team Providers Care Nitroglycerin Nitrator Operator Batch Name Role Phone [facility] Primary Care Provider Reason for Visit * Reason Onset Date Comments ER Follow-up 04/30/2023 Encounter Details Date Type Department Care Team ([facility] st Contact Info) Description 04/30/2023 Telephone [facility] MEDICINE [address] [place], [place] [phone] [facility] 230 [place] [address] ER Follow-up Social History Tobacco Use Types [...] to report ED visit on 04/26/23 at [facility]. Seen for high blood sugar. Patient advised [...] Description 05/04/2025 2:00 PM EDT Office Visit [facility] MEDICINE [address] [place] [address] Zulema Shah FNP [address] [place] [address] documented as of this encounter Visit Diagnoses Not on filedocumented in this encounter Additional Health Concerns Assessment Noted Time PHQ-9 Depression Total Score: 0 12/25/19 23 10:53 AM EDT documented as of this encounter Care Teams Nitroglycerin Nitrator Operator Batch Relationship Specialty Start Date End Date Zulema Shah FNP [address] [place] [address] PCP - General Family Medicine 11/04/22 [employer] 04/21/24 documented as of this encounter
--- OUTSIDE RECORDS SUMMARY | 2025-04-29 12:42 | XMS_ITS | Clinical Summary ---
Author Organization [employer] Address [address] [facility] 7t [place] [address] Care Team Providers Care Air Conditioning Service Technician Name Role Phone Zulema Shah [facility] Primary Care Provider [phone] Allergies No known active allergies Medications * This document contains information received from the source organization and may not represent a complete record from that organization. Blood Glucose Monitoring Suppl (ONE TOUCH ULTRA 2) w/Device kitIndications:Typ e 2 diabetes mellitus without complication, without long-term current use of insulin (CMS/[facility]) Use to monitor blood glucose once daily 1 kit 05/10/20 23 Active Alcohol Swabs (Alcohol Prep) 70 % padsIndications:Ty pe 2 diabetes mellitus without complication, without long-term current use of insulin (CMS/[facility]) Apply by topical route to finger once daily prior to checking blood glucose 100 each 11 05/10/20 23 Active Botox 200 units injection 11/22/19 23 Active tamsulosin (Flomax) 0.4 MG 24 hr capsule 05/07/20 23 Active Alcohol Swabs (Alcohol Prep) padsIndications:Ty pe 2 diabetes mellitus without complication, without long-term current use of insulin (CMS/HCC) Use one pad each to prep skin prior to injection as directed 100 each 11 10/01/19 24 Active Blood Glucose Monitoring Suppl (GNP Easy Touch Glucose Meter) deviceIndications: Type 2 diabetes mellitus without complication, without long-term current use of insulin (CMS/HCC) Use as directed to check blood sugar four times daily 1 each 10/01/19 24 Active glucose blood (OneTouch Ultra) test stripIndications:T ype 2 diabetes mellitus without complication, without long-term current use of insulin (CMS/HCC) Use one strip to monitor blood glucose once daily 100 each 05/03/20 24 025 Active Lancets (onetouch ultrasoft) lancetsIndications :Type 2 diabetes mellitus without complication, without long-term current use of insulin ([facility]) 1 each by Other route Once per day. 30 each 05/03/20 24 025 Active melatonin 3 MG tabletIndications: Healthcare maintenance Take 1 tablet (3 mg) by mouth at bedtime. 90 tablet 1 05/03/20 24 Active albuterol (Ventolin HFA) 108 (90 Base) MCG/ACT inhaler INHALE 2 PUFFS BY MOUTH EVERY 4 TO 6 HOURS NEEDED 18 g 06/09/20 24 Active QUEtiapine (SEROquel) 25 MG tabletIndications: Depression, unspecified depression type TAKE 1 TABLET BY MOUTH EVERY DAY IN THE MORNING 30 tablet 5 06/29/20 24 Active apixaban (Eliquis) 5 MG tablet TAKE 1 TABLET BY MOUTH TWICE DAILY 60 tablet 5 06/29/20 24 Active acetaminophen (Tylenol) 500 MG tabletIndications: Periodontal disease Take 1 tablet (500 mg) by mouth every 6 (six) hours if needed for mild pain for up to 20 doses. 20 tablet 07/15/20 24 Active levothyroxine (Synthroid, Levoxyl) 100 MCG tablet TAKE 1 TABLET BY MOUTH EVERY DAY 90 tablet 1 09/15/19 25 Active Nyamyc 582602 UNIT/GM powder APPLY TO THE AFFECTED AREA(S) TWICE DAILY 30 g 11/13/19 25 Active levothyroxine (Synthroid, Levoxyl) 150 MCG tablet Take 1 tablet (150 mcg) by mouth before breakfast. 90 tablet 3 11/25/19 25 026 Active hydrOXYzine HCl (Atarax) 25 MG tabletIndications: Dry skin dermatitis TAKE 1 TABLET BY MOUTH EVERY 8 HOURS NEEDED FOR ITCHING 90 tablet 1 11/30/19 25 Active triamcinolone (Kenalog) 0.025 % creamIndications:D ry skin dermatitis MIX TUBE OF triamcinolone WITH 16 OUNCES OF cerave DIRECTED AND APPLY TOPICALLY TO THE AFFECTED AREA(S) FROM THE NECK DOWN EVERY DAY 80 g 1 12/21/19 25 Active hydrocortisone 2.5 % creamIndications:R sidney and nonspecific skin eruption APPLY TO THE AFFECTED AREA(S) TOPICALLY TWICE DAILY 20 g 1 12/28/19 25 Active terbinafine (LamISIL) 1 % creamIndications:T inea corporis APPLY 1 GRAM TOPICALLY TO AFFECTED AREA(S) OF BACK AND BETWEEN LEGS TWICE DAILY DIRECTED 45 g 1 01/11/20 25 Active Multiple Vitamin (Multivitamin) tablet TAKE 1 TABLET BY MOUTH EVERY DAY WITH FOOD 90 tablet 1 01/27/20 25 Active baclofen (Lioresal) 20 MG tablet TAKE 1 TABLET BY MOUTH THREE TIMES DAILY 90 tablet 5 03/25/20 25 Active metFORMIN XR (Glucophage-XR) 500 MG 24 hr tablet TAKE 2 TABLETS BY MOUTH EVERY DAY WITH DINNER 180 tablet 1 03/25/20 25 Active glucose blood (Nu-Tech FoodsTouch Ultra Test) test stripIndications:T ype 2 diabetes mellitus without complication, without long-term current use of insulin ([facility]) USE TO TEST BLOOD SUGAR FOUR TIMES DAILY 100 strip 3 03/25/20 25 Active Lancets (Nu-Tech FoodsTouch Delica Plus [id number]) miscIndications:Ty pe 2 diabetes mellitus without complication, without long-term current use of insulin ([facility]) USE TO TEST BLOOD SUGAR FOUR TIMES DAILY 100 each 3 03/25/20 25 Active rosuvastatin (Crestor) 10 MG tabletIndications: Mixed hyperlipidemia Take 1 tablet (10 mg) by mouth Once per day. 30 tablet 03/25/20 25 026 Active amLODIPine (Norvasc) 5 MG tabletIndications: Primary hypertension Take 1 tablet (5 mg) by mouth Once per day. 30 tablet 03/25/20 25 026 Active traMADol (Ultram) 50 MG tabletIndications: Other chronic pain Take 1 tablet (50 mg) by mouth every 8 (eight) hours if needed for severe pain for up to 28 days. 84 tablet 03/25/20 25 025 Active Problems Problem Noted Date Diagnosed Date Bed confinement status 08/13/2024 Left-sided sensory deficit present 08/13/2024 Periodontal disease 07/15/2024 Total incontinence 10/01/2023 Nephrolithiasis 05/20/2023 Overview (06/16/2023): CT abd/pelvis w/ IV contract 05/01/23-3m obstructive distal left ureteral stone with mild-moderate hydronephrosis Saw urology 04/2023-renal ultrasound follow up negative [...] (03/21/2023 2:55 PM EDT): Continue VNA and SCHOOL [employer]LL[employer] services High risk for pressure injury Treating [...] CVA and non-ambulatory/bed bound state. Referred [facility], no appt Gave pt phone number. Daughter will call. Will defer decision on stopping eliquis by specialist F/u 1 month with PCP or sooner PRN Elevated liver enzymes 03/21/2023 Overview (03/21/2023): Atorvastatin discontinued around 11/10/22 d/t elevated liver enzymes noted at [facility] when admitted for Choledocholithiasis. Started to trend [...] Mammo: Ordered today Pap: Previously followed by [facility]. Need records C-scope: No prior [...] B F/u PRN Asthma 12/03/2022 Overview (06/16/2023): PRN albuterol Hemorrhagic cerebrovascular accident (CVA) 12/03 Overview (03/21/2023): Occurred about 2 years ago, prior CVA with left-sided hemiplegia Bedbound with poor nutrition Assessment & Plan (05/20/2023 7:12 PM EDT): Pt and daughter requesting to increase hours -pt has mx comorbidities ,bedbound -lives alone -daughter requesting to get extra 3 hours in am and 2 h in pm w SCHOOL COUNSELLOR--letter done today for pt with request -daughter will check with her Previous PT service [facility] they will start services again Assessment & Plan (03/21/2023 3:03 PM EDT): Continue VNA and SCHOOL COUNSELLOR services High risk for pressure injury Has [...] 11/10/22 d/t elevated liver enzymes noted at [facility] when admitted for Choledocholithiasis. Started to trend [...] or sooner PRN Hypothyroidism 06/30/2012 Overview (06/16/2023): 100mcg levothyroxine Assessment & Plan (05/20/2023 6:59 [...] Encounters Date Type Department Care Team Description 04/05/2025 10:40 AM EDT Office Visit [facility] OPTOMETRY [address] [place] [address] Jesenia Powell, OD 04/05/2025 Travel 03/24/2025 Refill [facility] MED & PEDS [address] [place] [address] Zulema Shah FNP Other chronic pain (Primary Dx) 03/24/2025 Refill [facility] MEDICINE [address] [place] [address] Zulema Shah FNP Type 2 diabetes mellitus without complication, without long-term current use of insulin ([facility]); Mixed hyperlipidemia; Primary hypertension 03/24/2025 Refill [facility] MEDICINE [address] [place] [address] Zulema Shah FNP from Last 3 Months Immunizations Immunization Administration [...] 76 10/01/2023 11:03 AM EST Temperature 37 C (98.6 F) 10/01/2023 11:03 AM EST Respiratory Rate 26 10/01/2023 11:0 [...] Description 05/04/2025 2:00 PM EDT Office Visit [facility] MEDICINE [address] [place] [address] [facility] [address] [place] [address] Health Maintenance Due Date Last Done Comments [...] 2016 Depression Screening 12/25/2023 12/24/2022, 12/25/19 23 Diabetes: Foot Exam 10/01/2024 10/01/2023, 10/01/2023, 10/01/2023, Additional history exists SDOH Screening 11/02/2024 11/03/2023 COVID-19 Vaccine ( season) 2025 10/20/2020 Influenza Vaccine (#1) 2025 3, 05/30/2022, 11/12/2020, Additional history exists Diabetes: Urine Protein Screening 04/27/2025 04/27/2024 Diabetes: [...] HEMOGLOBIN A1C Routine 11/10/2024 7:05 AM EDT LIPID PANEL, STANDARD Routine 11/10/2024 7:05 AM EDT ALBUMIN, RANDOM URINE W/CREATININE Routine 04/27/2024 10:00 AM EDT Type 2 diabetes mellitus with other specified complication, without long-term current use of insulin ([facility]) HEPATITIS PANEL, GENERAL Routine 03/13/2023 2:36 PM EDT Hypercholesterolemi a from Last 3 Months or Most Recently Relevant to Health Maintenance Results * (ABNORMAL) Hemoglobin A1c (11/10/2024 7:05 AM EDT) Hemoglobin A1c 5.8(H) <5.7 % of total Hgb Rescale Comment: For someone without known diabetes, a [...] [facility] - 11/10/2024 5:49 PM EDT FASTING [facility] LAB BLOOD ORDERABLES Final Re sult [facility] [address], [place] [address] [employer] [place] [employer] [address] [place] [address] * (ABNORMAL) Lipid Panel, Standard (11/10/2024 7:05 AM EDT) Cholesterol, Total 290(H) <200 mg/dL [employer] HDL Cholesterol 54 > OR = 50 mg/dL [facility] Triglycerides 191(H) <150 mg/dL [facility] LDL Cholesterol 199(H) mg/dL [facility] t Diagnostics [employer] Comment: LDL-C levels > or = 190 [...] about testing for familial hypercholesterolemia, please call [employer] Client Services at [phone] Math [email or web address]. Sharifa Serrano, et al. J National Lipid Association Recommendations for Patient-Centered Management of Dyslipidemia: Part 1 Journal of Clinical Lipidology 2015;9(2), 129-169. Bryan Clark et al. (2014). Homozygous familial hypercholesterolaemia: new insights and guidance for clinicians to improve detection and clinical management. Heart Journal, 35(32), 9349-2766. Reference range: <100 Desirable range <100 mg/dL for primary prevention; <70 mg/dL for patients with CHD or diabetic patients with > or = 2 CHD risk factors. LDL-C is now calculated using the Charanjit-John calculation, which is a validated novel method providing better accuracy than the Friedewald equation in the estimation of LDL-C. Charanjit SS et al. JAM. 2013;310(19): 2727-5011 (http://education.YieldBuild/faq/FSA644) Chol/HDLC Ratio 5.4(H) <5.0 (calc) [employer] [place] [employer] Non-HDL Cholesterol 236(H) <130 mg/dL Rescale Comment: Non-HDL level > or = 220 [...] [facility] - 11/10/2024 5:49 PM EDT FASTING [facility] LAB BLOOD ORDERABLES Final Re sult Performing Organization Address City/[facility]/ZIP Co de Phone Number [facility] [address] [facility], [place] [address] [employer] [place] [facility] [address] [place] [address] * (ABNORMAL) Albumin, Random Urine W/Creatinine (04/27/2024 10:00 AM EDT) Creatinine, Urine 44.77 mg/dL [facility] Microalbumin Urine 16.0 mg/L H [facility] Microalbum Creatinine Ratio Ur 35.7(H) <30 ug/mg cr [facility] Comment:Albumin/Creatinine R atio Reference Ranges: Normal: < 30 ug/mg creatinine Microalbuminuria: 30 - 300 ug/mg creatinineClinical Albuminuria: > 300 ug/mg creatinine Urine 04/27/2024 10:0 0 AM EDT 04/27/2024 5:28 PM EDT [facility] LAB URINE ORDERABLES Final Re sult Performing Organization Address [facility] Co de Phone Number [facility] [address] [place] [phone] * Hepatitis Panel, General (03/13/2023 2:36 PM EDT) Hepatitis A IgM Nonreactive Nonreactive [facility] Comment:IgM antibodies to SLOAN V not detected; does not exclude earlyacute or recovered HAV infection. ~Hepatitis B Surface Antibody NONREACTIVE Nonreactive [facility] Comment:Nonreactive: < 8.00 mIU/mL Hepatitis B Core Antibody Nonreactive Nonreactive [facility] Hepatitis C Antibody Nonreactive Nonreactive [facility] Comment:Antibodies to HCV no t detected; does not exclude early acuteHCV infection. Hepatitis B Surface Ag Negative Negative [facility] Blood 03/13/2023 2:36 PM EDT 03/13/2023 4:09 PM EDT us Stephanie Tejeda [employer] LAB BLOOD ORDERABLES Final Result [facility] [address] [place] [address] [phone] from Last 3 Months or Most Recently Relevant to Health Maintenance Insurance MEDICARE [facility] [place] STAND AD[place] Advance Directives Documents on File Type Date Recorded Patient Production Operator Expl anation HealthCare Proxy 12/18/2022 proxy Power of Rubber Cutter 07/21/2023 [facility] Care Teams Air Conditioning Service Technician Relationship Specialty Start Date End Date Zulema Shah FNP [address] [place] [id number] PCP - General Family Medicine 11/04/22 [employer] 04/21/24
--- OUTSIDE RECORDS SUMMARY | 2025-04-29 12:42 | XMS_ITS | Encounter Summary ---
Author Organization [employer] Address [address] [place] [address] 7 [place] [address] Care Team Providers Care Chargemaster Analyst Name Role Phone [place] [facility] Primary Care Provider Reason for Visit * Reason Comments Med Refill Encounter Details Date Type Department Care Team (Late Contact Info) Description 04/23/2023 Refill [facility] [address] [place] [phone] [phone] Social History Tobacco Use Types Packs/Day Years [...] Department Care Team (Late Contact Info) Description 05/04/2025 2:00 PM EDT Office Visit [facility] [address] [place] [phone] [phone] documented as of this encounter Visit Diagnoses Not on filedocumented in this encounter Additional Health Concerns Assessment Noted Time PHQ-9 Depression Total Score: 0 12/25/19 10:53 AM EDT documented as of this encounter Care Teams Chargemaster Analyst Relationship Specialty Start Date End Date Zulema Shah FNP [address] [place] [phone] PCP - General Family Medicine 11/04/22 [employer] 04/21/24 documented as of this encounter
--- OUTSIDE RECORDS SUMMARY | 2025-04-29 12:42 | XMS_ITS | Encounter Summary ---
Author Organization [employer] Address [address] 7t [place] [address] Care Team Providers Care Adult Basic Education Teacher Name Role Phone [facility] Primary Care Provider [phone] Encounter Details Date Type Department Care Team (Late st Contact Info) Description 10/27/[address] [facility] [address] [place], [place] [phone] [facility] 230 [place], [place] [phone] Type 2 diabetes mellitus with other specified [...] 05/04/2025 2:00 PM EDT Office Visit [facility] [address] [place] [address] [facility] 230 [place], [place] [phone] Scheduled Orders Name Type Priority Associated Diagnoses Orde r Schedule Comprehensive Metabolic Panel Lab Routine Type 2 diabetes mellitus with other specified complication, without long-term current use of insulin ([facility]) Expected: 10/27/2024 (Approximate), Expires: 10/27/2025 [...] documented as of this encounter Care Teams Adult Basic Education Teacher Relationship Specialty Start Date End Date Zulema Shah FNP [address] [place] [phone] PCP - General Family Medicine 11/04/22 [place] 04/21/24 documented as of this encounter
--- OUTSIDE RECORDS SUMMARY | 2025-04-29 12:42 | XMS_ITS | Encounter Summary ---
Author Organization [employer] Address [address] [facility] 7t [place] [address] Care Team Providers Care Field Irrigation Worker Name Role Phone [facility] [facility] Primary Care Provider [phone] Reason for Visit * Reason Onset Date Comments Appointment Request 07/28/2023 Encounter Details Date Type Department Care Team ([facility] Contact Info) Description 07/28/2023 Telephone [facility]INE 230 [place], [place] [phone] [facility] 230 [place] [address] Appointment Request Social History Tobacco Use Types [...] Miscellaneous Notes * Telephone Encounter - Loco Cruzrc Alejandra - 07/28/2023 3:53 PM EST Tc from pt daughter requesting to r/s f/u appt for 06/16/2023 for for f images,labs .ok per Dr. Cadena 05/19. Please contact pt daughter at [phone] documented in this encounter Plan of Treatment Upcoming Encounters Date Type Department Care Team (Late st Contact Info) Description 05/04/2025 2:00 PM EDT Office Visit [facility] [address] [place] [address] Zulema Shah FNP 230 [place] [address] documented as of this encounter Visit Diagnoses Not on filedocumented in this encounter Additional Health Concerns Assessment Noted Time PHQ-9 Depression Total Score: 0 12/25/19 23 10:53 AM EDT documented as of this encounter Care Teams Field Irrigation Worker Relationship Specialty Start Date End Date Zulema Shah FNP 230 [place] [address] PCP - General Family Medicine 11/04/22 [place] 04/21/24 documented as of this encounter
--- OUTSIDE RECORDS SUMMARY | 2025-04-29 12:42 | XMS_ITS | Encounter Summary ---
Author Organization [employer] Address [address] [facility] 7t [place] [address] Care Team Providers Care Stonework Tracer Name Role Phone [facility] Primary Care Provider [phone] Encounter Details Date Type Department Care Team (Late Contact Info) Description 12/30/2022 Abstract [facility] 230 [place], [place] [phone] Thomas [address] [address] Social History Tobacco Use Types Packs/Day Years [...] Description 05/04/2025 2:00 PM EDT Office Visit [facility] [address] [place] [address] ThomasZulema calvin FNP 230 [place] [address] documented as of this encounter Visit Diagnoses Not on filedocumented in this encounter Additional Health Concerns Assessment Noted Time PHQ-9 Depression Total Score: 0 12/25/19 23 10:53 AM EDT documented as of this encounter Care Teams Stonework Tracer Relationship Specialty Start Date End Date Zulema hSah FNP 230 [place] [address] PCP - General Family Medicine 11/04/22 [employer] 04/21/24 documented as of this encounter
--- OUTSIDE RECORDS SUMMARY | 2025-04-29 12:42 | XMS_ITS | Encounter Summary ---
Author Organization [employer] Address [address] [facility] 7t [place] [address] Care Team Providers Care Production Solderer Name Role Phone [place] [facility] Primary Care Provider [phone] Reason for Visit * Reason Onset Date Comments FYI 07/19/2024 Encounter Details Date Type Department Care Team ([facility] Contact Info) Description 07/19/2024 Telephone [facility] MEDICINE 230 [place], [place] [phone] [facility] 230 [place], [place] [phone] FYI Social History Tobacco Use Types Packs/Day [...] 3:41 PM EST Tc from Li with [employer] , notifying pt doesn't let her draw blood noteven for the last time. Li informs if any questions feel free to contact her Callback number [phone] documented in this encounter Plan of Treatment Upcoming Encounters Date Type Department Care Team (Late st Contact Info) Description 05/04/2025 2:00 PM EDT Office Visit [facility]INE [address] [place] [address] Zulema Shah [facility] 230 [place] [address] documented as of this encounter Visit Diagnoses Not on filedocumented in this encounter Additional Health Concerns Assessment Noted Time PHQ-9 Depression Total Score: 0 12/25/19 10:53 AM EDT documented as of this encounter Care Teams Production Solderer Relationship Specialty Start Date End Date Zulema Shah FNP 230 [place] [address] PCP - General Family Medicine 11/04/22 [employer] 04/21/24 documented as of this encounter
== END 2025-04-29 12:24 | disposition home or self-care (01) ==
LOC: HO.HOS 12:02
PROVIDERS: Visit Provider Physical Medicine & Rehabilitation
DX: G81.14 Spastic hemiplegia affecting left nondominant side (principal); I69.359 Hemiplegia and hemiparesis following cerebral infarction affecting unspecified side; Z79.01 Long term (current) use of anticoagulants
CPT/HCPCS: 99214

== ENCOUNTER → 2025-04-29 12:01 | Outpatient (BNVA) | payer OTHER, SELFPAY | PROVIDERS: Visit Provider Physical Medicine & Rehabilitation | DX: G81.14 Spastic hemiplegia affecting left nondominant side (principal); Z79.01 Long term (current) use of anticoagulants | CPT/HCPCS: 99212 ==

== ENCOUNTER 2025-05-04 14:42 | Outpatient (REF) | payer OTHER, SELFPAY ==
--- OUTSIDE RECORDS SUMMARY | 2025-05-04 14:00 | XMS_ITS | Encounter Summary ---
Author Organization [employer] Address [address] [facility] 7t [place] [address] Care Team Providers Care Pin Sticker Name Role Phone [facility] Primary Care Provider [phone] Reason for Visit * Reason Comments Follow-up Encounter Details Date Type Department Care Team ([facility] st Contact Info) Description 05/04/2025 2:00 PM EDT Office Visit [facility] 230 [place] [address] [facility] 230 [place] [address] Rash (Primary Dx); Type 2 diabetes mellitus with other specified complication, without long-term current use of insulin (CMS/HCC); Liver disease, unspecified; Dementia with other behavioral disturbance, unspecified dementia severity, unspecified dementia type (CMS/HCC); Hypothyroidism, unspecified type; Other obesity not elsewhere classified Social History Tobacco Use Types Packs/Day Years [...] AM EDT documented as of this encounter Last Filed Vital Signs Vital Sign Reading Time Taken Comments Blood Pressure 110/79 05/04/2025 2:09 PM EDT Pulse 60 05/04/2025 2:09 PM EDT Temperature 36.3 C (97.3 F) 05/04/2025 2:09 PM EDT Respiratory Rate 20 05/04/2025 2:09 PM EDT Oxygen Saturation - - Inhaled Oxygen Concentration - - Weight 86.2 kg (190 lb) 05/04/2025 2:09 PM EDT Height 170.2 cm (5' 7 ) 05/04/2025 2:09 PM EDT Body Mass Index 29.76 05/04/2025 2:09 PM EDT documented in this encounter Plan of Treatment Upcoming Encounters Date Type Department Care Team (Late st Contact Info) Description 05/16/2025 11:30 AM EDT Office Visit [facility] OPT[facility] [address] [place] [address] Jesenia Powell, OD 230 [place] [address] 06/22/2025 2:00 PM EDT Telemedicine [facility] MEDICINE 230 [place] [address] [facility] 230 [place] [address] Scheduled Orders Name Type Priority Associated Diagnoses Orde r Schedule Vitamin B12/Folate, Serum Panel Lab Routine Type 2 diabetes mellitus with other specified complication, without long-term current use of insulin (CMS/HCC) Expected: 05/04/2025, Expires: 05/04/2026 documented as of this encounter Procedures Procedure Name Priority Date/Time Associated Diagnosis Comments VITAMIN D,25-OH,TOTAL,IA Routine 05/04/2025 2:46 PM EDT Dementia with other behavioral disturbance, unspecified dementia severity, unspecified dementia type (CMS/HCC) Other obesity not elsewhere classified TSH W/REFLEX TO FT4 Routine 05/04/2025 2:46 PM EDT Hypothyroidism, unspecified type CBC WITH AUTO DIFFERENTIAL Routine 05/04/2025 2:46 PM EDT Liver disease, unspecified LIPID PANEL, STANDARD Routine 05/04/2025 2:46 PM EDT Type 2 diabetes mellitus with other specified complication, without long-term current use of insulin (CMS/HCC) COMPREHENSIVE METABOLIC PANEL Routine 05/04/2025 2:46 PM EDT Type 2 diabetes mellitus with other specified complication, without long-term current use of insulin (CMS/HCC) POCT GLYCATED HEMOGLOBIN, TOTAL Routine 05/04/2025 2:22 PM EDT Type 2 diabetes mellitus with other specified complication, without long-term current use of insulin (CMS/HCC) POCT GLUCOSE Routine 05/04/2025 2:22 PM EDT Type 2 diabetes mellitus with other specified complication, without long-term current use of insulin ([facility]/HCC) documented in this encounter Results * (ABNORMAL) Lipid Panel, Standard (05/04/2025 2:46 PM EDT) Triglycerides 275(H) <150 mg/dL [facility] Comment:Desirable Triglyceri de: less than 150 mg/dLBorderline High Triglyceride 150-199 mg/dLHigh Triglyceride: 200-499 mg/dLVery High Triglyceride: greater than or equal to 5OO mg/dL Cholesterol 257(H) <200 mg/dL [facility] Comment:Desirable Cholestero l: less than 200 mg/dLBorderline High Cholesterol: 200-239 mg/dLHigh Cholesterol: greater than 239 mg/dL LDL Cholesterol Calculated 156(H) <100 mg/dL [facility] Comment:Desirable LDL: less than 100 mg/dLNear Optimal/Above Optimal LDL: 110- 129 mg/dLBorderline High LDL: 130-159 mg/dLHigh LDL: 160-189 mg/dLVery High LDL: greater than or equal to 190 mg/dL HDL Cholesterol 46 >40 mg/dL [facility] Comment:Desirable HDL: great er than 40 mg/dL Note: This HDL assay may give artificially low results in patients with liver disease. Blood Venous blood specimen / Unknown 05/04/2025 2:46 PM EDT 05/04/2025 3:59 PM EDT [facility] LAB BLOOD ORDERABLES Final Re sult [facility] [address] [place] [phone] * Vitamin D, 25-Hydroxy, Total, Immunoassay (05/04/2025 2:46 PM EDT) Vitamin D 25-OH Total 33.4 >30 ng/mL [facility] Comment: Health Based Reference Values*< 20 ng/mL Uphywlhxk98-65 ng/mL Insufficient> 30 ng/mL Sufficient*Mateo FLOOD. N Engl J Med. 2007;357:266-280There is no well-established upper level of normal vitamin Dlevels. Some laboratories use 50 ng/mL as an upper limit ofnormal. However, toxicity is patient-dependent and may occurat any level. Careful correlation with the patient'spresentation is necessary and, if there is concern forvitamin D toxicity, treatment should be consideredirrespective of the serum level.Care must be taken in interpreting Vitamin D results fromdifferent laboratories and methodologies. Published datademonstrated that results from patients undergoinghemodialysis may show a negative bias when tested withvarious automated 25-OH vitamin D assays when compared toLC-MS/MS.When testing samples from patients whose predominant form ofVitamin D is Vitamin D2, such as patients receiving VitaminD2 supplementation, results that are subtherapeutic shouldbe confirmed with another method such as LC-MS/MS. Blood Venous blood specimen / Unknown 05/04/2025 2:46 PM EDT 05/04/2025 3:59 PM EDT [facility] LAB BLOOD ORDERABLES Final Re sult [facility] [address] [place] [phone] * (ABNORMAL) CBC auto differential (05/04/2025 2:46 PM EDT) White Blood Count 6.6 4.8 - 10.8 X10*3/uL [facility] Red Blood Count 4.40 4.20 - 5.50 X10*6/uL [facility] Hemoglobin 13.8 12.0 - 16.0 g/dl [facility] Hematocrit 42.2 37.0 - 47.0 % [facility] Mean Corpuscular Volume 95.9 80.0 - 98.0 fL [facility] Mean Corpuscular Hemoglobin 31.4 27.0 - 33.0 pg [facility] Mean Corpuscular HGB Conc 32.7 31.0 - 35.0 g/dl [facility] Red Cell Distribution Width 15.0 11.0 - 16.0 % [facility] Platelet Count 171 160 - 400 X10*3/uL [facility] Mean Platelet Volume 12.9(H) 9.4 - 12.3 fL [facility] Neutrophils Percent Auto 58.0 45 - 73 % [facility] Imm Gran Pct Auto 0.3 0.0 - 0.4 % [facility] Lymphocytes Percent Auto 28.7 20 - 40 % [facility] Monocytes Percent Auto 9.0 2 - 11 % [facility] Eosinophils Percent Auto 2.9 0 - 4 % [facility] Basophils Percent Auto 1.1 0 - 2 % [facility] NRBC Pct Auto 0.0 0.0 - 0.2 /100WBC [facility] Neutrophils Absolute Auto 3.8 2.0 - 8.3 x10*3/uL [facility] Imm Gran Abs Auto 0.02 0.00 - 0.03 X10*3/uL [facility] Lymphocytes Absolute Auto 1.9 1.2 - 4.9 X10*3/uL [facility] Monocytes Absolute Auto 0.6 0.1 - 1.2 X10*3/uL [facility] Eosinophils Absolute Auto 0.2 0.0 - 0.4 X10*3/uL [facility] Basophils Absolute Auto 0.1 0.0 - 0.2 X10*3/uL [facility] NRBC Abs Auto 0.000 0.0 - 0.012 X10*3/uL [facility] Blood Venous blood specimen / Unknown 05/04/2025 2:46 PM EDT 05/04/2025 3:59 PM EDT [facility] INFORMATION SECURITY CONSULT[facility] LAB BLOOD ORDERABLES Final Re sult [facility] [address] [place] [phone] * (ABNORMAL) Comprehensive Metabolic Panel (05/04/2025 2:46 PM EDT) Sodium 141 135 - 145 mmol/L [facility] Potassium 3.7 3.3 - 5.1 mmol/L [facility] Chloride 109(H) 96 - 108 mmol/L [facility] Carbon Dioxide 24 22 - 29 mmol/L [facility] Anion Gap 12 12 - 20 [facility] Urea Nitrogen (BUN) 17(H) 9 - 16 mg/dL [facility] Creatinine, Serum 0.65 0.5 - 1.4 mg/dL [facility] Estimated Glomerular Filt Rate >60 [facility] Comment:Chronic Kidney Disea se: Estimated GFR < 60 mL/min/[id number] Kidney Disease: Estimated GFR < 15 mL/min/1.73m2 Glucose 117(H) 60 - 115 mg/dL [facility] Calcium 9.3 8.4 - 10.2 mg/dL [facility] Bilirubin, Total 0.3 0.0 - 1.0 mg/dL [facility] Aspartate Amino Transferase 78(H) 5 - 31 U/L [facility] Alanine Aminotransferase 81(H) 0 - 31 U/L [facility] Total Protein 8.5(H) 6.5 - 8.0 g/dL [facility] Albumin Level 4.0 3.5 - 5.0 g/dL [facility] Alkaline Phosphatase 77 39 - 117 U/L [facility] Blood Venous blood specimen / Unknown 05/04/2025 2:46 PM EDT 05/04/2025 3:59 PM EDT [facility] LAB BLOOD ORDERABLES Final Re sult Performing Organization Address [facility] Co de Phone Number [facility] [address] [place] [phone] * TSH W/Reflex to FT4 (05/04/2025 2:46 PM EDT) TSH reflex Free T4 1.00 0.32 - 4.0 uIU/mL [facility] Blood Venous blood specimen / Unknown 05/04/2025 2:46 PM EDT 05/04/2025 3:59 PM EDT [facility] LAB BLOOD ORDERABLES Final Re sult Performing Organization Address City/[facility]/ZIP Co de Phone Number [facility] [address] [place] [address] [phone] * POCT Glucose (05/04/2025 2:22 PM EDT) Glucose Blood, POC 142 60 - 200 mg/dL Blood Capillary blood specimen / Unknown 05/04/2025 2:22 PM EDT Result [facility] POINT OF CARE TEST ENTER/EDIT ORDERABLES Final Result * (ABNORMAL) POCT Hgb A1c (05/04/2025 2:22 PM EDT) Hemoglobin A1C 6.9(A) 4.0 - 5.7 % Blood 05/04/2025 2:22 PM EDT Result [facility] POINT OF CARE TEST ENTER/EDIT ORDERABLES Final Result documented in this encounter Visit Diagnoses Diagnosis Rash- Primary Rash and other nonspecific skin eruption Type 2 diabetes mellitus with other specified complication, without long-term current use of insulin ([facility]) Liver disease, unspecified Dementia with other behavioral disturbance, unspecified dementia severity, unspecified dementia type (CMS/[facility]) Hypothyroidism, unspecified type Other obesity not elsewhere classified documented in this encounter Additional Health Concerns Assessment Noted Time PHQ-9 Depression Total Score: 0 12/25/19 23 10:53 AM EDT documented as of this encounter Care Teams Pin Sticker Relationship Specialty Start Date End Date [facility] [address] [place] [phone] PCP - General Family Medicine 11/04/22 [employer] 04/21/24 documented as of this encounter
[2025-05-04 16:04] LABS: MANUAL DIFF FLAG NO
[2025-05-04 16:26] LABS: Hematocrit 42.2 % (37.0-47.0); Hemoglobin 13.8 g/dl (12.0-16.0); Imm Gran Abs Auto 0.02 X10*3/uL (0.00-0.03); Imm Gran Pct Auto 0.3 % (0.0-0.4); Lymphocytes Absolute Auto 1.9 X10*3/uL (1.2-4.9); Mean Corpuscular HGB Conc 32.7 g/dl (31.0-35.0); Mean Corpuscular Hemoglobin 31.4 pg (27.0-33.0); Mean Corpuscular Volume 95.9 fL (80.0-98.0); NRBC Abs Auto 0.000 X10*3/uL (0.0-0.012); NRBC Pct Auto 0.0 /100WBC (0.0-0.2); Platelet Count 171 X10*3/uL (160-400); Red Blood Count 4.40 X10*6/uL (4.20-5.50); White Blood Count 6.6 X10*3/uL (4.8-10.8)
[2025-05-04 16:53] LABS: Alanine Aminotransferase 81 U/L (0-31); Albumin Level 4.0 g/dL (3.5-5.0); Alkaline Phosphatase 77 U/L (39-117); Anion Gap 12 (12-20); Aspartate Amino Transferase 78 U/L (5-31); Blood Urea Nitrogen 17 mg/dL (9-16); Calcium 9.3 mg/dL (8.4-10.2); Carbon Dioxide 24 mmol/L (22-29); Chloride 109 mmol/L (96-108); Cholesterol 257 mg/dL (<200); Estimated Glomerular Filt Rate > 60; HDL Cholesterol 46 mg/dL (>40); Potassium 3.7 mmol/L (3.3-5.1); Sodium 141 mmol/L (135-145); Total Protein 8.5 g/dL (6.5-8.0); Triglycerides 275 mg/dL (<150)
--- OUTSIDE RECORDS SUMMARY | 2025-05-04 17:57 | XMS_ITS | Encounter Summary ---
Author Organization [employer] Address [address] [facility] 7t [place] [address] Care Team Providers Care Truck Rental Service Attendant Name Role Phone [facility] Primary Care Provider [phone] Reason for Visit * Reason Onset Date Comments ER Follow-up 04/30/2023 Encounter Details Date Type Department Care Team ([facility] st Contact Info) Description 04/30/2023 Telephone [facility] MED[facility]INE [address] [place], [place] [phone] [facility] [address] [place] [address] ER Follow-up Social History Tobacco Use Types [...] to report ED visit on 04/26/23 at [facility]. Seen for high blood sugar. Patient [...] Description 05/16/2025 11:30 AM EDT Office Visit [facility] OPTOMETRY [address] [place], [place] [phone] Andre, Jesenia, OD 230 [place] [address] 06/22/2025 2:00 PM EDT Telemedicine [facility] MEDICINE [address] [place] [address] Zulema Shah FNP [address] [place] [address] documented as of this encounter Visit Diagnoses Not on filedocumented in this encounter Additional Health Concerns Assessment Noted Time PHQ-9 Depression Total Score: 0 12/25/19 10:53 AM EDT documented as of this encounter Care Teams Truck Rental Service Attendant Relationship Specialty Start Date End Date Zulema Shah FNP [address] [place] [address] PCP - General Family Medicine 11/04/22 [employer] 04/21/24 documented as of this encounter
--- OUTSIDE RECORDS SUMMARY | 2025-05-04 17:57 | XMS_ITS | Encounter Summary ---
Author Organization [employer] Address [address] [facility] 7t [place] [address] Care Team Providers Care Shellac Polisher Name Role Phone [facility] Primary Care Provider Reason for Visit * Reason Onset Date Comments Appointment Request 07/28/2023 Encounter Details Date Type Department Care Team ([facility] Contact Info) Description 07/28/2023 Telephone [facility]INE [address] [place], [place] [phone] [facility] 230 [place] [address] Appointment Request Social History Tobacco Use Types [...] encounter Miscellaneous Notes * Telephone Encounter - Jessicabjorn Tee Alejandra - 07/28/2023 3:53 PM EST Tc from pt daughter requesting to r/s f/u appt for 06/16/2023 for for f images,labs .ok per Dr. Cadena 05/19. Please contact pt daughter at [phone] documented in this encounter Plan of Treatment Upcoming Encounters Date Type Department Care Team (Late st Contact Info) Description 05/16/2025 11:30 AM EDT Office Visit [facility] OPTOMETRY [address] [place] [address] Andre, Jesenia, OD [address] [place] [address] 06/22/2025 2:00 PM EDT Telemedicine [facility] MEDICINE [address] [place] [address] Zulema Shah FNP [address] [place] [address] documented as of this encounter Visit Diagnoses Not on filedocumented in this encounter Additional Health Concerns Assessment Noted Time PHQ-9 Depression Total Score: 0 12/25/19 10:53 AM EDT documented as of this encounter Care Teams Shellac Polisher Relationship Specialty Start Date End Date Zulema Shah FNP [address] [place] [address] PCP - General Family Medicine 11/04/22 [employer] 04/21/24 documented as of this encounter
--- OUTSIDE RECORDS SUMMARY | 2025-05-04 17:57 | XMS_ITS | Encounter Summary ---
Author Organization [employer] Address [address] [place] [address] Care Team Providers Care Manager Continuous Improvement Name Role Phone Zulema Shah [employer] Primary Care Provider [phone] Reason for Visit * Reason Onset Date Comments Chart Prep 05/03/2025 Encounter Details Date Type Department Care Team ([facility] st Contact Info) Description 05/03/[address] [facility] [address] [place], [place] [phone] Iesha Antunez MA Chart Prep Social History Tobacco Use Types Packs/Day Years [...] the past 12 months, has t he [employer], [employer], oil or water [employer] threatened to shut off services in your [...] encounter Miscellaneous Notes * Telephone Encounter - Iesha Antunez MA - 05/03/2025 2:25 PM EDT Chart Prep Labs: done 11/10/24 Images: done 04/05/25 Referrals: not applicable Vaccines due: Covid, Flu, and RSV Screenings: colonoscopy, mammogram, eye exam, and foot exam, Urine protein Overdue care gaps: A1c, Glucose, SBIRT, SDOH, PHQ-9, and TERESITA-7 documented in this encounter Plan of Treatment Upcoming Encounters Date Type Department Care Team (Late st Contact Info) Description 05/16/2025 11:30 AM EDT Office Visit [facility] [address] [place] [address] Andre, Jesenia, OD [address] [place] [address] 06/22/2025 2:00 PM EDT Telemedicine [facility] [address] [place] [address] Zulema Shah FNP [address] [place] [address] documented as of this encounter Visit Diagnoses Not on filedocumented in this encounter Additional Health Concerns Assessment Noted Time PHQ-9 Depression Total Score: 0 12/25/19 23 10:53 AM EDT documented as of this encounter Care Teams Manager Continuous Improvement Relationship Specialty Start Date End Date Zulema Shah FNP [address] [place] [address] PCP - General Family Medicine 11/04/22 [employer] 04/21/24 documented as of this encounter
--- OUTSIDE RECORDS SUMMARY | 2025-05-04 17:57 | XMS_ITS | Encounter Summary ---
Author Organization [employer] Address [address] [facility] 7[address] [place] [address] Care Team Providers Care Internal Communications Specialist Name Role Phone [facility] Primary Care Provider [phone] Reason for Visit * Reason Onset Date Comments Error 09/23/2023 Encounter Details Date Type Department Care Team ([facility] st Contact Info) Description 09/23/2023 Telephone [facility] [address] [place], [place] [phone] [facility] [address] [place], [place] [phone] Error Social History Tobacco Use Types Packs/Day [...] Description 05/16/2025 11:30 AM EDT Office Visit [facility] OPT[facility] [address] [place] [address] Andre, Jesenia, OD [address] [place] [address] 06/22/2025 2:00 PM EDT Telemedicine [facility] [address] [place] [address] Zulema Shah FNP [address] [place] [address] documented as of this encounter Visit Diagnoses Not on filedocumented in this encounter Additional Health Concerns Assessment Noted Time PHQ-9 Depression Total Score: 0 12/25/19 23 10:53 AM EDT documented as of this encounter Care Teams Internal Communications Specialist Relationship Specialty Start Date End Date Zulema Shah FNP [address] [place] [address] PCP - General Family Medicine 11/04/22 [employer] 04/21/24 documented as of this encounter
--- OUTSIDE RECORDS SUMMARY | 2025-05-04 17:57 | XMS_ITS | Clinical Summary ---
Author Organization [employer] Address [address] [facility] [address] [place] [address] Care Team Providers Care Road Cutter Name Role Phone Zulema Shah [facility] Primary Care Provider [phone] Allergies No known active allergies Medications * This document contains information received from the source organization and may not represent a complete record from that organization. Blood Glucose Monitoring Suppl (ONE TOUCH ULTRA 2) w/Device kitIndications:Typ e 2 diabetes mellitus without complication, without long-term current use of insulin ([facility]) Use to monitor blood glucose once daily 1 kit 05/10/20 23 Active Alcohol Swabs (Alcohol Prep) 70 % padsIndications:Ty pe 2 diabetes mellitus without complication, without long-term current use of insulin ([facility]) Apply by topical route to finger once daily prior to checking blood glucose 100 each 11 05/10/20 23 Active Botox 200 units injection 11/22/19 23 Active tamsulosin (Flomax) 0.4 MG 24 hr capsule 05/07/20 23 Active Alcohol Swabs (Alcohol Prep) padsIndications:Ty pe 2 diabetes mellitus without complication, without long-term current use of insulin ([facility]) Use one pad each to prep skin prior to injection as directed 100 each 11 10/01/19 24 Active Blood Glucose Monitoring Suppl (GNP Easy Touch Glucose Meter) deviceIndications: Type 2 diabetes mellitus without complication, without long-term current use of insulin ([facility]) Use as directed to check blood sugar four times daily 1 each 10/01/19 24 Active melatonin 3 MG tabletIndications: Healthcare maintenance Take 1 tablet (3 mg) by mouth at bedtime. 90 tablet 1 05/03/20 24 Active albuterol (Ventolin HFA) 108 (90 Base) MCG/ACT inhaler INHALE 2 PUFFS BY MOUTH EVERY 4 TO 6 HOURS NEEDED 18 g 1 06/09/20 24 Active QUEtiapine (SEROquel) 25 MG [...] 90 tablet 1 09/15/19 25 Active Nyamyc 810724 UNIT/GM powder APPLY TO THE AFFECTED AREA(S) [...] THE NECK DOWN EVERY DAY 80 g 12/21/19 25 Active hydrocortisone 2.5 % creamIndications:R sidney and nonspecific skin eruption APPLY TO THE AFFECTED AREA(S) TOPICALLY TWICE DAILY 20 g 12/28/19 25 Active terbinafine (LamISIL) 1 % creamIndications:T inea corporis APPLY 1 GRAM TOPICALLY TO AFFECTED AREA(S) OF BACK AND BETWEEN LEGS TWICE DAILY DIRECTED 45 g 01/11/20 25 Active Multiple Vitamin (Multivitamin) tablet [...] tablet 1 03/25/20 25 Active glucose blood (OneTouch Ultra Test) test stripIndications:T ype 2 diabetes mellitus without complication, without long-term current use of insulin ([facility]) USE TO TEST BLOOD SUGAR FOUR TIMES DAILY 100 strip 3 03/25/20 25 Active Lancets (OneTouch Delica Plus [id number]) miscIndications:Ty pe 2 diabetes mellitus without complication, without long-term current use of insulin ([facility]) USE TO TEST BLOOD SUGAR FOUR TIMES DAILY 100 each 3 03/25/20 25 Active rosuvastatin (Crestor) 10 MG tabletIndications: Mixed hyperlipidemia Take 1 tablet (10 mg) by mouth Once per day. 30 tablet 11 03/25/20 25 026 Active amLODIPine (Norvasc) 5 MG tabletIndications: Primary hypertension Take 1 tablet (5 mg) by mouth Once per day. 30 tablet 11 03/25/20 25 026 Active triamcinolone (Kenalog) 0.5 % ointmentIndication s:Rash Apply topically 2 times daily. 15 g 1 05/04/20 25 026 Active glucose blood (OneTouch Ultra) test stripIndications:T ype 2 diabetes mellitus without complication, without long-term current use of insulin ([facility]) Use one strip to monitor blood glucose once daily 100 each 11 05/03/20 24 025 Lancets (onetouch ultrasoft) lancetsIndications :Type 2 diabetes mellitus without complication, without long-term current use of insulin ([facility]) 1 each by Other route Once per day. 30 each 11 05/03/20 24 025 traMADol (Ultram) 50 MG tabletIndications: Other chronic [...] (03/21/2023 2:55 PM EDT): Continue V[facility] and [facility] services High risk for pressure injury Treating [...] CVA and non-ambulatory/bed bound state. Referred [facility], no appt Gave pt phone number. Daughter will call. Will defer decision on stopping eliquis by specialist F/u 1 month with PCP or sooner PRN Elevated liver enzymes 03/21/2023 Overview (03/21/2023): Atorvastatin discontinued around 11/10/22 d/t elevated liver enzymes noted at [facility] when admitted for Choledocholithiasis. Started to trend [...] Mammo: Ordered today Pap: Previously followed by [facility]. Need records C-scope: No prior [...] am and 2 h in pm w [facility]--letter done today for pt with request -daughter will check with her Previous PT service [facility] they will start services again Assessment & Plan (03/21/2023 3:03 PM EDT): Continue VNA and [facility] services High risk for pressure injury Has [...] 11/10/22 d/t elevated liver enzymes noted at [facility] when admitted for Choledocholithiasis. Started to trend [...] Encounters Date Type Department Care Team Description 05/04/2025 2:00 PM EDT Office Visit [facility] [address] [place] [address] [place] FNP Rash (Primary Dx); Type 2 diabetes mellitus with other specified complication, without long-term current use of insulin ([facility]); Liver disease, unspecified; Dementia with other behavioral disturbance, unspecified dementia severity, unspecified dementia type (CMS/HCC); Hypothyroidism, unspecified type; Other obesity not elsewhere classified 05/04/2025 Travel 05/03/2025 Telephone [facility] [address] [place] [address] Iesha Antunez MA Chart Prep 05/03/2025 Travel 04/05/2025 10:40 AM EDT Office Visit [facility] [address] [place] [address] Andre, Jesenia, OD Diabetes type 2, no ocular involvement ([facility]/HCC) (Primary Dx); Hypertensive retinopathy of both eyes 04/05/2025 Travel 03/24/2025 Refill [facility] [address] [place] [address] [facility] Other chronic pain (Primary Dx) 03/24/2025 Refill [facility] [address] [place] [address] [facility] Type 2 diabetes mellitus without complication, without long-term current use of insulin ([facility]); Mixed hyperlipidemia; Primary hypertension 03/24/2025 Refill [facility] [address] [place] [address] [facility] from Last 3 Months Immunizations Immunization Administration [...] 20 05/04/2025 2:09 PM EDT Oxygen Saturation 96% 05/19/2023 1:11 PM EDT Inhaled Oxygen Concentration - - Weight 86.2 kg (190 lb) 05/04/2025 2:09 PM EDT Height 170.2 cm (5' 7 ) 05/04/2025 2:09 PM EDT Body Mass Index 29.76 05/04/2025 2:09 PM EDT Plan of Treatment Upcoming Encounters Date Type Department Care Team (Late st Contact Info) Description 05/16/2025 11:30 AM EDT Office Visit [facility] [address] [place], [place] [phone] Andre, Jesenia, OD [address] [place], [place] [phone] 06/22/2025 2:00 PM EDT Telemedicine [facility] [address] [place] [address] [place], Zulema, [employer] [address] [place] [address] Health Maintenance Due Date Last Done Comments [...] 2016 Depression Screening 12/25/2023 12/24/2022, 12/25/19 Diabetes: Foot Exam 10/01/2024 10/01/2023, 10/01/2023, 10/01/2023, Additional history exists SDOH Screening 11/02/2024 11/03/2023 COVID-19 Vaccine ( season) 2025 10/20/2020 Influenza Vaccine (#1) 2025 , 05/30/2022, 11/12/2020, Additional history exists Diabetes: Urine Protein Screening 04/27/2025 04/27/2024 Diabetes: Hemoglobin A1C 11/01/2025 025, 11/10/2024, 10/01/2023, Additional history exists Lipid Panel 05/04/2026 05/04/2025, 10/23, 10/14/2023, Additional history exists Tobacco Screening 05/04/2026 05/04/2025 DTaP/Tdap/Td Vaccines (3 - Td or Tdap) [...] Procedure Name Priority Date/Time Associated Diagnosis Comments LIPID PANEL, STANDARD Routine 05/04/2025 2:46 PM EDT Type 2 diabetes mellitus with other specified complication, without long-term current use of insulin (CMS/HCC) VITAMIN D,25-OH,TOTAL,IA Routine 05/04/2025 2:46 PM EDT Dementia with other behavioral disturbance, unspecified dementia severity, unspecified dementia type (CMS/HCC) Other obesity not elsewhere classified CBC WITH AUTO DIFFERENTIAL Routine 05/04/2025 2:46 PM EDT Liver disease, unspecified COMPREHENSIVE METABOLIC PANEL Routine 05/04/2025 2:46 PM EDT Type 2 diabetes mellitus with other specified complication, without long-term current use of insulin (CMS/HCC) TSH W/REFLEX TO FT4 Routine 05/04/2025 2 :46 PM EDT Hypothyroidism, unspecified type POCT GLUCOSE Routine 05/04/2025 2:22 PM EDT Type 2 diabetes mellitus with other specified complication, without long-term current use of insulin (CMS/HCC) POCT GLYCATED HEMOGLOBIN, TOTAL Routine 05/04/2025 2:22 PM EDT Type 2 diabetes mellitus with other specified complication, without long-term current use of insulin (CMS/HCC) FUNDUS PHOTOS - OU - BOTH EYES Routine 04/05/2025 10:40 AM EDT Diabetes type 2, no ocular involvement (CMS/HCC) ALBUMIN, RANDOM URINE W/CREATININE Routine 04/27/2024 10:00 AM EDT Type 2 diabetes mellitus with other specified complication, without long-term current use of insulin (CMS/HCC) HEPATITIS PANEL, GENERAL Routine 03/13/2023 2:36 PM EDT Hypercholesterolemi a from Last 3 Months or Most Recently Relevant to Health Maintenance Results * Vitamin D, 25-Hydroxy, Total, Immunoassay (05/04/2025 2:46 PM EDT) Pathologist [facility] Vitamin D 25-OH Total 33.4 >30 ng/mL [facility] Comment: Health Based Reference Values*< 20 ng/mL Auadmhdvv70-00 ng/mL Insufficient> 30 ng/mL Sufficient*Mateo FLOOD. N [...] 2:46 PM EDT 05/04/2025 3:59 PM EDT [facility] LAB BLOOD ORDERABLES Final Re sult Performing Organization Address [facility] Co de Phone Number [facility] [address] [place] [address] [phone] * TSH W/Reflex to FT4 (05/04/2025 2:46 PM EDT) [facility] TSH reflex Free T4 1.00 0.32 - 4.0 uIU/mL [facility] Blood Venous blood specimen / Unknown 05/04/2025 2:46 PM EDT 05/04/2025 3:59 PM EDT [facility] LAB BLOOD ORDERABLES Final Re sult Performing Organization Address [facility] Co de Phone Number [facility] [address] [place] [address] [phone] * (ABNORMAL) CBC auto differential (05/04/2025 2:46 PM EDT) [facility] White Blood Count 6.6 4.8 - 10.8 X10*3/uL [facility] Red Blood Count 4.40 4.20 - 5.50 X10*6/uL [facility] Hemoglobin 13.8 12.0 - 16.0 g/dl [facility] Hematocrit 42.2 37.0 - 47.0 % [facility] Mean Corpuscular Volume 95.9 80.0 - 98.0 fL [facility] Mean Corpuscular Hemoglobin 31.4 27.0 - 33.0 pg [facility] Mean Corpuscular HGB Conc 32.7 31.0 - 35.0 g/dl [facility] Red Cell Distribution Width 15.0 11.0 - 16.0 % [facility] Platelet Count 171 160 - 400 X10*3/uL [facility] Mean Platelet Volume 12.9(H) 9.4 - 12.3 fL [facility] Neutrophils Percent Auto 58.0 45 - 73 % [facility] Imm Gran Pct Auto 0.3 0.0 - 0.4 % [facility] Lymphocytes Percent Auto 28.7 20 - 40 % [facility] Monocytes Percent Auto 9.0 2 - 11 % [facility] Eosinophils Percent Auto 2.9 0 - 4 % [facility] Basophils Percent Auto 1.1 0 - 2 % [facility] NRBC Pct Auto 0.0 0.0 - 0.2 /100WBC [facility] Neutrophils Absolute Auto 3.8 2.0 - 8.3 x10*3/uL [facility] Imm Gran Abs Auto 0.02 0.00 - 0.03 X10*3/uL [facility] Lymphocytes Absolute Auto 1.9 1.2 - 4.9 X10*3/uL [facility] Monocytes Absolute Auto 0.6 0.1 - 1.2 X10*3/uL [facility] Eosinophils Absolute Auto 0.2 0.0 - 0.4 X10*3/uL [facility] Basophils Absolute Auto 0.1 0.0 - 0.2 X10*3/uL [facility] NRBC Abs Auto 0.000 0.0 - 0.012 X10*3/uL [facility] Blood Venous blood specimen / Unknown 05/04/2025 2:46 PM EDT 05/04/2025 3:59 PM EDT [facility] LAB BLOOD ORDERABLES Final Re sult [facility] [address] [place] [address] [phone] * (ABNORMAL) Lipid Panel, Standard (05/04/2025 2:46 PM EDT) Triglycerides 275(H) <150 mg/dL [facility] Comment:Desirable Triglyceri de: less than 150 mg/dLBorderline High Triglyceride 150-199 mg/dLHigh Triglyceride: 200-499 mg/dLVery High Triglyceride: greater than or equal to 5OO mg/dL Cholesterol 257(H) <200 mg/dL [facility] Comment:Desirable Cholestero l: less than 200 mg/dLBorderline High Cholesterol: 200-239 mg/dLHigh Cholesterol: greater than 239 mg/dL LDL Cholesterol Calculated 156(H) <100 mg/dL [facility] Comment:Desirable LDL: less than 100 mg/dLNear Optimal/Above Optimal LDL: 110- 129 mg/dLBorderline High LDL: 130-159 mg/dLHigh LDL: 160-189 mg/dLVery High LDL: greater than or equal to 190 mg/dL HDL Cholesterol 46 >40 mg/dL [facility] Comment:Desirable HDL: great er than 40 mg/dL Note: This HDL assay may give artificially low results in patients with liver disease. Blood Venous blood specimen / Unknown 05/04/2025 2:46 PM EDT 05/04/2025 3:59 PM EDT [facility] LAB BLOOD ORDERABLES Final Re sult [facility] [address] [place] [address] [phone] * (ABNORMAL) Comprehensive Metabolic Panel (05/04/2025 2:46 PM EDT) Sodium 141 135 - 145 mmol/L [facility] Potassium 3.7 3.3 - 5.1 mmol/L [facility] Chloride 109(H) 96 - 108 mmol/L [facility] Carbon Dioxide 24 22 - 29 mmol/L [facility] Anion Gap 12 12 - 20 [facility] Urea Nitrogen (BUN) 17(H) 9 - 16 mg/dL [facility] Creatinine, Serum 0.65 0.5 - 1.4 mg/dL [facility] Estimated Glomerular Filt Rate >60 [facility] Comment:Chronic Kidney Disea se: Estimated GFR < 60 mL/min/[id number] Kidney Disease: Estimated GFR < 15 mL/min/1.73m2 Glucose 117(H) 60 - 115 mg/dL [facility] Calcium 9.3 8.4 - 10.2 mg/dL [facility] Bilirubin, Total 0.3 0.0 - 1.0 mg/dL [facility] Aspartate Amino Transferase 78(H) 5 - 31 U/L [facility] Alanine Aminotransferase 81(H) 0 - 31 U/L [facility] Total Protein 8.5(H) 6.5 - 8.0 g/dL [facility] Albumin Level 4.0 3.5 - 5.0 g/dL [facility] Alkaline Phosphatase 77 39 - 117 U/L [facility] Blood Venous blood specimen / Unknown 05/04/2025 2:46 PM EDT 05/04/2025 3:59 PM EDT [facility] LAB BLOOD ORDERABLES Final Re sult Performing Organization Address City/State/[facility] Co de Phone Number [facility] [address] [place] [phone] * (ABNORMAL) POCT Hgb A1c (05/04/2025 2:22 PM EDT) Hemoglobin A1C 6.9(A) 4.0 - 5.7 % Blood 05/04/2025 2:22 PM EDT Result [facility] POINT OF CARE TEST ENTER/EDIT ORDERABLES Final Result * POCT Glucose (05/04/2025 2:22 PM EDT) Glucose Blood, POC 142 60 - 200 mg/dL Blood Capillary blood specimen / Unknown 05/04/2025 2:22 PM EDT Result [facility] POINT OF CARE TEST ENTER/EDIT ORDERABLES Final Result * Fundus Photos - OU - Both Eyes (04/05/2025 10:40 AM EDT) Narrative Andre, Jesenia, OD - 05/02/2025 3:52 PM EDT Images from the original result were not included. Right Eye Progression has no prior data. Disc findings include normal observations (Cup-to-disc ratio): 0.1/0.1, No NVD). Macula findings include normal observations (Epiretinal membrane (ERM) superior to fovea, No CSME). Vessel findings include tortuous vessels. Periphery findings include normal observations (No NVE). Left Eye Progression has no prior data. Disc findings include normal observations (Cup-to-disc ratio): 0.1/0.1, No NVD). Macula findings include normal observations (No CSME). Vessel findings include tortuous vessels. Periphery findings include normal observations (No NVE). Notes Assessment and Plan: No diabetic retinopathy or macular edema present to extent seen in photos today. The patient will be scheduled for a refraction and placed on 1 year recall for a dilated eye exam. Jesenia Powell OD OPHTH PHOTOGRAPHY Final Resul t * (ABNORMAL) Albumin, Random Urine W/Creatinine (04/27/2024 10:00 AM EDT) Creatinine, Urine 44.77 mg/dL [facility] Microalbumin Urine 16.0 mg/L [facility] Microalbum Creatinine Ratio Ur 35.7(H) <30 ug/mg cr [facility] Comment:Albumin/Creatinine R atio Reference Ranges: Normal: < 30 ug/mg creatinine Microalbuminuria: 30 - 300 ug/mg creatinineClinical Albuminuria: > 300 ug/mg creatinine Urine 04/27/2024 10:0 0 AM EDT 04/27/2024 5:28 PM EDT [facility] URINE ORDERABLES Final Re sult [facility] [address] [place] [phone] * Hepatitis Panel, General (03/13/2023 2:36 PM EDT) Hepatitis A IgM Nonreactive Nonreactive [facility] Comment:IgM antibodies to SLOAN V not detected; does not exclude earlyacute or recovered HAV infection. ~Hepatitis B Surface Antibody NONREACTIVE Nonreactive [facility] Comment:Nonreactive: < 8.00 mIU/mL Hepatitis B Core Antibody Nonreactive Nonreactive [facility] Hepatitis C Antibody Nonreactive Nonreactive [facility] Comment:Antibodies to HCV no t detected; does not exclude early acuteHCV infection. Hepatitis B Surface Ag Negative Negative [facility] Blood 03/13/2023 2:36 PM EDT 03/13/2023 4:09 PM EDT Stephanie Tejeda [facility] LAB BLOOD ORDERABLES Final Result [facility] [address] [place] [address] [phone] from Last 3 Months or Most Recently Relevant to Health Maintenance Insurance MEDICARE [facility] MEDICAID STAND ADULT Advance Directives Documents on File Type Date Recorded Patient Jewelry Manager Expl anation HealthCare Proxy 12/18/2022 proxy Power of Surfboard Maker 07/21/2023 [facility] Care Teams Road Cutter Relationship Specialty Start Date End Date Zulema Shah FNP [address] [place] [address] PCP - General Family Medicine 11/04/22 [employer] 04/21/24
--- OUTSIDE RECORDS SUMMARY | 2025-05-04 17:57 | XMS_ITS | Encounter Summary ---
Author Organization [employer] Address 75 [facility] 7t [place] [address] Care Team Providers Care Manufacturing Process Technician Name Role Phone [place] [facility] Primary Care Provider [phone] Reason for Visit * Reason Onset Date Comments FYI 07/19/2024 Encounter Details Date Type Department Care Team ([facility] Contact Info) Description 07/19/2024 Telephone [facility] MED[facility]INE 230 [place], [place] [phone] [facility] 230 [place], [place] [phone] FYI Social History Tobacco Use Types Packs/Day [...] 3:41 PM EST Tc from Li with [facility] , notifying pt doesn't let her draw blood noteven for the last time. Li informs if any questions feel free to contact her Callback number [phone] documented in this encounter Plan of Treatment Upcoming Encounters Date Type Department Care Team (Late st Contact Info) Description 05/16/2025 11:30 AM EDT Office Visit [facility] OPTOMETRY [address] [place] [address] AndreJesenia chapa, OD 230 [place] [address] 06/22/2025 2:00 PM EDT Telemedicine [facility] MED[facility]INE 230 [place] [address] Zulema Shah FNP 230 [place] [address] documented as of this encounter Visit Diagnoses Not on filedocumented in this encounter Additional Health Concerns Assessment Noted Time PHQ-9 Depression Total Score: 0 12/25/19 23 10:53 AM EDT documented as of this encounter Care Teams Manufacturing Process Technician Relationship Specialty Start Date End Date Zulema Shah FNP 230 [place] [address] PCP - General Family Medicine 11/04/22 [email or web address] 04/21/24 documented as of this encounter
--- OUTSIDE RECORDS SUMMARY | 2025-05-04 17:57 | XMS_ITS | Encounter Summary ---
Author Organization [email or web address] Address 75 [facility] 7t [place] [address] Care Team Providers Care Fee Clerk Name Role Phone [facility] Primary Care Provider [phone] Reason for Visit * Reason Onset Date Comments triage 12/13/2022 Encounter Details Date Type Department Care Team ([facility] st Contact Info) Description 12/13/2022 Telephone [facility] 230 [place], [place] [phone] [facility] 230 [place] [address] triage Social History Tobacco Use Types Packs/Day [...] 12/13/2022 10:23 AM EDT Triage call with [employer] Labelling Machine Operator ID [id number] Pt daughter answered the phone and reports that Pt is in the hospital with a blood clot in the leg.Advised to call [facility] for follow up when discharged from [...] Description 05/16/2025 11:30 AM EDT Office Visit [facility] OPTOMETRY [address] [place] [address] Andre, Jesenia, OD 230 [place] [address] 06/22/2025 2:00 PM EDT Telemedicine [facility] MED[facility] 230 [place] [address] Zulema Shah FNP 230 [place] [address] documented as of this encounter Visit Diagnoses Not on filedocumented in this encounter Additional Health Concerns Assessment Noted Time PHQ-9 Depression Total Score: 0 12/04/19 1:38 PM EDT documented as of this encounter Care Teams Fee Clerk Relationship Specialty Start Date End Date Zulema Shah FNP 230 [place] [address] PCP - General Family Medicine 11/04/22 [employer] 04/21/24 documented as of this encounter
--- OUTSIDE RECORDS SUMMARY | 2025-05-04 17:57 | XMS_ITS | Encounter Summary ---
Author Organization [employer] Address [address] [facility] [address] 7t [place] [address] Care Team Providers Care Small Business Consultant Name Role Phone [place] [facility] Primary Care Provider [phone] Encounter Details Date Type Department Care Team (Late st Contact Info) Description 10/27/2024 Orders Only [facility] 230 [place], [place] [phone] [place] [facility] 230 [place], [place] [phone] Type 2 diabetes mellitus with other specified [...] Description 05/16/2025 11:30 AM EDT Office Visit [facility] OPTOMETRY [address] [place] [address] Andre, Jesenia, OD 230 [place] [address] 06/22/2025 2:00 PM EDT Telemedicine [facility] MEDICINE 230 [place] [address] [place], Zulema, ROCK WOOL INSULATOR 230 [place] [address] Scheduled Orders Name Type Priority Associated Diagnoses [...] documented as of this encounter Care Teams Small Business Consultant Relationship Specialty Start Date End Date Zulema Shah FNP [address] [place] [address] PCP - General Family Medicine 11/04/22 [employer] 04/21/24 documented as of this encounter
--- OUTSIDE RECORDS SUMMARY | 2025-05-04 17:57 | XMS_ITS | Encounter Summary ---
Author Organization [employer] Address [address] [facility] [address] 7t [place] [address] Care Team Providers Care Cuff Setter Overlock Name Role Phone Davon Badillo MD Primary Care Provider [facility] Primary Care Provider [phone] Reason for Visit * Reason Onset Date Comments Appointment 10/28/2022 Encounter Details Date Type Department Care Team (Late Contact Info) Description 10/28/2022 Telephone [facility] [address] [place], [place] [phone] Crystal Gerardo DDS Appointment Social History Tobacco [...] Upcoming Encounters Date Type Department Care Team ([facility] Contact Info) Description 05/16/2025 11:30 AM EDT Office Visit [facility] OPTOMETRY [address] [place] [address] Andre, Megan, OD 230 [place] [address] 06/22/2025 2:00 PM EDT Telemedicine [facility] MEDICINE 230 [place], [place] [phone] Zulema Shah FNP 230 [place], [place] [phone] documented as of this encounter Visit Diagnoses Not on filedocumented in this encounter Care Teams Cuff Setter Overlock Relationship Specialty Start Date End Date Davon Badillo MD PCP - General Family Medicine 06/25/19 11/03/22 Zulema Shah FNP 230 [place], [place] [phone] PCP - General Family Medicine 11/04/22 [employer] 04/21/24 documented as of this encounter
--- OUTSIDE RECORDS SUMMARY | 2025-05-04 17:57 | XMS_ITS | Encounter Summary ---
Author Organization [employer] Address 75 [facility] 7t [place] [address] Care Team Providers Care Efficiency Clerk Name Role Phone [facility] Primary Care Provider [phone] Reason for Visit * Reason Comments Med Refill Encounter Details Date Type Department Care Team ([facility] st Contact Info) Description 04/12/[address] [facility] MEDICINE 230 [place], [place] [phone] [facility] 230 [place] [address] Other chronic pain Social History Tobacco Use [...] Description 05/16/2025 11:30 AM EDT Office [address] [facility] OPTOMETRY [address] [place] [address] Andre, Jesenia, OD 230 [place] [address] 06/22/2025 2:[address] [facility] MEDICINE 230 [place] [address] Zulema Shah FNP 230 [place] [address] documented as of this encounter Visit Diagnoses Diagnosis Other chronic pain documented in this encounter Additional Health Concerns Assessment Noted Time PHQ-9 Depression Total Score: 0 12/25/19 23 10:53 AM EDT documented as of this encounter Care Teams Efficiency Clerk Relationship Specialty Start Date End Date Zulema Shah FNP 230 [place] [address] PCP - General Family Medicine 11/04/22 [employer] 04/21/24 documented as of this encounter
--- OUTSIDE RECORDS SUMMARY | 2025-05-04 17:57 | XMS_ITS | Encounter Summary ---
Author Organization [employer] Address [address] [facility] 7t [place] [address] Care Team Providers Care Casino Banker Name Role Phone [place] [facility] Primary Care Provider [phone] Reason for Visit * Reason Comments Med Refill Encounter Details Date Type Department Care Team (Late Contact Info) Description 04/23/2023 Refill [facility] MED[facility] 230 [place] [address] [facility] 230 [place] [address] Social History Tobacco Use Types Packs/Day Years [...] Department Care Team (Late Contact Info) Description 05/16/2025 11:30 AM EDT Office Visit [facility] OPTOMETRY [address] [place], [place] [phone] Andre, Jesenia, OD 230 [place], [place] [phone] 06/22/2025 2:00 PM EDT Telemedicine [facility] MEDICINE 230 [place] [address] Zulema Shah FNP 230 [place] [address] documented as of this encounter Visit Diagnoses Not on filedocumented in this encounter Additional Health Concerns Assessment Noted Time PHQ-9 Depression Total Score: 0 12/25/19 10:53 AM EDT documented as of this encounter Care Teams Casino Banker Relationship Specialty Start Date End Date Zulema Shah FNP 230 [place] [address] PCP - General Family Medicine 11/04/22 [employer] 04/21/24 documented as of this encounter
--- OUTSIDE RECORDS SUMMARY | 2025-05-04 17:57 | XMS_ITS | Encounter Summary ---
Author Organization [employer] Address 75 [facility] 7t [place] [address] Care Team Providers Care Resident Care Manager Name Role Phone [place] [facility] Primary Care Provider [phone] Encounter Details Date Type Department Care Team ([facility] st Contact Info) Description 12/03/2022 Abstract [facility] MEDICINE 230 [place], [place] [phone] [place] [facility] 230 [place] [address] Social History Tobacco Use Types Packs/Day Years [...] Description 05/16/2025 11:30 AM EDT Office Visit [facility] OPTOMETRY [address] [place] [address] Jesenia Powell, OD [address] [place] [address] 06/22/2025 2:00 PM EDT Telemedicine [facility] MEDICINE 230 [place] [address] Zulema Shah FNP [address] [place] [address] documented as of this encounter Visit Diagnoses Not on filedocumented in this encounter Additional Health Concerns Assessment Noted Time PHQ-9 Depression Total Score: 0 12/04/19 23 1:38 PM EDT documented as of this encounter Care Teams Resident Care Manager Relationship Specialty Start Date End Date Zulema Shah FNP [address] [place] [address] PCP - General Family Medicine 11/04/22 [facility] 04/21/24 documented as of this encounter
--- OUTSIDE RECORDS SUMMARY | 2025-05-04 17:57 | XMS_ITS | Encounter Summary ---
Author Organization [employer] Address [address] [facility] 7t [place] [address] Care Team Providers Care Senior Marketing Specialist Name Role Phone [facility] Primary Care Provider [phone] Encounter Details Date Type Department Care Team (Latest Contact Info) Description 05/03/2025 Travel Social History Tobacco Use Types Packs/Day Years [...] Description 05/16/2025 11:30 AM EDT Office Visit [facility] OPTOMETRY [address] [place] [address] AndreJesenia chapa, OD 230 [place] [address] 06/22/2025 2:00 PM EDT Telemedicine [facility] MEDICINE 230 [place] [address] Zulema Shah FNP 230 [place] [address] documented as of this encounter Visit Diagnoses Not on filedocumented in this encounter Additional Health Concerns Assessment Noted Time PHQ-9 Depression Total Score: 0 12/25/19 23 10:53 AM EDT documented as of this encounter Care Teams Senior Marketing Specialist Relationship Specialty Start Date End Date Zulema Shah FNP 230 [place] [address] PCP - General Family Medicine 11/04/22 [employer] 04/21/24 documented as of this encounter
--- OUTSIDE RECORDS SUMMARY | 2025-05-04 17:57 | XMS_ITS | Encounter Summary ---
Author Organization [employer] Address [address] [facility] 7t [place] [address] Care Team Providers Care Factory Assembler Name Role Phone [facility] Primary Care Provider [phone] Reason for Visit * Reason Onset Date Comments Paperwork/Forms 08/19/2023 Encounter Details Date Type Department Care Team ([facility] st Contact Info) Description 08/19/2023 Telephone [facility] 230 [place], [place] [phone] [facility] 230 [place] [address] Paperwork/Forms Social History Tobacco Use Types Packs/Day [...] calling to request paperwork in regards to DUST MILL OPERATOR stated the DUST MILL OPERATOR has not been paid since 08/05 and stated the DUST MILL OPERATOR will not be going to attend the patient until the matter is resolved documented in this encounter Plan of Treatment Upcoming Encounters Date Type Department Care Team (Late st Contact Info) Description 05/16/2025 11:30 AM EDT Office Visit [facility] OPTOMETRY [address] [place] [address] AndreJesenia chapa, OD 230 [place] [address] 06/22/2025 2:00 PM EDT Telemedicine [facility] MEDICINE 230 [place] [address] Zulema Shah FNP 230 [place] [address] documented as of this encounter Visit Diagnoses Not on filedocumented in this encounter Additional Health Concerns Assessment Noted Time PHQ-9 Depression Total Score: 0 12/25/19 23 10:53 AM EDT documented as of this encounter Care Teams Factory Assembler Relationship Specialty Start Date End Date Zulema Shah FNP 230 [place] [address] PCP - General Family Medicine 11/04/22 [employer] [facility] 04/21/24 documented as of this encounter
--- OUTSIDE RECORDS SUMMARY | 2025-05-04 17:57 | XMS_ITS | Encounter Summary ---
Author Organization [email or web address] Address [address] [facility] 7t [place] [address] Care Team Providers Care Ship Worker Name Role Phone [facility] Primary Care Provider [phone] Encounter Details Date Type Department Care Team (Latest Contact Info) Description 05/04/2025 Travel Social History Tobacco Use Types Packs/Day [...] Description 05/16/2025 11:30 AM EDT Office Visit [facility] OPTOMETRY [address] [place] [address] AndreJesenia chapa, OD 230 [place] [address] 06/22/2025 2:00 PM EDT Telemedicine [facility] MEDICINE 230 [place] [address] Zulema Shah FNP 230 [place] [address] documented as of this encounter Visit Diagnoses Not on filedocumented in this encounter Additional Health Concerns Assessment Noted Time PHQ-9 Depression Total Score: 0 12/25/19 23 10:53 AM EDT documented as of this encounter Care Teams Ship Worker Relationship Specialty Start Date End Date Zulema Shah FNP 230 [place] [address] PCP - General Family Medicine 11/04/22 [employer] 04/21/24 documented as of this encounter
--- OUTSIDE RECORDS SUMMARY | 2025-05-04 17:57 | XMS_ITS | Encounter Summary ---
Author Organization [employer] Address 75 [facility] 7t [place] [address] Care Team Providers Care Timber Sizer Operator Name Role Phone [facility] Primary Care Provider [phone] Encounter Details Date Type Department Care Team (Late Contact Info) Description 12/30/2022 Abstract [facility] MEDICINE 230 [place], [place] [phone] [facility] 230 [place] [address] Social History Tobacco Use Types Packs/Day Years [...] 05/16/2025 11:30 AM EDT Office Visit [facility] OPTOMETRY [address] [place], [place] [phone] Jesenia Powell, OD 230 [place], [place] [phone] 06/22/2025 2:00 PM EDT Telemedicine [facility] MEDICINE 230 [place], [place] [phone] Zulema Shah FNP 230 [place], [place] [phone] documented as of this encounter Visit Diagnoses Not on filedocumented in this encounter Additional Health Concerns Assessment Noted Time PHQ-9 Depression Total Score: 0 12/25/19 10:53 AM EDT documented as of this encounter Care Teams Timber Sizer Operator Relationship Specialty Start Date End Date Zulema Shah FNP 230 [place] [address] PCP - General Family Medicine 11/04/22 [employer] 04/21/24 documented as of this encounter
--- OUTSIDE RECORDS SUMMARY | 2025-05-04 17:57 | XMS_ITS | Encounter Summary ---
Author Organization [employer] Address [address] [facility] 7t [place] [address] Care Team Providers Care Form Setter Metal Road Forms Name Role Phone [facility] Primary Care Provider [phone] Reason for Visit * Reason Comments Med Refill Encounter Details Date Type Department Care Team ([facility] st Contact Info) Description 01/16/2025 Refill [facility] MEDICINE 230 [place], [place] [phone] [facility] 230 [place] [address] Dry skin dermatitis Social History Tobacco Use [...] Description 05/16/2025 11:30 AM EDT Office Visit [facility] OPTOMETRY [address] [place] [address] Ander, Jesenia, OD 230 [place] [address] 06/22/2025 2:00 PM EDT Telemedicine [facility] MEDICINE 230 [place] [address] [facility] 230 [place] [address] documented as of this encounter Visit Diagnoses Diagnosis Dry skin dermatitis Contact dermatitis and other eczema due to other specified agent documented in this encounter Additional Health Concerns Assessment Noted Time PHQ-9 Depression Total Score: 0 12/25/19 23 10:53 AM EDT documented as of this encounter Care Teams Form Setter Metal Road Forms Relationship Specialty Start Date End Date Zulema Shah FNP 230 [place] [address] PCP - General Family Medicine 11/04/22 [employer] 04/21/24 documented as of this encounter
== END 2025-05-04 14:43 | disposition home or self-care (01) ==
LOC: HO.HHCL 14:42
PROVIDERS: PCP Registered Nurse; Visit Provider Registered Nurse
DX: E11.69 Type 2 diabetes mellitus with other specified complication (principal); F03.918 Unspecified dementia, unspecified severity, with other behavioral disturbance; E66.89 Other obesity not elsewhere classified; E03.9 Hypothyroidism, unspecified; K76.9 Liver disease, unspecified
CPT/HCPCS: 36415; 80053; 80061; 82306; 84443; 85025

== ENCOUNTER → 2025-05-25 12:18 | Outpatient (BNV) | payer OTHER, SELFPAY | PROVIDERS: PCP Registered Nurse; Visit Provider Physical Medicine & Rehabilitation | DX: G81.14 Spastic hemiplegia affecting left nondominant side (principal); I69.359 Hemiplegia and hemiparesis following cerebral infarction affecting unspecified side; Z79.01 Long term (current) use of anticoagulants | CPT/HCPCS: 64643; 64644; 95874 ==

== ENCOUNTER 2025-05-25 13:53 | Outpatient (REF) | payer OTHER, SELFPAY ==
--- NOTE | 2025-05-25 12:18 | EMG_ITS ---
PROCEDURE PERFORMED: Botulinum toxin chemodenervation Diagnoses Spastic hemiparesis of left nondominant side? 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 Z79.01 Last injection: 12/29/24 TOXIN USED: Botox PROCEDURE: The procedure was explained to the patient/caregiver, and informed consent was obtained. The patient sat on wheelchair. Left arm and leg were cleansed with betadine in the usual sterile manner. A 26 gauge needle electrode was used. Muscle Units per site Number of sites Units per muscle Left FDS 50 1 50 Left FDP 50 1 50 Left FCR 50 1 50 Left brachialis 50 2 100 Left brachioradialis 50 1 50 Left MH 50 2 ? 100 Left LH 50 2 100 EMG-guidance was used during the injection. A total of 500 units injected. 0 units wastage. Vial size: 100 units per vial 1 vial; 200 units per vial 2 vials Dilution: 100 units per 1 ml of preservative free saline for left upper extremity; 100 units per 2 mL dilution use for left hamstring The patient tolerated the procedure well without complications. The patient was observed for 30 minutes, before being discharged with post procedure instructions. CODING: CPT code: 23371 1 ext, 5 or more muscles 52276 each add?l limb, 1-4 muscles Wastage: Guidance code: 37120 EMG guidance for chemodenervation J code: Botox J0585 [facility] code: 6663-1503-90 2 vials, 1710-6027-29 Lot #: [id number], [id number], [id number] Expiration date: , , [facility]
--- OUTSIDE RECORDS SUMMARY | 2025-05-25 15:09 | XMS_ITS | Encounter Summary ---
Author Organization [employer] Address [address] [facility] [address] 7t [place] [address] Care Team Providers Care Account Classification Clerk Name Role Phone [place] [facility] Primary Care Provider Encounter Details Date Type Department Care Team (Late st Contact Info) Description 10/27/2024 Orders Only [facility] 230 [place], [place] [phone] [place] [facility] 230 [place], [place] [phone] Type 2 diabetes mellitus with other specified [...] Care Team (Late st Contact Info) Description 06/06/2025 11:30 AM EDT Office Visit [facility] OPTOMETRY [address] [place] [address] Andre, Jesenia, OD 230 [place] [address] 06/22/2025 2:00 PM EDT Telemedicine [facility] MEDICINE 230 [place] [address] [place], Zulema, LACE BURN OUT TENDER [address] [place] [address] Scheduled Orders Name Type Priority Associated Diagnoses [...] complication, without long-term current use of insulin (HCC)- Primary Chronic liver disease Unspecified chronic liver disease without mention of alcohol Hypothyroidism, unspecified type documented in this encounter Additional Health Concerns Assessment Noted Time PHQ-9 Depression Total Score: 0 12/25/19 10:53 AM EDT documented as of this encounter Care Teams Account Classification Clerk Relationship Specialty Start Date End Date Zulema Shah FNP [address] [place] [address] PCP - General Family Medicine 11/04/22 [employer] 04/21/24 documented as of this encounter
--- OUTSIDE RECORDS SUMMARY | 2025-05-25 15:09 | XMS_ITS | Encounter Summary ---
Author Organization [employer] Address [address] [facility] 7t [place] [address] Care Team Providers Care Master Steam Yacht Name Role Phone [place] [facility] Primary Care Provider [phone] Encounter Details Date Type Department Care Team (Late Contact Info) Description 12/30/2022 Abstract [facility] MEDICINE 230 [place], [place] [phone] [place] [facility] 230 [place] [address] Social History Tobacco Use Types Packs/Day Years [...] Department Care Team (Late Contact Info) Description 06/06/2025 11:30 AM EDT Office Visit [facility] OPTOMETRY [address] [place], [place] [phone] Jesenia Powell, OD 230 [place], [place] [phone] 06/22/2025 2:00 PM EDT Telemedicine [facility] MEDICINE 230 [place], [place] [phone] Zulema Shah FNP 230 [place], [place] [phone] documented as of this encounter Visit Diagnoses Not on filedocumented in this encounter Additional Health Concerns Assessment Noted Time PHQ-9 Depression Total Score: 0 12/25/19 10:53 AM EDT documented as of this encounter Care Teams Master Steam Yacht Relationship Specialty Start Date End Date Zulema Shah FNP 230 [place] [address] PCP - General Family Medicine 11/04/22 [employer] 04/21/24 documented as of this encounter
--- OUTSIDE RECORDS SUMMARY | 2025-05-25 15:09 | XMS_ITS | Clinical Summary ---
Author Organization [employer] Address [address] [facility] 7t [place] [address] Care Team Providers Care Lpn Care Manager Name Role Phone Zulema Shah [facility] Primary Care Provider [phone] Allergies No known active allergies Medications * This document contains information received from the source organization and may not represent a complete record from that organization. Blood Glucose Monitoring Suppl (ONE TOUCH ULTRA 2) w/Device kitIndications:Ty pe 2 diabetes mellitus without complication, without long-term current use of insulin ([facility]) Use to monitor blood glucose once daily 1 kit 023 Active Alcohol Swabs (Alcohol Prep) 70 % padsIndications:T ype 2 diabetes mellitus without complication, without long-term current use of insulin ([facility]) Apply by topical route to finger once daily prior to checking blood glucose 100 each 11 023 Active Botox 200 units injection 023 Active tamsulosin (Flomax) 0.4 MG 24 hr capsule 023 Active Alcohol Swabs (Alcohol Prep) padsIndications:T ype 2 diabetes mellitus without complication, without long-term current use of insulin ([facility]) Use one pad each to prep skin prior to injection as directed 100 each 11 024 Active Blood Glucose Monitoring Suppl (GNP Easy Touch Glucose Meter) deviceIndications :Type 2 diabetes mellitus without complication, without long-term current use of insulin ([facility]) Use as directed to check blood sugar four times daily 1 each 024 Active melatonin 3 MG tabletIndications :Healthcare maintenance Take 1 tablet (3 mg) by mouth at bedtime. 90 tablet 1 024 Active albuterol (Ventolin HFA) 108 (90 Base) MCG/ACT inhaler INHALE 2 PUFFS BY MOUTH EVERY 4 TO 6 HOURS NEEDED 18 g 024 Active QUEtiapine (SEROquel) 25 MG tabletIndications :Depression, [...] TABLET BY MOUTH EVERY DAY 90 tablet 025 Active Nyamyc [id number] UNIT/GM powder APPLY TO THE AFFECTED AREA(S) TWICE DAILY 30 g 025 Active levothyroxine (Synthroid, Levoxyl) 150 MCG tablet Take 1 tablet (150 mcg) by mouth before breakfast. 90 tablet 3 025 2025 Active hydrOXYzine HCl (Atarax) 25 MG tabletIndications :Dry skin dermatitis TAKE 1 TABLET BY MOUTH EVERY 8 HOURS NEEDED FOR ITCHING 90 tablet 1 025 Active triamcinolone (Kenalog) 0.025 % creamIndications: Dry skin dermatitis MIX TUBE OF triamcinolone WITH 16 OUNCES OF cerave DIRECTED AND APPLY TOPICALLY TO THE AFFECTED AREA(S) FROM THE NECK DOWN EVERY DAY 80 g 025 Active hydrocortisone 2.5 % creamIndications: Rash and nonspecific skin eruption APPLY TO THE AFFECTED AREA(S) TOPICALLY TWICE DAILY 20 g 025 Active terbinafine (LamISIL) 1 % creamIndications: Tinea corporis APPLY 1 GRAM TOPICALLY TO AFFECTED AREA(S) OF BACK AND BETWEEN LEGS TWICE DAILY DIRECTED 45 g 025 Active Multiple Vitamin (Multivitamin) tablet TAKE 1 TABLET BY MOUTH EVERY DAY WITH FOOD 90 tablet 1 025 Active baclofen (Lioresal) 20 MG tablet TAKE 1 TABLET BY MOUTH THREE TIMES DAILY 90 tablet 5 025 Active metFORMIN XR (Glucophage-XR) 500 MG 24 hr tablet TAKE 2 TABLETS BY MOUTH EVERY DAY WITH DINNER 180 tablet 1 Active glucose blood (OneTouch Ultra Test) test stripIndications: Type 2 diabetes mellitus without complication, without long-term current use of insulin ([facility]) USE TO TEST BLOOD SUGAR FOUR TIMES DAILY 100 strip 3 Active Lancets (OneTouch Delica Plus [id number]) miscIndications:T ype 2 diabetes mellitus without complication, without long-term current use of insulin ([facility]) USE TO TEST BLOOD SUGAR FOUR TIMES DAILY 100 each 3 Active amLODIPine (Norvasc) 5 MG tabletIndications :Primary hypertension Take 1 tablet (5 mg) by mouth Once per day. 30 tablet 11 025 2025 Active triamcinolone (Kenalog) 0.5 % ointmentIndicatio ns:Rash Apply topically 2 times daily. 15 g 1 025 2025 Active rosuvastatin (Crestor) 20 MG tabletIndications :Mixed hyperlipidemia Take 1 tablet (20 mg) by mouth Once per day. 90 tablet 3 025 2025 Active glucose blood (OneTouch Ultra) test stripIndications: Type 2 diabetes mellitus without complication, without long-term current use of insulin ([facility]) Use one strip to monitor blood glucose once daily 100 each 11 024 2024 Lancets (onetouch ultrasoft) lancetsIndication s:Type 2 diabetes mellitus without complication, without long-term current use of insulin ([facility]) 1 each by Other route Once per day. 30 each 11 024 2024 rosuvastatin (Crestor) 10 MG tabletIndications :Mixed hyperlipidemia Take 1 tablet (10 mg) by mouth Once per day. 30 tablet 11 025 2024 Discontinued Active Problems Problem Noted [...] (03/21/2023 2:55 PM EDT): Continue VNA and [facility] services High risk for pressure injury Treating [...] CVA and non-ambulatory/bed bound state. Referred [facility], no appt Gave pt phone number. Daughter will call. Will defer decision on stopping eliquis by specialist F/u 1 month with PCP or sooner PRN Elevated liver enzymes 03/21/2023 Overview (03/21/2023): Atorvastatin discontinued around 11/10/22 d/t elevated liver enzymes noted at [facility] when admitted for Choledocholithiasis. Started [...] Mammo: Ordered today Pap: Previously followed by [facility]. Need records C-scope: No prior [...] (06/16/2023): PRN albuterol Hemorrhagic cerebrovascular accident (CVA) (CMS/ HCC) 12/03/2022 Overview (03/21/2023): Occurred about 2 years ago, prior CVA with left-sided hemiplegia Bedbound with poor nutrition Assessment & Plan (05/20/2023 7:12 PM EDT): Pt and daughter requesting to increase hours -pt has mx comorbidities ,bedbound -lives alone -daughter requesting to get extra 3 hours in am and 2 h in pm w LICENSED GUIDE--letter done today for pt with request -daughter will check with her Previous PT service [facility] they will start services again Assessment & Plan (03/21/2023 3:03 PM EDT): Continue VNA and L[facility]IDE services High risk for pressure injury Has developed sacral pressure injury Will refer to Wound care Pending botox appt for left sided hemiplegia. Pending liver enzymes not elevated F/u 1 month or sooner PRN with PCP Hypertension 12/03/2022 Dementia ([facility]) 11/05/2022 Overview (03/21/2023): Affecting communication Poor appetite Losing weight Has developed pressure injury Assessment & Plan (03/21/2023 2:51 PM EDT): Care managed by Neurology Vitiligo 09/29/2012 Hypercholesterolemia 09/29/2012 Overview (03/21/2023): Atorvastatin discontinued around 11/10/22 d/t elevated liver enzymes noted at [facility] when admitted for Choledocholithiasis. Started [...] Encounters Date Type Department Care Team Description 05/16/2025 Travel 05/04/2025 2:00 PM EDT Office Visit [facility] [address] [place] [phone] [place] [facility] Type 2 diabetes mellitus with other specified complication, without long-term current use of insulin ([facility]) (Primary Dx); Rash; Liver disease, unspecified; Behavior concern; Hypothyroidism, unspecified type; Other obesity not elsewhere classified; Dystrophic nail; Mixed hyperlipidemia; 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, unspecified cerebrovascular disease type, unspecified laterality (CMS/HCC); Dietary counseling; Exercise counseling 05/04/2025 Travel 05/03/2025 Telephone [facility] [address] [place] [address] Iesha Antunez [place] Chart Prep 05/03/2025 Travel 04/05/2025 10:40 AM EDT Office Visit [facility] OPTOMETRY [address] [place] [address] Andre, Jesenia, OD Diabetes type 2, no ocular involvement ([facility]/HCC) (Primary Dx); Hypertensive retinopathy of both eyes 04/05/2025 Travel 03/24/2025 Refill [facility] PEDS [address] [place], [place] [phone] [facility] Other chronic pain (Primary Dx) 03/24/2025 Refill [facility] [address] [place] [address] [facility] Type 2 diabetes mellitus without complication, without long-term current use of insulin ([facility]); Mixed hyperlipidemia; Primary hypertension 03/24/2025 Refill [facility] [address] [place], [place] [phone] [facility] from Last 3 Months Immunizations Immunization [...] Description 06/06/2025 11:30 AM EDT Office Visit [facility] OPTOMETRY [address] [place] [address] Andre, Jesenia, OD [address] [place], [place] [phone] 06/22/2025 2:00 PM EDT Telemedicine [facility] [address] [place], [place] [phone] [place], Zulema, [employer] [address] [place] [address] Health Maintenance Due Date Last Done Comments [...] series) 2016 Depression Screening 12/25/2023 12/24/2022, 12/25/19 SDOH Screening 11/02/2024 11/03/2023 COVID-19 Vaccine ( season) 2025 10/20/2020 Influenza Vaccine (#1) 2025 , 05/30/2022, 11/12/2020, Additional history exists Diabetes: Urine Protein Screening 04/27/2025 04/27/2024 Diabetes: Hemoglobin A1C 11/01/2025 025, 11/10/2024, 10/01/2023, Additional history exists Diabetes: Foot Exam 05/04/2026 05/04/2025, 05/04/2025, 05/04/2025, Additional history exists Lipid Panel 05/04/2026 05/04/2025, 10/23, 10/14/2023, Additional history exists Tobacco Screening 05/09/2026 05/09/2025 DTaP/Tdap/Td Vaccines (3 - Td or Tdap) [...] VITAMIN D,25-OH,TOTAL,IA Routine 05/04/2025 2:46 PM EDT Behavior concern Other obesity not elsewhere classified CBC WITH [...] 25-Hydroxy, Total, Immunoassay (05/04/2025 2:46 PM EDT) [facility] Vitamin D 25-OH Total 33.4 >30 ng/mL [facility] Comment: Health Based Reference Values*< 20 ng/mL Ustrtgarq60-06 ng/mL Insufficient> 30 ng/mL Sufficient*Mateo FLOOD. N [...] 2:46 PM EDT 05/04/2025 3:59 PM EDT [facility] LAB BLOOD ORDERABLES Final Re sult Performing Organization Address [facility] de Phone Number [facility] [address] [place] [phone] * TSH W/Reflex to FT4 (05/04/2025 2:46 PM EDT) Pathologist [facility] TSH reflex Free T4 1.00 0.32 - 4.0 uIU/mL [facility] Blood Venous blood specimen / Unknown 05/04/2025 2:46 PM EDT 05/04/2025 3:59 PM EDT [facility] LAB BLOOD ORDERABLES Final Re sult Performing Organization Address [facility] de Phone Number [facility] [address] [place] [phone] * (ABNORMAL) CBC auto differential (05/04/2025 2:46 PM EDT) [facility] White Blood Count 6.6 4.8 - 10.8 X10*3/uL [facility] Red Blood Count 4.40 4.20 - 5.50 X10*6/uL [facility] Hemoglobin 13.8 12.0 - 16.0 g/dl [facility] Hematocrit 42.2 37.0 - 47.0 % [facility] Mean Corpuscular Volume 95.9 80.0 - 98.0 fL [facility] Mean Corpuscular Hemoglobin 31.4 27.0 - 33.0 pg [facility] Mean Corpuscular HGB Conc 32.7 31.0 - 35.0 g/dl [facility] Red Cell Distribution Width 15.0 11.0 - 16.0 % [facility] Platelet Count 171 160 - 400 X10*3/uL [facility] Mean Platelet Volume 12.9(H) 9.4 - 12.3 fL [facility] Neutrophils Percent Auto 58.0 45 - 73 % [facility] Imm Gran Pct Auto 0.3 0.0 - 0.4 % [facility] Lymphocytes Percent Auto 28.7 20 - 40 % [facility] Monocytes Percent Auto 9.0 2 - 11 % [facility] Eosinophils Percent Auto 2.9 0 - 4 % [facility] Basophils Percent Auto 1.1 0 - 2 % [facility] NRBC Pct Auto 0.0 0.0 - 0.2 /100WBC [facility] Neutrophils Absolute Auto 3.8 2.0 - 8.3 x10*3/uL [facility] Imm Gran Abs Auto 0.02 0.00 - 0.03 X10*3/uL [facility] Lymphocytes Absolute Auto 1.9 1.2 - 4.9 X10*3/uL [facility] Monocytes Absolute Auto 0.6 0.1 - 1.2 X10*3/uL [facility] Eosinophils Absolute Auto 0.2 0.0 - 0.4 X10*3/uL [facility] Basophils Absolute Auto 0.1 0.0 - 0.2 X10*3/uL [facility] NRBC Abs Auto 0.000 0.0 - 0.012 X10*3/uL [facility] Blood Venous blood specimen / Unknown 05/04/2025 2:46 PM EDT 05/04/2025 3:59 PM EDT [facility] LAB BLOOD ORDERABLES Final Re sult [facility] [address] [place] [phone] * (ABNORMAL) Lipid Panel, Standard (05/04/2025 2:46 PM EDT) Triglycerides 275(H) <150 mg/dL [facility] Comment:Desirable Triglyceri de: less than 150 mg/dLBorderline High Triglyceride 150-199 mg/dLHigh Triglyceride: 200-499 mg/dLVery High Triglyceride: greater than or equal to 5OO mg/dL Cholesterol 257(H) <200 mg/dL [facility] Comment:Desirable Cholestero l: less than 200 mg/dLBorderline High Cholesterol: 200-239 mg/dLHigh Cholesterol: greater than 239 mg/dL LDL Cholesterol Calculated 156(H) <100 mg/dL [facility] Comment:Desirable LDL: less than 100 mg/dLNear Optimal/Above Optimal LDL: 110- 129 mg/dLBorderline High LDL: 130-159 mg/dLHigh LDL: 160-189 mg/dLVery High LDL: greater than or equal to 190 mg/dL HDL Cholesterol 46 >40 mg/dL [facility] Comment:Desirable HDL: great er than 40 mg/dL Note: This HDL assay may give artificially low results in patients with liver disease. Blood Venous blood specimen / Unknown 05/04/2025 2:46 PM EDT 05/04/2025 3:59 PM EDT [facility] LAB BLOOD ORDERABLES Final Re sult [facility] [address] [place] [phone] [phone] * (ABNORMAL) Comprehensive Metabolic Panel (05/04/2025 2:46 PM EDT) Sodium 141 135 - 145 mmol/L [facility] Potassium 3.7 3.3 - 5.1 mmol/L [facility] Chloride 109(H) 96 - 108 mmol/L [facility] Carbon Dioxide 24 22 - 29 mmol/L [facility] Anion Gap 12 12 - 20 [facility] Urea Nitrogen (BUN) 17(H) 9 - 16 mg/dL [facility] Creatinine, Serum 0.65 0.5 - 1.4 mg/dL [facility] Estimated Glomerular Filt Rate >60 [facility] Comment:Chronic Kidney Disea se: Estimated GFR < 60 mL/min/1.90q0Vfbwsk Kidney Disease: Estimated GFR < 15 mL/min/1.73m2 Glucose 117(H) 60 - 115 mg/dL [facility] Calcium 9.3 8.4 - 10.2 mg/dL [facility] Bilirubin, Total 0.3 0.0 - 1.0 mg/dL [facility] Aspartate Amino Transferase 78(H) 5 - 31 U/L [facility] Alanine Aminotransferase 81(H) 0 - 31 U/L [facility] Total Protein 8.5(H) 6.5 - 8.0 g/dL [facility] Albumin Level 4.0 3.5 - 5.0 g/dL [facility] Alkaline Phosphatase 77 39 - 117 U/L [facility] Blood Venous blood specimen / Unknown 05/04/2025 2:46 PM EDT 05/04/2025 3:59 PM EDT Result [facility] LAB BLOOD ORDERABLES Final Re sult Performing Organization Address City/State/[facility] Co de Phone Number [facility] [address] [place] [phone] * (ABNORMAL) POCT Hgb A1c (05/04/2025 2:22 PM EDT) Hemoglobin A1C 6.9(A) 4.0 - 5.7 % Blood 05/04/2025 2:22 PM EDT Result [facility] POINT OF CARE TEST ENTER/EDIT ORDERABLES Final Result * POCT Glucose (05/04/2025 2:22 PM EDT) Glucose Blood, POC 142 60 - 200 mg/dL Blood Capillary blood specimen / Unknown 05/04/2025 2:22 PM EDT Result [facility] POINT OF CARE TEST ENTER/EDIT ORDERABLES Final Result * Fundus Photos - OU - Both Eyes (04/05/2025 10:40 AM EDT) Narrative Jesenia Powell, OD - 05/02/2025 3:52 PM EDT Images [...] 10:00 AM EDT) Creatinine, Urine 44.77 mg/dL [facility] Microalbumin Urine 16.0 mg/L [facility] Microalbum Creatinine Ratio Ur 35.7(H) <30 ug/mg cr [facility] Comment:Albumin/Creatinine R atio Reference Ranges: Normal: < 30 ug/mg creatinine Microalbuminuria: 30 - 300 ug/mg creatinineClinical Albuminuria: > 300 ug/mg creatinine Urine 04/27/2024 10:0 0 AM EDT 04/27/2024 5:28 PM EDT [facility] [employer] LAB URINE ORDERABLES Final Re sult [facility] [address] [place] [phone] * Hepatitis Panel, General (03/13/2023 2:36 PM EDT) Hepatitis A IgM Nonreactive Nonreactive [facility] Comment:IgM antibodies to SLOAN V not detected; does not exclude earlyacute or recovered HAV infection. ~Hepatitis B Surface Antibody NONREACTIVE Nonreactive [facility] Comment:Nonreactive: < 8.00 mIU/mL Hepatitis B Core Antibody Nonreactive Nonreactive [facility] Hepatitis C Antibody Nonreactive Nonreactive [facility] Comment:Antibodies to HCV no t detected; does not exclude early acuteHCV infection. Hepatitis B Surface Ag Negative Negative [facility] Blood 03/13/2023 2:36 PM EDT 03/13/2023 4:09 PM EDT us Stephanie Tejeda [employer] LAB BLOOD ORDERABLES Final Result [facility] [address] [place] [address] [phone] from Last 3 Months or Most Recently Relevant to Health Maintenance Insurance [facility] INTERMEDIATE OPTIONS (HMO D-SNP) [place] [id number] [facility] ST[facility] ADULT Advance Directives Documents on File Type Date Recorded Patient Surg Physician Asst Expl anation HealthCare Proxy 12/18/2022 proxy Power of Student Union Consultant 07/21/2023 [facility] Care Teams Lpn Care Manager Relationship Specialty Start Date End Date Zulema Shah FNP [address] [place] [phone] PCP - General Family Medicine 11/04/22 [facility] 04/21/24
--- OUTSIDE RECORDS SUMMARY | 2025-05-25 15:09 | XMS_ITS | Encounter Summary ---
Author Organization [employer] Address [address] [facility] [address] [place] [address] Care Team Providers Care Quick Sketch Artist Name Role Phone [facility] Primary Care Provider [phone] Reason for Visit * Reason Onset Date Comments triage 12/13/2022 Encounter Details Date Type Department Care Team ([facility] st Contact Info) Description 12/13/2022 Telephone [facility] [address] [place], [place] [phone] [facility] [address] [place] [address] triage Social History Tobacco Use Types Packs/Day [...] 12/13/2022 10:23 AM EDT Triage call with [employer] [place] [id number] Pt daughter answered the phone and reports that Pt is in the hospital with a blood clot in the leg.Advised to call [facility] for follow up when discharged from [...] Description 06/06/2025 11:30 AM EDT Office Visit [facility] OPTOMETRY [address] [place] [address] Andre, Jesenia, OD [address] [place] [address] 06/22/2025 2:00 PM EDT Telemedicine [facility] MED[facility]INE [address] [place] [address] Zulema Shah FNP [address] [place] [address] documented as of this encounter Visit Diagnoses Not on filedocumented in this encounter Additional Health Concerns Assessment Noted Time PHQ-9 Depression Total Score: 0 12/04/19 1:38 PM EDT documented as of this encounter Care Teams Quick Sketch Artist Relationship Specialty Start Date End Date Zulema Shah FNP [address] [place] [address] PCP - General Family Medicine 11/04/22 [employer] 04/21/24 documented as of this encounter
--- OUTSIDE RECORDS SUMMARY | 2025-05-25 15:09 | XMS_ITS | Encounter Summary ---
Author Organization [employer] Address [address] [facility] [address] [place] [address] Care Team Providers Care Child Caregiver Private Home Name Role Phone [place] [facility] Primary Care Provider [phone] Reason for Visit * Reason Onset Date Comments FYI 07/19/2024 Encounter Details Date Type Department Care Team ([facility] Contact Info) Description 07/19/2024 Telephone [facility] [address] [place], [place] [phone] [facility] [address] [place] [address] FYI Social History Tobacco Use Types Packs/Day [...] 3:41 PM EST Tc from Li with [employer] , notifying pt doesn't let her draw blood noteven for the last time. Li informs if any questions feel free to contact her Callback number [phone] documented in this encounter Plan of Treatment Upcoming Encounters Date Type Department Care Team (Late st Contact Info) Description 06/06/2025 11:30 AM EDT Office Visit [facility] OPTOMETRY [address] [place] [address] AndreJesenia chapa, OD [address] [place] [address] 06/22/2025 2:00 PM EDT Telemedicine [facility] [address] [place] [address] Zulema Shah FNP [address] [place] [address] documented as of this encounter Visit Diagnoses Not on filedocumented in this encounter Additional Health Concerns Assessment Noted Time PHQ-9 Depression Total Score: 0 12/25/19 23 10:53 AM EDT documented as of this encounter Care Teams Child Caregiver Private Home Relationship Specialty Start Date End Date Zulema Shah FNP [address] [place] [address] PCP - General Family Medicine 11/04/22 [employer] 04/21/24 documented as of this encounter
--- OUTSIDE RECORDS SUMMARY | 2025-05-25 15:09 | XMS_ITS | Encounter Summary ---
Author Organization [employer] Address [address] [facility] [address] [place] [address] Care Team Providers Care Bookkeeping Machine Mechanic Name Role Phone [address] [facility] Primary Care Provider [phone] Reason for Visit * Reason Comments Med Refill Encounter Details Date Type Department Care Team (Late Contact Info) Description 04/23/2023 Refill [facility] [address] [place] [address] [facility] [address] [place] [address] Social History Tobacco Use Types Packs/Day Years [...] Description 06/06/2025 11:30 AM EDT Office Visit [facility] OPTOMETRY [address] [place], [place] [phone] Andre, Jesenia, OD [address] [place], [place] [phone] 06/22/2025 2:00 PM EDT Telemedicine [facility] [address] [place] [address] Zulema Shah FNP [address] [place] [address] documented as of this encounter Visit Diagnoses Not on filedocumented in this encounter Additional Health Concerns Assessment Noted Time PHQ-9 Depression Total Score: 0 12/25/19 10:53 AM EDT documented as of this encounter Care Teams Bookkeeping Machine Mechanic Relationship Specialty Start Date End Date Zulema Shah FNP [address] [place] [address] PCP - General Family Medicine 11/04/22 [email or web address] 04/21/24 documented as of this encounter
--- OUTSIDE RECORDS SUMMARY | 2025-05-25 15:09 | XMS_ITS | Encounter Summary ---
Author Organization [employer] Address [address] [facility] 7t [place] [address] Care Team Providers Care Substation Operator Helper Generation Name Role Phone Abie [facility] Primary Care Provider [phone] Encounter Details Date Type Department Care Team ([facility] st Contact Info) Description 12/03/2022 Abstract [facility] [address] [place], [place] [phone] Abie [facility] 230 [place] [address] Social History Tobacco Use Types Packs/Day Years [...] Description 06/06/2025 11:30 AM EDT Office Visit [facility] [address] [place] [address] Jesenia Powell, OD [address] [place] [address] 06/22/2025 2:00 PM EDT Telemedicine [facility] [address] [place] [address] Zulema Shah FNP 230 [place] [address] documented as of this encounter Visit Diagnoses Not on filedocumented in this encounter Additional Health Concerns Assessment Noted Time PHQ-9 Depression Total Score: 0 12/04/19 23 1:38 PM EDT documented as of this encounter Care Teams Substation Operator Helper Generation Relationship Specialty Start Date End Date Zulema Shah FNP 230 [place] [address] PCP - General Family Medicine 11/04/22 [employer] 04/21/24 documented as of this encounter
--- OUTSIDE RECORDS SUMMARY | 2025-05-25 15:09 | XMS_ITS | Encounter Summary ---
Author Organization [employer] Address 75 [facility] 7t [place] [address] Care Team Providers Care Product Handler Name Role Phone [facility] Primary Care Provider [phone] Reason for Visit * Reason Comments Med Refill Encounter Details Date Type Department Care Team ([facility] st Contact Info) Description 01/16/2025 Refill [facility] 230 [place], [place] [phone] [facility] 230 [place] [address] Dry skin dermatitis Social History Tobacco Use [...] Description 06/06/2025 11:30 AM EDT Office Visit [facility] [address] [place] [address] Andre, Jesenia, OD 230 [place] [address] 06/22/2025 2:00 PM EDT Telemedicine [facility] [address] [place] [address] [employer]ster[employer]ule[employer] [facility] 230 [place] [address] documented as of this encounter Visit Diagnoses Diagnosis Dry skin dermatitis Contact dermatitis and other eczema due to other specified agent documented in this encounter Additional Health Concerns Assessment Noted Time PHQ-9 Depression Total Score: 0 12/25/19 23 10:53 AM EDT documented as of this encounter Care Teams Product Handler Relationship Specialty Start Date End Date Zulema Shah FNP 230 [place] [address] PCP - General Family Medicine 11/04/22 [employer] 04/21/24 documented as of this encounter
--- OUTSIDE RECORDS SUMMARY | 2025-05-25 15:09 | XMS_ITS | Encounter Summary ---
Author Organization [employer] Address [address] [facility] [address] 7t [place] [address] Care Team Providers Care School Treasurer Name Role Phone Davon Badillo MD Primary Care Provider [facility]lon [facility] Primary Care Provider [phone] Reason for Visit * Reason Onset Date Comments Appointment 10/28/2022 Encounter Details Date Type Department Care Team (Late Contact Info) Description 10/28/2022 Telephone [facility] [address] [place], [place] [phone] Crystal Gerardo DDS Appointment Social History Tobacco [...] Description 06/06/2025 11:30 AM EDT Office Visit [facility] [address] [place] [address] Andre, Megan, OD 230 [place] [address] 06/22/2025 2:00 PM EDT Telemedicine [facility] 230 [place], [place] [phone] Zulema Shah FNP 230 [place], [place] [phone] documented as of this encounter Visit Diagnoses Not on filedocumented in this encounter Care Teams School Treasurer Relationship Specialty Start Date End Date Davon Badillo MD PCP - General Family Medicine 06/25/19 11/03/22 Zulema Shah FNP 230 [place], [place] [phone] PCP - General Family Medicine 11/04/22 [employer] 04/21/24 documented as of this encounter
--- OUTSIDE RECORDS SUMMARY | 2025-05-25 15:09 | XMS_ITS | Encounter Summary ---
Author Organization [employer] Address [address] [facility] 7t [place] [address] Care Team Providers Care Hop Grower Name Role Phone [facility] Primary Care Provider [phone] Reason for Visit * Reason Comments Med Refill Encounter Details Date Type Department Care Team ([facility] st Contact Info) Description 04/12/2024 Refill [facility] [address] [place], [place] [phone] [facility] 230 [place] [address] Other chronic pain Social History Tobacco Use [...] Description 06/06/2025 11:30 AM EDT Office Visit [facility] [address] [place] [address] Andre, Jesenia, OD 230 [place] [address] 06/22/2025 2:00 PM EDT Telemedicine [facility] [address] [place] [address] Zulema Shah [facility] [address] [place] [address] documented as of this encounter Visit Diagnoses Diagnosis Other chronic pain documented in this encounter Additional Health Concerns Assessment Noted Time PHQ-9 Depression Total Score: 0 12/25/19 23 10:53 AM EDT documented as of this encounter Care Teams Hop Grower Relationship Specialty Start Date End Date Zulema Shah FNP [address] [place] [address] PCP - General Family Medicine 11/04/22 [employer] 04/21/24 documented as of this encounter
--- OUTSIDE RECORDS SUMMARY | 2025-05-25 15:09 | XMS_ITS | Encounter Summary ---
Author Organization [employer] Address 75 [facility] 7t [place] [address] Care Team Providers Care Traditional Chinese Herbalist Name Role Phone [facility] Primary Care Provider [phone] Reason for Visit * Reason Onset Date Comments ER Follow-up 04/30/2023 Encounter Details Date Type Department Care Team ([facility] st Contact Info) Description 04/30/2023 Telephone [facility] 230 [place], [place] [phone] [facility] 230 [place] [address] ER Follow-up Social History Tobacco Use Types [...] to report ED visit on 04/26/23 at [facility]. Seen for high blood sugar. Patient advised [...] Description 06/06/2025 11:30 AM EDT Office Visit [facility] [address] [place], [place] [phone] Andre, Jesenia, OD 230 [place] [address] 06/22/2025 2:00 PM EDT Telemedicine [facility] 230 [place] [address] Zulema Shah FNP [address] [place] [address] documented as of this encounter Visit Diagnoses Not on filedocumented in this encounter Additional Health Concerns Assessment Noted Time PHQ-9 Depression Total Score: 0 12/25/19 10:53 AM EDT documented as of this encounter Care Teams Traditional Chinese Herbalist Relationship Specialty Start Date End Date Zulema Shah FNP [address] [place] [address] PCP - General Family Medicine 11/04/22 [employer] 04/21/24 documented as of this encounter
--- OUTSIDE RECORDS SUMMARY | 2025-05-25 15:10 | XMS_ITS | Encounter Summary ---
Author Organization [employer] Address [address] [facility] 7t [place] [address] Care Team Providers Care Quality Associate Name Role Phone [facility] Primary Care Provider Reason for Visit * Reason Onset Date Comments Error 09/23/2023 Encounter Details Date Type Department Care Team ([facility] st Contact Info) Description 09/23/2023 Telephone [facility] 230 [place], [place] [phone] [facility] 230 [place], [place] [phone] Error Social History Tobacco Use Types Packs/Day [...] Description 06/06/2025 11:30 AM EDT Office Visit [facility] [address] [place] [address] Andre, Jesenia, OD 230 [place] [address] 06/22/2025 2:00 PM EDT Telemedicine [facility] 230 [place] [address] Zulema Shah FNP [address] [place] [address] documented as of this encounter Visit Diagnoses Not on filedocumented in this encounter Additional Health Concerns Assessment Noted Time PHQ-9 Depression Total Score: 0 12/25/19 23 10:53 AM EDT documented as of this encounter Care Teams Quality Associate Relationship Specialty Start Date End Date Zulema Shah FNP [address] [place] [address] PCP - General Family Medicine 11/04/22 [employer] 04/21/24 documented as of this encounter
--- OUTSIDE RECORDS SUMMARY | 2025-05-25 15:10 | XMS_ITS | Encounter Summary ---
Author Organization [employer] Address [address] [facility] 7t [place] [address] Care Team Providers Care Transformer Coil Winder Name Role Phone [facility] Primary Care Provider [phone] Reason for Visit * Reason Onset Date Comments Paperwork/Forms 08/19/2023 Encounter Details Date Type Department Care Team ([facility] st Contact Info) Description 08/19/2023 Telephone [facility] [address] [place], [place] [phone] [facility] 230 [place] [address] Paperwork/Forms Social History Tobacco Use Types Packs/Day [...] calling to request paperwork in regards to EVAPORATOR SUPERVISOR stated the EVAPORATOR SUPERVISOR has not been paid since 08/05 and stated the EVAPORATOR SUPERVISOR will not be going to attend the patient until the matter is resolved documented in this encounter Plan of Treatment Upcoming Encounters Date Type Department Care Team (Late st Contact Info) Description 06/06/2025 11:30 AM EDT Office Visit [facility] [address] [place] [address] AndreJesenia chapa, OD [address] [place] [address] 06/22/2025 2:00 PM EDT Telemedicine [facility] [address] [place] [address] Zulema Shah FNP [address] [place] [address] documented as of this encounter Visit Diagnoses Not on filedocumented in this encounter Additional Health Concerns Assessment Noted Time PHQ-9 Depression Total Score: 0 12/25/19 23 10:53 AM EDT documented as of this encounter Care Teams Transformer Coil Winder Relationship Specialty Start Date End Date Zulema Shah FNP [address] [place] [address] PCP - General Family Medicine 11/04/22 [employer] 04/21/24 documented as of this encounter
--- OUTSIDE RECORDS SUMMARY | 2025-05-25 15:10 | XMS_ITS | Encounter Summary ---
Author Organization [employer] Address [address] [facility] 7t [place] [address] Care Team Providers Care Glue Size Machine Operator Name Role Phone [facility] Primary Care Provider [phone] Reason for Visit * Reason Onset Date Comments Appointment Request 07/28/2023 Encounter Details Date Type Department Care Team ([facility] Contact Info) Description 07/28/2023 Telephone [facility] 230 [place], [place] [phone] [facility] 230 [place] [address] Appointment Request Social History Tobacco Use Types [...] Cadena 05/19. Please contact pt daughter at [phone] documented in this encounter Plan of Treatment Upcoming Encounters Date Type Department Care Team (Late st Contact Info) Description 06/06/2025 11:30 AM EDT Office Visit [facility] [address] [place] [address] Andre, Jesenia, OD [address] [place] [address] 06/22/2025 2:00 PM EDT Telemedicine [facility] [address] [place] [address] Zulema Shah FNP [address] [place] [address] documented as of this encounter Visit Diagnoses Not on filedocumented in this encounter Additional Health Concerns Assessment Noted Time PHQ-9 Depression Total Score: 0 12/25/19 10:53 AM EDT documented as of this encounter Care Teams Glue Size Machine Operator Relationship Specialty Start Date End Date Zulema Shah FNP [address] [place] [address] PCP - General Family Medicine 11/04/22 [employer] 04/21/24 documented as of this encounter
== END 2025-05-25 13:54 | disposition home or self-care (01) ==
LOC: HO.NEURO 13:53
PROVIDERS: PCP Registered Nurse; Visit Provider Physical Medicine & Rehabilitation
DX: I69.354 Hemiplegia and hemiparesis following cerebral infarction affecting left non-dominant side (principal); Z79.01 Long term (current) use of anticoagulants
CPT/HCPCS: 64643; 64644; 95874; J0585

== ENCOUNTER 2025-06-17 11:20 | Outpatient (AMB) | payer OTHER, SELFPAY ==
--- NOTE | 2025-06-17 11:25 | MHC.OFFVIS ---
Intake Visit Reasons: OV-Left hand Spastic hemiparesis Botox f/u Intake Note: Sue is a 69 year old female who presents today as a follow up from her Left hand Spastic hemiparesis Botox injection, 05/25/25. Patient's daughter reports improvement with flexion contracture of both knee and wrist/elbow. But she is concerned about the cartilage degradation of the knee given that she is nonambulatory, she is asking about surgical options for the knee. Allergies No Known Allergies (No Known Allergies*) Allergy (Verified 06/17/25 11:29) HPI Comments Details: Here with daughter who helped with translation. Hemorrhagic stroke, resulting left hemiparesis, 2020. No aphasia. On Eliquis, mainly for DVT. Diabetic, on metformin. Dementia diagnosed 1 year after, thought to be vascular. She can act like a little girl per daughter. She lives alone in apartment, no stairs, elevator. Total assist except feeding self. Non ambulatory, WC bound. Valerie lift for transfers. On diapers but has sensation. Healed sacral ulcer, 8 months ago. Last PCP note said stage 1. 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 Per daughter she does not try to get up from bed when alone. Had last botox many years ago by [facility]. Last Botox injection by me: 05/25/2025 Increased from 300 units to 500 units, targeting left finger flexors, wrist flexors, elbow flexors and hamstrings. Daughter reports that they are now able to extend wrist and elbow fully. Albeit more extension on fingers so that she can put a towel in the palm. Left knee/hamstring can get extended almost fully as well. However they are concerned about left knee. [facility] Medical History History of hemorrhagic stroke with residual hemiparesis Spastic hemiparesis of left nondominant side Acute kidney injury Asthma Elevated cholesterol HTN (hypertension) Hypothyroidism Foot contusion Surgical History History of cholecystectomy History of ankle surgery Family History Unknown Family history of colon cancer Social History Household Members: Other Household Members Other:: daughter Housing: Apartment Do you presently have visiting nurse or other home services: No Alcohol intake: never Cigarette Packs Per Day: 0 Cigarettes Per Day: 1 Second Hand Smoke Exposure: No service: No Current occupational status: disabled Physical Exam Exam Exam: Left finger flexion Uyen 2, still flexed on IP joints but patient would not let me range it more so I am not sure how much extension we have achieved. Left wrist is now fully extended at rest with Uyen 0. Left elbow can get extended fully 180 degrees, Uyen 0. Left knee also able to fully extend 180 degrees, Uyen 0. Assessment & Plan Assessment & Plan (1) Spastic hemiparesis of left nondominant side: Code(s): G81.14 - Spastic hemiplegia affecting left nondominant side Category: Medical (2) History of hemorrhagic stroke with residual hemiparesis: Code(s): I69.359 - Hemiplegia and hemiparesis following cerebral infarction affecting unspecified side Category: Medical (3) Chronic anticoagulation: Comment: On Eliquis Code(s): Z79.01 - long-term (current) use of anticoagulants Category: Medical (4) Osteoarthritis of left knee: Code(s): M17.12 - Unilateral primary osteoarthritis, left knee Category: Medical Qualifiers: Osteoarthritis type: primary Qualified Code(s): M17.12 - Unilateral primary osteoarthritis, left knee Plan Very good improvement from last botulinum toxin injections especially for left hamstrings, wrist and elbow. We will continue to work on finger flexors. Next injection tentatively scheduled 08/31/2025. We will inject the same muscles, still with total 500 units. As per their concern for left knee, I am not sure if she is a good surgical candidate. We can get a left knee x-ray today and then I can run it by my orthopedic colleagues if there is any surgical option for her. Patient daughter verbalized understanding and agreement. Assessment and plan discussed with patient, and patient was agreeable. All questions were answered thoroughly. Danika Jeronimo MD, RENE Board Certified, [place] Board of Physical Medicine and Rehabilitation (ABPMR) Board Certified, [place] Board of Electrodiagnostic Medicine (ABEM) Orders: Orders XR knee LT 3V Today M25.50 - Pain in unspecified joint Coding Level of Care Code Est Pt Level 4 (72096) Diagnoses Spastic hemiparesis of left nondominant side G81.14 History of hemorrhagic stroke with residual hemiparesis I69.359 Chronic anticoagulation Z79.01 Primary osteoarthritis of left knee M17.12 Osteoarthritis type: primary
== END 2025-06-17 11:42 | disposition home or self-care (01) ==
LOC: HO.HOS 11:21
PROVIDERS: PCP Registered Nurse; Visit Provider Physical Medicine & Rehabilitation
DX: G81.14 Spastic hemiplegia affecting left nondominant side (principal); I69.359 Hemiplegia and hemiparesis following cerebral infarction affecting unspecified side; Z79.01 Long term (current) use of anticoagulants; M17.12 Unilateral primary osteoarthritis, left knee
CPT/HCPCS: 99214

== ENCOUNTER 2025-06-17 11:20 | Outpatient (REF) | payer OTHER, SELFPAY ==
--- OUTSIDE RECORDS SUMMARY | 2025-06-17 14:03 | XMS_ITS | Encounter Summary ---
Author Organization [employer] Address 75 [facility] 7t [place] [address] Care Team Providers Care Manager Mba Name Role Phone [facility] [facility] Primary Care Provider [phone] Reason for Visit * Reason Onset Date Comments Error 09/23/2023 Encounter Details Date Type Department Care Team ([facility] st Contact Info) Description 09/23/2023 Telephone [facility] 230 [place], [place] [phone] [facility] 230 [place], [place] [phone] Error Social History Tobacco Use Types Packs/Day [...] Care Team (Late st Contact Info) Description 06/22/2025 2:00 PM EDT Telemedicine [facility] 230 [place] [address] Zulema Shah FNP [address] [place] [address] documented as of this encounter Visit Diagnoses Not on filedocumented in this encounter Additional Health Concerns Assessment Noted Time PHQ-9 Depression Total Score: 0 12/25/19 10:53 AM EDT documented as of this encounter Care Teams Manager Mba Relationship Specialty Start Date End Date Zulema Shah FNP [address] [place] [address] PCP - General Family Medicine 11/04/22 [employer] 04/21/24 documented as of this encounter
--- OUTSIDE RECORDS SUMMARY | 2025-06-17 14:03 | XMS_ITS | Encounter Summary ---
Author Organization [employer] Address [address] [facility] [address] 7t [place] [address] Care Team Providers Care Greige Goods Examiner Name Role Phone [place] Primary Care Provider [phone] Encounter Details Date Type Department Care Team (Late st Contact Info) Description 10/27/2024 Orders Only [facility] 230 [place], [place] [phone] [place] [facility] 230 [place], [place] [phone] Type 2 diabetes mellitus with other specified [...] Info) Description 06/22/2025 2:00 PM EDT Telemedicine [facility] [address] [place] [address] [facility] 230 [place], [place] [phone] Scheduled Orders Name Type Priority Associated Diagnoses Orde r Schedule Comprehensive Metabolic Panel Lab Routine Type 2 diabetes mellitus with other specified complication, without long-term current use of insulin ([facility]) Expected: 10/27/2024 (Approximate), Expires: 10/27/2025 CBC auto [...] documented as of this encounter Care Teams Greige Goods Examiner Relationship Specialty Start Date End Date Zulema Shah FNP [address] [place] [address] PCP - General Family Medicine 11/04/22 [employer] 04/21/24 documented as of this encounter
--- OUTSIDE RECORDS SUMMARY | 2025-06-17 14:03 | XMS_ITS | Encounter Summary ---
Author Organization [employer] Address 75 [facility] 7t [place] [address] Care Team Providers Care Agriculture Worker Name Role Phone [facility] Primary Care Provider [phone] Reason for Visit * Reason Comments Med Refill Encounter Details Date Type Department Care Team ([facility] st Contact Info) Description 04/12/2024 Refill [facility] [address] [place], [place] [phone] [facility] 230 [place] [address] Other chronic pain Social History Tobacco Use [...] Info) Description 06/22/2025 2:00 PM EDT Telemedicine [facility] [address] [place] [address] Zulema Shah FNP [address] [place] [address] documented as of this encounter Visit Diagnoses Diagnosis Other chronic pain documented in this encounter Additional Health Concerns Assessment Noted Time PHQ-9 Depression Total Score: 0 12/25/19 10:53 AM EDT documented as of this encounter Care Teams Agriculture Worker Relationship Specialty Start Date End Date Zulema Shah FNP [address] [place] [address] PCP - General Family Medicine 11/04/22 [employer] 04/21/24 documented as of this encounter
--- OUTSIDE RECORDS SUMMARY | 2025-06-17 14:03 | XMS_ITS | Encounter Summary ---
Author Organization [employer] Address [address] [facility] 7t [place] [address] Care Team Providers Care Locomotive Pipe Fitter Name Role Phone [facility] Primary Care Provider [phone] Reason for Visit * Reason Onset Date Comments triage 12/13/2022 Encounter Details Date Type Department Care Team ([facility] st Contact Info) Description 12/13/[address] [facility] 230 [place], [place] [phone] [facility] 230 [place] [address] triage Social History Tobacco Use Types Packs/Day [...] 12/13/2022 10:23 AM EDT Triage call with [place] Appointment Clerk [place] [id number] Pt daughter answered the phone and reports that Pt is in the hospital with a blood clot in the leg.Advised to call [facility] for follow up when discharged from the [...] Info) Description 06/22/2025 2:[address] [facility] [address] [place] [address] [facility] [address] [place] [address] documented as of this encounter Visit Diagnoses Not on filedocumented in this encounter Additional Health Concerns Assessment Noted Time PHQ-9 Depression Total Score: 0 12/04/19 23 1:38 PM EDT documented as of this encounter Care Teams Locomotive Pipe Fitter Relationship Specialty Start Date End Date Zulema Shah FNP [address] [place] [address] PCP - General Family Medicine 11/04/22 [employer] 04/21/24 documented as of this encounter
--- OUTSIDE RECORDS SUMMARY | 2025-06-17 14:03 | XMS_ITS | Encounter Summary ---
Author Organization [employer] Address [address] [facility] 7t [place] [address] Care Team Providers Care Advertising Sales Manager Name Role Phone [place] [facility] Primary Care Provider [phone] Encounter Details Date Type Department Care Team ([facility] st Contact Info) Description 12/03/2022 Abstract [facility] 230 [place], [place] [phone] [place] [facility] [address] [place] [address] Social History Tobacco Use Types Packs/Day Years [...] Info) Description 06/22/2025 2:00 PM EDT Telemedicine [facility] 230 [place] [address] [facility] [address] [place] [address] documented as of this encounter Visit Diagnoses Not on filedocumented in this encounter Additional Health Concerns Assessment Noted Time PHQ-9 Depression Total Score: 0 12/04/19 1:38 PM EDT documented as of this encounter Care Teams Advertising Sales Manager Relationship Specialty Start Date End Date Zulema Shah FNP [address] [place] [address] PCP - General Family Medicine 11/04/22 [employer] 04/21/24 documented as of this encounter
--- OUTSIDE RECORDS SUMMARY | 2025-06-17 14:03 | XMS_ITS | Encounter Summary ---
Author Organization [employer] Address [address] 7[address] [place] [address] Care Team Providers Care Silver Designer Name Role Phone Zulema Shah [facility] Primary Care Provider [phone] Encounter Details Date Type Department Care Team ([facility] st Contact Info) Description 06/17/2025 Orders Only [facility] External Provider, [facility] Social History Tobacco Use Types Packs/Day Years [...] Info) Description 06/22/2025 2:00 PM EDT Telemedicine [facility] [address] [place], [place] [phone] [facility] [address] [place] [address] documented as of this encounter Procedures Procedure Name Priority Date/Time Associated Diagnosis Comments XR KNEE 1-2 VIEWS LEFT Routine 06/17/2025 11:55 AM EDT documented in this encounter Results * XR Knee 1-2 Views Left (06/17/2025 11:55 AM EDT) Anatomical Region Laterality Modality Lower Extremities, Knee Left [facility] Imaging 06/17/2025 11:5 5 AM EDT Narrative 06/17/2025 12:21 PM EDT [facility] [address] [place] [address] XRay Report Signed Patient: Sue Wahl MR#: [id number] : 1955 Acct:[id number] Age/Sex: 69 / F ADM Date: 06/17/25 Loc: HO.XRAY Attending Dr: Danika Jeronimo MD Ordering Physician: Danika Felipe Date of Service: 06/17/25 Procedure(s): XR knee LT 2V Accession Number(s): [id number] cc: Danika Felipe; [facility] Reason for Exam: M25.50 - Pain in unspecified joint EXAMINATION: XR KNEE, LEFT CLINICAL INFORMATION: M25.50 - Pain in unspecified joint COMPARISON: None available. TECHNIQUE: Crosstable lateral and sunrise views of the left knee. FINDINGS: The joint is flexed. No joint effusion is evident. No gross fracture is seen. No gross degenerative changes are identified. There is likely osteopenia. XR/XR knee LT 2V IMPRESSION: Limited exam. Suspected osteopenia. Electronically signed by: Jack Chau MD 06/17/2025 12:18 PM EDT RP Dictated By: Jack Chau MD Signed By: <Electronically signed by Jack Chau MD in OV> 06/17/25 1218 DD/ 1155 TD/TT: 06/17/25 1210 Potato Peeling Machine Operator: Procedure Note Donotuseinterpreter, Image - 06/17/[address] [address] XRay Report Signed Patient: Popeye Wahl#: [id number] : 1955cct:[id number] Age/Sex: 69 / FADM Date: 06/17/25 Loc: HO.XRAY Attending Dr: Danika Jeronimo MD Ordering Physician: Danika Felipe Date of Service: 06/17/25 Procedure(s): XR knee LT 2V Accession Number(s): [id number] cc: Danika Felipe; [facility] Reason for Exam: M25.50 - Pain in unspecified joint EXAMINATION: XR KNEE, LEFT CLINICAL INFORMATION: M25.50 - Pain in unspecified joint COMPARISON: None available. TECHNIQUE: Crosstable lateral and sunrise views of the left knee. FINDINGS: The joint is flexed. No joint effusion is evident. No gross fracture is seen. No gross degenerative changes are identified. There is likely osteopenia. XR/XR knee LT 2V IMPRESSION: Limited exam. Suspected osteopenia. Electronically signed by: Jack Chau MD 06/17/2025 12:18 PM EDT RP Dictated By: Jack Chau MD Signed By: <Electronically signed by Jack Chau MD in OV> 06/17/25 1218 DD/ 1155 TD/TT: 06/17/25 1210 Potato Peeling Machine Operator: [facility] External Provider IMG XR PROCEDURES Final Result documented in this encounter Visit Diagnoses Not on filedocumented in this encounter Additional Health Concerns Assessment Noted Time PHQ-9 Depression Total Score: 0 12/25/19 23 10:53 AM EDT documented as of this encounter Care Teams Silver Designer Relationship Specialty Start Date End Date Zulema Shah FNP [address] [place] [phone] PCP - General Family Medicine 11/04/22 [employer] 04/21/24 documented as of this encounter
--- OUTSIDE RECORDS SUMMARY | 2025-06-17 14:03 | XMS_ITS | Encounter Summary ---
Author Organization [employer] Address [address] [facility] 7t [place] [address] Care Team Providers Care Remediation Project Engineer Name Role Phone [facility] Primary Care Provider [phone] Reason for Visit * Reason Comments Med Refill Encounter Details Date Type Department Care Team ([facility] st Contact Info) Description 06/15/2025 Refill [facility]INE [address] [place], [place] [phone] [facility] [address] [place] [address] Healthcare maintenance Social History Tobacco Use Types Packs/Day Years [...] Info) Description 06/22/2025 2:00 PM EDT Telemedicine [facility] MEDICINE [address] [place] [address] Zulema Shah FNP [address] [place] [address] documented as of this encounter Visit Diagnoses Diagnosis Healthcare maintenance documented in this encounter Additional Health Concerns Assessment Noted Time PHQ-9 Depression Total Score: 0 12/25/19 23 10:53 AM EDT documented as of this encounter Care Teams Remediation Project Engineer Relationship Specialty Start Date End Date Zulema Shah FNP [address] [place] [address] PCP - General Family Medicine 11/04/22 [employer] 04/21/24 documented as of this encounter
--- OUTSIDE RECORDS SUMMARY | 2025-06-17 14:03 | XMS_ITS | Clinical Summary ---
Author Organization [employer] Address [address] [facility] 7t [place] [address] Care Team Providers Care Dyeing Machine Back Tender Name Role Phone Zulema Shah [facility] Primary Care Provider [phone] Allergies No known active allergies Medications * This document contains information received from the source organization and may not represent a complete record from that organization. Blood Glucose Monitoring Suppl (ONE TOUCH ULTRA 2) w/Device kitIndications:Ty pe 2 diabetes mellitus without complication, without long-term current use of insulin ([facility]) Use to monitor blood glucose once daily 1 kit 023 Active Alcohol Swabs (Alcohol Prep) 70 % padsIndications:T ype 2 diabetes mellitus without complication, without long-term current use of insulin (FORMER[facility]) Apply by topical route to finger once daily prior to checking blood glucose 100 each 11 023 Active Botox 200 units injection 023 Active tamsulosin (Flomax) 0.4 MG 24 hr capsule 023 Active Alcohol Swabs (Alcohol Prep) padsIndications:T ype 2 diabetes mellitus without complication, without long-term current use of insulin (HCC) Use one pad each to prep skin prior to injection as directed 100 each 11 024 Active Blood Glucose Monitoring Suppl (GNP Easy Touch Glucose Meter) deviceIndications :Type 2 diabetes mellitus without complication, without long-term current use of insulin ([facility]) Use as directed to check blood sugar four times daily 1 each 024 Active albuterol (Ventolin HFA) 108 (90 Base) MCG/ACT inhaler INHALE 2 PUFFS BY MOUTH EVERY 4 TO 6 HOURS NEEDED 18 g 1 024 Active QUEtiapine (SEROquel) 25 MG tabletIndications :Depression, unspecified depression type TAKE 1 TABLET BY MOUTH EVERY DAY IN THE MORNING 30 tablet 5 024 Active apixaban (Eliquis) 5 MG tablet TAKE [...] EVERY DAY 90 tablet 1 025 Active Nyamyc [id number] UNIT/GM powder APPLY TO THE AFFECTED AREA(S) [...] WITH DINNER 180 tablet 1 025 Active glucose blood (HypereightTouch Ultra Test) test stripIndications: Type 2 diabetes mellitus without complication, without long-term current use of insulin (HCC) USE TO TEST BLOOD SUGAR FOUR TIMES DAILY 100 strip 3 025 Active Lancets (OneTouch Delica Plus [id number]) miscIndications:T ype 2 diabetes mellitus without complication, without long-term current use of insulin (HCC) USE TO TEST BLOOD SUGAR FOUR TIMES DAILY 100 each 3 025 Active amLODIPine (Norvasc) 5 MG tabletIndications :Primary [...] day. 90 tablet 3 025 2025 Active melatonin 3 MG tabletIndications :Healthcare maintenance TAKE 1 TABLET BY MOUTH AT BEDTIME 90 tablet 1 025 Active melatonin 3 MG tabletIndications :Healthcare maintenance Take 1 tablet (3 mg) by mouth at bedtime. 90 tablet 1 024 2024 Discontinued Active Problems Problem Noted Date [...] (03/21/2023 2:55 PM EDT): Continue VNA and [facility] INTER[facility] services High risk for pressure injury Treating [...] CVA and non-ambulatory/bed bound state. Referred [facility], no appt Gave pt phone number. Daughter will call. Will defer decision on stopping eliquis by specialist F/u 1 month with PCP or sooner PRN Elevated liver enzymes 03/21/2023 Overview (03/21/2023): Atorvastatin discontinued around 11/10/22 d/t elevated liver enzymes noted at [facility] when admitted for Choledocholithiasis. Started to trend [...] Mammo: Ordered today Pap: Previously followed by [facility]. Need records C-scope: No prior [...] am and 2 h in pm w R[facility]K INTERN--letter done today for pt with request -daughter will check with her Previous PT service [facility] they will start services again Assessment & Plan (03/21/2023 3:03 PM EDT): Continue VNA and R[facility]K INTERN services High risk for pressure injury Has developed sacral pressure injury Will refer to Wound care Pending botox appt for left sided hemiplegia. Pending liver enzymes not elevated F/u 1 month or sooner PRN with PCP Hypertension 12/03/2022 Dementia (CMS/HCC) 11/05/2022 Overview (03/21/2023): Affecting communication Poor appetite Losing weight Has developed pressure injury Assessment & Plan (03/21/2023 2:51 PM EDT): Care managed by Neurology Vitiligo 09/29/2012 Hypercholesterolemia 09/29/2012 Overview (03/21/2023): Atorvastatin discontinued around 11/10/22 d/t elevated liver enzymes noted at [facility] when admitted for Choledocholithiasis. Started to trend [...] Encounters Date Type Department Care Team Description 06/17/2025 Orders Only [facility] External Provider, [facility] 06/15/[address] [facility] [address] [place] [address] [facility] Healthcare maintenance 06/07/[address] [facility] [address] [place] [address] [facility] PT letter 06/06/2025 11:30 AM EDT Office Visit [facility] [address] [place] [address] Jesenia Powell, OD Presbyopia (Primary Dx) 06/06/2025 Travel 05/16/2025 Travel 05/04/2025 2:00 PM EDT Office Visit 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 [address] [place] [address] Iesha Antunez [place] Chart Prep 05/03/2025 Travel 04/05/2025 10:40 AM EDT Office Visit [facility] [address] [place] [address] Jesenia Powell, OD Diabetes type 2, no ocular involvement (CMS/HCC) (Primary Dx); Hypertensive retinopathy of both eyes 04/05/2025 Travel 03/24/[address] [facility] [address] [place] [address] [facility], [facility] Other chronic pain (Primary Dx) 03/24/[address] [facility] [address] [place] [address] [facility], [facility] Type 2 diabetes mellitus without complication, without long-term current use of insulin (CMS/[facility]); Mixed hyperlipidemia; Primary hypertension 03/24/[address] [facility] [address] [place], [place] [phone] [facility], [facility] from Last 3 Months Immunizations Immunization Administration [...] your housing situation today? I have toni sing 06/09/[address] you li [...] Description 06/22/2025 2:[address] [facility] [address] [place] [address] [facility], [facility] [address] [place] [address] Health Maintenance Due Date Last Done Comments [...] Additional history exists Lipid Panel 05/04/2026 05/04/2025, 0304/2025, 10/14/2023, Additional history exists Tobacco Screening 06/15/2026 06/15/2025 DTaP/Tdap/Td Vaccines (3 - Td or Tdap) [...] Comments XR KNEE 1-2 VIEWS LEFT Routine 5 11:55 AM EDT LIPID PANEL, STANDARD Routine 05/04/2025 2:46 PM [...] Recently Relevant to Health Maintenance Results * XR Knee 1-2 Views Left (06/17/2025 11:55 AM EDT) Anatomical Region Laterality Modality Lower Extremities, Knee Left [facility] 06/17/2025 11:5 5 AM EDT Narrative 06/17/2025 12:21 PM EDT [place] [address] XRay Report Signed Patient: Sue Wahl MR#: [id number] : 1955 Acct:[id number] Age/Sex: 69 / F ADM Date: 06/17/25 Loc: HO.ROSEANN Attending Dr: Danika Jeronimo MD Ordering Physician: Danika Felipe Date of Service: 06/17/25 Procedure(s): XR knee LT 2V Accession Number(s): [id number] cc: Danika Felipe; [facility] Reason for Exam: M25.50 - Pain [...] 06/17/25 1218 DD/ 1155 TD/TT: 06/17/25 1210 Manager Commission: Procedure Note Donotuseinterpreter, Image - 06/17/[address] [address] XRay Report Signed Patient: Popeye Wahl#: [id number] : 1955cct:[id number] Age/Sex: 69 / FADM Date: 06/17/25 Loc: HO.XRAY Attending Dr: Danika Jeronimo MD Ordering Physician: Danika Felipe Date of Service: 06/17/25 Procedure(s): XR knee LT 2V Accession Number(s): [id number] cc: Danika Felipe; [facility] Reason for Exam: M25.50 - Pain [...] 06/17/25 1218 DD/ 1155 TD/TT: 06/17/25 1210 Manager Commission: [facility] External Provider IMG XR PROCEDURES Final Result * Vitamin D, 25-Hydroxy, Total, Immunoassay (05/04/2025 2:46 PM EDT) Vitamin D 25-OH Total 33.4 >30 ng/mL [facility] Comment: Health Based Reference Values*< 20 ng/mL [id number] ng/mL Insufficient> 30 ng/mL Sufficient*Mateo FLOOD. N [...] 2:46 PM EDT 05/04/2025 3:59 PM EDT [facility] LAB BLOOD ORDERABLES Final Re sult [facility] [address] [place] [phone] * TSH W/Reflex to FT4 (05/04/2025 2:46 PM EDT) TSH reflex Free T4 1.00 0.32 - 4.0 uIU/mL [facility] Blood Venous blood specimen / Unknown 05/04/2025 2:46 PM EDT 05/04/2025 3:59 PM EDT [facility] BLOOD ORDERABLES Final Re sult [facility] [address] [place], [place] [phone] * (ABNORMAL) CBC auto differential (05/04/2025 2:46 PM EDT) White Blood Count 6.6 4.8 - 10.8 X10*3/uL [facility] Red Blood Count 4.40 4.20 - 5.50 X10*6/uL [facility] Hemoglobin 13.8 12.0 - 16.0 g/dl [facility] Hematocrit 42.2 37.0 - 47.0 % [facility] Mean Corpuscular Volume 95.9 80.0 - 98.0 fL [facility] Mean Corpuscular Hemoglobin 31.4 27.0 - 33.0 pg [facility] Mean Corpuscular HGB Conc 32.7 31.0 - 35.0 g/dl [facility] Red Cell Distribution Width 15.0 11.0 - 16.0 % [facility] Platelet Count 171 160 - 400 X10*3/uL [facility] Mean Platelet Volume 12.9(H) 9.4 - 12.3 fL [facility] Neutrophils Percent Auto 58.0 45 - 73 % [facility] Imm Gran Pct Auto 0.3 0.0 - 0.4 % [facility] Lymphocytes Percent Auto 28.7 20 - 40 % [facility] Monocytes Percent Auto 9.0 2 - 11 % [facility] Eosinophils Percent Auto 2.9 0 - 4 % [facility] Basophils Percent Auto 1.1 0 - 2 % [facility] NRBC Pct Auto 0.0 0.0 - 0.2 /100WBC [facility] Neutrophils Absolute Auto 3.8 2.0 - 8.3 x10*3/uL [facility] Imm Gran Abs Auto 0.02 0.00 - 0.03 X10*3/uL [facility] Lymphocytes Absolute Auto 1.9 1.2 - 4.9 X10*3/uL [facility] Monocytes Absolute Auto 0.6 0.1 - 1.2 X10*3/uL [facility] Eosinophils Absolute Auto 0.2 0.0 - 0.4 X10*3/uL [facility] Basophils Absolute Auto 0.1 0.0 - 0.2 X10*3/uL [facility] NRBC Abs Auto 0.000 0.0 - 0.012 X10*3/uL [facility] Blood Venous blood specimen / Unknown 05/04/2025 2:46 PM EDT 05/04/2025 3:59 PM EDT [facility] LAB BLOOD ORDERABLES Final Re sult [facility] [address] [place] [phone] * (ABNORMAL) Lipid Panel, Standard (05/04/2025 2:46 PM EDT) Triglycerides 275(H) <150 mg/dL [facility] Comment:Desirable Triglyceri de: less than 150 mg/dLBorderline High Triglyceride 150-199 mg/dLHigh Triglyceride: 200-499 mg/dLVery High Triglyceride: greater than or equal to 5OO mg/dL Cholesterol 257(H) <200 mg/dL [facility] Comment:Desirable Cholestero l: less than 200 mg/dLBorderline High Cholesterol: 200-239 mg/dLHigh Cholesterol: greater than 239 mg/dL LDL Cholesterol Calculated 156(H) <100 mg/dL [facility] Comment:Desirable LDL: less than 100 mg/dLNear Optimal/Above Optimal LDL: 110- 129 mg/dLBorderline High LDL: 130-159 mg/dLHigh LDL: 160-189 mg/dLVery High LDL: greater than or equal to 190 mg/dL HDL Cholesterol 46 >40 mg/dL [facility] Comment:Desirable HDL: great er than 40 mg/dL Note: This HDL assay may give artificially low results in patients with liver disease. Blood Venous blood specimen / Unknown 05/04/2025 2:46 PM EDT 05/04/2025 3:59 PM EDT [facility] LAB BLOOD ORDERABLES Final Re sult [facility] [address] [place] [phone] * (ABNORMAL) Comprehensive Metabolic Panel (05/04/2025 2:46 PM EDT) Sodium 141 135 - 145 mmol/L [facility] Potassium 3.7 3.3 - 5.1 mmol/L [facility] Chloride 109(H) 96 - 108 mmol/L [facility] Carbon Dioxide 24 22 - 29 mmol/L [facility] Anion Gap 12 12 - 20 [facility] Urea Nitrogen (BUN) 17(H) 9 - 16 mg/dL [facility] Creatinine, Serum 0.65 0.5 - 1.4 mg/dL [facility] Estimated Glomerular Filt Rate >60 [facility] Comment:Chronic Kidney Disea se: Estimated GFR < 60 mL/min/1.60q3Spocfv Kidney Disease: Estimated GFR < 15 mL/min/1.73m2 Glucose 117(H) 60 - 115 mg/dL [facility] Calcium 9.3 8.4 - 10.2 mg/dL [facility] Bilirubin, Total 0.3 0.0 - 1.0 mg/dL [facility] Aspartate Amino Transferase 78(H) 5 - 31 U/L [facility] Alanine Aminotransferase 81(H) 0 - 31 U/L [facility] Total Protein 8.5(H) 6.5 - 8.0 g/dL [facility] Albumin Level 4.0 3.5 - 5.0 g/dL [facility] Alkaline Phosphatase 77 39 - 117 U/L [facility] Blood Venous blood specimen / Unknown 05/04/2025 2:46 PM EDT 05/04/2025 3:59 PM EDT [facility] BLOOD ORDERABLES Final Re sult [facility] [address] [place] [phone] * (ABNORMAL) POCT Hgb A1c (05/04/2025 2:22 PM EDT) Hemoglobin A1C 6.9(A) 4.0 - 5.7 % Blood 05/04/2025 2:22 PM EDT [facility] POINT OF CARE TEST ENTER/EDIT ORDERABLES Final Result * POCT Glucose (05/04/2025 2:22 PM EDT) Glucose Blood, POC 142 60 - 200 mg/dL Blood Capillary blood specimen / Unknown 05/04/2025 2:22 PM EDT [facility] POINT OF CARE TEST ENTER/EDIT ORDERABLES [...] recall for a dilated eye exam. Jesenia Gongadelfo OD [employer]PH[employer]OTOGRAP[employer] Final Resul t * (ABNORMAL) Albumin, Random Urine W/Creatinine (04/27/2024 10:00 AM EDT) Creatinine, Urine 44.77 mg/dL [facility] Microalbumin Urine 16.0 mg/L H [facility] Microalbum Creatinine Ratio Ur 35.7(H) <30 ug/mg cr [facility] Comment:Albumin/Creatinine R atio Reference Ranges: Normal: < 30 ug/mg creatinine Microalbuminuria: 30 - 300 ug/mg creatinineClinical Albuminuria: > 300 ug/mg creatinine Urine 04/27/2024 10:0 0 AM EDT 04/27/2024 5:28 PM EDT [facility] URINE ORDERABLES Final Re sult Performing Organization Address [facility] Co de Phone Number [facility] [address] [place] [phone] * Hepatitis Panel, General (03/13/2023 2:36 PM EDT) Hepatitis A IgM Nonreactive Nonreactive [facility] Comment:IgM antibodies to SLOAN V not detected; does not exclude earlyacute or recovered HAV infection. ~Hepatitis B Surface Antibody NONREACTIVE Nonreactive [facility] Comment:Nonreactive: < 8.00 mIU/mL Hepatitis B Core Antibody Nonreactive Nonreactive [facility] Hepatitis C Antibody Nonreactive Nonreactive [facility] Comment:Antibodies to HCV no t detected; does not exclude early acuteHCV infection. Hepatitis B Surface Ag Negative Negative [facility] Blood 03/13/2023 2:36 PM EDT 03/13/2023 4:09 PM EDT Stephanie Tejeda [facility] BLOOD ORDERABLES Final Result Performing Organization Address [facility] Co de Phone Number [facility] [address] [place] [phone] from Last 3 Months or Most Recently Relevant to Health Maintenance Insurance [facility] [employer] (HMO D-SNP) [facility] MEDICAID STAND ADULT Advance Directives Documents on File Type Date Recorded Patient Residential Advisor Expl anation HealthCare Proxy 12/18/2022 proxy Power of Tube Room Cashier 07/21/2023 POA Care Teams Dyeing Machine Back Tender Relationship Specialty Start Date End Date Zulema Shah FNP [address] [place] [address] PCP - General Family Medicine 11/04/22 [employer] 04/21/24
--- OUTSIDE RECORDS SUMMARY | 2025-06-17 14:03 | XMS_ITS | Encounter Summary ---
Author Organization [employer] Address [address] [place] [address] [address] [place] [address] Care Team Providers Care Apparel Patternmaker Name Role Phone [facility] Primary Care Provider [phone] Reason for Visit * Reason Comments Med Refill Encounter Details Date Type Department Care Team (Late Contact Info) Description 04/23/2023 Refill [facility] MEDICINE [address] [place] [phone] [phone] Social History Tobacco Use Types Packs/Day Years [...] Department Care Team (Late Contact Info) Description 06/22/2025 2:00 PM EDT Telemedicine [facility]ICINE [address] [place] [phone] [phone] documented as of this encounter Visit Diagnoses Not on filedocumented in this encounter Additional Health Concerns Assessment Noted Time PHQ-9 Depression Total Score: 0 12/25/19 10:53 AM EDT documented as of this encounter Care Teams Apparel Patternmaker Relationship Specialty Start Date End Date Pablo JOHN Poole [address] [place] [phone] PCP - General Family Medicine 11/04/22 [place] 04/21/24 documented as of this encounter
--- OUTSIDE RECORDS SUMMARY | 2025-06-17 14:03 | XMS_ITS | Encounter Summary ---
Author Organization [employer] Address [address] [facility] 7t [place] [address] Care Team Providers Care Molder Floor Name Role Phone [place] [facility] Primary Care Provider [phone] Encounter Details Date Type Department Care Team (Late Contact Info) Description 12/30/2022 [facility] MEDICINE [address] [place] [address] [phone] [place] [address] [address] Social History Tobacco Use Types Packs/Day Years [...] Upcoming Encounters Date Type Department Care Team ([facility] Contact Info) Description 06/22/2025 2:00 PM EDT Telemedicine [facility] MEDICINE [address] [place] [address] [place] FNP [address] [place] [address] documented as of this encounter Visit Diagnoses Not on filedocumented in this encounter Additional Health Concerns Assessment Noted Time PHQ-9 Depression Total Score: 0 12/25/19 23 10:53 AM EDT documented as of this encounter Care Teams Molder Floor Relationship Specialty Start Date End Date Zulema Shah FNP [address] [place] [address] PCP - General Family Medicine 11/04/22 [employer] 04/21/24 documented as of this encounter
--- OUTSIDE RECORDS SUMMARY | 2025-06-17 14:03 | XMS_ITS | Encounter Summary ---
Author Organization [employer] Address 75 [facility] 7t [place] [address] Care Team Providers Care Director Of Family Service Center Name Role Phone Davon Badillo MD Primary Care Provider Marlon abrams [place] [facility] Primary Care Provider [phone] Reason for Visit * Reason Onset Date Comments Appointment 10/28/2022 Encounter Details Date Type Department Care Team (Late Contact Info) Description 10/28/2022 Telephone [facility] ADULT DENTAL [address] [place] [address] Crystal Gerardo DDS Appointment Social History Tobacco [...] Upcoming Encounters Date Type Department Care Team ([facility] Contact Info) Description 06/22/2025 2:00 PM EDT Telemedicine [facility] MEDICINE [address] [place], [place] [phone] [place] Zulema, CONTACT CENTER DIRECTOR [address] [place] [address] documented as of this encounter Visit Diagnoses Not on filedocumented in this encounter Care Teams Director Of Family Service Center Relationship Specialty Start Date End Date Davon Badillo MD PCP - General Family Medicine 06/25/19 11/03/22 [facility] JOHN Poole [address] [place] [address] PCP - General Family Medicine 11/04/22 [email or web address] 04/21/24 documented as of this encounter
--- OUTSIDE RECORDS SUMMARY | 2025-06-17 14:03 | XMS_ITS | Encounter Summary ---
Author Organization [facility] [employer] Address [address] [facility] 7t [place] [address] Care Team Providers Care Branch Logistics Supervisor Name Role Phone [facility] Primary Care Provider [phone] Reason for Visit * Reason Onset Date Comments ER Follow-up 04/30/2023 Encounter Details Date Type Department Care Team ([facility] st Contact Info) Description 04/30/2023 Telephone [facility] MEDICINE [address] [place], [place] [phone] [facility] [address] [place] [address] ER Follow-up Social History Tobacco Use Types [...] to report ED visit on 04/26/23 [place] [facility] Seen for high blood sugar. Patient advised [...] Info) Description 06/22/2025 2:00 PM EDT Telemedicine [facility] MEDICINE [address] [place] [address] Zulema Shah FNP [address] [place] [address] documented as of this encounter Visit Diagnoses Not on filedocumented in this encounter Additional Health Concerns Assessment Noted Time PHQ-9 Depression Total Score: 0 12/25/19 23 10:53 AM EDT documented as of this encounter Care Teams Branch Logistics Supervisor Relationship Specialty Start Date End Date Zulema Shah FNP [address] [place] [address] PCP - General Family Medicine 11/04/22 [employer] 04/21/24 documented as of this encounter
--- OUTSIDE RECORDS SUMMARY | 2025-06-17 14:03 | XMS_ITS | Encounter Summary ---
Author Organization [employer] Address [address] [facility] 7t [place] [address] Care Team Providers Care Sprinkler Installer Name Role Phone [facility] Primary Care Provider [phone] Reason for Visit * Reason Onset Date Comments Paperwork/Forms 08/19/2023 Encounter Details Date Type Department Care Team ([facility] st Contact Info) Description 08/19/2023 Telephone [facility] MEDICINE [address] [place], [place] [phone] [facility] [address] [place] [address] Paperwork/Forms Social History Tobacco Use Types Packs/Day [...] calling to request paperwork in regards to CARDIOVASCULAR SONOGRAPHER stated the CARDIOVASCULAR SONOGRAPHER has not been paid since 08/05 and stated the CARDIOVASCULAR SONOGRAPHER will not be going to attend the patient until the matter is resolved documented in this encounter Plan of Treatment Upcoming Encounters Date Type Department Care Team (Late st Contact Info) Description 06/22/2025 2:00 PM EDT Telemedicine [facility] MEDICINE [address] [place] [address] Zulema Shah [facility] [address] [place] [address] documented as of this encounter Visit Diagnoses Not on filedocumented in this encounter Additional Health Concerns Assessment Noted Time PHQ-9 Depression Total Score: 0 12/25/19 23 10:53 AM EDT documented as of this encounter Care Teams Sprinkler Installer Relationship Specialty Start Date End Date Zulema Shah FNP [address] [place] [address] PCP - General Family Medicine 11/04/22 [email or web address] 04/21/24 documented as of this encounter
--- OUTSIDE RECORDS SUMMARY | 2025-06-17 14:03 | XMS_ITS | Encounter Summary ---
Author Organization [employer] Address [address] [facility] 7t [place] [address] Care Team Providers Care Puppy Sitter Name Role Phone [place] [facility] Primary Care Provider [phone] Reason for Visit * Reason Onset Date Comments Appointment Request 07/28/2023 Encounter Details Date Type Department Care Team ([facility] Contact Info) Description 07/28/2023 Telephone [facility] MEDICINE [address] [place], [place] [phone] [facility] 230 [place] [address] Appointment Request Social History Tobacco Use Types [...] [place] 05/19. Please contact pt daughter at [phone] documented in this encounter Plan of Treatment Upcoming Encounters Date Type Department Care Team (Late st Contact Info) Description 06/22/2025 2:00 PM EDT Telemedicine [facility] MEDICINE [address] [place] [address] Zulema Shah [facility] [address] [place] [address] documented as of this encounter Visit Diagnoses Not on filedocumented in this encounter Additional Health Concerns Assessment Noted Time PHQ-9 Depression Total Score: 0 12/25/19 10:53 AM EDT documented as of this encounter Care Teams Puppy Sitter Relationship Specialty Start Date End Date Zulema Shah FNP [address] [place] [address] PCP - General Family Medicine 11/04/22 [employer] 04/21/24 documented as of this encounter
--- OUTSIDE RECORDS SUMMARY | 2025-06-17 14:03 | XMS_ITS | Encounter Summary ---
Author Organization [employer] Address [address] [facility] 7t [place] [address] Care Team Providers Care Chemical Unit Operator Name Role Phone [facility] Primary Care Provider [phone] Reason for Visit * Reason Comments Med Refill Encounter Details Date Type Department Care Team ([facility] st Contact Info) Description 01/16/2025 Refill [facility] MEDICINE [address] [place], [place] [phone] [facility] [address] [place] [address] Dry skin dermatitis Social History Tobacco Use [...] Info) Description 06/22/2025 2:00 PM EDT Telemedicine [facility] MEDICINE [address] [place] [address] Zulema Shah FNP [address] [place] [address] documented as of this encounter Visit Diagnoses Diagnosis Dry skin dermatitis Contact dermatitis and other eczema due to other specified agent documented in this encounter Additional Health Concerns Assessment Noted Time PHQ-9 Depression Total Score: 0 12/25/19 10:53 AM EDT documented as of this encounter Care Teams Chemical Unit Operator Relationship Specialty Start Date End Date Zulema Shah FNP [address] [place] [address] PCP - General Family Medicine 11/04/22 [employer] 04/21/24 documented as of this encounter
--- OUTSIDE RECORDS SUMMARY | 2025-06-17 14:03 | XMS_ITS | Encounter Summary ---
Author Organization [employer] Address [address] [facility] 7t [place] [address] Care Team Providers Care Cardiographer Name Role Phone [place] [facility] Primary Care Provider [phone] Reason for Visit * Reason Onset Date Comments FYI 07/19/2024 Encounter Details Date Type Department Care Team ([facility] Contact Info) Description 07/19/2024 Telephone [facility] MEDICINE [address] [place], [place] [phone] [facility] [address] [place] [address] FYI Social History Tobacco Use Types Packs/Day [...] 3:41 PM EST Tc from Li with [employer] , notifying pt doesn't let her draw blood noteven for the last time. Li informs if any questions feel free to contact her Callback number [phone] documented in this encounter Plan of Treatment Upcoming Encounters Date Type Department Care Team (Late st Contact Info) Description 06/22/2025 2:00 PM EDT Telemedicine [facility] MEDICINE [address] [place] [address] Zulema Shah [facility] [address] [place] [address] documented as of this encounter Visit Diagnoses Not on filedocumented in this encounter Additional Health Concerns Assessment Noted Time PHQ-9 Depression Total Score: 0 12/25/19 10:53 AM EDT documented as of this encounter Care Teams Cardiographer Relationship Specialty Start Date End Date Zulema Shah FNP [address] [place] [address] PCP - General Family Medicine 11/04/22 [employer] 04/21/24 documented as of this encounter
== END 2025-06-17 11:21 | disposition home or self-care (01) ==
LOC: HO.HOSX 11:20
PROVIDERS: PCP Registered Nurse; Visit Provider Physical Medicine & Rehabilitation
DX: Z13.89 Encounter for screening for other disorder (principal)
CPT/HCPCS: 99212

== ENCOUNTER 2025-06-17 11:47 | Outpatient (REF) | payer OTHER, SELFPAY ==
--- NOTE | ~2025-06-17 | XR_ITS ---
EXAMINATION: XR KNEE, LEFT CLINICAL INFORMATION: M25.50 - Pain in unspecified joint COMPARISON: None available. TECHNIQUE: Crosstable lateral and sunrise views of the left knee. FINDINGS: The joint is flexed. No joint effusion is evident. No gross fracture is seen. No gross degenerative changes are identified. There is likely osteopenia. XR/XR knee LT 2V IMPRESSION: Limited exam. Suspected osteopenia. Electronically signed by: Jack Chau MD 06/17/2025 12:18 PM EDT
== END 2025-06-17 11:48 | disposition home or self-care (01) ==
LOC: HO.XRAY 11:47
PROVIDERS: PCP Registered Nurse; Visit Provider Physical Medicine & Rehabilitation
DX: M25.562 Pain in left knee (principal)
CPT/HCPCS: 73560

== ENCOUNTER → 2025-06-17 11:51 | Outpatient (BNV) | payer OTHER, SELFPAY | PROVIDERS: PCP Registered Nurse; Visit Provider Radiology Diagnostic Radiology | DX: M25.562 Pain in left knee (principal) | CPT/HCPCS: 73560 ==

== ENCOUNTER 2025-07-15 09:53 | Outpatient (REF) | payer OTHER, SELFPAY ==
--- NOTE | ~2025-07-15 | US_ITS ---
CLINICAL HISTORY: 69 y.o F with chronic liver diease s t MAFLD US abdomen limited and incomplete Comparison: CT/[place]/SR - CT ABDOMEN PELVIS WO IV CON - 01/05/25 11:22 EDT Findings: Exam was terminated before completion by patient's preference due to pain. Limited evaluation of the right upper quadrant organs due to patient's condition-wheelchair bound. Small portion of the pancreatic head is seen and appears normal, remaining pancreas is obscured by bowel gas. The liver is not entirely seen, the upper aspect of the left and right hepatic lobe is mostly not visualized, the visualized liver demonstrates diffusely echogenic liver parenchyma, no focal lesion is seen. No intrahepatic bile duct dilatation. Status post cholecystectomy. Common duct is not seen. Main portal vein and right kidney are not insonated. Impression: 1. Limited and incomplete exam, as explained above. 2. Echogenic liver parenchyma is consistent with known chronic parenchymal liver disease. No hepatic lesion is seen, liver is not entirely visualized. This document has been electronically signed by: Cecilia Grajeda MD on 07/15/2025 15:29:19
--- OUTSIDE RECORDS SUMMARY | 2025-07-15 10:33 | XMS_ITS | Encounter Summary ---
Author Organization [employer] Address [address] [place] [address] 7 [place] [address] Care Team Providers Care Tool And Die Machinist Name Role Phone [place] [facility] Primary Care Provider [phone] Reason for Visit * Reason Comments Med Refill Encounter Details Date Type Department Care Team (Late Contact Info) Description 04/23/2023 Refill [facility] MEDICINE [address] [place] [id number] [phone] Social History Tobacco Use Types Packs/Day Years [...] Department Care Team (Late Contact Info) Description 07/27/2025 3:00 PM EST Telemedicine [facility] MEDICINE [address] [place], [place] [phone] [address] [phone] 08/29/2025 11:00 AM EST Nutrition [facility] DIABETES/NUTRITION [address] [place] [address] [place] [address] documented as of this encounter Visit Diagnoses Not on filedocumented in this encounter Additional Health Concerns Assessment Noted Time PHQ-9 Depression Total Score: 0 12/25/19 10:53 AM EDT documented as of this encounter Care Teams Tool And Die Machinist Relationship Specialty Start Date End Date Zulema Shah FNP 230 [place] [address] PCP - General Family Medicine 11/04/22 [employer] 04/21/24 documented as of this encounter
--- OUTSIDE RECORDS SUMMARY | 2025-07-15 10:33 | XMS_ITS | Encounter Summary ---
Author Organization [employer] Address 75 [facility] 7t [place] [address] Care Team Providers Care Penal Officer Name Role Phone [facility] Primary Care Provider [phone] Reason for Visit * Reason Onset Date Comments ER Follow-up 04/30/2023 Encounter Details Date Type Department Care Team ([facility] st Contact Info) Description 04/30/2023 Telephone [facility] MEDICINE [address] [place], [place] [phone] [facility] [address] [place] [address] ER Follow-up Social History Tobacco Use Types [...] to report ED visit on [place] [place] [facility] Seen for high blood sugar. Patient advised [...] Care Team (Late st Contact Info) Description 07/27/2025 3:00 PM EST Telemedicine [facility] MEDICINE [address] [place] [address] Zulema Shah FNP [address] [place] [address] 08/29/2025 11:00 AM EST Nutrition [facility] DIABETES/NUTRITION [address] [place] [address] [place] [address] documented as of this encounter Visit Diagnoses Not on filedocumented in this encounter Additional Health Concerns Assessment Noted Time PHQ-9 Depression Total Score: 0 12/25/19 10:53 AM EDT documented as of this encounter Care Teams Penal Officer Relationship Specialty Start Date End Date Zulema Shah FNP [address] [place] [address] PCP - General Family Medicine 11/04/22 [employer] 04/21/24 documented as of this encounter
--- OUTSIDE RECORDS SUMMARY | 2025-07-15 10:34 | XMS_ITS | Encounter Summary ---
Author Organization [employer] Address [address] 7t [place] [address] Care Team Providers Care Swatch Folder Name Role Phone [place] [facility] Primary Care Provider [phone] Encounter Details Date Type Department Care Team (Late st Contact Info) Description 10/27/2024 Orders Only [facility] [address] [place], [place] [phone] [place] [facility] [address] [place], [place] [phone] Type 2 diabetes mellitus with other specified [...] Info) Description 07/27/2025 3:00 PM EST Telemedicine [facility] MEDICINE [address] [place], [place] [phone] [place] Zulema, [facility] [address] [place] [address] 08/29/2025 11:00 AM EST Nutrition [facility] DIABETES/NUTRITION [address] [place], [place] [phone] Debbie Garner [address] [place] [address] Scheduled Orders Name Type Priority Associated Diagnoses Orde r Schedule Comprehensive Metabolic Panel Lab Routine Type 2 diabetes mellitus with other specified complication, without long-term current use of insulin ([facility]) Expected: 10/27/2024 (Approximate), Expires: 10/27/2025 CBC auto [...] documented as of this encounter Care Teams Swatch Folder Relationship Specialty Start Date End Date Zulema Shah FNP [address] [place] [address] PCP - General Family Medicine 11/04/22 [employer] 04/21/24 documented as of this encounter
--- OUTSIDE RECORDS SUMMARY | 2025-07-15 10:34 | XMS_ITS | Encounter Summary ---
Author Organization [employer] Address 75 [facility] 7t [place] [address] Care Team Providers Care Professional Soccer Player Name Role Phone [place] [facility] Primary Care Provider [phone] Reason for Visit * Reason Onset Date Comments Appointment Request 07/28/2023 Encounter Details Date Type Department Care Team ([facility] Contact Info) Description 07/28/2023 Telephone [facility] MEDICINE [address] [place], [place] [phone] [facility] [address] [place] [address] Appointment Request Social History Tobacco Use Types [...] [place] 05/19. Please contact pt daughter at [phone] documented in this encounter Plan of Treatment Upcoming Encounters Date Type Department Care Team (Late st Contact Info) Description 07/27/2025 3:00 PM EST Telemedicine [facility] MEDICINE [address] [place] [address] [place] [facility] [address] [place] [address] 08/29/2025 11:00 AM EST Nutrition [facility] DIABETES/NUTRITION [address] [place] [address] Debbie Garner, RD [address] [place] [address] documented as of this encounter Visit Diagnoses Not on filedocumented in this encounter Additional Health Concerns Assessment Noted Time PHQ-9 Depression Total Score: 0 12/25/19 23 10:53 AM EDT documented as of this encounter Care Teams Professional Soccer Player Relationship Specialty Start Date End Date [place] Zulema [facility] [address] [place] [address] PCP - General Family Medicine 11/04/22 [employer] 04/21/24 documented as of this encounter
--- OUTSIDE RECORDS SUMMARY | 2025-07-15 10:34 | XMS_ITS | Encounter Summary ---
Author Organization [employer] Address [address] [facility] 7t [place] [address] Care Team Providers Care Incident Response Engineer Name Role Phone [facility] Primary Care Provider [phone] Reason for Visit * Reason Onset Date Comments Paperwork/Forms 08/19/2023 Encounter Details Date Type Department Care Team ([facility] st Contact Info) Description 08/19/2023 Telephone [facility] MEDICINE [address] [place], [place] [phone] [facility] [address] [place] [address] Paperwork/Forms Social History Tobacco Use Types Packs/Day [...] calling to request paperwork in regards to LABORER SALVAGE stated the LABORER SALVAGE has not been paid since 08/05 and stated the LABORER SALVAGE will not be going to attend the patient until the matter is resolved documented in this encounter Plan of Treatment Upcoming Encounters Date Type Department Care Team (Late st Contact Info) Description 07/27/2025 3:00 PM EST Telemedicine [facility] MEDICINE [address] [place] [address] Zulema Shah [facility] [address] [place] [address] 08/29/2025 11:00 AM EST Nutrition [facility] DIABETES/NUTRITION [address] [place] [address] Debbie Garner, [place] [address] [place] [address] documented as of this encounter Visit Diagnoses Not on filedocumented in this encounter Additional Health Concerns Assessment Noted Time PHQ-9 Depression Total Score: 0 12/25/19 10:53 AM EDT documented as of this encounter Care Teams Incident Response Engineer Relationship Specialty Start Date End Date Zulema Shah FNP 230 [place] [address] PCP - General Family Medicine 11/04/22 [employer] 04/21/24 documented as of this encounter
--- OUTSIDE RECORDS SUMMARY | 2025-07-15 10:34 | XMS_ITS | Clinical Summary ---
Author Organization [employer] Address [address] [facility] 7[address] [place] [address] Care Team Providers Care Design Eng Name Role Phone Zulema Shah [facility] Primary Care Provider [phone] Allergies No known active allergies Medications * This document contains information received from the source organization and may not represent a complete record from that organization. Blood Glucose Monitoring Suppl (ONE TOUCH ULTRA 2) w/Device kitIndications:Ty pe 2 diabetes mellitus without complication, without long-term current use of insulin ([facility]) Use to monitor blood glucose once daily 1 kit 023 Active Alcohol Swabs (Alcohol Prep) 70 % padsIndications:T ype 2 diabetes mellitus without complication, without long-term current use of insulin ([facility]) Apply by topical route to finger once [...] without long-term current use of insulin ([facility]) Use as directed to check blood sugar [...] DAY 90 tablet 1 025 Active Nyamyc 246924 UNIT/GM powder APPLY TO THE AFFECTED AREA(S) TWICE DAILY 30 g 1 025 Active levothyroxine (Synthroid, Levoxyl) 150 MCG tablet Take 1 tablet (150 mcg) by mouth before breakfast. 90 tablet 3 07/13/20 1:56 PM EST 025 2025 Active hydrOXYzine HCl (Atarax) 25 [...] EVERY DAY WITH FOOD 90 tablet 1 07/13/20 25 1:56 PM EST 025 Active baclofen (Lioresal) 20 MG tablet TAKE 1 TABLET BY MOUTH THREE TIMES DAILY 90 tablet 5 07/13/20 25 1:57 PM EST 025 Active metFORMIN XR (Glucophage-XR) 500 MG 24 hr tablet TAKE 2 TABLETS BY MOUTH EVERY DAY WITH DINNER 180 tablet 1 07/13/20 1:56 PM EST Active glucose blood (OneTouch Ultra Test) test stripIndications: Type 2 diabetes mellitus without complication, without long-term current use of insulin (HCC) USE TO TEST BLOOD SUGAR FOUR TIMES DAILY 100 strip 3 07/13/20 1:56 PM EST Active Lancets (OneTouch Delica Plus [id number]) miscIndications:T ype 2 diabetes mellitus without complication, without long-term current use of insulin (HCC) USE TO TEST BLOOD SUGAR FOUR TIMES DAILY 100 each 3 07/13/20 1:56 PM EST Active amLODIPine (Norvasc) 5 MG tabletIndications :Primary hypertension Take 1 tablet (5 mg) by mouth Once per day. 30 tablet 11 07/13/20 1:57 PM EST 025 2025 Active traMADol (Ultram) 50 MG tabletIndications :Other chronic pain Take 1 tablet (50 mg) by mouth every 8 (eight) hours if needed for severe pain for up to 28 days. 84 tablet 07/13/20 1:57 PM EST 025 2024 Active rosuvastatin (Crestor) 20 MG tabletIndications :Mixed hyperlipidemia Take 1 tablet (20 mg) by mouth Once per day. 90 tablet 3 025 2025 Active melatonin 3 MG tabletIndications :Healthcare maintenance TAKE 1 TABLET BY MOUTH AT BEDTIME 90 tablet 1 07/13/20 1:56 PM EST Active triamcinolone (Kenalog) 0.5 % ointmentIndicatio ns:Rash APPLY TO THE AFFECTED AREA(S) TWICE DAILY 15 g 1 025 Active triamcinolone (Kenalog) 0.5 % ointmentIndicatio ns:Rash Apply topically 2 times daily. 15 g 1 025 2024 Discontinued Active Problems [...] (03/21/2023 2:55 PM EDT): Continue VNA and SCALE INSTALLER services High risk for pressure injury Treating [...] 11/10/22 d/t elevated liver enzymes noted at [facility] when admitted for Choledocholithiasis. Started to trend [...] today Pap: Previously followed by [facility]. Need records C-scope: No prior [...] am and 2 h in pm w SCALE INSTALLER--letter done today for pt with request -daughter will check with her Previous PT service [facility] they will start services again Assessment & Plan (03/21/2023 3:03 PM EDT): Continue VNA and SCALE INSTALLER services High risk for pressure injury Has [...] 11/10/22 d/t elevated liver enzymes noted at [facility] when admitted for Choledocholithiasis. Started to trend [...] Encounters Date Type Department Care Team Description 07/11/2025 Refill [facility] [address] [place] [phone] Zulema Shah FNP Rash 06/28/[address] [address] Zulema Shah FNP SCALE INSTALLER Services (I called Jacki regarding a request for an increase, in the patient's SCALE INSTALLER hours. 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 thyroiditis; Dementia with other behavioral disturbance, unspecified dementia severity, unspecified dementia type (CMS/HCC) (HCC) 06/22/2025 Travel 06/17/2025 Orders Only [facility] External Provider, [facility] 06/15/2025 Refill [facility] [address] [place] [address] [facility] Healthcare maintenance 06/07/2025 Telephone [facility] [address] [place] [address] [facility] PT letter 06/06/2025 11:30 AM EDT Office Visit [facility] OPTOMET[facility] [address] [place] [address] Andre, Jesenia, OD Presbyopia (Primary Dx); Age-related nuclear cataract of both eyes 06/06/2025 Travel 05/16/2025 Travel 05/04/2025 2:00 PM EDT Office Visit [facility] [address] [place] [address] [facility] Type 2 diabetes mellitus with other specified complication, without long-term current use of insulin (CMS/[facility]ER[facility]) (Primary Dx); Rash; Liver disease, unspecified; Behavior concern; Hypothyroidism, unspecified type; Other obesity not elsewhere classified; Dystrophic nail; Mixed hyperlipidemia; 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, unspecified cerebrovascular disease type, unspecified laterality (CMS/[facility]); Dietary counseling; Exercise counseling 05/04/2025 Travel 05/03/2025 Telephone [facility] [address] [place], [place] [phone] Iesha Antunez MA Chart Prep 05/03/2025 Travel from Last 3 Months Immunizations Immunization Administration [...] Info) Description 07/27/2025 3:00 PM EST Telemedicine [facility] [address] [place] [address] [place], SUPPLIER QUALITY MANAGER [address] [place] [address] 08/29/2025 11:00 AM EST Nutrition [facility] DIABETES/NUTRITION [address] [place] [address] Debbie Garner, BRENNEN [address] [place] [address] Health Maintenance Due Date Last Done Comments CT Colonography 1955 Colonoscopy 1956 Colorectal Cancer Screening 1956 Dental Oral Exam 1956 Dental Prophylaxis 1956 Dental X-Ray: Bitewings 1956 Dental X-Ray: Full Mouth 1956 FIT DNA/Cologuard 1956 FIT 1956 FOBT 1956 Sigmoidoscopy 1956 Alcohol/Substance Use Screening 1968 Mammogram 1996 RSV Patients and Patients Aged 60 years or older (1 - Risk 50-74 years 1-dose series) 2006 Depression Screening 12/25/2023 12/24/2022, 12/25/19 23 SDOH Screening 11/02/2024 11/03/2023 COVID-19 Vaccine ( season) 2025 10/20/2020 Influenza Vaccine (#1) 2025 , 05/30/2022, 11/12/2020, Additional history exists Diabetes: Urine Protein Screening 04/27/2025 04/27/2024, 04/27/2024 Diabetes: Hemoglobin A1C 11/01/2025 025, 11/10/2024, 10/01/2023, Additional history exists Diabetes: Foot Exam 05/04/2026 05/04/2025, 05/04/2025, 05/04/2025, Additional history exists Lipid Panel 05/04/2026 05/04/2025, 10/23, 10/14/2023, Additional history exists Tobacco Screening 06/26/2026 06/26/2025 Eye Exam 06/06/2027 06/06/2025 DTaP/Tdap/Td Vaccines (3 - Td or Tdap) [...] Comments XR KNEE 1-2 VIEWS LEFT Routine 10/24/202 5 11:55 AM EDT LIPID PANEL, STANDARD [...] without long-term current use of insulin (CMS/HCC) ALBUMIN, RANDOM URINE W/CREATININE Routine 04/27/2024 [...] Laterality Modality Lower Extremities, Knee Left Radiogra phic Imaging 06/17/2025 11:5 5 AM EDT Narrative 06/17/2025 12:21 PM EDT [address] [address] XRay Report Signed Patient: Sue Wahl MR#: [id number] : 1955 Acct:[id number] Age/Sex: 69 / F ADM Date: 06/17/25 Loc: HO.XRAY Attending Dr: Danika Jeronimo MD Ordering Physician: Danika Felipe Date of Service: 06/17/25 Procedure(s): XR knee LT 2V Accession Number(s): [id number] cc: Danika Felipe; [facility] Reason for Exam: M25.50 - Pain in [...] Jack Chau MD 06/17/2025 12:18 PM EDT Dictated By: Jack Chau MD Signed By: <Electronically signed by Jack Chau MD in OV> 06/17/25 1218 DD/ 1155 TD/TT: 06/17/25 1210 Roll Weigher: Procedure Note Donotuseinterpreter, Image - 06/17/[address] [address] XRay Report Signed Patient: Nissa WahlR#: [id number] : 1955cct:[id number] Age/Sex: 69 / FADM Date: 06/17/25 Loc: HOCathrynXRAY Attending Dr: Danika Jeronimo MD Ordering Physician: Danika Felipe Date of Service: 06/17/25 Procedure(s): XR knee LT 2V Accession Number(s): [id number] cc: Danika Felipe; [facility] Reason for Exam: M25.50 - Pain in [...] 06/17/25 1218 DD/ 1155 TD/TT: 06/17/25 1210 Roll Weigher: [facility] External Provider IMG XR PROCEDURES Final Result * Vitamin D, 25-Hydroxy, Total, Immunoassay (05/04/2025 2:46 PM EDT) Vitamin D 25-OH Total 33.4 >30 ng/mL [facility] Comment: Health Based Reference Values*< 20 ng/mL [id number] ng/mL Insufficient> 30 ng/mL Sufficient*Mateo FLOOD. N [...] 2:46 PM EDT 05/04/2025 3:59 PM EDT [facility] SUPPLIER QUALITY MANAGER LAB BLOOD ORDERABLES Final Re sult Performing Organization Address [facility] Co de Phone Number [facility] [address] [place] [phone] * TSH W/Reflex to FT4 (05/04/2025 2:46 PM EDT) Pathologist [facility] TSH reflex Free T4 1.00 0.32 - 4.0 uIU/mL [facility] Blood Venous blood specimen / Unknown 05/04/2025 2:46 PM EDT 05/04/2025 3:59 PM EDT [facility] LAB BLOOD ORDERABLES Final Re sult Performing Organization Address [facility] de Phone Number [facility] [address] [place] [phone] * (ABNORMAL) CBC auto differential (05/04/2025 2:46 PM EDT) White Blood Count 6.6 4.8 - 10.8 X10*3/uL [facility] Red Blood Count 4.40 4.20 - 5.50 X10*6/uL [facility] Hemoglobin 13.8 12.0 - 16.0 g/dl [facility] Hematocrit 42.2 37.0 - 47.0 % [facility] Mean Corpuscular Volume 95.9 80.0 - 98.0 fL [facility] Mean Corpuscular Hemoglobin 31.4 27.0 - 33.0 pg [facility] Mean Corpuscular HGB Conc 32.7 31.0 - 35.0 g/dl [facility] Red Cell Distribution Width 15.0 11.0 - 16.0 % [facility] Platelet Count 171 160 - 400 X10*3/uL [facility] Mean Platelet Volume 12.9(H) 9.4 - 12.3 fL [facility] Neutrophils Percent Auto 58.0 45 - 73 % [facility] Imm Gran Pct Auto 0.3 0.0 - 0.4 % [facility] Lymphocytes Percent Auto 28.7 20 - 40 % [facility] Monocytes Percent Auto 9.0 2 - 11 % [facility] Eosinophils Percent Auto 2.9 0 - 4 % [facility] Basophils Percent Auto 1.1 0 - 2 % [facility] NRBC Pct Auto 0.0 0.0 - 0.2 /100WBC [facility] Neutrophils Absolute Auto 3.8 2.0 - 8.3 x10*3/uL [facility] Imm Gran Abs Auto 0.02 0.00 - 0.03 X10*3/uL [facility] Lymphocytes Absolute Auto 1.9 1.2 - 4.9 X10*3/uL [facility] Monocytes Absolute Auto 0.6 0.1 - 1.2 X10*3/uL [facility] Eosinophils Absolute Auto 0.2 0.0 - 0.4 X10*3/uL [facility] Basophils Absolute Auto 0.1 0.0 - 0.2 X10*3/uL [facility] NRBC Abs Auto 0.000 0.0 - 0.012 X10*3/uL [facility] Blood Venous blood specimen / Unknown 05/04/2025 2:46 PM EDT 05/04/2025 3:59 PM EDT [facility] SUPPLIER QUALITY MANAGER LAB BLOOD ORDERABLES Final Re sult [facility] [address] [place] [phone] * (ABNORMAL) Lipid Panel, Standard (05/04/2025 2:46 PM EDT) Triglycerides 275(H) <150 mg/dL [facility] Comment:Desirable Triglyceri de: less than 150 mg/dLBorderline High Triglyceride 150-199 mg/dLHigh Triglyceride: 200-499 mg/dLVery High Triglyceride: greater than or equal to 5OO mg/dL Cholesterol 257(H) <200 mg/dL [facility] Comment:Desirable Cholestero l: less than 200 mg/dLBorderline High Cholesterol: 200-239 mg/dLHigh Cholesterol: greater than 239 mg/dL LDL Cholesterol Calculated 156(H) <100 mg/dL [facility] Comment:Desirable LDL: less than 100 mg/dLNear Optimal/Above Optimal LDL: 110- 129 mg/dLBorderline High LDL: 130-159 mg/dLHigh LDL: 160-189 mg/dLVery High LDL: greater than or equal to 190 mg/dL HDL Cholesterol 46 >40 mg/dL [facility] Comment:Desirable HDL: great er than 40 mg/dL Note: This HDL assay may give artificially low results in patients with liver disease. Blood Venous blood specimen / Unknown 05/04/2025 2:46 PM EDT 05/04/2025 3:59 PM EDT [facility] LAB BLOOD ORDERABLES Final Re sult [facility] [address] [place], [place] [phone] * (ABNORMAL) Comprehensive Metabolic Panel (05/04/2025 2:46 PM EDT) Sodium 141 135 - 145 mmol/L [facility] Potassium 3.7 3.3 - 5.1 mmol/L [facility] Chloride 109(H) 96 - 108 mmol/L [facility] Carbon Dioxide 24 22 - 29 mmol/L [facility] Anion Gap 12 12 - 20 [facility] Urea Nitrogen (BUN) 17(H) 9 - 16 mg/dL [facility] Creatinine, Serum 0.65 0.5 - 1.4 mg/dL [facility] Estimated Glomerular Filt Rate >60 [facility] Comment:Chronic Kidney Disea se: Estimated GFR < 60 mL/min/1.96r1Ymeoll Kidney Disease: Estimated GFR < 15 mL/min/1.73m2 Glucose 117(H) 60 - 115 mg/dL [facility] Calcium 9.3 8.4 - 10.2 mg/dL [facility] Bilirubin, Total 0.3 0.0 - 1.0 mg/dL [facility] Aspartate Amino Transferase 78(H) 5 - 31 U/L [facility] Alanine Aminotransferase 81(H) 0 - 31 U/L [facility] Total Protein 8.5(H) 6.5 - 8.0 g/dL [facility] Albumin Level 4.0 3.5 - 5.0 g/dL [facility] Alkaline Phosphatase 77 39 - 117 U/L [facility] Blood Venous blood specimen / Unknown 05/04/2025 2:46 PM EDT 05/04/2025 3:59 PM EDT [facility] LAB BLOOD ORDERABLES Final Re sult Performing Organization Address City/State/[facility] Co de Phone Number [facility] [address] [place] [phone] * (ABNORMAL) POCT Hgb A1c (05/04/2025 2:22 PM EDT) Hemoglobin A1C 6.9(A) 4.0 - 5.7 % Blood 05/04/2025 2:22 PM EDT [facility] SUPPLIER QUALITY MANAGER POINT OF CARE TEST ENTER/EDIT ORDERABLES Final Result * POCT Glucose (05/04/2025 2:22 PM EDT) Glucose Blood, POC 142 60 - 200 mg/dL Blood Capillary blood specimen / Unknown 05/04/2025 2:22 PM EDT [facility] POINT OF CARE TEST ENTER/EDIT ORDERABLES Final Result * (ABNORMAL) Albumin, Random Urine W/Creatinine (04/27/2024 10:00 AM EDT) Creatinine, Urine 44.77 mg/dL [facility] Microalbumin Urine 16.0 mg/L [facility] Microalbum Creatinine Ratio Ur 35.7(H) <30 ug/mg cr [facility] Comment:Albumin/Creatinine R atio Reference Ranges: Normal: < 30 ug/mg creatinine Microalbuminuria: 30 - 300 ug/mg creatinineClinical Albuminuria: > 300 ug/mg creatinine Urine 04/27/2024 10:0 0 AM EDT 04/27/2024 5:28 PM EDT [facility] URINE ORDERABLES Final Re sult Performing Organization Address [facility] Co de Phone Number [facility] [address] [place] [phone] * Hepatitis Panel, General (03/13/2023 2:36 PM EDT) Pathologist [facility] Hepatitis A IgM Nonreactive Nonreactive [facility] Comment:IgM antibodies to SLOAN V not detected; does not exclude earlyacute or recovered HAV infection. ~Hepatitis B Surface Antibody NONREACTIVE Nonreactive [facility] Comment:Nonreactive: < 8.00 mIU/mL Hepatitis B Core Antibody Nonreactive Nonreactive [facility] Hepatitis C Antibody Nonreactive Nonreactive [facility] Comment:Antibodies to HCV no t detected; does not exclude early acuteHCV infection. Hepatitis B Surface Ag Negative Negative [facility] Blood 03/13/2023 2:36 PM EDT 03/13/2023 4:09 PM EDT Stephanie Tejeda [facility] BLOOD ORDERABLES Final Result Performing Organization Address [facility]/ZIP Co de Phone Number [facility] [address] [place] [phone] from Last 3 Months or Most Recently Relevant to Health Maintenance Insurance [facility] ASSISTED OPTIONS (HMO D-SNP) [facility] MEDICAID STAND ADULT Advance Directives Documents on File Type Date Recorded Patient Counter Former Expl anation HealthCare Proxy 12/18/2022 proxy Power of Operating Systems Specialist 07/21/2023 POA Care Teams Design Eng Relationship Specialty Start Date End Date Zulema Shah FNP [address] [place] [address] PCP - General Family Medicine 11/04/22 [employer] 04/21/24
--- OUTSIDE RECORDS SUMMARY | 2025-07-15 10:34 | XMS_ITS | Encounter Summary ---
Author Organization [email or web address] Address [address] [facility] [address]t [place] [address] Care Team Providers Care Dust Collector Name Role Phone [facility] Primary Care Provider [phone] Reason for Visit * Reason Comments Med Refill Encounter Details Date Type Department Care Team ([facility] st Contact Info) Description 04/12/2024 Refill [facility] MEDICINE [address] [place], [place] [phone] [facility] [address] [place] [address] Other chronic pain Social History Tobacco Use [...] Info) Description 07/27/2025 3:00 PM EST Telemedicine [facility] MEDICINE [address] [place] [address] Zulema Shah FNP [address] [place] [address] 08/29/2025 11:00 AM EST Nutrition [facility] DIABETES/NUTRITION [address] [place] [address] Debbie Garner, BRENNEN [address] [place] [address] documented as of this encounter Visit Diagnoses Diagnosis Other chronic pain documented in this encounter Additional Health Concerns Assessment Noted Time PHQ-9 Depression Total Score: 0 12/25/19 23 10:53 AM EDT documented as of this encounter Care Teams Dust Collector Relationship Specialty Start Date End Date Zulema Shah FNP [address] [place] [phone] PCP - General Family Medicine 11/04/22 [employer] 04/21/24 documented as of this encounter
--- OUTSIDE RECORDS SUMMARY | 2025-07-15 10:34 | XMS_ITS | Encounter Summary ---
Author Organization [employer] Address [address] [facility] 7t [place] [address] Care Team Providers Care Home Appliance Washing Machine Mechanic Name Role Phone [place] [facility] Primary Care Provider [phone] Encounter Details Date Type Department Care Team ([facility] st Contact Info) Description 12/03/2022 Abstract [facility] [address] [place], [place] [phone] [place] [facility] [address] [place] [address] Social History Tobacco Use Types Packs/Day Years [...] television Not at all 12/03/2022 1:38 PM BARBARAT Cherri Hernandez MA Moving or speaking so [...] Health Questionnaire-9 Score 0 12/03/2022 1:38 PM BARBARAT Cherri Hernandez [place] documented as of this encounter Plan of Treatment Upcoming Encounters Date Type Department Care Team (Late st Contact Info) Description 07/27/2025 3:00 PM EST Telemedicine [facility] [address] [place] [address] [facility] [address] [place] [address] 08/29/2025 11:00 AM EST Nutrition [facility] DIABETES/NUTRITION [address] [place] [address] [place] [address] documented as of this encounter Visit Diagnoses Not on filedocumented in this encounter Additional Health Concerns Assessment Noted Time PHQ-9 Depression Total Score: 0 12/04/19 23 1:38 PM EDT documented as of this encounter Care Teams Home Appliance Washing Machine Mechanic Relationship Specialty Start Date End Date Zulema Sahh FNP [address] [place] [address] PCP - General Family Medicine 11/04/22 LMN-1 04/21/24 documented as of this encounter
--- OUTSIDE RECORDS SUMMARY | 2025-07-15 10:34 | XMS_ITS | Encounter Summary ---
Author Organization [employer] Address [address] [facility] [address]t [place] [address] Care Team Providers Care Slate Roofer Helper Name Role Phone [place] [facility] Primary Care Provider [phone] Encounter Details Date Type Department Care Team (Late Contact Info) Description 12/30/2022 Abstract [facility] MEDICINE [address] [place] [phone] [place] [address] [phone] Social History Tobacco Use Types Packs/Day Years [...] Upcoming Encounters Date Type Department Care Team ([facility] Contact Info) Description 07/27/2025 3:00 PM EST Telemedicine [facility] MEDICINE [address] [place] [address] Zulema Shah FNP [address] [place] [address] 08/29/2025 11:00 AM EST Nutrition [facility] DIABETES/NUTRITION [address] [place], [place] [phone] Debbie Garner, BRENNEN [address] [place], [place] [phone] documented as of this encounter Visit Diagnoses Not on filedocumented in this encounter Additional Health Concerns Assessment Noted Time PHQ-9 Depression Total Score: 0 12/25/19 10:53 AM EDT documented as of this encounter Care Teams Slate Roofer Helper Relationship Specialty Start Date End Date Pablo JOHN Poole [address] [place] [address] PCP - General Family Medicine 11/04/22 [employer] 04/21/24 documented as of this encounter
--- OUTSIDE RECORDS SUMMARY | 2025-07-15 10:34 | XMS_ITS | Encounter Summary ---
Author Organization [employer] Address [address] [facility] 7t [place] [address] Care Team Providers Care Steam Table Associate Name Role Phone Davon Badillo MD Primary Care Provider Marlon abrams [facility] Primary Care Provider [phone] Reason for Visit * Reason Onset Date Comments Appointment 10/28/2022 Encounter Details Date Type Department Care Team (Late Contact Info) Description 10/28/2022 Telephone [facility] CHC ADULT DENTAL [address] [place] [address] Crystal Gerardo DDS Appointment Social History Tobacco [...] Upcoming Encounters Date Type Department Care Team ([facility] Contact Info) Description 07/27/2025 3:00 PM EST Telemedicine [facility] MEDICINE [address] [place], [place] [phone] [place] 230 [place] [address] 08/29/2025 11:00 AM EST Nutrition [facility] DIABETES/NUTRITION [address] [place], [place] [phone] Debbie Garner, BRENNEN [address] [place], [place] [phone] documented as of this encounter Visit Diagnoses Not on filedocumented in this encounter Care Teams Steam Table Associate Relationship Specialty Start Date End Date Davon Badillo MD PCP - General Family Medicine 06/25/19 11/03/22 O'[place]on[place]ulema FNP 230 [place] [address] PCP - General Family Medicine 11/04/22 [employer] 04/21/24 documented as of this encounter
--- OUTSIDE RECORDS SUMMARY | 2025-07-15 10:34 | XMS_ITS | Encounter Summary ---
Author Organization [employer] Address [address] [facility] 7t [place] [address] Care Team Providers Care Metal Template Maker Name Role Phone [facility] [place] Primary Care Provider [phone] Reason for Visit * Reason Onset Date Comments Error 09/23/2023 Encounter Details Date Type Department Care Team ([facility] st Contact Info) Description 09/23/2023 Telephone [facility] MEDICINE 230 [place], [place] [phone] [facility] 230 [place], [place] [phone] Error Social History Tobacco Use Types Packs/Day [...] Info) Description 07/27/2025 3:00 PM EST Telemedicine [facility] MEDICINE 230 [place] [address] Zulema Shah FNP 230 [place] [address] 08/29/2025 11:00 AM EST Nutrition [facility] DIABETES/NUTRITION 230 [place] [address] Debbie Garner, RD 230 [place] [address] documented as of this encounter Visit Diagnoses Not on filedocumented in this encounter Additional Health Concerns Assessment Noted Time PHQ-9 Depression Total Score: 0 12/25/19 23 10:53 AM EDT documented as of this encounter Care Teams Metal Template Maker Relationship Specialty Start Date End Date Zulema Shah FNP [address] [place] [address] PCP - General Family Medicine 11/04/22 [employer] 04/21/24 documented as of this encounter
--- OUTSIDE RECORDS SUMMARY | 2025-07-15 10:34 | XMS_ITS | Encounter Summary ---
Author Organization [employer] Address 75 [facility] 7t [place] [address] Care Team Providers Care Microbiology Lab Manager Name Role Phone [facility] Primary Care Provider Reason for Visit * Reason Comments Med Refill Encounter Details Date Type Department Care Team ([facility] st Contact Info) Description 07/11/2025 Refill [facility] MEDICINE 230 [place], [place] [phone] [facility] 230 [place] [address] Rash Social History Tobacco Use Types Packs/Day Years [...] Info) Description 07/27/2025 3:00 PM EST Telemedicine [facility] MEDICINE 230 [place] [address] Zulema Shah FNP 230 [place] [address] 08/29/2025 11:00 AM EST Nutrition [facility] DIABETES/NUTRITION 230 [place] [address] Debbie Garner, RD 230 [place] [address] documented as of this encounter Visit Diagnoses Diagnosis Rash Rash and other nonspecific skin eruption documented in this encounter Additional Health Concerns Assessment Noted Time PHQ-9 Depression Total Score: 0 12/25/19 23 10:53 AM EDT documented as of this encounter Care Teams Microbiology Lab Manager Relationship Specialty Start Date End Date Zulema Shah FNP [address] [place] [address] PCP - General Family Medicine 11/04/22 [employer] 04/21/24 documented as of this encounter
--- OUTSIDE RECORDS SUMMARY | 2025-07-15 10:34 | XMS_ITS | Encounter Summary ---
Author Organization [employer] Address [address] [facility] 7t [place] [address] Care Team Providers Care Manager Grant Name Role Phone [facility] Primary Care Provider [phone] Reason for Visit * Reason Comments Med Refill Encounter Details Date Type Department Care Team ([facility] st Contact Info) Description 01/16/2025 Refill [facility] MEDICINE 230 [place], [place] [phone] [facility] 230 [place] [address] Dry skin dermatitis Social History Tobacco Use [...] Info) Description 07/27/2025 3:00 PM EST Telemedicine [facility] MEDICINE 230 [place] [address] Zulema Shah [facility] 230 [place] [address] 08/29/2025 11:00 AM EST Nutrition [facility] DIABETES/NUTRITION 230 [place] [address] Debbie Garner, BRENNEN 230 [place] [address] documented as of this encounter Visit Diagnoses Diagnosis Dry skin dermatitis Contact dermatitis and other eczema due to other specified agent documented in this encounter Additional Health Concerns Assessment Noted Time PHQ-9 Depression Total Score: 0 12/25/19 23 10:53 AM EDT documented as of this encounter Care Teams Manager Grant Relationship Specialty Start Date End Date Zulema Shah FNP [address] [place] [address] PCP - General Family Medicine 11/04/22 [employer] 04/21/24 documented as of this encounter
--- OUTSIDE RECORDS SUMMARY | 2025-07-15 10:34 | XMS_ITS | Encounter Summary ---
Author Organization [employer] Address 75 [facility] 7t [place] [address] Care Team Providers Care Auto Damage Insurance Appraiser Name Role Phone [facility] Primary Care Provider [phone] Reason for Visit * Reason Onset Date Comments triage 12/13/2022 Encounter Details Date Type Department Care Team ([facility] st Contact Info) Description 12/13/2022 Telephone [facility] MEDICINE 230 [place], [place] [phone] [facility] 230 [place] [address] triage Social History Tobacco Use Types Packs/Day [...] 12/13/2022 10:23 AM EDT Triage call with [place] Manager Ambulatory ID [id number] Pt daughter answered the phone and reports that Pt is in the hospital with a blood clot in the leg.Advised to call [facility] for follow up when discharged from the [...] 07/27/2025 3:00 PM EST Telemedicine [facility] MEDICINE 230 [place] [address] Zulema Shah FNP 230 [place] [address] 08/29/2025 11:00 AM EST Nutrition [facility] DIABETES/NUTRITION 230 [place] [address] Debbie Garner, BRENNEN 230 [place] [address] documented as of this encounter Visit Diagnoses Not on filedocumented in this encounter Additional Health Concerns Assessment Noted Time PHQ-9 Depression Total Score: 0 12/04/19 23 1:38 PM EDT documented as of this encounter Care Teams Auto Damage Insurance Appraiser Relationship Specialty Start Date End Date Zulema Shah FNP 230 [place] [address] PCP - General Family Medicine 11/04/22 [employer] 04/21/24 documented as of this encounter
--- OUTSIDE RECORDS SUMMARY | 2025-07-15 10:34 | XMS_ITS | Encounter Summary ---
Author Organization [employer] Address 75 [facility] 7t [place] [address] Care Team Providers Care Tail End Rider Name Role Phone [facility] Primary Care Provider [phone] Reason for Visit * Reason Onset Date Comments FYI 07/19/2024 Encounter Details Date Type Department Care Team ([facility] Contact Info) Description 07/19/2024 Telephone [facility] MEDICINE 230 [place], [place] [phone] [facility] 230 [place] [address] FYI Social History Tobacco Use Types Packs/Day [...] 3:41 PM EST Tc from Li with [employer] , notifying pt doesn't let her draw blood noteven for the last time. Li informs if any questions feel free to contact her Callback number [phone] documented in this encounter Plan of Treatment Upcoming Encounters Date Type Department Care Team (Late st Contact Info) Description 07/27/2025 3:00 PM EST Telemedicine [facility] MEDICINE 230 [place] [address] [facility] 230 [place] [address] 08/29/2025 11:00 AM EST Nutrition [facility] DIABETES/NUTRITION 230 [place] [address] Debbie Garner, BRENNEN 230 [place] [address] documented as of this encounter Visit Diagnoses Not on filedocumented in this encounter Additional Health Concerns Assessment Noted Time PHQ-9 Depression Total Score: 0 12/25/19 23 10:53 AM EDT documented as of this encounter Care Teams Tail End Rider Relationship Specialty Start Date End Date PabloZulema calvin [facility] 230 [place] [address] PCP - General Family Medicine 11/04/22 [employer] 04/21/24 documented as of this encounter
== END 2025-07-15 09:54 | disposition home or self-care (01) ==
LOC: HO.US 09:53
PROVIDERS: PCP Registered Nurse; Visit Provider Registered Nurse
DX: K76.9 Liver disease, unspecified (principal)
CPT/HCPCS: 76705

== ENCOUNTER → 2025-07-15 09:55 | Outpatient (BNV) | payer OTHER, SELFPAY | PROVIDERS: PCP Registered Nurse; Visit Provider Radiology Diagnostic Radiology | DX: K76.9 Liver disease, unspecified (principal) | CPT/HCPCS: 76705 ==

== ENCOUNTER → 2025-07-25 10:07 | Outpatient (BNV) | payer OTHER, SELFPAY | PROVIDERS: PCP Registered Nurse; Visit Provider Radiology Diagnostic Radiology | DX: G93.89 Other specified disorders of brain (principal); I67.82 Cerebral ischemia | CPT/HCPCS: 70551 ==

== ENCOUNTER 2025-07-25 10:17 | Outpatient (REF) | payer OTHER, SELFPAY ==
--- NOTE | ~2025-07-25 | MR_ITS ---
EXAMINATION: MR BRAIN WITHOUT CONTRAST CLINICAL INFORMATION: 69-year-old female with progressive dementia. History of brain hemorrhage 4 years ago. Left-sided paralysis. COMPARISON: MRI brain 07/28/2024. CT of the head 11/12/2020. TECHNIQUE: MRI of the brain was obtained using routine sequences without contrast. Examination performed on a 1.5 Jennifer Siemens high-field unit. FINDINGS: Examination is severely motion degraded, significantly limited. This limits the sensitivity of the study. MR/MR head/brain wo con IMPRESSION: Redemonstration of a large region of cystic encephalomalacia involving the right frontal temporal lobes, the insular region and portions of the right basal ganglia inferiorly and laterally. There is associated hemosiderin staining from prior intraparenchymal hemorrhage. There is similar wallerian degeneration of the right corticospinal tracts. There is associated ex vacuo dilatation of the right lateral ventricle involving the body, atrium, and the temporal horn. In addition, there are regions of cystic encephalomalacia in both cerebellar hemispheres, also appearing stable from the prior examination. There is no acute diffusion restriction. There is no acute intracranial hemorrhage, acute infarction, mass effect, or edema. Ventricles, sulci, and cisterns are mildly diffusely prominent in keeping with mildly age advanced cerebral and cerebellar volume loss. No shift of midline. No gross additional abnormal hemosiderin deposition is identified, although the SWI sequences are severely motion degraded. Aside from the above, there are few scattered punctate and minimally confluent foci of white matter T2 hyperintensity in the periventricular, subcortical, and hemispheric deep white matter. These foci are nonspecific but statistically relate to small vessel ischemic changes. Midline structures demonstrate mild diffuse thinning of the corpus callosum. There is a partial empty sella present. Cerebellar tonsils are appropriately located. Major flow voids are preserved within the skull base. The globes and orbital contents demonstrate no abnormalities. Paranasal sinuses are clear bilaterally. The mastoids and tympanic cavities are normally aerated. Extracranial soft tissues demonstrate a focus of susceptibility overlying the right frontal scalp region, nonspecific and unchanged. No additional extracranial soft tissue abnormality. No suspicious bone marrow changes are evident. Atlantoaxial joint is normal. IMPRESSION: 1. Severely motion degraded examination, significantly limiting the exam. 2. No evidence of acute intracranial hemorrhage, acute infarction, mass effect, or edema. 3. Large area of cystic encephalomalacia involving the right frontotemporal lobes and insula as detailed, with associated hemosiderin staining from prior hemorrhage, stable from the prior examination. There is wallerian degeneration of the right corticospinal tracts. 4. Stable foci of cystic encephalomalacia in both cerebellar hemispheres. 5. Similar mild changes of white matter small vessel ischemia. Electronically signed by: Hemant Guerrero MD 07/25/2025 12:38 [facility]
--- OUTSIDE RECORDS SUMMARY | 2025-07-25 12:46 | XMS_ITS | Encounter Summary ---
Author Organization [employer] Address 75 [facility] 7t [place] [address] Care Team Providers Care Data Control Assistant Name Role Phone [facility] Primary Care Provider [phone] Encounter Details Date Type Department Care Team ([facility] st Contact Info) Description 12/03/[address] [facility] MEDICINE 230 [place], [place] [phone] [facility] 230 [place] [address] Social History Tobacco Use Types Packs/Day Years [...] 07/27/2025 3:00 PM EST Telemedicine [facility] MEDICINE 230 [place] [address] [facility] 230 [place] [address] 08/29/2025 11:00 AM EST Nutrition [facility] DIABETES/NUTRITION 230 [place] [address] [place] [address] documented as of this encounter Visit Diagnoses Not on filedocumented in this encounter Additional Health Concerns Assessment Noted Time PHQ-9 Depression Total Score: 0 12/04/19 23 1:38 PM EDT documented as of this encounter Care Teams Data Control Assistant Relationship Specialty Start Date End Date Zulema Shah FNP 230 [place] [address] PCP - General Family Medicine 11/04/22 [employer] 04/21/24 documented as of this encounter
--- OUTSIDE RECORDS SUMMARY | 2025-07-25 12:46 | XMS_ITS | Encounter Summary ---
Author Organization [employer] Address [address] 7t [place] [address] Care Team Providers Care Nuclear Plant Construction Worker Name Role Phone Coin [facility] Primary Care Provider [phone] Encounter Details Date Type Department Care Team (Late st Contact Info) Description 10/27/2024 Orders Only [facility] 230 [place], [place] [phone] Coin [facility] 230 [place], [place] [phone] Type 2 diabetes mellitus with other specified [...] Info) Description 07/27/2025 3:00 PM EST Telemedicine [facility] MEDICINE 230 [place], [place] [phone] Coin Zulema, [facility] 230 [place] [address] 08/29/2025 11:00 AM EST Nutrition [facility] DIABETES/NUTRITION 230 [place], [place] [phone] Debbie Garner RD 230 [place] [address] Scheduled Orders Name Type Priority Associated Diagnoses Orde r Schedule Comprehensive Metabolic Panel Lab Routine Type 2 diabetes mellitus with other specified complication, without long-term current use of insulin ([facility]) Expected: 10/27/2024 (Approximate), Expires: 10/27/2025 CBC auto [...] documented as of this encounter Care Teams Nuclear Plant Construction Worker Relationship Specialty Start Date End Date Zulema Shah FNP [address] [place] [address] PCP - General Family Medicine 11/04/22 [employer] 04/21/24 documented as of this encounter
--- OUTSIDE RECORDS SUMMARY | 2025-07-25 12:46 | XMS_ITS | Encounter Summary ---
Author Organization [employer] Address 75 [facility] 7t [place] [address] Care Team Providers Care Life Enrichment Director Name Role Phone [facility] Primary Care Provider [phone] Reason for Visit * Reason Onset Date Comments ER Follow-up 04/30/2023 Encounter Details Date Type Department Care Team ([facility] st Contact Info) Description 04/30/2023 Telephone [facility] MEDICINE 230 [place], [place] [phone] [facility] 230 [place] [address] ER Follow-up Social History Tobacco Use Types [...] to report ED visit on 04/26/23 at [facility]. Seen for high blood sugar. Patient advised [...] Info) Description 07/27/2025 3:00 PM EST Telemedicine [facility] MEDICINE 230 [place] [address] Zulema Shah FNP 230 [place] [address] 08/29/2025 11:00 AM EST Nutrition [facility] DIABETES/NUTRITION 230 [place] [address] 230 [place] [address] documented as of this encounter Visit Diagnoses Not on filedocumented in this encounter Additional Health Concerns Assessment Noted Time PHQ-9 Depression Total Score: 0 12/25/19 10:53 AM EDT documented as of this encounter Care Teams Life Enrichment Director Relationship Specialty Start Date End Date Zulema Shah FNP 230 [place] [address] PCP - General Family Medicine 11/04/22 [employer] 04/21/24 documented as of this encounter
--- OUTSIDE RECORDS SUMMARY | 2025-07-25 12:46 | XMS_ITS | Encounter Summary ---
Author Organization [employer] Address 75 [facility] 7t [place] [address] Care Team Providers Care Electronic Die Maker Name Role Phone [facility] Primary Care Provider [phone] Reason for Visit * Reason Comments Med Refill Encounter Details Date Type Department Care Team ([facility] st Contact Info) Description 04/12/2024 Refill [facility] MEDICINE 230 [place], [place] [phone] [facility] 230 [place] [address] Other chronic pain Social History Tobacco Use [...] Info) Description 07/27/2025 3:00 PM EST Telemedicine [facility] MEDICINE 230 [place] [address] Zulema Shah FNP 230 [place] [address] 08/29/2025 11:00 AM EST Nutrition [facility] DIABETES/NUTRITION 230 [place] [address] Debbie Garner, BRENNEN 230 [place] [address] documented as of this encounter Visit Diagnoses Diagnosis Other chronic pain documented in this encounter Additional Health Concerns Assessment Noted Time PHQ-9 Depression Total Score: 0 12/25/19 23 10:53 AM EDT documented as of this encounter Care Teams Electronic Die Maker Relationship Specialty Start Date End Date Zulema Shah FNP [address] [place] [address] PCP - General Family Medicine 11/04/22 [employer] 04/21/24 documented as of this encounter
--- OUTSIDE RECORDS SUMMARY | 2025-07-25 12:46 | XMS_ITS | Encounter Summary ---
Author Organization [employer] Address 75 [facility] 7t [place] [address] Care Team Providers Care Shoe Shanker Name Role Phone [place] [facility] Primary Care Provider [phone] Encounter Details Date Type Department Care Team (Late Contact Info) Description 12/30/2022 Abstract [facility] MEDICINE [address] [place] [address] [phone] [place] [address] [phone] Social History Tobacco Use Types Packs/Day Years [...] Upcoming Encounters Date Type Department Care Team ([facility] Contact Info) Description 07/27/2025 3:00 PM EST Telemedicine [facility] MEDICINE 230 [place] [address] Zulema Shah FNP 230 [place] [address] 08/29/2025 11:00 AM EST Nutrition [facility] DIABETES/NUTRITION 230 [place], [place] [phone] Debbie Garner, BRENNEN 230 [place], [place] [phone] documented as of this encounter Visit Diagnoses Not on filedocumented in this encounter Additional Health Concerns Assessment Noted Time PHQ-9 Depression Total Score: 0 12/25/19 10:53 AM EDT documented as of this encounter Care Teams Shoe Shanker Relationship Specialty Start Date End Date [place] JOHN Poole 230 [place] [address] PCP - General Family Medicine 11/04/22 [employer] 04/21/24 documented as of this encounter
--- OUTSIDE RECORDS SUMMARY | 2025-07-25 12:46 | XMS_ITS | Encounter Summary ---
Author Organization [employer] Address 75 [facility] 7t [place] [address] Care Team Providers Care Hat Conditioner Name Role Phone [facility] Primary Care Provider Reason for Visit * Reason Onset Date Comments Error 09/23/2023 Encounter Details Date Type Department Care Team ([facility] st Contact Info) Description 09/23/2023 Telephone [facility] MEDICINE 230 [place], [place] [phone] [facility] 230 [place], [place] [phone] Error Social History Tobacco Use Types Packs/Day [...] 07/27/2025 3:00 PM EST Telemedicine [facility] MEDICINE 230 [place] [address] Zulema Shah FNP 230 [place] [address] 08/29/2025 11:00 AM EST Nutrition [facility] DIABETES/NUTRITION 230 [place] [address] Debbie Garner, RD 230 [place] [address] documented as of this encounter Visit Diagnoses Not on filedocumented in this encounter Additional Health Concerns Assessment Noted Time PHQ-9 Depression Total Score: 0 12/25/19 23 10:53 AM EDT documented as of this encounter Care Teams Hat Conditioner Relationship Specialty Start Date End Date Zulema Shah FNP [address] [place] [address] PCP - General Family Medicine 11/04/22 [employer] 04/21/24 documented as of this encounter
--- OUTSIDE RECORDS SUMMARY | 2025-07-25 12:46 | XMS_ITS | Encounter Summary ---
Author Organization [employer] Address 75 [facility] 7t [place] [address] Care Team Providers Care Conference Planner Name Role Phone [facility] Primary Care Provider [phone] Reason for Visit * Reason Onset Date Comments triage 12/13/2022 Encounter Details Date Type Department Care Team ([facility] st Contact Info) Description 12/13/2022 Telephone [facility] MEDICINE 230 [place], [place] [phone] [facility] 230 [place] [address] triage Social History Tobacco Use Types Packs/Day [...] 12/13/2022 10:23 AM EDT Triage call with [place] Mop Maker ID [id number] Pt daughter answered the phone and reports that Pt is in the hospital with a blood clot in the leg.Advised to call [facility] for follow up when discharged from the [...] Description 07/27/2025 3:00 PM EST Telemedicine [facility] MEDICINE 230 [place] [address] Zulema Shah FNP 230 [place] [address] 08/29/2025 11:00 AM EST Nutrition [facility] DIABETES/NUTRITION 230 [place] [address] Debbie Garner, BRENNEN 230 [place] [address] documented as of this encounter Visit Diagnoses Not on filedocumented in this encounter Additional Health Concerns Assessment Noted Time PHQ-9 Depression Total Score: 0 12/04/19 23 1:38 PM EDT documented as of this encounter Care Teams Conference Planner Relationship Specialty Start Date End Date Zulema Shah FNP 230 [place] [address] PCP - General Family Medicine 11/04/22 [employer] 04/21/24 documented as of this encounter
--- OUTSIDE RECORDS SUMMARY | 2025-07-25 12:46 | XMS_ITS | Encounter Summary ---
Author Organization [employer] Address [address] [place] [address] 7 [place] [address] Care Team Providers Care Orthopedically Impaired Teacher Name Role Phone [place] [facility] Primary Care Provider [phone] Reason for Visit * Reason Comments Med Refill Encounter Details Date Type Department Care Team (Late Contact Info) Description 04/23/2023 Refill [facility] MEDICINE [address] [place] [phone] [phone] Social History Tobacco Use Types Packs/Day Years [...] Info) Description 07/27/2025 3:00 PM EST Telemedicine [facility] MEDICINE 230 [place], [place] [phone] [address] [phone] 08/29/2025 11:00 AM EST Nutrition [facility] DIABETES/NUTRITION 230 [place] [address] 230 [place] [address] documented as of this encounter Visit Diagnoses Not on filedocumented in this encounter Additional Health Concerns Assessment Noted Time PHQ-9 Depression Total Score: 0 12/25/19 10:53 AM EDT documented as of this encounter Care Teams Orthopedically Impaired Teacher Relationship Specialty Start Date End Date Zulema Shah FNP 230 [place] [address] PCP - General Family Medicine 11/04/22 [employer] 04/21/24 documented as of this encounter
--- OUTSIDE RECORDS SUMMARY | 2025-07-25 12:46 | XMS_ITS | Encounter Summary ---
Author Organization [email or web address] Address [address] [facility] [address] [place] [address] Care Team Providers Care High Worker Name Role Phone Davon Badillo MD Primary Care Provider Marlon abrams [facility] Primary Care Provider [phone] Reason for Visit * Reason Onset Date Comments Appointment 10/28/2022 Encounter Details Date Type Department Care Team (Late Contact Info) Description 10/28/2022 Telephone [facility] CHC ADULT DENTAL [address] [place] [address] Crystal Gerardo DDS Appointment Social History Tobacco [...] Upcoming Encounters Date Type Department Care Team ([facility] Contact Info) Description 07/27/2025 3:00 PM EST Telemedicine [facility] MEDICINE [address] [place], [place] [phone] [place] [address] [place] [address] 08/29/2025 11:00 AM EST Nutrition [facility] DIABETES/NUTRITION [address] [place], [place] [phone] Debbie Garner, BRENNEN [address] [place], [place] [phone] documented as of this encounter Visit Diagnoses Not on filedocumented in this encounter Care Teams High Worker Relationship Specialty Start Date End Date Davon Badillo MD PCP - General Family Medicine 06/25/19 11/03/22 [place] F[facility] [address] [place] [address] PCP - General Family Medicine 11/04/22 [employer] 04/21/24 documented as of this encounter
--- OUTSIDE RECORDS SUMMARY | 2025-07-25 12:46 | XMS_ITS | Encounter Summary ---
Author Organization [employer] Address [address] [facility] [address] [place] [address] Care Team Providers Care Auger Supervisor Name Role Phone [facility] Primary Care Provider [phone] Reason for Visit * Reason Comments Med Refill Encounter Details Date Type Department Care Team ([facility] st Contact Info) Description 01/16/2025 Refill [facility] MEDICINE [address] [place], [place] [phone] [facility] [address] [place] [address] Dry skin dermatitis Social History Tobacco Use [...] 07/27/2025 3:00 PM EST Telemedicine [facility] MEDICINE [address] [place] [address] Zulema Shah [facility] [address] [place] [address] 08/29/2025 11:00 AM EST Nutrition [facility] DIABETES/NUTRITION [address] [place] [address] Debbie Garner, BRENNEN [address] [place] [address] documented as of this encounter Visit Diagnoses Diagnosis Dry skin dermatitis Contact dermatitis and other eczema due to other specified agent documented in this encounter Additional Health Concerns Assessment Noted Time PHQ-9 Depression Total Score: 0 12/25/19 23 10:53 AM EDT documented as of this encounter Care Teams Auger Supervisor Relationship Specialty Start Date End Date Zulema Shah FNP [address] [place] [id number] PCP - General Family Medicine 11/04/22 [employer] 04/21/24 documented as of this encounter
--- OUTSIDE RECORDS SUMMARY | 2025-07-25 12:46 | XMS_ITS | Encounter Summary ---
Author Organization [employer] Address [address] [facility] [address] [place] [address] Care Team Providers Care Assayer Name Role Phone [facility] Primary Care Provider [phone] Reason for Visit * Reason Onset Date Comments Paperwork/Forms 08/19/2023 Encounter Details Date Type Department Care Team ([facility] st Contact Info) Description 08/19/2023 Telephone [facility] MEDICINE [address] [place], [place] [phone] [facility] [address] [place] [address] Paperwork/Forms Social History Tobacco Use Types Packs/Day [...] calling to request paperwork in regards to TOOL PUSHER stated the TOOL PUSHER has not been paid since 08/05 and stated the TOOL PUSHER will not be going to attend the patient until the matter is resolved documented in this encounter Plan of Treatment Upcoming Encounters Date Type Department Care Team (Late st Contact Info) Description 07/27/2025 3:00 PM EST Telemedicine [facility] MEDICINE [address] [place] [address] Zulema Shah [facility] [address] [place] [address] 08/29/2025 11:00 AM EST Nutrition [facility] DIABETES/NUTRITION [address] [place] [address] Debbie Garner, BRENNEN [address] [place] [address] documented as of this encounter Visit Diagnoses Not on filedocumented in this encounter Additional Health Concerns Assessment Noted Time PHQ-9 Depression Total Score: 0 12/25/19 10:53 AM EDT documented as of this encounter Care Teams Assayer Relationship Specialty Start Date End Date Zulema Shah FNP [address] [place] [address] PCP - General Family Medicine 11/04/22 [employer] 04/21/24 documented as of this encounter
--- OUTSIDE RECORDS SUMMARY | 2025-07-25 12:46 | XMS_ITS | Encounter Summary ---
Author Organization [employer] Address [address] [facility] [address] [place] [address] Care Team Providers Care Land Management Supervisor Name Role Phone [place] [facility] Primary Care Provider [phone] Reason for Visit * Reason Onset Date Comments FYI 07/19/2024 Encounter Details Date Type Department Care Team ([facility] Contact Info) Description 07/19/2024 Telephone [facility] MEDICINE [address] [place], [place] [phone] [facility] [address] [place] [address] FYI Social History Tobacco Use Types Packs/Day [...] 3:41 PM EST Tc from Li with edulio , notifying pt doesn't let her draw blood noteven for the last time. Li informs if any questions feel free to contact her Callback number [phone] documented in this encounter Plan of Treatment Upcoming Encounters Date Type Department Care Team (Late st Contact Info) Description 07/27/2025 3:00 PM EST Telemedicine [facility] MEDICINE [address] [place] [address] [facility] [address] [place] [address] 08/29/2025 11:00 AM EST Nutrition [facility] DIABETES/NUTRITION [address] [place] [address] Debbie Garner, BRENNEN [address] [place] [address] documented as of this encounter Visit Diagnoses Not on filedocumented in this encounter Additional Health Concerns Assessment Noted Time PHQ-9 Depression Total Score: 0 12/25/19 23 10:53 AM EDT documented as of this encounter Care Teams Land Management Supervisor Relationship Specialty Start Date End Date Pablo[facility]ulema calvin [facility] [address] [place] [address] PCP - General Family Medicine 11/04/22 [employer] 04/21/24 documented as of this encounter
--- OUTSIDE RECORDS SUMMARY | 2025-07-25 12:46 | XMS_ITS | Clinical Summary ---
Author Organization [employer] Address [address] [facility] 7[address] [place] [address] Care Team Providers [facility] Name Role Phone Zulema Shah [facility] Primary Care Provider [phone] Allergies No known active allergies Medications * This document contains information received from the source organization and may not represent a complete record from that organization. Blood Glucose Monitoring Suppl (ONE TOUCH ULTRA 2) w/Device kitIndications:Ty pe 2 diabetes mellitus without complication, without long-term current use of insulin ([facility]) Use to monitor blood glucose once daily 1 kit 023 Active Alcohol Swabs (Alcohol Prep) 70 % padsIndications:T ype 2 diabetes mellitus without complication, without long-term current use of insulin ([facility]) Apply by topical route to finger [...] complication, without long-term current use of insulin ([facility]) Use as directed to check blood [...] DAY 90 tablet 1 025 Active Nyamyc 003221 UNIT/GM powder APPLY TO THE AFFECTED AREA(S) [...] PM EST Active Lancets (OneTouch Delica Plus [id number]) miscIndications:T ype 2 diabetes mellitus without complication, [...] (03/21/2023 2:55 PM EDT): Continue [facility] and [facility] services High risk for pressure injury Treating [...] CVA and non-ambulatory/bed bound state. Referred [facility], no appt Gave pt phone number. Daughter will call. Will defer decision on stopping eliquis by specialist F/u 1 month with PCP or sooner PRN Elevated liver enzymes 03/21/2023 Overview (03/21/2023): Atorvastatin discontinued around 11/10/22 d/t elevated liver enzymes noted at [facility] when admitted for [...] Ordered today Pap: Previously followed by [facility]. Need records C-scope: No prior [...] am and 2 h in pm w [facility]--letter done today for pt with request -daughter will check with her Previous PT service [facility] they will start services again Assessment & Plan (03/21/2023 3:03 PM EDT): Continue [facility] and [facility] services High risk for pressure injury Has [...] 11/10/22 d/t elevated liver enzymes noted at [facility] when admitted for [...] Type Department Care Team Description 07/11/[address] [facility] [address] [place] [phone] Zulema Shah FNP Rash 06/28/[address] [address] Zulema Shah FNP [facility] Services (I called Jacki regarding a request for an increase, in the patient's [facility] hours. I reached a voicemail, and left a message asking her to return my call at ext [phone].) 06/24/[address] [facility] [address] [place] [phone] Zulema Shah FNP 06/22/2025 2:[address] [facility] [address] [place] [address] [facility] Type 2 diabetes mellitus with other specified complication, without long-term current use of insulin (HCC) (Primary Dx); Metabolic dysfunction-associated fatty liver disease (MAFLD); Hypothyroidism due to Luis Fernando thyroiditis; Dementia with other behavioral disturbance, unspecified dementia severity, unspecified dementia type (CMS/HCC) (HCC) 06/22/2025 Travel 06/17/2025 Orders Only [facility] External Provider, [facility] 06/15/[address] [facility] [address] [place] [address] [facility] Healthcare maintenance 06/07/[address] [facility] [address] [place] [phone] [facility] PT letter 06/06/2025 11:30 AM EDT Office Visit [facility] [address] [place] [address] Andre, Jesenia, OD Presbyopia (Primary Dx); Age-related nuclear cataract of both eyes 06/06/2025 Travel 05/16/2025 Travel 05/04/2025 2:00 PM EDT Office Visit 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 [address] [place], [place] [phone] Iesha Antunez [place] Chart Prep 05/03/2025 Travel [...] Info) Description 07/27/2025 3:[address] [facility] [address] [place] [address] DornsifeZulema, FABRICATION ENGINEER [address] [place] [address] 08/29/2025 11:[address] [facility] [address] [place] [address] Debbie Garner, BRENNEN [address] [place] [address] Health Maintenance Due Date Last Done Comments [...] Procedure Name Priority Date/Time Associated Diagnosis Comments MR BRAIN WO CONTRAST Urgent 07/25/2025 10:58 AM EST Dementia with other behavioral disturbance, unspecified dementia severity, unspecified dementia type (CMS/HCC) (HCC) US ABDOMEN LIMITED Routine 07/15/2025 3: 29 PM EST Liver disease, unspecified XR KNEE 1-2 VIEWS LEFT Routine 11:55 AM EDT LIPID PANEL, STANDARD Routine [...] Recently Relevant to Health Maintenance Results * MR Brain w/o Contrast (07/25/2025 10:58 AM EST) Anatomical Region Laterality Modality Brain Magnetic Resonan ce 07/25/2025 10:5 8 AM EST Narrative 07/25/2025 12:40 PM EST [place] [address] Magnetic Resonance Report Signed Patient: Sue Wahl MR#: [id number] : 1955 Acct:[id number] Age/Sex: 70 / F ADM Date: 07/25/25 Loc: HO.MRI Attending Dr: Zulema LOPEZ Ordering Physician: Zulema Shah Date of Service: 07/25/25 Procedure(s): MR head/brain wo con Accession Number(s): [id number] cc: Zulema Shah Reason for Exam: 69 y.o F with progressive dementia EXAMINATION: MR BRAIN WITHOUT CONTRAST CLINICAL INFORMATION: 69-year-old female with progressive dementia. History of brain hemorrhage 4 years ago. Left-sided paralysis. COMPARISON: MRI brain 07/28/2024. CT of the head 11/12/2020. TECHNIQUE: MRI of the brain was obtained using routine sequences without contrast. Examination performed on a 1.5 Jennifer Siemens high-field unit. FINDINGS: Examination is severely motion degraded, significantly limited. This limits the sensitivity of the study. MR/MR head/brain wo con IMPRESSION: Redemonstration of a large region of cystic encephalomalacia involving the right frontal temporal lobes, the insular region and portions of the right basal ganglia inferiorly and laterally. There is associated hemosiderin staining from prior intraparenchymal hemorrhage. There is similar wallerian degeneration of the right corticospinal tracts. There is associated ex vacuo dilatation of the right lateral ventricle involving the body, atrium, and the temporal horn. In addition, there are regions of cystic encephalomalacia in both cerebellar hemispheres, also appearing stable from the prior examination. There is no acute diffusion restriction. There is no acute intracranial hemorrhage, acute infarction, mass effect, or edema. Ventricles, sulci, and cisterns are mildly diffusely prominent in keeping with mildly age advanced cerebral and cerebellar volume loss. No shift of midline. No gross additional abnormal hemosiderin deposition is identified, although the SWI sequences are severely motion degraded. Aside from the above, there are few scattered punctate and minimally confluent foci of white matter T2 hyperintensity in the periventricular, subcortical, and hemispheric deep white matter. These foci are nonspecific but statistically relate to small vessel ischemic changes. Midline structures demonstrate mild diffuse thinning of the corpus callosum. There is a partial empty sella present. Cerebellar tonsils are appropriately located. Major flow voids are preserved within the skull base. The globes and orbital contents demonstrate no abnormalities. Paranasal sinuses are clear bilaterally. The mastoids and tympanic cavities are normally aerated. Extracranial soft tissues demonstrate a focus of susceptibility overlying the right frontal scalp region, nonspecific and unchanged. No additional extracranial soft tissue abnormality. No suspicious bone marrow changes are evident. Atlantoaxial joint is normal. IMPRESSION: 1. Severely motion degraded examination, significantly limiting the exam. 2. No evidence of acute intracranial hemorrhage, acute infarction, mass effect, or edema. 3. Large area of cystic encephalomalacia involving the right frontotemporal lobes and insula as detailed, with associated hemosiderin staining from prior hemorrhage, stable from the prior examination. There is wallerian degeneration of the right corticospinal tracts. 4. Stable foci of cystic encephalomalacia in both cerebellar hemispheres. 5. Similar mild changes of white matter small vessel ischemia. Electronically signed by: Hemant Guerrero MD 07/25/2025 12:38 PM [facility] Dictated By: Hemant Guerrero MD Signed By: <Electronically signed by Hemant Guerrero MD in OV> 07/25/25 1238 DD/ 1058 TD/TT: 07/25/25 1125 [place]: Procedure Note Donotuseinterpreter, Image - 07/25/[address] [address] Magnetic Resonance Report Signed Patient: Popeye Wahl#: [id number] : 6Acct:[id number] Age/Sex: 70 / FADM Date: 07/25/25 Loc: HO.MRI Attending Dr: Zulema Shah [facility] Ordering Physician: Zulema ShahP Date of Service: 07/25/25 Procedure(s): MR head/brain wo con Accession Number(s): [id number] cc: Zulema Shah [facility] Reason for Exam: 69 y.o F with progressive dementia EXAMINATION: MR BRAIN WITHOUT CONTRAST CLINICAL INFORMATION: 69-year-old female with progressive dementia. History of brain hemorrhage 4 years ago. Left-sided paralysis. COMPARISON: MRI brain 07/28/2024. CT of the head 11/12/2020. TECHNIQUE: MRI of the brain was obtained using routine sequences without contrast. Examination performed on a 1.5 Jennifer Siemens high-field unit. FINDINGS: Examination is severely motion degraded, significantly limited. This limits the sensitivity of the study. MR/MR head/brain wo con IMPRESSION: Redemonstration of a large region of cystic encephalomalacia involving the right frontal temporal lobes, the insular region and portions of the right basal ganglia inferiorly and laterally. There is associated hemosiderin staining from prior intraparenchymal hemorrhage. There is similar wallerian degeneration of the right corticospinal tracts. There is associated ex vacuo dilatation of the right lateral ventricle involving the body, atrium, and the temporal horn. In addition, there are regions of cystic encephalomalacia in both cerebellar hemispheres, also appearing stable from the prior examination. There is no acute diffusion restriction. There is no acute intracranial hemorrhage, acute infarction, mass effect, or edema. Ventricles, sulci, and cisterns are mildly diffusely prominent in keeping with mildly age advanced cerebral and cerebellar volume loss. No shift of midline. No gross additional abnormal hemosiderin deposition is identified, although the SWI sequences are severely motion degraded. Aside from the above, there are few scattered punctate and minimally confluent foci of white matter T2 hyperintensity in the periventricular, subcortical, and hemispheric deep white matter. These foci are nonspecific but statistically relate to small vessel ischemic changes. Midline structures demonstrate mild diffuse thinning of the corpus callosum. There is a partial empty sella present. Cerebellar tonsils are appropriately located. Major flow voids are preserved within the skull base. The globes and orbital contents demonstrate no abnormalities. Paranasal sinuses are clear bilaterally. The mastoids and tympanic cavities are normally aerated. Extracranial soft tissues demonstrate a focus of susceptibility overlying the right frontal scalp region, nonspecific and unchanged. No additional extracranial soft tissue abnormality. No suspicious bone marrow changes are evident. Atlantoaxial joint is normal. IMPRESSION: 1. Severely motion degraded examination, significantly limiting the exam. 2. No evidence of acute intracranial hemorrhage, acute infarction, mass effect, or edema. 3. Large area of cystic encephalomalacia involving the right frontotemporal lobes and insula as detailed, with associated hemosiderin staining from prior hemorrhage, stable from the prior examination. There is wallerian degeneration of the right corticospinal tracts. 4. Stable foci of cystic encephalomalacia in both cerebellar hemispheres. 5. Similar mild changes of white matter small vessel ischemia. Electronically signed by: Hemant Guerrero MD 07/25/2025 12:38 PM EST Dictated By: Hemant Guerrero MD Signed By: <Electronically signed by Hemant Guerrero MD in OV> 07/25/25 1238 DD/ 1058 TD/TT: 07/25/25 1125 [place]: Zulema Shah [facility] IMG MRI PROCEDURES Edited Res ult - Final * US Abdomen Limited (07/15/2025 3:29 PM EST) Anatomical Region Laterality Modality Abdomen Ultrasound 07/15/2025 3:29 PM EST Narrative 07/15/2025 3:30 PM EST [place] [address] Ultrasound Report Signed Patient: Sue Wahl MR#: [id number] : 1955 Acct:[id number] Age/Sex: 70 / F ADM Date: 07/15/25 Loc: HO.US Attending Dr: Zulema LOPEZ Ordering Physician: Zulema hSah Date of Service: 07/15/25 Procedure(s): US abdomen limited Accession Number(s): [id number] cc: Zulema Shah Reason for Exam: 69 y.o F with chronic liver diease s/t MAFLD CLINICAL HISTORY: 69 y.o F with chronic liver diease s t MAFLD US abdomen limited and incomplete Comparison: CT/RI/SR - CT ABDOMEN PELVIS WO IV CON - 01/05/25 11:22 EDT Findings: Exam was terminated before completion by patient's preference due to pain. Limited evaluation of the right upper quadrant organs due to patient's condition-wheelchair bound. Small portion of the pancreatic head is seen and appears normal, remaining pancreas is obscured by bowel gas. The liver is not entirely seen, the upper aspect of the left and right hepatic lobe is mostly not visualized, the visualized liver demonstrates diffusely echogenic liver parenchyma, no focal lesion is seen. No intrahepatic bile duct dilatation. Status post cholecystectomy. Common duct is not seen. Main portal vein and right kidney are not insonated. Impression: 1. Limited and incomplete exam, as explained above. 2. Echogenic liver parenchyma is consistent with known chronic parenchymal liver disease. No hepatic lesion is seen, liver is not entirely visualized. This document has been electronically signed by: Cecilia Grajeda MD on 07/15/2025 15:29:19 Dictated By: Cecilia Grajeda MD Signed By: <Electronically signed by Cecilia Grajeda MD in OV> 07/15/25 1530 DD/ 1529 TD/TT: 07/15/25 1529 [place]: Procedure Note Donotuseinterpreter, Image - 07/15/2025 [place] [address] Ultrasound Report Signed Patient: Popeye Wahl#: [id number] : 6Acct:[id number] Age/Sex: 70 / FADM Date: 07/15/25 Loc: HO.US Attending Dr: Zulema LOPEZ Ordering Physician: Zulema Shah Date of Service: 07/15/25 Procedure(s): US abdomen limited Accession Number(s): [id number] cc: Zulema Shah Reason for Exam: 69 y.o F with chronic liver diease s/t MAFLD CLINICAL HISTORY: 69 y.o F with chronic liver diease s t MAFLD US abdomen limited and incomplete Comparison: CT/RI/SR - CT ABDOMEN PELVIS WO IV CON - 01/05/25 11:22 EDT Findings: Exam was terminated before completion by patient's preference due to pain. Limited evaluation of the right upper quadrant organs due to patient's condition-wheelchair bound. Small portion of the pancreatic head is seen and appears normal, remaining pancreas is obscured by bowel gas. The liver is not entirely seen, the upper aspect of the left and right hepatic lobe is mostly not visualized, the visualized liver demonstrates diffusely echogenic liver parenchyma, no focal lesion is seen. No intrahepatic bile duct dilatation. Status post cholecystectomy. Common duct is not seen. Main portal vein and right kidney are not insonated. Impression: 1. Limited and incomplete exam, as explained above. 2. Echogenic liver parenchyma is consistent with known chronic parenchymal liver disease. No hepatic lesion is seen, liver is not entirelyvisualized. This document has been electronically signed by: Cecilia Grajeda MD on 07/15/2025 15:29:19 Dictated By: Cecilia Grajeda MD Signed By: <Electronically signed by Cecilia Grajeda MD in OV> 07/15/25 1530 DD/ 1529 TD/TT: 07/15/25 1529 [place]: [facility] IM US PROCEDURES Final Resul t * XR Knee 1-2 Views Left (06/17/2025 11:55 AM EDT) Anatomical Region Laterality Modality Lower Extremities, Knee Left [facility] 06/17/2025 11:5 5 AM EDT Narrative 06/17/2025 12:21 PM EDT [place] [address] XRay Report Signed Patient: Sue Wahl MR#: [id number] : 1955 Acct:[id number] Age/Sex: 69 / F ADM Date: 06/17/25 Loc: ROSI Attending Dr: Danika Jeronimo MD Ordering Physician: Danika Felipe Date of Service: 06/17/25 Procedure(s): XR knee LT 2V Accession Number(s): [id number] cc: Danika Felipe; [facility] Reason for Exam: M25.50 - [...] 06/17/25 1218 DD/ 1155 TD/TT: 06/17/25 1210 [place]: Procedure Note Donotuseinterpreter, Image - 06/17/2025 [place] [address] XRay Report Signed Patient: Popeye Wahl#: [id number] : 1955cct:[id number] Age/Sex: 69 / FADM Date: 06/17/25 Loc: HO.ROSEANN Attending Dr: Danika Jeronimo MD Ordering Physician: Danika Felipe Date of Service: 06/17/25 Procedure(s): XR knee LT 2V Accession Number(s): [id number] cc: Danika Felipe; [facility] Reason for Exam: M25.50 - [...] 06/17/25 1218 DD/ 1155 TD/TT: 06/17/25 1210 [place]: [facility] External Provider IMG XR PROCEDURES Final Result * Vitamin D, 25-Hydroxy, Total, Immunoassay (05/04/2025 2:46 PM EDT) Vitamin D 25-OH Total 33.4 >30 ng/mL [facility] Comment: Health Based Reference Values*< 20 ng/mL [id number] ng/mL Insufficient> 30 ng/mL Sufficient*Mateo FLOOD. N [...] PM EDT 05/04/2025 3:59 PM EDT [facility] FABRICATION ENGINEER LAB BLOOD ORDERABLES Final Re sult [facility] [address] [place] [phone] * TSH W/Reflex to FT4 (05/04/2025 2:46 PM EDT) TSH reflex Free T4 1.00 0.32 - 4.0 uIU/mL [facility] Blood Venous blood specimen / Unknown 05/04/2025 2:46 PM EDT 05/04/2025 3:59 PM EDT [facility] FABRICATION ENGINEER LAB BLOOD ORDERABLES Final Re sult [facility] [address] [place] [phone] * (ABNORMAL) CBC auto differential (05/04/2025 2:46 PM EDT) White Blood Count 6.6 4.8 - 10.8 X10*3/uL [facility] Red Blood Count 4.40 4.20 - 5.50 X10*6/uL [facility] Hemoglobin 13.8 12.0 - 16.0 g/dl [facility] Hematocrit 42.2 37.0 - 47.0 % [facility] Mean Corpuscular Volume 95.9 80.0 - 98.0 fL [facility] Mean Corpuscular Hemoglobin 31.4 27.0 - 33.0 pg [facility] Mean Corpuscular HGB Conc 32.7 31.0 - 35.0 g/dl [facility] Red Cell Distribution Width 15.0 11.0 - 16.0 % [facility] Platelet Count 171 160 - 400 X10*3/uL [facility] Mean Platelet Volume 12.9(H) 9.4 - 12.3 fL [facility] Neutrophils Percent Auto 58.0 45 - 73 % [facility] Imm Gran Pct Auto 0.3 0.0 - 0.4 % [facility] Lymphocytes Percent Auto 28.7 20 - 40 % [facility] Monocytes Percent Auto 9.0 2 - 11 % [facility] Eosinophils Percent Auto 2.9 0 - 4 % [facility] Basophils Percent Auto 1.1 0 - 2 % [facility] NRBC Pct Auto 0.0 0.0 - 0.2 /100WBC [facility] Neutrophils Absolute Auto 3.8 2.0 - 8.3 x10*3/uL [facility] Imm Gran Abs Auto 0.02 0.00 - 0.03 X10*3/uL [facility] Lymphocytes Absolute Auto 1.9 1.2 - 4.9 X10*3/uL [facility] Monocytes Absolute Auto 0.6 0.1 - 1.2 X10*3/uL [facility] Eosinophils Absolute Auto 0.2 0.0 - 0.4 X10*3/uL [facility] Basophils Absolute Auto 0.1 0.0 - 0.2 X10*3/uL [facility] NRBC Abs Auto 0.000 0.0 - 0.012 X10*3/uL [facility] Blood Venous blood specimen / Unknown 05/04/2025 2:46 PM EDT 05/04/2025 3:59 PM EDT [facility] LAB BLOOD ORDERABLES Final Re sult [facility] [address] [place], [place] [phone] * (ABNORMAL) Lipid Panel, Standard (05/04/2025 2:46 PM EDT) Triglycerides 275(H) <150 mg/dL [facility] Comment:Desirable Triglyceri de: less than 150 mg/dLBorderline High Triglyceride 150-199 mg/dLHigh Triglyceride: 200-499 mg/dLVery High Triglyceride: greater than or equal to 5OO mg/dL Cholesterol 257(H) <200 mg/dL [facility] Comment:Desirable Cholestero l: less than 200 mg/dLBorderline High Cholesterol: 200-239 mg/dLHigh Cholesterol: greater than 239 mg/dL LDL Cholesterol Calculated 156(H) <100 mg/dL [facility] Comment:Desirable LDL: less than 100 mg/dLNear Optimal/Above Optimal LDL: 110- 129 mg/dLBorderline High LDL: 130-159 mg/dLHigh LDL: 160-189 mg/dLVery High LDL: greater than or equal to 190 mg/dL HDL Cholesterol 46 >40 mg/dL [facility] Comment:Desirable HDL: great er than 40 mg/dL Note: This HDL assay may give artificially low results in patients with liver disease. Blood Venous blood specimen / Unknown 05/04/2025 2:46 PM EDT 05/04/2025 3:59 PM EDT [facility] LAB BLOOD ORDERABLES Final Re sult [facility] [address] [place], [place] [phone] * (ABNORMAL) Comprehensive Metabolic Panel (05/04/2025 2:46 PM EDT) Sodium 141 135 - 145 mmol/L [facility] Potassium 3.7 3.3 - 5.1 mmol/L [facility] Chloride 109(H) 96 - 108 mmol/L [facility] Carbon Dioxide 24 22 - 29 mmol/L [facility] Anion Gap 12 12 - 20 [facility] Urea Nitrogen (BUN) 17(H) 9 - 16 mg/dL [facility] Creatinine, Serum 0.65 0.5 - 1.4 mg/dL [facility] Estimated Glomerular Filt Rate >60 [facility] Comment:Chronic Kidney Disea se: Estimated GFR < 60 mL/min/1.14x7Udanpr Kidney Disease: Estimated GFR < 15 mL/min/1.73m2 Glucose 117(H) 60 - 115 mg/dL [facility] Calcium 9.3 8.4 - 10.2 mg/dL [facility] Bilirubin, Total 0.3 0.0 - 1.0 mg/dL [facility] Aspartate Amino Transferase 78(H) 5 - 31 U/L [facility] Alanine Aminotransferase 81(H) 0 - 31 U/L [facility] Total Protein 8.5(H) 6.5 - 8.0 g/dL [facility] Albumin Level 4.0 3.5 - 5.0 g/dL [facility] Alkaline Phosphatase 77 39 - 117 U/L [facility] Blood Venous blood specimen / Unknown 05/04/2025 2:46 PM EDT 05/04/2025 3:59 PM EDT [facility] BLOOD ORDERABLES Final Re sult [facility] [address] [place] [phone] * (ABNORMAL) POCT Hgb A1c (05/04/2025 2:22 PM EDT) Hemoglobin A1C 6.9(A) 4.0 - 5.7 % Blood 05/04/2025 2:22 PM EDT [facility] POINT OF CARE TEST ENTER/EDIT ORDERABLES Final Result * POCT Glucose (05/04/2025 2:22 PM EDT) Glucose Blood, POC 142 60 - 200 mg/dL Blood Capillary blood specimen / Unknown 05/04/2025 2:22 PM EDT [facility] POINT OF CARE TEST ENTER/EDIT ORDERABLES Final Result * (ABNORMAL) Albumin, Random Urine W/Creatinine (04/27/2024 10:00 AM EDT) Creatinine, Urine 44.77 mg/dL [facility] Microalbumin Urine 16.0 mg/L [facility] Microalbum Creatinine Ratio Ur 35.7(H) <30 ug/mg cr [facility] Comment:Albumin/Creatinine R atio Reference Ranges: Normal: < 30 ug/mg creatinine Microalbuminuria: 30 - 300 ug/mg creatinineClinical Albuminuria: > 300 ug/mg creatinine Urine 04/27/2024 10:0 0 AM EDT 04/27/2024 5:28 PM EDT [facility] FABRICATION ENGINEER LAB URINE ORDERABLES Final Re sult Performing Organization Address [facility] Co de Phone Number [facility] [address] [place] [phone] * Hepatitis Panel, General (03/13/2023 2:36 PM EDT) Hepatitis A IgM Nonreactive Nonreactive [facility] Comment:IgM antibodies to SLOAN V not detected; does not exclude earlyacute or recovered HAV infection. ~Hepatitis B Surface Antibody NONREACTIVE Nonreactive [facility] Comment:Nonreactive: < 8.00 mIU/mL Hepatitis B Core Antibody Nonreactive Nonreactive [facility] Hepatitis C Antibody Nonreactive Nonreactive [facility] Comment:Antibodies to HCV no t detected; does not exclude early acuteHCV infection. Hepatitis B Surface Ag Negative Negative [facility] Blood 03/13/2023 2:36 PM EDT 03/13/2023 4:09 PM EDT Stephanie Garnica Nikhil FABRICATION ENGINEER LAB BLOOD ORDERABLES Final Result Performing Organization Address [facility] Co de Phone Number [facility] [address] [place] [phone] from Last 3 Months or Most Recently Relevant to Health Maintenance Insurance [facility] [employer]FW[employer] OPTIONS (HMO D-SNP) [facility] ST[facility] ADULT Advance Directives Documents on File Type Date Recorded Patient Remote Broadcast Technician Expl anation HealthCare Proxy 12/18/2022 proxy Power of Qualified Craft Worker Electrician 07/21/2023 [facility] Care Teams [facility] Relationship Specialty Start Date End Date Zulema Shah FNP [address] [place] [address] PCP - General Family Medicine 11/04/22 [employer] 04/21/24
--- OUTSIDE RECORDS SUMMARY | 2025-07-25 12:47 | XMS_ITS | Encounter Summary ---
Author Organization [employer] Address [address] [place] [address] Care Team Providers Care Gallery Or Museum Technician Name Role Phone [place] [facility] Primary Care Provider [phone] Reason for Visit * Reason Onset Date Comments Appointment Request 07/28/2023 Encounter Details Date Type Department Care Team ([facility] Contact Info) Description 07/28/2023 Telephone [facility] MEDICINE [address] [place], [place] [phone] [facility] [address] [place] [address] Appointment Request Social History Tobacco Use Types [...] Cadena 05/19. Please contact pt daughter at [phone] documented in this encounter Plan of Treatment Upcoming Encounters Date Type Department Care Team (Late st Contact Info) Description 07/27/2025 3:00 PM EST Telemedicine [facility] MEDICINE [address] [place] [address] [place] [facility] [address] [place] [address] 08/29/2025 11:00 AM EST Nutrition [facility] DIABETES/NUTRITION [address] [place] [address] Debbie Garner, RD [address] [place] [address] documented as of this encounter Visit Diagnoses Not on filedocumented in this encounter Additional Health Concerns Assessment Noted Time PHQ-9 Depression Total Score: 0 12/25/19 23 10:53 AM EDT documented as of this encounter Care Teams Gallery Or Museum Technician Relationship Specialty Start Date End Date [place] Zulema [facility] [address] [place] [address] PCP - General Family Medicine 11/04/22 [employer] 04/21/24 documented as of this encounter
== END 2025-07-25 10:18 | disposition home or self-care (01) ==
LOC: HO.MRI 10:17
PROVIDERS: PCP Registered Nurse; Visit Provider Registered Nurse
DX: F03.918 Unspecified dementia, unspecified severity, with other behavioral disturbance (principal)
CPT/HCPCS: 70551